=== PATIENT | female | born 1965 | race Caucasian/White ===

== ENCOUNTER 2017-01-01 22:57 | Inpatient (IN) ==
[2017-01-02] MEDS ORDERED: 0.9 % Sodium Chloride 1,000 ML IVC ONE (00:12)
[2017-01-02] MEDS ORDERED: Ondansetron ODT 4 MG TAB.RAPDIS SL ONE (00:12)
[2017-01-02 00:19] LABS: Basophils % 0.1 %; Eosinophils # 0.1 K/mcL (0.0-0.6); Eosinophils % 0.5 %; Hematocrit 28.7 % (35.3-44.9); Hemoglobin 10.3 g/dL (11.5-15.4); Immature Granulocytes % 0.9 % (0-4); Lymphocytes # 2.1 K/mcL (0.6-4.6); Lymphocytes % 10.7 %; Mean Corpuscular HGB Conc 35.9 g/dL (31.6-35.5); Mean Corpuscular Hemoglobin 31.3 pg (28.0-33.3); Mean Corpuscular Volume 87.2 fL (83.0-100.0); Monocytes # 1.4 K/mcL (0.0-1.3); Monocytes % 6.9 %; Neutrophils # 16.2 K/mcL (1.6-8.9); Platelet Count 473 K/mcL (140-400); Red Blood Count 3.29 M/mcL (3.82-4.97); Red Cell Distribution Width 15.8 % (11.5-14.5); Segmented Neutrophils % 80.9 %
[2017-01-02 00:26] LABS: Bilirubin,Urine Small (Negative); Blood,Urine Moderate (Negative); Clarity,Urine Clear (Clear); Color,Urine Yellow (Yellow); Glucose,Urine (UA) Normal (Normal); Ketones,Urine Negative (Negative); Leukocyte Esterase,Urine Trace (Negative); Nitrite,Urine Negative (Negative); PH,Urine 6.5 pH Units (5.0-8.0); Protein,Urine 100 mg/dL (Neg-Trace); Specific Gravity,Urine 1.017 (1.010-1.025); Urobilinogen,Urine Normal (Normal)
[2017-01-02 00:34] LABS: Alanine Aminotransferase 14 Units/L (0-55); Albumin 2.7 g/dL (3.5-5.0); Albumin/Globulin Ratio 0.5 (1.1-2.2); Alkaline Phosphatase 123 Units/L (38-126); Aspartate Amino Transferase 30 Units/L (5-34); BUN/Creatinine Ratio 9 (6-26); Bilirubin,Direct 0.3 mg/dL (0.0-0.5); Bilirubin,Indirect 0.3 mg/dL (0.0-1.2); Bilirubin,Total 0.6 mg/dL (0.2-1.2); Blood Urea Nitrogen 10 mg/dL (7-20); Calcium 9.8 mg/dL (8.6-10.8); Carbon Dioxide 12 mEq/L (19-29); Chloride 110 mEq/L (98-109); Globulin 5.6 g/dL (2.4-3.5); Glucose 112 mg/dL (70-99); Lipase 1134 Units/L (8-78); Osmolality,Calculated 276 (280-300); Sodium 133 mEq/L (136-145); Total Protein 8.3 g/dL (6.0-8.3); eGFR For African Americans > 60 (> 60); eGFR For Non-African Americans 52 (> 60)
[2017-01-02 00:38] LABS: RBC,Urine 15-30 per hpf (0-3)
[2017-01-02 00:39] LABS: Bacteria,Urine Moderate per hpf (None-Few); Potassium 1.9 mEq/L (3.5-4.5); Squamous Epithelial Cell,Urine Many per lpf (None-Few); Yeast,Urine Few per hpf (None Seen)
--- NOTE | 2017-01-02 00:41 | Emergency Department Note ---
Disposition Clinical Impression: Hypokalemia Constipation Qualifiers: Constipation type: unspecified constipation type Qualified Code(s): K59.00 - Constipation, unspecified Diverticulitis Qualifiers: Diverticulitis site: large intestine Diverticulitis bleeding: unspecified bleeding status Diverticulitis complication: without perforation or abscess Qualified Code(s): K57.32 - Diverticulitis of large intestine without perforation or abscess without bleeding Pancreatitis Qualifiers: Chronicity: acute Pancreatitis type: unspecified pancreatitis type Acute pancreatitis complication: no infection or necrosis Qualified Code(s): K85.90 - Acute pancreatitis without necrosis or infection, unspecified Disposition: Admitted As Inpatient Condition: Fair Time of Disposition: 02:06 Abdominal Pain HPI - General Chief Complaint: ED Abdominal Pain Stated Complaint: "Abd Pain/Weakness/Dehydration" Time Seen by Provider: 01/01/17 23:44 Source: patient Nursing Notes Reviewed: Yes Vital Signs Reviewed: Yes - History of Present Illness HPI Narrative: Mrs. Ching, a 51yo female, presents from home for evaluation of abdominal pain, nausea, vomiting. Patient notes she has no appetite, is unable to keep down solids or liquids and vomited back up. Her last bowel movement was sometime between 5 and 10 years ago because she is unable to further detailed timeline. Does have the urge to defecate but simply cannot. Unrelieved with suppository. Has not attempted any other by mouth medication. Abdominal pain is described as sharp and cramping in the left lower quadrant and hypogastrium. She has associated chills with no fever. No dysuria. PMH: Recovering from varicella zoster on right renal nerve V3 distribution. Anxiety, depression, osteoporosis, rheumatoid arthritis. PSH: No history of abdominal surgeries. ROS: Positive: Nausea, vomiting, anorexia, chills, abdominal pain, constipation, weakness Negative: Fever, diarrhea, back pains, dysuria, Pain Scale: 8 - Related Data Home Medications Medication Instructions Recorded Confirmed ALPRAZolam [Xanax 1 MG Tablet] 1 mg PO TID PRN 06/28/15 06/28/15 Celecoxib [Celebrex] 100 mg PO BID 06/28/15 06/28/15 FLUoxetine HCl [PROzac] 20 mg PO BID 06/28/15 06/28/15 HYDROcodone/Acet 10/325 mg [[place] 1 tab PO Q4-6H PRN MDD DO NOT 06/28/15 10-325 mg] EXCEED 5 TABS/24HRS Ibuprofen [Motrin] 800 mg PO Q8HR PRN 06/28/15 06/28/15 Norgestimate-Ethinyl Estradiol 1 tab PO DAILY 06/28/15 06/28/15 [[place] 28 Tablet] Potassium Chloride [K-Tab ER] 10 meq PO DAILY 06/28/15 06/28/15 Zolpidem [Ambien] 5 mg PO HS PRN 06/28/15 06/28/15 Previous Rx's Medication Instructions Recorded Magic Mouthwash [Magic Mouthwash 10 ml PO QID PRN #240 ml 12/06/16 BLM] Allergies Allergy/AdvReac Type Severity Reaction Status Date / Time tramadol Allergy See Verified 12/07/16 10:27 Comments All systems ED: reviewed and negative except as stated. Review of Systems: As Per HPI Abdominal Pain PMH - Past Medical History Medical history: Reports: arthritis, RA, other Female Surgical History: Reports: no surgical history [employer] history: Reports: non-contributory Psychiatric history: Reports: anxiety, depression - Social History Smoking status: Never smoker Alcohol use: Reports: none Drug use: Reports: prescription drug abuse Physical Exam Vital Signs Reviewed General: Patient is alert, oriented, and in moderate distress from her abdominal pain. HEENT: No facial asymmetry. Head is normocephalic and atraumatic. PERRL, EOMI. oral mucosa moist. Trachea midline. Cardiovascular: Heart regular rate and rhythm without clicks, rubs, gallops, or murmurs. No JVD. PMI nondisplaced. No edema. Bilateral radial and posterior tibial pulses 2/4 and equal.. Respiratory: Symmetric chest rise with good respiratory effort. Bilateral breath sounds are clear without wheezing, crackles, or rhonchi. Abdomen: Bowel sounds present normoactive x-4 quadrants. Abdomen is soft, nondistended. Tender in left lower quadrant and hypogastrium. Rebound tenderness. No organomegaly noted. Musculoskeletal: Muscle strength 5/5 and symmetric bilaterally in upper and lower extremities. Psych: Patient's affect is appropriate for situation. - General Limitations: no limitations General appearance: alert, in no apparent distress Course Course Narrative: Patient's presentation is concerning for abdominal pathology determined by physical exam. Will CT abdomen as well as perform a thorough laboratory workup. She denies any for analgesia at this time. Critical lab: Potassium 1.9. Replace potassium 40 mEq by mouth as well as 40 mEq IV on K rider given over 4 hours. Patient also has pancreatitis post on elevated lipase as well as with peripancreatic edema on CT. Unknown source as patient is nonalcoholic, does not have right upper quadrant pain or history of gallstones, and has no history of hyperlipidemia. 01:30 Patient reevaluated. She denies any analgesia. Discussed workup thus far in detail and she agrees for admission for continued evaluation. Assessment: Hypokalemia, pancreatitis, diverticulitis, suspicion for colon cancer I discussed the patient with admitting hospitalist, Dr. España, who agrees to accept the patient. Vital Signs Temperature 99.4 F 01/01/17 23:08 Pulse Rate 59 01/01/17 23:08 Respiratory Rate 18 01/01/17 23:08 Blood Pressure 114/70 01/01/17 23:08 O2 Sat by Pulse Oximetry 96 01/01/17 23:08 Temperature 99.4 F 01/01/17 23:08 Pulse Rate 62 01/02/17 02:13 Respiratory Rate 18 01/02/17 02:13 Blood Pressure 113/68 01/02/17 02:13 O2 Sat by Pulse Oximetry 100 01/02/17 02:13 Oxygen Delivery Oxygen Delivery Room Air Abdominal Pain - Lab Data Lab results reviewed: Yes I reviewed the patient's lab results. Result diagrams: 01/02/17 00:07 01/02/17 00:07 Lab Results 01/02/17 01/02/17 01/02/17 Range/Units 00:07 00:07 00:07 WBC 20.1 H (4.3-11.1) K/mcL RBC 3.29 L (3.82-4.97) M/mcL Hgb 10.3 L (11.5-15.4) g/dL Hct 28.7 L (35.3-44.9) % MCV 87.2 (83.0-100.0) fL MCH 31.3 (28.0-33.3) pg MCHC 35.9 H (31.6-35.5) g/dL RDW 15.8 H (11.5-14.5) % Plt Count 473 H (140-400) K/mcL MPV 10.0 (9.4-12.4) fL Immature Gran % 0.9 (0-4) % Seg Neutrophils % 80.9 % Lymphocytes % 10.7 % Monocytes % 6.9 % Eosinophils % 0.5 % Basophils % 0.1 % Neutrophils # 16.2 H (1.6-8.9) K/mcL Lymphocytes # 2.1 (0.6-4.6) K/mcL Monocytes # 1.4 H (0.0-1.3) K/mcL Eosinophils # 0.1 (0.0-0.6) K/mcL Basophils # 0.0 (0.0-0.2) K/mcL Sodium 133 L (136-145) mEq/L Potassium 1.9 L* (3.5-4.5) mEq/L Chloride 110 H (98-109) mEq/L Carbon Dioxide 12 L (19-29) mEq/L BUN 10 (7-20) mg/dL Creatinine 1.11 (0.57-1.11) mg/dL Est GFR ( Amer) > 60 (> 60) Est GFR (Non-Af Amer) 52 L (> 60) BUN/Creatinine Ratio 9 (6-26) Glucose 112 H (70-99) mg/dL Calculated Osmolality 276 L (280-300) Calcium 9.8 (8.6-10.8) mg/dL Total Bilirubin 0.6 (0.2-1.2) mg/dL Direct Bilirubin 0.3 (0.0-0.5) mg/dL Indirect Bilirubin 0.3 (0.0-1.2) mg/dL AST 30 (5-34) Units/L ALT 14 (0-55) Units/L Alkaline Phosphatase 123 (38-126) Units/L Serum Total Protein 8.3 (6.0-8.3) g/dL Albumin 2.7 L (3.5-5.0) g/dL Globulin 5.6 H (2.4-3.5) g/dL Albumin/Globulin Ratio 0.5 L (1.1-2.2) Lipase 1134 H (8-78) Units/L Ur Specimen Adequacy See below A Urine Color Yellow (Yellow) Urine Clarity Clear (Clear) Urine pH 6.5 (5.0-8.0) pH Units Ur Specific Anton 1.017 (1.010-1.025) Urine Protein 100 H (Neg-Trace) mg/dL Urine Glucose (UA) Normal (Normal) mg/dL Urine Ketones Negative (Negative) mg/dL Urine Blood Moderate H (Negative) Urine Nitrite Negative (Negative) Urine Bilirubin Small H (Negative) Urine Urobilinogen Normal (Normal) mg/dL Ur Leukocyte Esterase Trace H (Negative) Urine Microscopic RBC 15-30 H (0-3) per hpf Urine Microscopic WBC 3-5 H (0-3) per hpf Ur Squamous Epith Cells Many H (None-Few) per lpf Urine Bacteria Moderate H (None-Few) per hpf Hyaline Casts Test Not Performed Urine Yeast Few H (None Seen) per hpf Ur Culture Indicated? YES A (NO) - Radiology Data Radiology results reviewed: Yes I reviewed the patient's radiology results. Chest/Abdomen X-ray 01/02/17 00:12 IMPRESSION: [id number] stool load consistent with constipation. No acute cardiopulmonary disease. Bilateral cervical ribs D/ / Von Toure MD / Von Toure MD Interpreting Provider: Von Toure MD Abdomen/Pelvis CT 01/02/17 00:22 IMPRESSION: Acute pancreatitis with small amount of fluid surrounding the tail. There is appears to be some enhancement along the periphery which may be due to peritoneal inflammation. No walled-off fluid collection identified. There is mild wall thickening and adjacent inflammatory change surrounding the proximal sigmoid. This is nonspecific and may be related to mild diverticulitis. Follow-up recommended as malignancy can have a similar appearance. Moderate stool burden suggestive of constipation. D/ / Rachelle De La Torre MD / Rachelle De La Torre MD Interpreting Provider: Rachelle De La Torre MD Critical Care Time Critical Care Time: Yes Total Critical Care Time: 40 Attestation: Critical care performed: Time is exclusive of separately billable procedures. Time includes: direct patient care, patient reassessment, coordination of patient care, interpretation of data (laboratory data, radiology data, and respiratory data), review of patient's medical records, medical consultation and documentation of patient care. Procedures included in critical care time: Procedures excluded from critical care time: Attestation Statement - Attestation Attestation: I, Truman Lee MD, personally evaluated this patient and discussed their management with the resident physician. I reviewed the resident's note and agree with the documented findings, medical decision making, and plan of care. 51-year-old female presents to the emergency department with a complaint of abdominal pain and nausea and vomiting for one month prior to arrival. Patient developed shingles about one month ago and was admitted to the hospital in [place]. Ever since then she states that she has had nausea and vomiting and abdominal pain. Decreased bowel movements. No fever. No GI bleed symptoms. No UTI symptoms. On examination patient is a well-developed well-nourished well-appearing female in no acute distress. She is alert and oriented 3. There is no cyanosis or diaphoresis. Breath sounds are clear and equal bilaterally. Heart regular rate and rhythm. Abdomen is soft with normal bowel sounds. There is mild to moderate diffuse abdominal tenderness with no guarding or rebound tenderness. No tympany or distention. No obvious organomegaly or masses palpable. Labs reviewed. WBC 20. Potassium 1.9. Lipase 1134. CT of the abdomen and pelvis with IV contrast shows: Acute pancreatitis with small amount of fluid surrounding the tail. There is appears to be some enhancement along the periphery which may be due to peritoneal inflammation. No walled-off fluid collection identified. There is mild wall thickening and adjacent inflammatory change surrounding the proximal sigmoid. This is nonspecific and may be related to mild diverticulitis. Follow-up recommended as malignancy can have a similar appearance. Moderate stool burden suggestive of constipation. The hospitalist, Dr. España, was consulted and accepted admission of the patient.
[2017-01-02] MEDS ORDERED: MetroNIDAZOLE 500 MG/100 ML 500 MG/100 ML BAG IVPB ONE (01:56)
[2017-01-02] MEDS ORDERED: *HR* HYDROmorphone (PF) 1 MG/ML SYRINGE IVP ONE (02:27)
[2017-01-02] MEDS ORDERED: *HR* HYDROmorphone (PF) 1 MG/ML SYRINGE ONE (02:31)
[2017-01-02] MEDS ORDERED: 0.9 % Sodium Chloride 500 ML ONE (03:23)
[2017-01-02] MEDS ORDERED: Naloxone 0.4 MG/ML INJ IVP PRN (03:55)
[2017-01-02] MEDS ORDERED: Acetaminophen 325 MG TABLET PO PRN (03:55)
[2017-01-02] MEDS ORDERED: Sennosides/Docusate Sodium TABLET PO PRN (03:55)
[2017-01-02] MEDS ORDERED: Lactulose Oral Soln 20 GM/30 ML UDC PO ONE (03:55)
--- NOTE | 2017-01-02 04:05 | Internal Med History&Physical ---
<John Howard - Last Filed: 01/02/17 05:44> Date of Encounter: 01/02/17 Time of Encounter: 04:04 Assessment and Plan (1) Pancreatitis Current visit: Yes Status: Acute - As seen on abdominal CT - Possible etiology of immune given reported history of Sjogrens syndrome and RA vs less likely VZV - No reported alcohol abuse aside from a 1 month binge drinking behavior multiple years ago. - AL IgG level pending. - Pain control, NPO, NS Qualifiers: Chronicity: acute Pancreatitis type: unspecified pancreatitis type Acute pancreatitis complication: no infection or necrosis Qualified Code(s): K85.90 - Acute pancreatitis without necrosis or infection, unspecified (2) Hypokalemia Current visit: Yes Status: Acute - K of 1.9 in ED - started 40 mEq in ED - Monitor daily labs and replenish as necessary. Magnesium pending - Possible etiology of vomiting, decreased oral intake. (3) Constipation Current visit: Yes Status: Acute - Moderate amount of stool seen on CT. - Pt states last BM one month ago, however states she is unsure. - Possible opiod side effect given home norco use as well as decreased oral intake. - Miralax, lactulose, enema, and docusate - Monitor for effect given opiod use for pancreatitis pain control. Qualifiers: Constipation type: unspecified constipation type Qualified Code(s): K59.00 - Constipation, unspecified (4) Diverticulitis Current visit: Yes Status: Acute - Abdominal CT showing mild wall thickening and adjacent inflammatory change surrounding the proximal sigmoid. nonspecific and may be related to mild diverticulitis vs malignancy. - No known history of diverticulosis - No reported colonoscopy, history of colon cancer in family - Will need colonoscopy as outpatient. Pt made aware. Qualifiers: Diverticulitis site: large intestine Diverticulitis bleeding: unspecified bleeding status Diverticulitis complication: without perforation or abscess Qualified Code(s): K57.32 - Diverticulitis of large intestine without perforation or abscess without bleeding (5) DVT prophylaxis Current visit: Yes Status: Acute Heparin 5000 units q12 Internal Medicine - H&P: HPI Chief complaint: Abdominal pain Admitted From: Emergency Dept Plans for Post Hospital Care: Home History of present illness: Ms. Ching is a 51 year old female who presents to ED with a complaint of abdominal pain, nausea, vomiting, constipation for the past month. She states that everything started when she was diagnosed with shingles in her right V3 distribution involving her ear and mouth. She states that she was admitted to [facility] and completed her course of acyclovir. She is unsure on the exact timeline, but states she has had epigastric and LLQ abdominal pain. Epigastric pain radiates to the LLQ. She admits to nausea and vomiting intermittently, worsened with meals. She reports about 4 episodes of emesis each day. She reports decreased appetite and also states she hasn't had a bowel movement in the past month either. No reports of hematochezia, hematemasis, melena. Also denies any symptoms of CP, SOB, fevers, chills, diarrhea. She has tried suppositories with no relief of constipation. In the ED, vital signs significant for temp of 99.4. Labs show elevated WBC of 20.1, K of 1.9, Lipase 1134, UA showing WBCs but many epithelial cells. Abdominal CT significant for acute hepatits without biliary stone or blockage, moderate stool. She was given 40 mEq of K in ED. Past Med Surg Social Fam HX - Past Medical History Medical history: arthritis, RA, other (sjogrens syndrome) Psychiatric history: anxiety, depression - Past Surgical History Surgical History: no surgical history - Social History Smoking Status: Never smoker Smokeless Tobacco Status: No Alcohol use: none Drug use: prescription drug abuse - Family History Mother Hx Family Cancer: Yes (leukemia, lung) Internal Medicine - H&P: Meds ALPRAZolam [Xanax 1 MG Tablet] 1 mg PO TID PRN 06/28/15 [History] Celecoxib [Celebrex] 100 mg PO BID 06/28/15 [History] FLUoxetine HCl [PROzac] 20 mg PO BID 06/28/15 [History] HYDROcodone/Acet 10/325 mg [[place] 10-325 mg] 1 tab PO Q4-6H PRN MDD DO NOT EXCEED 5 TABS/24HRS 06/28/15 [History] Ibuprofen [Motrin] 800 mg PO Q8HR PRN 06/28/15 [History] Norgestimate-Ethinyl Estradiol [Mononessa 28 Tablet] 1 tab PO DAILY 06/28/15 [ History] Potassium Chloride [K-Tab ER] 10 meq PO DAILY 06/28/15 [History] Zolpidem [Ambien] 5 mg PO HS PRN 06/28/15 [History] Magic Mouthwash [Magic Mouthwash BLM] 10 ml PO QID PRN #240 ml 12/06/16 [Rx] 3 Allergy/AdvReac Type Severity Reaction Status Date / Time tramadol Allergy See Verified 12/07/16 10:27 Comments All Systems PM: A 10-system review of systems was performed and is negative for pertinent findings except as documented above in the HPI. - Constitutional Constitutional: no chills, no fatigue, no fever(s), no night sweats, no weight gain, no weight loss - EENT Nose, mouth and throat: facial pain - Cardiovascular Cardiovascular ROS IM: no chest pain, no dyspnea, no dyspnea on exertion, no edema - Respiratory Respiratory: no cough, no dyspnea, no dyspnea on exertion - Gastrointestinal Gastrointestinal: abdominal pain, change in bowel habits, constipation, early satiety, nausea, vomiting, no coffee ground emesis, no diarrhea, no hematemesis , no hematochezia, no melena - Genitourinary Genitourinary: no dysuria - Musculoskeletal Musculoskeletal ROS IM: no numbness, no tingling - Integumentary Integumentary IM: as per HPI, no new lesions, no rash - Constitutional Vitals: Temp Pulse Resp BP Pulse Ox 98.1 F 62 16 122/85 99 01/02/17 03:02 01/02/17 03:02 01/02/17 03:02 01/02/17 03:02 01/02/17 03:02 Exam: Gen.: Vitals noted. No acute distress. AAOx3 HEENT: PERRL, oropharynx clear, Normocephalic, atraumatic, dry mucus membranes, healing ulcerative lesion on right jawline. Cardiac: RRR, no murmur, +S1/S2 Pulmonary: CTA bilaterally, no wheezes, rales or rhonchi, equal chest expansion Abdomen: soft ,BS+, tender to palpation diffusely, equal in all quadrants. No rebound tenderness or distention. MSK: no joint swelling noted Extremities: no BLE edema, nontender calf, no cyanosis or clubbing Neuro: A&Ox3, moves all extremities, no focal deficits Psych: Appropriate mood and behavior Internal Med - H&P Results - Labs CBC & Chem 7: 01/02/17 00:07 01/02/17 00:07 <Ian España - Last Filed: 01/02/17 06:24> Date of Encounter: 01/02/17 Internal Medicine - H&P: HPI History of present illness: Ms. Ching is a 51 year old female Past Med Surg Social Fam HX - Additional Family History Additional family history: she suspects that her mother had sjogrens syndrome, paternal grand father had rheumatoid arthritis, her niece of the same age has sjogrens syndrome/SLE overlap All Systems PM: A 10-system review of systems was performed and is negative for pertinent findings except as documented above in the HPI. - Constitutional Vitals: Temp Pulse Resp BP Pulse Ox 98.1 F 62 16 122/85 99 01/02/17 03:02 01/02/17 03:02 01/02/17 03:02 01/02/17 03:02 01/02/17 04:27 herpetic lesions noted on the right side of the face involving the lips Internal Med - H&P Results - Labs CBC & Chem 7: 01/02/17 00:07 01/02/17 04:50 Labs: BMP 01/02/17 04:50 Sodium 136 Potassium 1.8 L* Chloride 115 H Carbon Dioxide 13 L BUN 10 Creatinine 0.92 Glucose 89 Calcium 9.1 - Attending Attestation I personally interviewed and examined this patient and my medical decision- making was reviewed with the Resident Physician. I agree with the documented findings, disposition and treatment plan as described except to the extent set forth below. 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 Ian España MD, MPH Hospitalist
[2017-01-02] MEDS ORDERED: Milk and Molasses Enema 200 ML RC ONE (04:47)
[2017-01-02] MEDS: *HR* Heparin 5,000 UNIT/ML VIAL SQ SCH ×2 (05:01→18:41)
[2017-01-02] MEDS: 0.9 % Sodium Chloride 1,000 ML IVC SCH ×3 (05:02→20:08)
[2017-01-02 05:46] LABS: Basophils % 0.2 %; Eosinophils # 0.1 K/mcL (0.0-0.6); Eosinophils % 0.4 %; Hematocrit 26.6 % (35.3-44.9); Hemoglobin 9.4 g/dL (11.5-15.4); Immature Granulocytes % 0.7 % (0-4); Lymphocytes # 2.3 K/mcL (0.6-4.6); Lymphocytes % 12.8 %; Mean Corpuscular HGB Conc 35.3 g/dL (31.6-35.5); Mean Corpuscular Hemoglobin 31.4 pg (28.0-33.3); Mean Platelet Volume 10.1 fL (9.4-12.4); Monocytes # 1.4 K/mcL (0.0-1.3); Monocytes % 7.6 %; Platelet Count 425 K/mcL (140-400); Red Blood Count 2.99 M/mcL (3.82-4.97); Segmented Neutrophils % 78.3 %
[2017-01-02 06:09] LABS: BUN/Creatinine Ratio 11 (6-26); Blood Urea Nitrogen 10 mg/dL (7-20); Calcium 9.1 mg/dL (8.6-10.8); Carbon Dioxide 13 mEq/L (19-29); Chloride 115 mEq/L (98-109); Chol/HDL Ratio 6.1 (0-4.9); Cholesterol 134 mg/dL (< 200); Glucose 89 mg/dL (70-99); HDL Cholesterol 22 mg/dL (40-59); LDL Cholesterol,Calculated 92 mg/dL (0-99); Magnesium 1.6 mg/dL (1.6-2.6); Osmolality,Calculated 281 (280-300); Sodium 136 mEq/L (136-145); Triglycerides 100 mg/dL (< 150); eGFR For African Americans > 60 (> 60); eGFR For Non-African Americans > 60 (> 60)
[2017-01-02 06:59] LABS: Potassium 1.8 mEq/L (3.5-4.5)
[2017-01-02] MEDS: Ondansetron 4 MG/2 ML VIAL IVP PRN ×2 (07:04→15:21)
[2017-01-02] MEDS: *HR* HYDROmorphone (PF) 1 MG/ML SYRINGE IVP PRN ×2 (07:08→11:41)
[2017-01-02] MEDS: Potassium Chloride Elixir 20 MEQ/15 ML UDC PO SCH ×2 (07:59→20:06)
--- NOTE | 2017-01-02 09:50 | Event Note ---
Date of Encounter: 01/02/17 Time of Encounter: 08:40 Subjectively better. Nausea and pain are improving. Still has no appetite. Had single bowel movement of substantial size; formed, but loose per patient. Pain is still described as epigastric and LLQ. No other complaints at this time. Clarified code status with patient. PE: soft abdomen, tender to epigastrium/LLQ with some guarding, but no rebound/ rigidity/distention. Chief assessments: pancreatitis, constipation/NV, colitis/diverticulitis, and hypokalemia. Continues to by hypokalemic (1.9 this AM). Presently correcting PO and IV; will continue to monitor closely with repeat AM and afternoon labs. Mg++ normal. Gently advancing PO intake. Continue IV Abx (cipro & Flagyl). Continue IVF & analgesia Continue Miralax for constipation
[2017-01-02 10:31] LABS: BUN/Creatinine Ratio 10 (6-26); Blood Urea Nitrogen 9 mg/dL (7-20); Calcium 9.5 mg/dL (8.6-10.8); Carbon Dioxide 13 mEq/L (19-29); Chloride 116 mEq/L (98-109); Glucose 99 mg/dL (70-99); Osmolality,Calculated 283 (280-300); Sodium 137 mEq/L (136-145); eGFR For African Americans > 60 (> 60); eGFR For Non-African Americans > 60 (> 60)
[2017-01-02 10:37] LABS: Potassium 2.2 mEq/L (3.5-4.5)
[2017-01-02] MEDS: valACYclovir 500 MG TABLET PO SCH ×2 (14:11→20:06)
[2017-01-02] MEDS: MetroNIDAZOLE 500 MG/100 ML 500 MG/100 ML BAG IVPB SCH (16:24)
[2017-01-02] MEDS: *HR* HYDROcodone/Acet 5/325 mg TABLET PO PRN (18:49)
[2017-01-02] MEDS: FLUoxetine 20 MG CAPSULE PO SCH (20:07)
[2017-01-02] MEDS ORDERED: Magnesium Sulfate 2 GM in D5% in Water 100 ML IVPB ONE (23:44)
[2017-01-02] MEDS ORDERED: Potassium Chloride 40 MEQ, Lidocaine 1% 2 ML in D5% in Water 500 ML IVPB ONE (23:44)
[2017-01-03] MEDS: 0.9 % Sodium Chloride 1,000 ML IVC SCH ×3 (00:40→21:25)
[2017-01-03] MEDS: MetroNIDAZOLE 500 MG/100 ML 500 MG/100 ML BAG IVPB SCH ×4 (00:40→23:29)
[2017-01-03] MEDS: *HR* HYDROcodone/Acet 5/325 mg TABLET PO PRN ×3 (01:48→14:26)
[2017-01-03] MEDS: *HR* Heparin 5,000 UNIT/ML VIAL SQ SCH ×2 (05:17→20:16)
[2017-01-03 05:28] LABS: Basophils % 0.3 %; Eosinophils # 0.2 K/mcL (0.0-0.6); Hematocrit 21.9 % (35.3-44.9); Immature Granulocytes % 1.1 % (0-4); Lymphocytes # 2.6 K/mcL (0.6-4.6); Lymphocytes % 17.9 %; Mean Corpuscular HGB Conc 34.7 g/dL (31.6-35.5); Mean Corpuscular Hemoglobin 31.1 pg (28.0-33.3); Mean Corpuscular Volume 89.8 fL (83.0-100.0); Mean Platelet Volume 10.1 fL (9.4-12.4); Neutrophils # 10.7 K/mcL (1.6-8.9); Platelet Count 388 K/mcL (140-400); Red Blood Count 2.44 M/mcL (3.82-4.97); Red Cell Distribution Width 16.2 % (11.5-14.5); Segmented Neutrophils % 72.7 %
[2017-01-03 05:29] LABS: Hemoglobin 7.6 g/dL (11.5-15.4)
[2017-01-03 05:41] LABS: Calcium 8.2 mg/dL (8.6-10.8); Carbon Dioxide 11 mEq/L (19-29); Chloride 121 mEq/L (98-109); Glucose 112 mg/dL (70-99); Magnesium 2.2 mg/dL (1.6-2.6); Osmolality,Calculated 280 (280-300); Sodium 136 mEq/L (136-145); eGFR For African Americans > 60 (> 60); eGFR For Non-African Americans > 60 (> 60)
[2017-01-03 05:45] LABS: Potassium 2.4 mEq/L (3.5-4.5)
[2017-01-03 06:09] LABS: BUN/Creatinine Ratio 6 (6-26)
[2017-01-03 06:10] LABS: Blood Urea Nitrogen 5 mg/dL (7-20)
[2017-01-03] MEDS: *HR* HYDROmorphone (PF) 1 MG/ML SYRINGE IVP PRN ×3 (06:51→15:19)
[2017-01-03 08:31] LABS: Magnesium 2.1 mg/dL (1.6-2.6)
[2017-01-03 08:42] LABS: Potassium 2.4 mEq/L (3.5-4.5)
[2017-01-03 09:01] LABS: Phosphorous 0.9 mg/dL (2.3-4.7)
[2017-01-03] MEDS ORDERED: Sodium Phosphate 30 MMOL in D5% in Water 100 ML IVPB ONE (09:05)
[2017-01-03] MEDS: FLUoxetine 20 MG CAPSULE PO SCH ×2 (10:21→20:17)
[2017-01-03] MEDS: Potassium Chloride Elixir 20 MEQ/15 ML UDC PO SCH ×2 (10:22→20:14)
[2017-01-03] MEDS: valACYclovir 500 MG TABLET PO SCH ×3 (10:49→20:17)
[2017-01-03 12:46] LABS: Hematocrit 25.3 % (35.3-44.9); Hemoglobin 8.9 g/dL (11.5-15.4)
[2017-01-03 12:57] LABS: BUN/Creatinine Ratio 6 (6-26); Calcium 8.5 mg/dL (8.6-10.8); Chloride 120 mEq/L (98-109); Glucose 106 mg/dL (70-99); Osmolality,Calculated 280 (280-300); Sodium 136 mEq/L (136-145); eGFR For African Americans > 60 (> 60); eGFR For Non-African Americans > 60 (> 60)
[2017-01-03 12:58] LABS: Blood Urea Nitrogen 5 mg/dL (7-20)
[2017-01-03 13:00] LABS: Carbon Dioxide 10 mEq/L (19-29)
[2017-01-03] MEDS ORDERED: 0.9 % Sodium Chloride 1,000 ML IVC ONE (13:21)
[2017-01-03 14:15] LABS: Basophils # 0.1 K/mcL (0.0-0.2); Basophils % 0.3 %; Eosinophils # 0.2 K/mcL (0.0-0.6); Eosinophils % 0.9 %; Hematocrit 24.4 % (35.3-44.9); Hemoglobin 8.6 g/dL (11.5-15.4); Immature Granulocytes % 1.3 % (0-4); Lymphocytes # 2.2 K/mcL (0.6-4.6); Lymphocytes % 13.5 %; Mean Corpuscular HGB Conc 35.2 g/dL (31.6-35.5); Mean Corpuscular Hemoglobin 31.4 pg (28.0-33.3); Mean Corpuscular Volume 89.1 fL (83.0-100.0); Mean Platelet Volume 9.9 fL (9.4-12.4); Monocytes # 1.1 K/mcL (0.0-1.3); Neutrophils # 12.4 K/mcL (1.6-8.9); Platelet Count 413 K/mcL (140-400); Red Blood Count 2.74 M/mcL (3.82-4.97); Red Cell Distribution Width 16.4 % (11.5-14.5)
[2017-01-03 14:23] LABS: VBG HCO3 11 mEq/L (21-27); VBG PCO2 24 mmHg (41-51); VBG PH 7.25 pH Units (7.32-7.42); VBG PO2 119 mmHg (25-50)
[2017-01-03 14:28] LABS: Alanine Aminotransferase 13 Units/L (0-55); Albumin 2.2 g/dL (3.5-5.0); Albumin/Globulin Ratio 0.5 (1.1-2.2); Alkaline Phosphatase 103 Units/L (38-126); Aspartate Amino Transferase 26 Units/L (5-34); BUN/Creatinine Ratio 6 (6-26); Bilirubin,Total 0.4 mg/dL (0.2-1.2); Calcium 8.4 mg/dL (8.6-10.8); Chloride 121 mEq/L (98-109); Globulin 4.7 g/dL (2.4-3.5); Glucose 99 mg/dL (70-99); Osmolality,Calculated 281 (280-300); Sodium 137 mEq/L (136-145); Total Protein 6.9 g/dL (6.0-8.3); eGFR For African Americans > 60 (> 60); eGFR For Non-African Americans > 60 (> 60)
[2017-01-03 14:35] LABS: Blood Urea Nitrogen 5 mg/dL (7-20)
[2017-01-03 14:36] LABS: Carbon Dioxide 10 mEq/L (19-29)
[2017-01-03] MEDS ORDERED: 0.9 % Sodium Chloride 1,000 ML IVC SCH (15:15)
[2017-01-03 16:16] LABS: BUN/Creatinine Ratio 6 (6-26); Chloride 121 mEq/L (98-109); Glucose 88 mg/dL (70-99); Osmolality,Calculated 281 (280-300); Potassium 2.9 mEq/L (3.5-4.5); Sodium 137 mEq/L (136-145); eGFR For African Americans > 60 (> 60); eGFR For Non-African Americans > 60 (> 60)
[2017-01-03 16:21] LABS: VBG HCO3 11 mEq/L (21-27); VBG PCO2 31 mmHg (41-51); VBG PH 7.14 pH Units (7.32-7.42); VBG PO2 102 mmHg (25-50)
[2017-01-03 16:21] LABS: Blood Urea Nitrogen 5 mg/dL (7-20); Carbon Dioxide 10 mEq/L (19-29)
[2017-01-03] MEDS ORDERED: 0.9 % Sodium Chloride 1,000 ML ONE (16:46)
[2017-01-03] MEDS ORDERED: Ringers Solution, Lactated 1,000 ML IVC SCH (18:15)
[2017-01-03] MEDS: Ondansetron 4 MG/2 ML VIAL IVP PRN (20:16)
[2017-01-03 20:17] LABS: Hematocrit 22.7 % (35.3-44.9); Hemoglobin 8.2 g/dL (11.5-15.4)
[2017-01-03] MEDS: Sodium Bicarbonate 50 MEQ in 0.45 % Sodium Chloride 1,000 ML IVC SCH (21:51)
--- NOTE | 2017-01-03 23:16 | Internal Med Progress Note ---
Date of Encounter: 01/03/17 Time of Encounter: 09:13 - Assessment and plan (1) Pancreatitis Current Visit: Yes Status: Acute Assessment and plan: Continue IVF, keep NPO, Zofran and Dilaudid prn. Check RUQ U/S, delayed today as patient ate breakfast. Denies alcohol abuse. Check triglyceride level. Qualifiers: Chronicity: acute Pancreatitis type: unspecified pancreatitis type Acute pancreatitis complication: no infection or necrosis Qualified Code(s): K85.90 - Acute pancreatitis without necrosis or infection, unspecified (2) Diverticulitis Current Visit: Yes Status: Acute Assessment and plan: Cipro/Flagyl Qualifiers: Diverticulitis site: large intestine Diverticulitis bleeding: unspecified bleeding status Diverticulitis complication: without perforation or abscess Qualified Code(s): K57.32 - Diverticulitis of large intestine without perforation or abscess without bleeding (3) Hypokalemia Current Visit: Yes Status: Acute Assessment and plan: Renal function wnl, magnesium normal, she has no complaints of diarrhea. Likely decreased PO intake Currently being replaced with KCl IVPB, recheck at noon, check ekg (4) Hyperchloremic acidosis Current Visit: Yes Status: Acute Assessment and plan: Recheck BMP at noon, may need to switch IV fluids to 1/2 Normal saline. (5) Hypophosphatemia Current Visit: Yes Status: Acute Assessment and plan: Replace and recheck (6) DVT prophylaxis Current Visit: Yes Status: Acute - Subjective Interval history: Daughter is present at bedside. Patient feels significantly better. Admits abdominal pain still present. Denies fevers/chills, nausea/vomiting. She was scheduled for RUQ ultrasound this AM but patient accidentally ate a meal. - Constitutional Vitals: Temp Pulse Resp BP Pulse Ox 98.2 F 61 16 93/56 100 01/03/17 21:00 01/03/17 22:00 01/03/17 22:00 01/03/17 22:00 01/03/17 22:00 Exam: Gen: NAD HEENT: MM dry, multiple scabs along right side of face without purulence. CVS: RRR, radial pulses 2+ and equal bilaterally Lungs: CTAB Abd: Soft, + mid epigastric tenderness. Non-distended, normoactive bowel sounds. No guarding, no rebound rigidity, no peritoneal signs. Ext: no edema Internal Medicine: Result - Labs CBC & Chem 7: 01/03/17 20:04 01/03/17 15:41 Labs: Short CBC 01/03/17 01/03/17 01/03/17 Range/Units 04:45 12:27 13:53 WBC 14.6 H 16.1 H (4.3-11.1) K/mcL Hgb 7.6 L D 8.9 L 8.6 L (11.5-15.4) g/dL Hct 21.9 L 25.3 L 24.4 L (35.3-44.9) % Plt Count 388 413 H (140-400) K/mcL Neutrophils # 10.7 H 12.4 H (1.6-8.9) K/mcL 01/03/17 Range/Units 20:04 WBC (4.3-11.1) K/mcL Hgb 8.2 L (11.5-15.4) g/dL Hct 22.7 L (35.3-44.9) % Plt Count (140-400) K/mcL Neutrophils # (1.6-8.9) K/mcL BMP 01/02/17 01/03/17 01/03/17 22:58 04:45 08:07 Sodium 136 Potassium 2.4 L* 2.4 L* 2.4 L* Chloride 121 H Carbon Dioxide 11 L BUN 5 L Creatinine 0.80 Glucose 112 H Calcium 8.2 L 01/03/17 01/03/17 01/03/17 12:27 13:53 15:41 Sodium 136 137 137 Potassium 3.0 L 3.0 L 2.9 L Chloride 120 H 121 H 121 H Carbon Dioxide 10 L* 10 L* 10 L* BUN 5 L 5 L 5 L Creatinine 0.83 0.82 0.80 Glucose 106 H 99 88 Calcium 8.5 L 8.4 L 8.0 L Liver Function 01/03/17 Range/Units 13:53 Total Bilirubin 0.4 (0.2-1.2) mg/dL AST 26 (5-34) Units/L ALT 13 (0-55) Units/L Alkaline Phosphatase 103 (38-126) Units/L Albumin 2.2 L (3.5-5.0) g/dL Consult Discharge Plan - Plan Referrals: Rishabh,Chio Sarkar, ERIK [Primary Care Provider] -
[2017-01-04 01:37] LABS: BUN/Creatinine Ratio 7 (6-26); Calcium 7.4 mg/dL (8.6-10.8); Carbon Dioxide 14 mEq/L (19-29); Chloride 125 mEq/L (98-109); Glucose 78 mg/dL (70-99); Magnesium 1.4 mg/dL (1.6-2.6); Osmolality,Calculated 290 (280-300); Potassium 2.9 mEq/L (3.5-4.5); Sodium 142 mEq/L (136-145); eGFR For African Americans > 60 (> 60); eGFR For Non-African Americans > 60 (> 60)
[2017-01-04 01:42] LABS: Blood Urea Nitrogen 5 mg/dL (7-20)
[2017-01-04] MEDS ORDERED: Magnesium Sulfate 2 GM in D5% in Water 100 ML IVPB ONE (02:40)
[2017-01-04] MEDS: *HR* HYDROmorphone (PF) 1 MG/ML SYRINGE IVP PRN ×3 (03:39→16:10)
[2017-01-04 03:53] LABS: Basophils # 0.1 K/mcL (0.0-0.2); Basophils % 0.4 %; Eosinophils # 0.2 K/mcL (0.0-0.6); Eosinophils % 1.4 %; Hematocrit 23.2 % (35.3-44.9); Immature Granulocytes % 1.4 % (0-4); Lymphocytes # 1.9 K/mcL (0.6-4.6); Mean Corpuscular HGB Conc 34.5 g/dL (31.6-35.5); Mean Corpuscular Volume 89.9 fL (83.0-100.0); Mean Platelet Volume 9.8 fL (9.4-12.4); Monocytes # 0.8 K/mcL (0.0-1.3); Monocytes % 6.1 %; Neutrophils # 9.5 K/mcL (1.6-8.9); Platelet Count 428 K/mcL (140-400); Red Blood Count 2.58 M/mcL (3.82-4.97); Red Cell Distribution Width 16.7 % (11.5-14.5); Segmented Neutrophils % 75.7 %
[2017-01-04 03:56] LABS: VBG HCO3 13 mEq/L (21-27); VBG PCO2 28 mmHg (41-51); VBG PH 7.27 pH Units (7.32-7.42); VBG PO2 76 mmHg (25-50)
[2017-01-04 03:57] LABS: BUN/Creatinine Ratio 7 (6-26); Calcium 7.6 mg/dL (8.6-10.8); Carbon Dioxide 12 mEq/L (19-29); Chloride 124 mEq/L (98-109); Glucose 85 mg/dL (70-99); Osmolality,Calculated 293 (280-300); Potassium 2.8 mEq/L (3.5-4.5); Sodium 143 mEq/L (136-145); eGFR For African Americans > 60 (> 60); eGFR For Non-African Americans > 60 (> 60)
[2017-01-04 03:59] LABS: Blood Urea Nitrogen 5 mg/dL (7-20)
[2017-01-04] MEDS: *HR* Heparin 5,000 UNIT/ML VIAL SQ SCH ×2 (05:08→17:38)
[2017-01-04] MEDS ORDERED: Magnesium Sulfate 2 GM in D5% in Water 100 ML IVPB PRN ×2 (06:22→14:25)
[2017-01-04] MEDS ORDERED: Potassium Phosphate 44 MEQ in 0.9 % Sodium Chloride 250 ML IVPB PRN ×2 (06:22→14:25)
[2017-01-04] MEDS ORDERED: Calcium Gluconate 1,000 MG in D5% in Water 100 ML IVPB PRN ×2 (06:22→14:25)
[2017-01-04] MEDS: Sodium Bicarbonate 50 MEQ in 0.45 % Sodium Chloride 1,000 ML IVC SCH (07:24)
[2017-01-04] MEDS: 0.9 % Sodium Chloride 1,000 ML IVC SCH (07:25)
[2017-01-04 09:11] LABS: Ionized Calcium 1.13 mmol/L (1.15-1.35)
[2017-01-04] MEDS: valACYclovir 500 MG TABLET PO SCH ×3 (09:12→20:13)
[2017-01-04] MEDS: FLUoxetine 20 MG CAPSULE PO SCH ×2 (09:12→20:12)
[2017-01-04] MEDS: Potassium Chloride Elixir 20 MEQ/15 ML UDC PO SCH (09:12)
[2017-01-04 09:18] LABS: BUN/Creatinine Ratio 5 (6-26); Calcium 7.7 mg/dL (8.6-10.8); Carbon Dioxide 13 mEq/L (19-29); Chloride 122 mEq/L (98-109); Glucose 87 mg/dL (70-99); Osmolality,Calculated 290 (280-300); Potassium 2.9 mEq/L (3.5-4.5); Sodium 142 mEq/L (136-145); eGFR For African Americans > 60 (> 60); eGFR For Non-African Americans > 60 (> 60)
[2017-01-04 09:19] LABS: Blood Urea Nitrogen 4 mg/dL (7-20); Phosphorous 1.9 mg/dL (2.3-4.7)
[2017-01-04] MEDS: MetroNIDAZOLE 500 MG/100 ML 500 MG/100 ML BAG IVPB SCH ×2 (09:22→17:38)
--- NOTE | 2017-01-04 09:24 | Pulmonology Consult Note ---
<Elizabeth Webb M - Last Filed: 01/04/17 09:52> Date of Encounter: 01/04/17 Medications and Allergies HYDROcodone/Acet 10/325 mg [[place] 10-325 mg] 1 tab PO Q4-6H PRN MDD DO NOT EXCEED 5 TABS/24HRS 06/28/15 [History] Ibuprofen [Motrin] 800 mg PO Q8HR PRN 06/28/15 [History] Norgestimate-Ethinyl Estradiol [Mononessa 28 Tablet] 1 tab PO DAILY 06/28/15 [ History] Potassium Chloride [K-Tab ER] 10 meq PO DAILY 06/28/15 [History] Zolpidem [Ambien] 5 mg PO HS PRN 06/28/15 [History] Cetirizine HCl [All Day Allergy] 10 mg PO DAILY 01/02/17 [History] FLUoxetine HCl [Fluoxetine HCl] 40 mg PO BID 01/02/17 [History] Propranolol [Inderal] 20 mg PO BID 01/02/17 [History] Quetiapine Fumarate [Seroquel] 50 mg PO BID 01/02/17 [History] Quetiapine Fumarate [Seroquel] 100 mg PO HS 01/02/17 [History] hydrOXYzine HCl [Hydroxyzine HCl] 25 mg PO Q8H PRN 01/02/17 [History] valACYclovir [Valtrex] 1,000 mg PO TID 01/02/17 [History] 3 Allergy/AdvReac Type Severity Reaction Status Date / Time tramadol Allergy See Verified 12/07/16 10:27 Comments All Systems: A 10-system review of systems was performed and is negative for pertinent findings except as documented above in the HPI. Physical Examination Vital Signs: Vital Signs, Last 4 Hours Temp Pulse Resp BP Pulse Ox 01/04/17 08:04 98.8 F 01/04/17 07:00 77 22 93/58 100 01/04/17 06:00 64 18 105/56 100 Results - Laboratory Findings CBC and BMP: 01/04/17 03:37 01/04/17 08:58 Abnormal lab findings: Abnormal lab results WBC 12.6 K/mcL (4.3-11.1) H 01/04/17 03:37 RBC 2.58 M/mcL (3.82-4.97) L 01/04/17 03:37 Hgb 8.0 g/dL (11.5-15.4) L 01/04/17 03:37 Hct 23.2 % (35.3-44.9) L 01/04/17 03:37 RDW 16.7 % (11.5-14.5) H 01/04/17 03:37 Plt Count 428 K/mcL (140-400) H 01/04/17 03:37 Neutrophils # 9.5 K/mcL (1.6-8.9) H 01/04/17 03:37 VBG pH 7.27 pH Units (7.32-7.42) L 01/04/17 03:49 VBG pCO2 28 mmHg (41-51) L 01/04/17 03:49 VBG pO2 76 mmHg (25-50) H 01/04/17 03:49 VBG HCO3 13 mEq/L (21-27) L 01/04/17 03:49 Potassium 2.9 mEq/L (3.5-4.5) L 01/04/17 08:58 Chloride 122 mEq/L (98-109) H 01/04/17 08:58 Carbon Dioxide 13 mEq/L (19-29) L 01/04/17 08:58 BUN 4 mg/dL (7-20) L 01/04/17 08:58 BUN/Creatinine Ratio 5 (6-26) L 01/04/17 08:58 Calcium 7.7 mg/dL (8.6-10.8) L 01/04/17 08:58 Ionized Calcium 1.13 mmol/L (1.15-1.35) L 01/04/17 08:58 Phosphorus 1.9 mg/dL (2.3-4.7) L D 01/04/17 08:58 Albumin 2.2 g/dL (3.5-5.0) L 01/03/17 13:53 Globulin 4.7 g/dL (2.4-3.5) H 01/03/17 13:53 Albumin/Globulin Ratio 0.5 (1.1-2.2) L 01/03/17 13:53 HDL Cholesterol 22 mg/dL (40-59) L 01/02/17 04:50 Cholesterol/HDL Ratio 6.1 (0-4.9) H 01/02/17 04:50 Lipase 1134 Units/L (8-78) H 01/02/17 00:07 Ur Specimen Adequacy See below A 01/02/17 00:07 Urine Protein 100 mg/dL (Neg-Trace) H 01/02/17 00:07 Urine Blood Moderate (Negative) H 01/02/17 00:07 Urine Bilirubin Small (Negative) H 01/02/17 00:07 Ur Leukocyte Esterase Trace (Negative) H 01/02/17 00:07 Urine Microscopic RBC 15-30 per hpf (0-3) H 01/02/17 00:07 Urine Microscopic WBC 3-5 per hpf (0-3) H 01/02/17 00:07 Ur Squamous Epith Cells Many per lpf (None-Few) H 01/02/17 00:07 Urine Bacteria Moderate per hpf (None-Few) H 01/02/17 00:07 Urine Yeast Few per hpf (None Seen) H 01/02/17 00:07 Ur Culture Indicated? YES (NO) A 01/02/17 00:07 - Clinical Findings Intake & Output: Intake & Output 01/03/17 01/04/17 01/04/17 23:59 07:59 15:59 Intake Total 750 / 750 1813 / 1813 Output Total 250 / 250 600 / 600 Balance 500 / 500 1213 / 1213 Weight 74.8 kg Consult Discharge Plan - Plan Referrals: Chio Keating CNP [Primary Care Provider] - - Attending Attestation I examined this patient and my medical decision-making was reviewed with the Resident Physician. I agree with the documented findings, disposition and treatment plan as described except to the extent set forth below. Patient seen and examined. Labs, radiology, chart personally reviewed. 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 Patient has been having abdominal pain and she is nothing by mouth for ultrasound. Continue supportive care and she will need GI follow-up. Heme: DVT prophylaxis per routine ID: Continue antibiotics and plan to de-escalation Renal; urine out put and renal funtion reviewed. Patient has been having significant hypokalemia and patient needs to be on electrolyte protocol with aggressively replacing Electrolyte. Patient Is on Bicarbonate Drip Which I Will Stop It Because of Hypokalemia and Have Fluid with Potassium in It. Endorcine: blood glucose is monitored Lines: all lines checked and no evidence of infections Skin: skin care to prevent pressure ulcers per nursing routine care Patient hemodynamically stable to be transferred to [facility]. and thank you very much for consultation. <Annita Murray - Last Filed: 01/04/17 13:27> Date of Encounter: 01/04/17 Time of Encounter: 09:24 Assessment and Plan (1) Hypokalemia Current Visit: Yes Status: Acute We have d/c Bicarb drip, to prohibit further lowering of K Currently on 1 L of D5W/40 meq K , and will switch to LR Recheck K with BMP this afternoon (2) Diverticulitis Current Visit: Yes Status: Acute CT demonstrated mild wall thickening and adjacent inflammatory change surrounding the proximal sigmoid, which is nonspecific and may be related to mild diverticulitis. Continue fluids and medical management Qualifiers: Diverticulitis site: large intestine Diverticulitis bleeding: unspecified bleeding status Diverticulitis complication: without perforation or abscess Qualified Code(s): K57.32 - Diverticulitis of large intestine without perforation or abscess without bleeding (3) Pancreatitis Current Visit: Yes Status: Acute Clinically patient's status has improved: BIPAP Score 0, suggestive < 1 % risk of mortality HAPS SCORE - No peritonitis signs on PE this AM - Creatinine < 2 mg/ dL - Hemotcrit < 39.6% - U/S gallbladder pending, NPO - Patient may use ice chips while on NPO to keep oral mucosa moist, given history of Sjogren's Patient stable to be transferred from ICU Qualifiers: Chronicity: acute Pancreatitis type: unspecified pancreatitis type Acute pancreatitis complication: no infection or necrosis Qualified Code(s): K85.90 - Acute pancreatitis without necrosis or infection, unspecified (4) Hypophosphatemia Current Visit: Yes Status: Acute Electrolyte protocol orders in place Replete as needed (5) Anxiety disorder Current Visit: No Status: Chronic Continue Home Medications Qualifiers: Anxiety disorder type: unspecified anxiety disorder Qualified Code(s): F41.9 - Anxiety disorder, unspecified (6) Herpes zoster Current Visit: Yes Status: Resolved Diagnosis in past month, is status post full course of acyclovir treatment Distribution in right V3 distribution involving her ear and mouth Continue Valacylovir Qualifiers: Herpes zoster complications: unspecified herpes zoster complication Qualified Code(s): B02.8 - Zoster with other complications (7) DVT prophylaxis Current Visit: Yes Status: Acute SCD compression History of Present Illness Consult date: 01/04/17 Requesting physician: Alejo Pendleton Reason for consult: other (Metabolic Acidosis) Chief complaint: Acute Pancreatitis History of present illness: Ms. Ching is a 51 year old female who presents to ED with a complaint of abdominal pain, nausea, vomiting, constipation for the past month concomitant with a diagnosis of shingles in her right V3 distribution involving her ear and mouth, she is now s/p acyclovir. In the ED, vital signs significant for temp of 99.4. Labs show elevated WBC of 20.1, K of 1.9, Lipase 1134, UA showing WBCs but many epithelial cells. Abdominal CT demonstrated acute pancreatitis with small amount of fluid surrounding the tail. There appears to be some enhancement along the periphery which may be due to peritoneal inflammation. Past Med Surg Social Fam HX - Past Medical History Medical history: arthritis, RA, other (sjogrens syndrome) Psychiatric history: anxiety, depression - Past Surgical History Surgical History: no surgical history - Social History Smoking Status: Never smoker Smokeless Tobacco Status: No Alcohol use: none Drug use: prescription drug abuse - Family History Mother Hx Family Cancer: Yes (leukemia, lung) All Systems: A 10-system review of systems was performed and is negative for pertinent findings except as documented above in the HPI. - Constitutional Constitutional: no anorexia - Cardiovascular Cardiovascular: no chest pain - Respiratory Respiratory: no cough - Gastrointestinal Gastrointestinal: no abdominal pain - Musculoskeletal Musculoskeletal: no weakness Physical Examination Vital Signs: Vital Signs, Last 4 Hours Temp Pulse Resp BP Pulse Ox 01/04/17 08:04 98.8 F 01/04/17 07:00 77 22 93/58 100 01/04/17 06:00 64 18 105/56 100 General appearance: no acute distress Eyes: nonicteric ENT: oropharynx dry Neck: supple Effort: normal Auscultation: bilateral: clear Cardiovascular: regular rate and rhythm Gastrointestinal: normoactive bowel sounds, soft, non-distended, other (no rebound tenderess ) Integumentary: other (healing lesions in distribution of V3) Extremities: no edema non-focal exam mood appropriate Results - Laboratory Findings CBC and BMP: 01/04/17 03:37 01/04/17 08:58 Abnormal lab findings: Abnormal lab results WBC 12.6 K/mcL (4.3-11.1) H 01/04/17 03:37 RBC 2.58 M/mcL (3.82-4.97) L 01/04/17 03:37 Hgb 8.0 g/dL (11.5-15.4) L 01/04/17 03:37 Hct 23.2 % (35.3-44.9) L 01/04/17 03:37 RDW 16.7 % (11.5-14.5) H 01/04/17 03:37 Plt Count 428 K/mcL (140-400) H 01/04/17 03:37 Neutrophils # 9.5 K/mcL (1.6-8.9) H 01/04/17 03:37 VBG pH 7.27 pH Units (7.32-7.42) L 01/04/17 03:49 VBG pCO2 28 mmHg (41-51) L 01/04/17 03:49 VBG pO2 76 mmHg (25-50) H 01/04/17 03:49 VBG HCO3 13 mEq/L (21-27) L 01/04/17 03:49 Potassium 2.9 mEq/L (3.5-4.5) L 01/04/17 08:58 Chloride 122 mEq/L (98-109) H 01/04/17 08:58 Carbon Dioxide 13 mEq/L (19-29) L 01/04/17 08:58 BUN 4 mg/dL (7-20) L 01/04/17 08:58 BUN/Creatinine Ratio 5 (6-26) L 01/04/17 08:58 Calcium 7.7 mg/dL (8.6-10.8) L 01/04/17 08:58 Ionized Calcium 1.13 mmol/L (1.15-1.35) L 01/04/17 08:58 Phosphorus 1.9 mg/dL (2.3-4.7) L D 01/04/17 08:58 Albumin 2.2 g/dL (3.5-5.0) L 01/03/17 13:53 Globulin 4.7 g/dL (2.4-3.5) H 01/03/17 13:53 Albumin/Globulin Ratio 0.5 (1.1-2.2) L 01/03/17 13:53 HDL Cholesterol 22 mg/dL (40-59) L 01/02/17 04:50 Cholesterol/HDL Ratio 6.1 (0-4.9) H 01/02/17 04:50 Lipase 1134 Units/L (8-78) H 01/02/17 00:07 Ur Specimen Adequacy See below A 01/02/17 00:07 Urine Protein 100 mg/dL (Neg-Trace) H 01/02/17 00:07 Urine Blood Moderate (Negative) H 01/02/17 00:07 Urine Bilirubin Small (Negative) H 01/02/17 00:07 Ur Leukocyte Esterase Trace (Negative) H 01/02/17 00:07 Urine Microscopic RBC 15-30 per hpf (0-3) H 01/02/17 00:07 Urine Microscopic WBC 3-5 per hpf (0-3) H 01/02/17 00:07 Ur Squamous Epith Cells Many per lpf (None-Few) H 01/02/17 00:07 Urine Bacteria Moderate per hpf (None-Few) H 01/02/17 00:07 Urine Yeast Few per hpf (None Seen) H 01/02/17 00:07 Ur Culture Indicated? YES (NO) A 01/02/17 00:07 - Clinical Findings Intake & Output: Intake & Output 01/03/17 01/04/17 01/04/17 23:59 07:59 15:59 Intake Total 750 / 750 1813 / 1813 Output Total 250 / 250 600 / 600 Balance 500 / 500 1213 / 1213 Weight 74.8 kg
[2017-01-04] MEDS ORDERED: Potassium Chloride 40 MEQ in D5% in 0.9% NACL 1,000 ML IVC SCH ×2 (09:30→14:25)
[2017-01-04] MEDS ORDERED: Ringers Solution, Lactated 1,000 ML IVC SCH (13:30)
[2017-01-04] MEDS ORDERED: Naloxone 0.4 MG/ML INJ IVP PRN (14:25)
[2017-01-04] MEDS ORDERED: Ondansetron 4 MG/2 ML VIAL IVP PRN (14:25)
[2017-01-04] MEDS ORDERED: Sennosides/Docusate Sodium TABLET PO PRN (14:25)
[2017-01-04] MEDS ORDERED: hydrOXYzine pamoate 25 MG CAPSULE PO PRN (14:25)
[2017-01-04] MEDS ORDERED: Acetaminophen 325 MG TABLET PO PRN (14:25)
[2017-01-04] MEDS: Meropenem 1,000 MG in 0.9 % Sodium Chloride Mini Bag 100 ML IVPB SCH (20:12)
[2017-01-04] MEDS ORDERED: Meropenem 1,000 MG in 0.9 % Sodium Chloride Mini Bag 100 ML IVPB SCH (21:00)
[2017-01-04] MEDS: Ringers Solution, Lactated 1,000 ML IVC SCH (22:00)
[2017-01-05] MEDS: MetroNIDAZOLE 500 MG/100 ML 500 MG/100 ML BAG IVPB SCH ×4 (00:43→23:13)
[2017-01-05 01:07] LABS: BUN/Creatinine Ratio 6 (6-26); Blood Urea Nitrogen 4 mg/dL (7-20); Calcium 7.8 mg/dL (8.6-10.8); Carbon Dioxide 13 mEq/L (19-29); Chloride 122 mEq/L (98-109); Glucose 85 mg/dL (70-99); Osmolality,Calculated 288 (280-300); Potassium 2.8 mEq/L (3.5-4.5); Sodium 141 mEq/L (136-145); eGFR For African Americans > 60 (> 60); eGFR For Non-African Americans > 60 (> 60)
[2017-01-05 01:55] LABS: Phosphorous 2.7 mg/dL (2.3-4.7)
[2017-01-05 03:46] LABS: Basophils % 0.3 %; Eosinophils # 0.2 K/mcL (0.0-0.6); Eosinophils % 1.6 %; Hemoglobin 7.2 g/dL (11.5-15.4); Immature Granulocytes % 0.9 % (0-4); Lymphocytes # 2.4 K/mcL (0.6-4.6); Lymphocytes % 20.6 %; Mean Corpuscular HGB Conc 34.3 g/dL (31.6-35.5); Mean Corpuscular Hemoglobin 30.6 pg (28.0-33.3); Mean Corpuscular Volume 89.4 fL (83.0-100.0); Mean Platelet Volume 9.9 fL (9.4-12.4); Monocytes # 0.7 K/mcL (0.0-1.3); Monocytes % 6.1 %; Neutrophils # 8.1 K/mcL (1.6-8.9); Platelet Count 390 K/mcL (140-400); Red Blood Count 2.35 M/mcL (3.82-4.97); Segmented Neutrophils % 70.5 %
[2017-01-05 03:59] LABS: BUN/Creatinine Ratio 4 (6-26); Calcium 7.8 mg/dL (8.6-10.8); Carbon Dioxide 14 mEq/L (19-29); Chloride 123 mEq/L (98-109); Glucose 80 mg/dL (70-99); Osmolality,Calculated 292 (280-300); Potassium 2.8 mEq/L (3.5-4.5); Sodium 143 mEq/L (136-145); eGFR For African Americans > 60 (> 60); eGFR For Non-African Americans > 60 (> 60)
[2017-01-05 04:00] LABS: Blood Urea Nitrogen 3 mg/dL (7-20)
[2017-01-05] MEDS: Meropenem 1,000 MG in 0.9 % Sodium Chloride Mini Bag 100 ML IVPB SCH ×3 (04:32→20:27)
[2017-01-05] MEDS: *HR* Heparin 5,000 UNIT/ML VIAL SQ SCH ×2 (04:34→16:44)
[2017-01-05] MEDS: Loratadine 10 MG TABLET PO SCH (09:01)
[2017-01-05] MEDS: FLUoxetine 20 MG CAPSULE PO SCH ×2 (09:01→20:28)
[2017-01-05] MEDS: NORGESTIMATE ETHINYL ESTRADIOL PO SCH (09:02)
[2017-01-05] MEDS: valACYclovir 500 MG TABLET PO SCH ×3 (09:02→20:28)
[2017-01-05] MEDS: Ringers Solution, Lactated 1,000 ML IVC SCH (09:18)
[2017-01-05] MEDS: *HR* HYDROmorphone (PF) 1 MG/ML SYRINGE IVP PRN ×3 (09:36→18:02)
[2017-01-05 09:40] LABS: BUN/Creatinine Ratio 6 (6-26); Calcium 8.2 mg/dL (8.6-10.8); Carbon Dioxide 13 mEq/L (19-29); Chloride 121 mEq/L (98-109); Glucose 84 mg/dL (70-99); Osmolality,Calculated 290 (280-300); Potassium 2.8 mEq/L (3.5-4.5); Sodium 142 mEq/L (136-145); eGFR For African Americans > 60 (> 60); eGFR For Non-African Americans > 60 (> 60)
[2017-01-05 09:41] LABS: Blood Urea Nitrogen 4 mg/dL (7-20)
[2017-01-05 10:01] LABS: ANA IgG by ELISA DETECTED (None Detected)
[2017-01-05 14:08] LABS: Hematocrit 22.8 % (35.3-44.9); Hemoglobin 7.8 g/dL (11.5-15.4)
[2017-01-05 14:17] LABS: Magnesium 1.6 mg/dL (1.6-2.6); Phosphorous 3.4 mg/dL (2.3-4.7)
[2017-01-05] MEDS: Artificial Tears SOLN 15 ML BOTTLE BOTH EYES SCH ×3 (15:09→20:29)
[2017-01-05] MEDS: D5% in 0.45% NACL w KCl 10 MEQ/1,000 ML MLS IVC SCH (16:42)
--- NOTE | 2017-01-05 17:06 | Electrocardiograph Report ---
[address] [place] [address] Test Date: 2017-01-03 Pat Name: Ana Ching Department: 115 Room: 2N10 Gender: F Senior Analyst: CAROL : 1965 Requested By: Lincoln Pendleton Order Number: [id number] Reading MD: Julisa Rucker Measurements Intervals [place] Rate: 62 P: 57 [place]: 151 QRS: 38 QRSD: 97 T: 29 QT: 467 QTc: 473 Interpretive Statements SINUS RHYTHM ST DEVIATION AND MODERATE T-WAVE ABNORMALITY, CONSIDER ANTEROLATERAL ISCHEMIA Electronically Signed On 01-05-2017 17:04:42 EDT by Julisa Rucker
--- NOTE | 2017-01-05 19:42 | Internal Med Progress Note ---
Date of Encounter: 01/05/17 Time of Encounter: 11:03 - Assessment and plan (1) Acute gallstone pancreatitis Current Visit: Yes Status: Acute Assessment and plan: CT Abdomen/Pelvis was negative for stones. A RUQ ultrasound was delayed after patient ate a meal, but came back positive for cholelithiasis without GBW thickening and had negative Bob's sign on U/S. - Consult Surgery in AM - Keep NPO for now - Continue supportive care with IVF Chloride has remained elevated, will switch to 1/2NS for now and recheck BMP in AM. (2) Diverticulitis Current Visit: Yes Status: Acute Assessment and plan: On Flagyl. Qualifiers: Diverticulitis site: large intestine Diverticulitis bleeding: unspecified bleeding status Diverticulitis complication: without perforation or abscess Qualified Code(s): K57.32 - Diverticulitis of large intestine without perforation or abscess without bleeding (3) Hypokalemia Current Visit: Yes Status: Acute (4) Hyperchloremic acidosis Current Visit: Yes Status: Acute (5) Hypophosphatemia Current Visit: Yes Status: Acute (6) DVT prophylaxis Current Visit: Yes Status: Acute - Subjective Interval history: No complaints. Abdominal pain minimal, no n/v, diarrhea/constipation, fevers/ chills. - Constitutional Vitals: Temp Pulse Resp BP Pulse Ox 97.6 F 55 15 113/69 99 01/05/17 15:32 01/05/17 15:32 01/05/17 15:32 01/05/17 15:32 01/05/17 17:26 Exam: Gen: NAD, AAOx3 HEENT: MMM, crusted lesions of right perioral region now with bandages. CVS: RRR Lungs: CTAB Abd: soft, +TTP mid epigastric region, no guarding, no rebound tenderness, normal bowel sounds. Ext: no edema Internal Medicine: Result - Labs CBC & Chem 7: 01/05/17 13:50 01/05/17 13:50 Labs: Short CBC 01/05/17 01/05/17 Range/Units 03:04 13:50 WBC 11.6 H (4.3-11.1) K/mcL Hgb 7.2 L 7.8 L (11.5-15.4) g/dL Hct 21.0 L 22.8 L (35.3-44.9) % Plt Count 390 (140-400) K/mcL Neutrophils # 8.1 (1.6-8.9) K/mcL BMP 01/05/17 01/05/17 01/05/17 00:12 03:04 08:53 Sodium 141 143 142 Potassium 2.8 L 2.8 L 2.8 L Chloride 122 H 123 H 121 H Carbon Dioxide 13 L 14 L 13 L BUN 4 L 3 L 4 L Creatinine 0.68 0.68 0.72 Glucose 85 80 84 Calcium 7.8 L 7.8 L 8.2 L 01/05/17 13:50 Sodium Potassium 3.0 L Chloride Carbon Dioxide BUN Creatinine Glucose Calcium - VTE Documentation of Mechanical Device: Intermittent pneumatic compression device Consult Discharge Plan - Plan Referrals: Chio Keating CNP [Primary Care Provider] - (SENT WEB RQUEST ON 01-05-17 @ 0955)
[2017-01-06] MEDS: D5% in 0.45% NACL w KCl 10 MEQ/1,000 ML MLS IVC SCH ×2 (04:22→15:51)
[2017-01-06] MEDS: Meropenem 1,000 MG in 0.9 % Sodium Chloride Mini Bag 100 ML IVPB SCH ×2 (05:05→13:55)
[2017-01-06] MEDS: *HR* Heparin 5,000 UNIT/ML VIAL SQ SCH ×2 (05:06→17:38)
[2017-01-06 06:12] LABS: Basophils % 0.5 %; Eosinophils # 0.2 K/mcL (0.0-0.6); Eosinophils % 2.6 %; Hematocrit 22.1 % (35.3-44.9); Hemoglobin 7.6 g/dL (11.5-15.4); Immature Granulocytes % 0.9 % (0-4); Lymphocytes # 1.7 K/mcL (0.6-4.6); Lymphocytes % 19.9 %; Mean Corpuscular HGB Conc 34.4 g/dL (31.6-35.5); Mean Corpuscular Hemoglobin 31.9 pg (28.0-33.3); Mean Corpuscular Volume 92.9 fL (83.0-100.0); Mean Platelet Volume 9.8 fL (9.4-12.4); Monocytes # 0.5 K/mcL (0.0-1.3); Monocytes % 6.1 %; Nucleated Red Blood Cells 0.2 /100 WBC (0); Platelet Count 423 K/mcL (140-400); Red Blood Count 2.38 M/mcL (3.82-4.97); Red Cell Distribution Width 17.7 % (11.5-14.5)
[2017-01-06 06:23] LABS: BUN/Creatinine Ratio 7 (6-26); Carbon Dioxide 14 mEq/L (19-29); Chloride 122 mEq/L (98-109); Glucose 86 mg/dL (70-99); Osmolality,Calculated 291 (280-300); Potassium 2.9 mEq/L (3.5-4.5); Sodium 142 mEq/L (136-145); eGFR For African Americans > 60 (> 60); eGFR For Non-African Americans > 60 (> 60)
[2017-01-06 06:25] LABS: Blood Urea Nitrogen 5 mg/dL (7-20)
[2017-01-06] MEDS: *HR* HYDROmorphone (PF) 1 MG/ML SYRINGE IVP PRN ×4 (06:50→20:13)
[2017-01-06] MEDS: Loratadine 10 MG TABLET PO SCH (08:19)
[2017-01-06] MEDS: valACYclovir 500 MG TABLET PO SCH ×3 (08:19→20:13)
[2017-01-06] MEDS: FLUoxetine 20 MG CAPSULE PO SCH ×2 (08:20→20:12)
[2017-01-06] MEDS: NORGESTIMATE ETHINYL ESTRADIOL PO SCH (08:21)
[2017-01-06] MEDS: MetroNIDAZOLE 500 MG/100 ML 500 MG/100 ML BAG IVPB SCH (08:21)
[2017-01-06] MEDS: Artificial Tears SOLN 15 ML BOTTLE BOTH EYES SCH ×4 (08:36→20:13)
--- NOTE | 2017-01-06 09:51 | Internal Med Progress Note ---
<Peterson Spangler - Last Filed: 01/06/17 15:45> Date of Encounter: 01/06/17 Time of Encounter: 08:30 - Assessment and plan (1) Acute gallstone pancreatitis Current Visit: Yes Status: Acute Assessment and plan: CT Abdomen/Pelvis was negative for stones. A RUQ ultrasound was delayed after patient ate a meal, but came back positive for cholelithiasis without GBW thickening and had negative Bob's sign on U/S. Dr. Gordon consulted, patient lipase 134 (1134), will see pt, will likely wait for further drop of lipase prior to surgical intervention (likely out-patient) PT NPO for 12 hours as of 1000 Continue supportive care with IVF (2) Hyperchloremic acidosis Current Visit: Yes Status: Acute Assessment and plan: Chloride remains elevated 122 (121), switched to d5% 1/2 Normal saline. (3) Diverticulitis Current Visit: Yes Status: Acute Assessment and plan: Pt switched to Cipro/Meropenem Will monitor. Qualifiers: Diverticulitis site: large intestine Diverticulitis bleeding: unspecified bleeding status Diverticulitis complication: without perforation or abscess Qualified Code(s): K57.32 - Diverticulitis of large intestine without perforation or abscess without bleeding (4) Hypokalemia Current Visit: Yes Status: Acute Assessment and plan: Renal function wnl, magnesium normal, she has no complaints of diarrhea. Likely decreased PO intake Currently being replaced with KCl IVPB. (5) Hypophosphatemia Current Visit: Yes Status: Acute Assessment and plan: Replaced, WNL, monitoring. (6) DVT prophylaxis Current Visit: Yes Status: Acute Assessment and plan: On 5000U sq q12 - Subjective Interval history: Patient sitting comfortably, no complaints. No nausea/vomiting, mild epigastric abdominal pain; no fever, dyspnea, calf pain. - Constitutional Vitals: Temp Pulse Resp BP Pulse Ox 98.1 F 58 18 94/69 95 01/06/17 03:16 01/06/17 03:16 01/06/17 03:16 01/06/17 03:16 01/06/17 07:59 General appearance: Present: A&O X 3, no acute distress - Respiratory Respiratory exam: Present: CTAB. Absent: rhonchi, wheezes - Cardiovascular Cardiovascular exam: Present: RRR, +S1, +S2 - GI/Abdominal GI/Abdominal exam: Present: no peritoneal signs. Absent: rebound, tenderness Additional comments: negative Bob's - Extremities Exam Extremities exam: Present: normal capillary refill. Absent: calf tenderness Internal Medicine: Result - Labs CBC & Chem 7: 01/06/17 05:05 01/06/17 12:47 Labs: Short CBC 01/05/17 01/06/17 Range/Units 13:50 05:05 WBC 8.6 (4.3-11.1) K/mcL Hgb 7.8 L 7.6 L (11.5-15.4) g/dL Hct 22.8 L 22.1 L (35.3-44.9) % Plt Count 423 H (140-400) K/mcL Neutrophils # 6.0 (1.6-8.9) K/mcL BMP 01/05/17 01/06/17 13:50 05:05 Sodium 142 Potassium 3.0 L 2.9 L Chloride 122 H Carbon Dioxide 14 L BUN 5 L Creatinine 0.73 Glucose 86 Calcium 8.0 L - VTE Documentation of Mechanical Device: Intermittent pneumatic compression device Consult Discharge Plan - Plan Referrals: Chio Keating SAP MOBILITY ARCHITECT [Primary Care Provider] - (SENT WEB InNetworkT ON 01-05-17 @ 3901) <Jose Prabhakar - Last Filed: 01/06/17 18:34> Date of Encounter: 01/06/17 - Constitutional Vitals: Temp Pulse Resp BP Pulse Ox 97.7 F 49 16 93/63 96 01/06/17 16:06 01/06/17 16:06 01/06/17 17:10 01/06/17 17:10 01/06/17 17:10 Internal Medicine: Result - Labs CBC & Chem 7: 01/06/17 05:05 01/06/17 12:47 Labs: Short CBC 01/06/17 Range/Units 05:05 WBC 8.6 (4.3-11.1) K/mcL Hgb 7.6 L (11.5-15.4) g/dL Hct 22.1 L (35.3-44.9) % Plt Count 423 H (140-400) K/mcL Neutrophils # 6.0 (1.6-8.9) K/mcL BMP 01/06/17 01/06/17 01/06/17 05:05 09:24 12:47 Sodium 142 140 Potassium 2.9 L 3.1 L 3.3 L Chloride 122 H 120 H Carbon Dioxide 14 L 14 L BUN 5 L 5 L Creatinine 0.73 0.74 Glucose 86 84 Calcium 8.0 L 8.1 L - Attending Attestation I examined this patient and my medical decision-making was reviewed with the Resident Physician. I agree with the documented findings, disposition and treatment plan as described except to the extent set forth below. Ms. Ching is a 51 year old female with significant past surgical history of Sjogren's, rheumatoid arthritis and recently treated for shingles outbreak on her right side of her face was admitted on 01/02/2017 with acute pancreatitis, acute diverticulitis and severe nausea and vomiting. Pt states she is feeling better today. Denied any CP / SOB. Her abd pain also resolved completely. Gen: A, A, O x3 Chest : diminished BS b/l basal region, no crackles Abd: Soft, NT, BS+ Ext: No edema, pulses + a/p 1. Acute pancreatitis - due to cholelithiasis Improving cont symptomatic and supportive care Reviewed CT of abd- no signs of pancreatic necrosis will consult GI for further eval...also consider to check MRCP after GI eval 2. Acute diverticulitis Switched to PO Flagyl 3. Acute severe hypercholremic and RTA Unclear etiology with her current presentation with severe hypokalemia and severe metabolic acidosis - concerned for type 1 RTA could be due to her Sjogren started on NaHCo3..hopping it is going to correct ongoing K + lose Cont replacing K + Will check Urine Ph Urine K+, Na+, NahCo3 Her elevated AL also due to Sjogren She does need to fu with Rheaumatologist as an out pt
[2017-01-06 10:54] LABS: BUN/Creatinine Ratio 7 (6-26); Calcium 8.1 mg/dL (8.6-10.8); Carbon Dioxide 14 mEq/L (19-29); Chloride 120 mEq/L (98-109); Glucose 84 mg/dL (70-99); Osmolality,Calculated 286 (280-300); Potassium 3.1 mEq/L (3.5-4.5); Sodium 140 mEq/L (136-145); eGFR For African Americans > 60 (> 60); eGFR For Non-African Americans > 60 (> 60)
[2017-01-06 10:56] LABS: Blood Urea Nitrogen 5 mg/dL (7-20)
[2017-01-06] MEDS: Famotidine 20 MG TABLET PO SCH ×2 (13:55→20:12)
[2017-01-06] MEDS: metroNIDAZOLE 500 MG TABLET PO SCH ×2 (15:51→20:12)
--- NOTE | 2017-01-06 16:30 | Gastroenterology Consult Note ---
<Garland Rapp - Last Filed: 01/06/17 16:27> Date of Encounter: 01/06/17 Time of Encounter: 15:00 - Assessment and plan (1) Pancreatitis Current Visit: Yes Status: Acute Assessment and plan: Mrs. Ching 51-year-old female admitted with acute pancreatitis has shown significant improvement since admission. She does continue to have electrolyte abnormalities and hypotension. - At this current time there is not sufficient data to support gallstone pancreatitis as she presented with normal total and direct bilirubin, normal AST ALT and alkaline phosphates. WBC count was elevated. CT of the abdomen demonstrated acute pancreatitis with small amounts of fluid around the tail of the pancreas but did not support dilatation of the biliary ducts. Right upper quadrant ultrasound demonstrated a common biliary duct measuring 3-4 mm. There are however multiple shadowing a layering stones identified within the gallbladder and the visualized pancreatic duct is of normal caliber measuring 2 mm. She denies alcohol ingestion and her admitting labs demonstrated a non- anion gap acidosis, no ethanol level collected at the time of admission. Unlikely to be secondary to hypertriglyceridemia as patient's triglycerides were normal to low. She does have a significant history of Sjogren's and rheumatoid arthritis and this could be secondary to autoimmune pancreatitis but given her recent hospitalization and addition of antiviral medication this is more likely to be iatrogenic pancreatitis due to medications. - There are gallstones identified in the gallbladder but there is no thickening to the gallbladder nor pericholecystic fluid identified on ultrasound. She may have had a stone and it may have passed with improving laboratory results prior to her admission but at this current time there is no supporting data for current obstructing gallstone. She does have recurrent gallstones and may require an outpatient cholecystectomy as she is at risk for recurrent pancreatitis and has a history of symptomatic cholecystitis according to patient history. Plan: - Continue IV rehydration - Increase diet low fat as tolerated Qualifiers: Chronicity: acute Pancreatitis type: unspecified pancreatitis type Acute pancreatitis complication: no infection or necrosis Qualified Code(s): K85.90 - Acute pancreatitis without necrosis or infection, unspecified (2) Diverticulitis Current Visit: Yes Status: Acute Assessment and plan: Patient was diagnosed with diverticulitis with correlating symptoms of elevated WBC which may also be secondary to pancreatitis, abdominal pain and CT findings of diverticulitis and sigmoid colon wall thickening. - Patient is improving currently on Flagyl - Continue current management Qualifiers: Diverticulitis site: large intestine Diverticulitis bleeding: unspecified bleeding status Diverticulitis complication: without perforation or abscess Qualified Code(s): K57.32 - Diverticulitis of large intestine without perforation or abscess without bleeding - Time Spent With Patient Total time spent is greater than 50% in coordination of care (as documented) at patient's floor/unit and/or counseling patient: GI History of Present Illness - Data of Consult Consult date: 01/06/17 Requesting Physician: Jose Prabhakar MD - Consult Narrative Reason for consult: pancreatitis History of present illness: Ms. Ching is a 51 year old female with significant past surgical history of Sjogren's, rheumatoid arthritis and recently treated for shingles outbreak on her right side of her face was admitted on 01/02/2017 with acute pancreatitis. She states that she was recently hospitalized for a shingles outbreak on her face involving the inside of her mouth the right side of her face and lips. She states that this was her first time ever having shingles and it never been on acyclovir or antivirals before. She is admitted to the hospital and started on antivirals. Upon discharge home she started to develop some epigastric pain that radiated across her left and right upper quadrants into her back. She thought this pain was secondary to her constipation for which she has a history of chronic constipation and occasionally requires enema use. She states that she was dehydrated, nauseous and vomiting roughly 8 times a day and continued to have worsening constipation which is not responsive to multiple enema use. Abdominal pain continued to worsen and she stopped taking her antivirals roughly 1 week prior to admission due to the pain. She denies any history of having pancreatitis but did believe she had a history of gallbladder problems as she would have increased abdominal pain after heavy meals and when she was . She did not have any diagnosed history of cholecystitis. She denies any history of alcohol abuse but did use to socially drink alcohol with her last drink 2 years ago. She has any history of hyperlipidemia receiving treatment for hyperlipidemia for high triglycerides. Her only changed medications included her antiviral and she had been on the rest of her medications for multiple years and not taking anything for her Sjogren's and rheumatoid arthritis. She states she used to be on plaquinel but decided that she did not need to follow up with her manager practice as she fell her primary care provider could do this instead. She says that she had increased anorexia prior to her current hospitalization due to her significant abdominal pain. She denies any abdominal bloating or pain would be relieved by placing a hot pad and a blankets with a temp I will wait on her abdomen. When asked what she thinks may be causing her acute pancreatitis she believes is due to her antiviral medication. She denies any vomiting of blood, blood out of her rectum or excess NSAID use. Overall she feels that she is improving. Past Med Surg Social Fam HX - Past Medical History Medical history: arthritis, RA, other (sjogrens syndrome) Psychiatric history: anxiety, depression - Past Surgical History Surgical History: no surgical history - Social History Smoking Status: Never smoker Smokeless Tobacco Status: No Alcohol use: none Drug use: prescription drug abuse - Family History Mother Hx Family Cancer: Yes (leukemia, lung) - Constitutional Vitals: Temp Pulse Resp BP Pulse Ox 97.7 F 49 14 96/63 95 01/06/17 16:06 01/06/17 16:06 01/06/17 11:36 01/06/17 11:36 01/06/17 13:39 General appearance: Present: A&O X 3 Exam: General: Patient alert, awake, oriented 3, interactive, in no acute distress HEENT: Normocephalic, atraumatic, pupils equal reactive to light, nasal cavity patent and open septum median position, oral mucosa moist, edentulous, neck supple trachea midline no palpable lymphadenopathy, no thyromegaly. Chest: Symmetric bilateral correlating with respiratory effort, effort nonlabored. Cardiac: Regular rate and rhythm, positive S1 and S2. no bruits appreciated bilateral carotids, Radial pulses 2+ bilateral, posterior tibial and dorsal pedal pulses 2+ bilateral. Respiratory: Clear to auscultation all lung joel Abdomen: Soft, nontender, positive bowel sounds, no palpable masses appreciated on examination Extremities: Symmetric bilateral, bilateral lower extremities without erythema or edema patient moving all 4 extremities spontaneously. Neurologic: No focal deficits appreciated on examination. Face symmetric, muscle strength symmetric bilateral upper and lower extremities. Results - Labs CBC & Chem 7: 01/06/17 05:05 01/06/17 12:47 Labs: Last Result Calcium 8.1 mg/dL (8.6-10.8) L 01/06/17 09:24 Triglycerides 100 mg/dL (< 150) 01/02/17 04:50 Entire Visit Hgb 7.6 g/dL (11.5-15.4) L 01/06/17 05:05 Hct 22.1 % (35.3-44.9) L 01/06/17 05:05 Total Bilirubin 0.4 mg/dL (0.2-1.2) 01/03/17 13:53 AST 26 Units/L (5-34) 01/03/17 13:53 ALT 13 Units/L (0-55) 01/03/17 13:53 Lipase 134 Units/L (8-78) H 01/05/17 13:50 Consult Discharge Plan - Plan Referrals: Chio Keating CNP [Primary Care Provider] - (SENT [employer] ON 01-05-17 @ [id number]) <Iban Vásquez - Last Filed: 01/07/17 08:05> Date of Encounter: 01/06/17 - Time Spent With Patient Total time spent is greater than 50% in coordination of care (as documented) at patient's floor/unit and/or counseling patient: GI History of Present Illness - Data of Consult Requesting Physician: Jose Prabhakar MD - Consult Narrative History of present illness: Ms. Ching is a 51 year old female - Constitutional Vitals: Temp Pulse Resp BP Pulse Ox 98.8 F 63 17 98/60 98 01/07/17 03:43 01/07/17 04:49 01/07/17 04:49 01/07/17 03:43 01/07/17 04:49 Results - Labs CBC & Chem 7: 01/07/17 05:59 01/07/17 05:59 Labs: Last Result Calcium 8.1 mg/dL (8.6-10.8) L 01/07/17 05:59 Triglycerides 100 mg/dL (< 150) 01/02/17 04:50 Entire Visit Hgb 7.9 g/dL (11.5-15.4) L 01/07/17 05:59 Hct 23.3 % (35.3-44.9) L 01/07/17 05:59 Total Bilirubin 0.3 mg/dL (0.2-1.2) 01/07/17 05:59 AST 38 Units/L (5-34) H 01/07/17 05:59 ALT 13 Units/L (0-55) 01/07/17 05:59 Lipase 114 Units/L (8-78) H 01/07/17 05:59 - Attending Attestation Ms. Ching has gallstone pancreatitis. She is improving and her lipase is trended down. No need to do an MRCP at this time. She needs a cholecystectomy prior to discharge. I have personally examined and interviewed Ms. Ching and reviewed her labs and scans. Agree with above
[2017-01-06 19:59] LABS: Bilirubin,Urine Negative (Negative); Blood,Urine Negative (Negative); Clarity,Urine Cloudy (Clear); Color,Urine Yellow (Yellow); Glucose,Urine (UA) Normal (Normal); Ketones,Urine Negative (Negative); Leukocyte Esterase,Urine Small (Negative); Nitrite,Urine Negative (Negative); Protein,Urine 30 mg/dL (Neg-Trace); Specific Gravity,Urine 1.019 (1.010-1.025); Urobilinogen,Urine Normal (Normal)
[2017-01-06 20:04] LABS: Bacteria,Urine None Seen per hpf (None-Few); Hyaline Casts,Urine None Seen per lpf (None-Few); Squamous Epithelial Cell,Urine Many per lpf (None-Few)
[2017-01-07] MEDS: D5% in 0.45% NACL w KCl 10 MEQ/1,000 ML MLS IVC SCH ×2 (01:50→13:56)
[2017-01-07] MEDS: *HR* Heparin 5,000 UNIT/ML VIAL SQ SCH ×2 (05:52→18:01)
[2017-01-07] MEDS: *HR* HYDROmorphone (PF) 1 MG/ML SYRINGE IVP PRN ×4 (05:52→20:04)
[2017-01-07 06:11] LABS: Basophils % 0.2 %; Eosinophils # 0.2 K/mcL (0.0-0.6); Eosinophils % 2.4 %; Hematocrit 23.3 % (35.3-44.9); Hemoglobin 7.9 g/dL (11.5-15.4); Immature Granulocytes % 0.5 % (0-4); Lymphocytes # 1.6 K/mcL (0.6-4.6); Lymphocytes % 16.5 %; Mean Corpuscular HGB Conc 33.9 g/dL (31.6-35.5); Mean Corpuscular Hemoglobin 31.7 pg (28.0-33.3); Mean Corpuscular Volume 93.6 fL (83.0-100.0); Mean Platelet Volume 9.6 fL (9.4-12.4); Monocytes # 0.6 K/mcL (0.0-1.3); Monocytes % 5.8 %; Neutrophils # 7.4 K/mcL (1.6-8.9); Platelet Count 402 K/mcL (140-400); Red Blood Count 2.49 M/mcL (3.82-4.97); Red Cell Distribution Width 18.6 % (11.5-14.5); Segmented Neutrophils % 74.6 %
[2017-01-07 06:21] LABS: Chloride,Urine 95 mEq/L; Creatinine,Urine 18 mg/dL; Potassium,Urine 18.1 mEq/L; Protein/Creatinine Ratio,Urine 0.39 mg/mg (0-0.20)
[2017-01-07 06:29] LABS: BUN/Creatinine Ratio 4 (6-26); Calcium 8.1 mg/dL (8.6-10.8); Carbon Dioxide 14 mEq/L (19-29); Chloride 118 mEq/L (98-109); Glucose 93 mg/dL (70-99); Osmolality,Calculated 282 (280-300); Potassium 3.1 mEq/L (3.5-4.5); Sodium 138 mEq/L (136-145); eGFR For African Americans > 60 (> 60); eGFR For Non-African Americans > 60 (> 60)
[2017-01-07 06:30] LABS: Alanine Aminotransferase 13 Units/L (0-55); Albumin/Globulin Ratio 0.4 (1.1-2.2); Alkaline Phosphatase 96 Units/L (38-126); Aspartate Amino Transferase 38 Units/L (5-34); BUN/Creatinine Ratio 6 (6-26); Bilirubin,Total 0.3 mg/dL (0.2-1.2); Carbon Dioxide 14 mEq/L (19-29); Chloride 120 mEq/L (98-109); Globulin 4.4 g/dL (2.4-3.5); Glucose 94 mg/dL (70-99); Lipase 114 Units/L (8-78); Osmolality,Calculated 287 (280-300); Potassium 3.1 mEq/L (3.5-4.5); Sodium 140 mEq/L (136-145); Total Protein 6.2 g/dL (6.0-8.3); eGFR For African Americans > 60 (> 60); eGFR For Non-African Americans > 60 (> 60)
[2017-01-07 06:32] LABS: Albumin 1.8 g/dL (3.5-5.0); Blood Urea Nitrogen 4 mg/dL (7-20)
[2017-01-07 06:34] LABS: Blood Urea Nitrogen 3 mg/dL (7-20)
[2017-01-07 06:53] LABS: Osmolality,Urine 231 mOsm/kg (300-1090)
[2017-01-07 07:20] LABS: Magnesium 1.4 mg/dL (1.6-2.6)
[2017-01-07 07:24] LABS: Phosphorous 1.6 mg/dL (2.3-4.7)
[2017-01-07] MEDS: valACYclovir 500 MG TABLET PO SCH ×3 (09:22→19:54)
[2017-01-07] MEDS: FLUoxetine 20 MG CAPSULE PO SCH ×2 (09:22→19:56)
[2017-01-07] MEDS: Loratadine 10 MG TABLET PO SCH (09:23)
[2017-01-07] MEDS: metroNIDAZOLE 500 MG TABLET PO SCH ×3 (09:23→19:55)
[2017-01-07] MEDS: Famotidine 20 MG TABLET PO SCH ×2 (09:23→19:56)
[2017-01-07] MEDS: Artificial Tears SOLN 15 ML BOTTLE BOTH EYES SCH ×4 (09:25→19:56)
--- NOTE | 2017-01-07 11:21 | Rheumatology Consult Note ---
<Omer Hernandez - Last Filed: 01/07/17 11:45> Date of Encounter: 01/07/17 Time of Encounter: 09:00 Rheumatology Assess and Plan (1) Renal tubular acidosis type I Current Visit: Yes Status: Acute Autoimmune component possible Electrolyte replacement therapy as per primary team Additional autoimmune labs ordered, including complement, RA, CCP, and nuclear antibodies Plan to speak with nephrology regarding case If there is evidence of interstitial nephritis, steroid therapy may be appropriate, but this will need to be held if plan is for cholecystectomy Patient has appointment in April with [facility], but we will move this forward (2) Pancreatitis Current Visit: Yes Status: Acute Autoimmune component possible C3 and C4 ordered (3) Sjogrens syndrome Current Visit: Yes Status: Acute Diagnosis should be confirmed by biopsy in cases such as this with suspected complications This can be done as outpatient (4) Hypokalemia Current Visit: Yes Status: Acute Electrolyte replacement per primary team (5) Rheumatoid arthritis Current Visit: Yes Status: Acute Polyarthritis and carries diagnosis of RA Will confirm diagnosis Rheumatology HPI Consult date: 01/07/17 Requesting physician: Peterson Spangler Consult reason: Sjogrens Syndrome with RTA Chief complaint: Pancreatitis History of present illness: Ms. Ching is a 51 year old female with PMH of Sjogren's Syndrome, rheumatoid arthritis, and anxiety depression. She presented with abdominal pain on 01/02/17 , as well as emesis and anorexia. She states that she has emesis for the past month, anywhere from 1-[address] abd/pelv showed acute pancreatitis and US of the gallbladder showed cholelithiasis with cholecystitis. GI suspects gallstone pancreatitis and suggests cholecystectomy prior to discharge. Surgery is consulted. She had been seeing Dr. Justina Lemus for RA and sjogren's up until her longterm , but this is now managed by her PCP. She had been taking plaquinel in the past , but is not any longer. She currently denies and urinary complaints. Regarding joint pain, she complains mostly of lower back pain and denies significant joint swelling elsewhere. She admits to dry mouth and eyes and consistently using artificial tears and biotene. Past Med Surg Social Fam HX - Past Medical History Medical history: arthritis, RA, other (sjogrens syndrome) Psychiatric history: anxiety, depression - Past Surgical History Surgical History: no surgical history - Social History Smoking Status: Never smoker Smokeless Tobacco Status: No Alcohol use: none Drug use: prescription drug abuse - Family History Mother Hx Family Cancer: Yes (leukemia, lung) Medications and Allergies HYDROcodone/Acet 10/325 mg [[place] 10-325 mg] 1 tab PO Q4-6H PRN MDD DO NOT EXCEED 5 TABS/24HRS 06/28/15 [History] Ibuprofen [Motrin] 800 mg PO Q8HR PRN 06/28/15 [History] Norgestimate-Ethinyl Estradiol [Mononessa 28 Tablet] 1 tab PO DAILY 06/28/15 [ History] Potassium Chloride [K-Tab ER] 10 meq PO DAILY 06/28/15 [History] Zolpidem [Ambien] 5 mg PO HS PRN 06/28/15 [History] Cetirizine HCl [All Day Allergy] 10 mg PO DAILY 01/02/17 [History] FLUoxetine HCl [Fluoxetine HCl] 40 mg PO BID 01/02/17 [History] Propranolol [Inderal] 20 mg PO BID 01/02/17 [History] Quetiapine Fumarate [Seroquel] 50 mg PO BID 01/02/17 [History] Quetiapine Fumarate [Seroquel] 100 mg PO HS 01/02/17 [History] hydrOXYzine HCl [Hydroxyzine HCl] 25 mg PO Q8H PRN 01/02/17 [History] valACYclovir [Valtrex] 1,000 mg PO TID 01/02/17 [History] 3 Allergy/AdvReac Type Severity Reaction Status Date / Time tramadol Allergy See Verified 12/07/16 10:27 Comments All Systems Review: A 10-system review of systems was performed and is negative for pertinent findings except as documented above in the HPI. Rheumatology Exam Vital Signs, Last 4 Hours Temp Pulse Resp BP Pulse Ox 01/07/17 10:30 100 01/07/17 09:45 98.6 F 68 20 92/58 Exam: Constitutional - no acute distress, conversant Eyes - Conjunctiva clear and lids without lesions ENT - Oral mucosa dry, no ulcerations noted Neck - Soft, nontender Respiratory - Unlabored breathing, clear to auscultation bilaterally without wheezes and crackles Chest - S1S2 RRR without murmurs or extra heart sounds Abdomen - Abdomen with mild tenderness in the right upper quadrant, without masses or hepatosplenomegaly Lymph - No cervical, no supraclavicular and no occipital lymphadenopathy MSK - Gait normal, No synovitis in the upper extremities, no synovitis of the lower extremities. ROM full. Skin - No rashes, no ulcerations, no lesions Psych - Mood normal, affect full, oriented to person place and time. Rheumatology Results 01/07/17 05:59 01/07/17 05:59 Immunology AL Screen DETECTED (None Detected) A 01/02/17 04:50 AL Titer 1:640 (<1:40) H 01/02/17 04:50 All other labs normal. Consult Discharge Plan - Plan Referrals: Chio Keating CNP [Primary Care Provider] - 01/14/17 9:00 am () <Julio C Oconnor - Last Filed: 01/07/17 16:55> Date of Encounter: 01/07/17 Rheumatology HPI History of present illness: Ms. Ching is a 51 year old female All Systems Review: A 10-system review of systems was performed and is negative for pertinent findings except as documented above in the HPI. Rheumatology Exam Vital Signs, Last 4 Hours Temp Pulse Resp BP Pulse Ox 01/07/17 15:51 98 F 65 18 107/68 99 01/07/17 13:00 97.9 F 66 18 95/54 100 Rheumatology Results 01/07/17 05:59 01/07/17 05:59 Immunology Rheumatoid Factor < 15 IU/mL (0-29) 01/07/17 11:32 AL Screen DETECTED (None Detected) A 01/02/17 04:50 AL Titer 1:640 (<1:40) H 01/02/17 04:50 All other labs normal. - Attending Attestation I examined this patient and my medical decision making was reviewed with the resident physician. I agree with the documented findings, disposition and treatment as described with these exceptions. This patient is a 51-year-old female with PMH of sjogren syndrome who presented to the hospital with nausea/vomiting found to have pancreatitis, colitis and electrolyte abnormalities. Patient reports diagnosis of SjS made in 2001 with sicca syndrome. Has been maintained on hydroxychloroquine; denies any systemic complications. Labwork thus far with AL 1:640 CBC with leukocytosis, anemia, thrombocytosis. Creatinine is normal. UA - WBC, RBCs and mild protein uria. CT with pancreatitis - US with gall stone. Exam HEENT - Dry and cracked mucous membranes, no enlargement of parotid gland, salivary glands of lymphadenopathy. Heart - S1 S2 RRR and no evidence of peripheral pitting edema Lungs - Cleat to auscultation without any crackles or wheezes Skin - No rashes, mild ecchymosis on dorsal left hand MSK - No synovitis, some swelling of left hand diffusely without tenderness (IV in same hand) Neuro - Muscle strength 5/5 in all four extremities; Gait not assessed due to connection to IV. Throughout hospitalization, her pancreatitis seems to clinically be improving without any systemic immunosuppression. She is having difficulties with hypokalemia and suspected RTA 1. I have reviewed nephrology note in which they suspect RTA 1 but no mention of suspicion for interstitial nephritis. I am placing a call to discuss with Dr. Daniels. I have reviewed surgery and GI note in which suspicion seems to be somewhat equivocal for gallstone pancreatitis. White Sjogrens could be the cause behind pancreatitis and also the electrolyte abnormalities, I am uncertain that there is a direct need for immunosuppression. Nephrology is managing electrolyte abnormalities and no mention of interstitial nephritis. Unless they feel any organ damage, hold off on prednisone but I am hoping to discuss case tonight. Clinically pancreatitis seems to be resolving and she seems to be clinically stable at this point. If worsens and no evidence that this is from gallstone pancreatitis, I would initiate prednisone. Will continue to follow.
--- NOTE | 2017-01-07 11:29 | Internal Med Progress Note ---
<Peterson Spangler - Last Filed: 01/07/17 11:49> Date of Encounter: 01/07/17 Time of Encounter: 08:45 - Assessment and plan (1) Acute gallstone pancreatitis Current Visit: Yes Status: Acute Assessment and plan: CT Abdomen/Pelvis was negative for stones. A RUQ ultrasound was delayed after patient ate a meal, but came back positive for cholelithiasis without GBW thickening and had negative Bob's sign on U/S. Dr. Gordon consulted, patient lipase 134 ([id number]), will see pt, likely to f/u with cholecystectomy outpatient, though GI consult suggests before discharge. Continue supportive care with IVF (2) Sjogrens syndrome Current Visit: Yes Status: Acute Assessment and plan: Dx'd 2010 via +SSA/SSB Prior hx Plaquinil with [facility] Consulted Rheumatology Possible etiology for pancreatitis; gallstone higher on ddx Possible etiology RTA with refractory hypokalemia Qualifiers: Sjogren's organ involvement: unspecified organ involvement Qualified Code(s ): M35.00 - Sicca syndrome, unspecified (3) Hyperchloremic acidosis Current Visit: Yes Status: Acute Assessment and plan: Chloride remains elevated 120 (120), switched to d5% 1/2 Normal saline. (4) Diverticulitis Current Visit: Yes Status: Acute Assessment and plan: Pt switched to Flagyl Will monitor. Qualifiers: Diverticulitis site: large intestine Diverticulitis bleeding: unspecified bleeding status Diverticulitis complication: without perforation or abscess Qualified Code(s): K57.32 - Diverticulitis of large intestine without perforation or abscess without bleeding (5) Hypokalemia Current Visit: Yes Status: Acute Assessment and plan: Renal function wnl, magnesium normal, she has no complaints of diarrhea. Currently being replaced with KCl IVPB. (6) Hypophosphatemia Current Visit: Yes Status: Acute Assessment and plan: Replaced, WNL, monitoring. (7) DVT prophylaxis Current Visit: Yes Status: Acute Assessment and plan: On 5000U sq q12 - Subjective Interval history: Patient sitting comfortably, desires to go home, she and daughter on phone aware of pending surgical consult. Overall much improved since admission. No nausea/vomiting, mild epigastric abdominal pain; no fever, dyspnea, calf pain. - Constitutional Vitals: Temp Pulse Resp BP Pulse Ox 98.6 F 68 20 92/58 100 01/07/17 09:45 01/07/17 09:45 01/07/17 09:45 01/07/17 09:45 01/07/17 10:30 General appearance: Present: A&O X 3, no acute distress - Head Head exam: Present: atraumatic - Respiratory Respiratory exam: Present: CTAB - Cardiovascular Cardiovascular exam: Present: RRR, +S1, +S2 - GI/Abdominal GI/Abdominal exam: Present: normal bowel sounds, no peritoneal signs. Absent: tenderness Internal Medicine: Result - Labs CBC & Chem 7: 01/07/17 05:59 01/07/17 05:59 Labs: Short CBC 01/07/17 Range/Units 05:59 WBC 10.0 (4.3-11.1) K/mcL Hgb 7.9 L (11.5-15.4) g/dL Hct 23.3 L (35.3-44.9) % Plt Count 402 H (140-400) K/mcL Neutrophils # 7.4 (1.6-8.9) K/mcL BMP 01/06/17 01/07/17 01/07/17 12:47 05:59 05:59 Sodium 138 140 Potassium 3.3 L 3.1 L 3.1 L Chloride 118 H 120 H Carbon Dioxide 14 L 14 L BUN 3 L 4 L Creatinine 0.70 0.71 Glucose 93 94 Calcium 8.1 L 8.0 L Liver Function 01/07/17 Range/Units 05:59 Total Bilirubin 0.3 (0.2-1.2) mg/dL AST 38 H (5-34) Units/L ALT 13 (0-55) Units/L Alkaline Phosphatase 96 (38-126) Units/L Albumin 1.8 L (3.5-5.0) g/dL Urine 01/06/17 Range/Units 18:34 Urine Color Yellow (Yellow) Urine Clarity Cloudy A (Clear) Urine pH 7.0 (5.0-8.0) pH Units Ur Specific [place] 1.019 (1.010-1.025) Urine Protein 30 H (Neg-Trace) mg/dL Urine Glucose (UA) Normal (Normal) mg/dL - VTE Documentation of Mechanical Device: Intermittent pneumatic compression device Consult Discharge Plan - Plan Referrals: Rishabh,Chio L, [employer] [Primary Care Provider] - 01/14/17 9:00 am () <Jose Prabhakar - Last Filed: 01/07/17 16:46> Date of Encounter: 01/07/17 - Constitutional Vitals: Temp Pulse Resp BP Pulse Ox 98 F 67 18 107/68 99 01/07/17 15:51 01/07/17 15:51 01/07/17 15:51 01/07/17 15:51 01/07/17 15:51 Internal Medicine: Result - Labs CBC & Chem 7: 01/07/17 05:59 01/07/17 05:59 Labs: Short CBC 01/07/17 Range/Units 05:59 WBC 10.0 (4.3-11.1) K/mcL Hgb 7.9 L (11.5-15.4) g/dL Hct 23.3 L (35.3-44.9) % Plt Count 402 H (140-400) K/mcL Neutrophils # 7.4 (1.6-8.9) K/mcL BMP 01/07/17 01/07/17 05:59 05:59 Sodium 138 140 Potassium 3.1 L 3.1 L Chloride 118 H 120 H Carbon Dioxide 14 L 14 L BUN 3 L 4 L Creatinine 0.70 0.71 Glucose 93 94 Calcium 8.1 L 8.0 L Liver Function 01/07/17 Range/Units 05:59 Total Bilirubin 0.3 (0.2-1.2) mg/dL AST 38 H (5-34) Units/L ALT 13 (0-55) Units/L Alkaline Phosphatase 96 (38-126) Units/L Albumin 1.8 L (3.5-5.0) g/dL Urine 01/06/17 Range/Units 18:34 Urine Color Yellow (Yellow) Urine Clarity Cloudy A (Clear) Urine pH 7.0 (5.0-8.0) pH Units Ur Specific [place] 1.019 (1.010-1.025) Urine Protein 30 H (Neg-Trace) mg/dL Urine Glucose (UA) Normal (Normal) mg/dL - Attending Attestation I examined this patient and my medical decision-making was reviewed with the Resident Physician. I agree with the documented findings, disposition and treatment plan as described except to the extent set forth below. Ms. Ching is a 51 year old female with significant past surgical history of Sjogren's, rheumatoid arthritis and recently treated for shingles outbreak on her right side of her face was admitted on 01/02/2017 with acute pancreatitis, acute diverticulitis and severe nausea and vomiting. Pt states she is feeling better today. Denied any CP / SOB. Her abd pain also resolved completely. Gen: A, A, O x3 Chest : diminished BS b/l basal region, no crackles Abd: Soft, NT, BS+ Ext: No edema, pulses + a/p 1. Acute pancreatitis - due to cholelithiasis Improving cont symptomatic and supportive care Reviewed CT of abd- no signs of pancreatic necrosis GI did not recommend any further work up Surgery Dr. Gordon is planning on doing Lap Cholecystectomy once pt's Lipase and Amylase are completely 2. Acute diverticulitis Cont PO Flagyl # 5/10 3. Acute severe hypercholremic and RTA Unclear etiology with her current presentation with severe hypokalemia and severe metabolic acidosis - concerned for type 1 RTA could be due to her Sjogren Cont NaHCo3 Cont replacing K + Consulted Nephro and Rheumatology Her elevated AL also due to Sjogren
--- NOTE | 2017-01-07 12:54 | General Surgery Consult Note ---
Date of Encounter: 01/07/17 Time of Encounter: 12:28 History of Present Illness Consult date: 01/07/17 Reason for consult: abdominal pain (gallstone pancreatitis) Requesting physician: Toro Owen History of present illness: 51 yo, admitted 01/02/2017, after presenting to [facility] ED with abdominal pain, nausea, and vomiting. Patient indicates symptoms started in early December with a "shingles attack". The patient describes recurring episodes of abdominal pain over the past several months with increasing severity and frequency until the episode that prompted the patient to present to the emergency department for further evaluation and treatment. Laboratories at the time of presentation demonstrated a leukocytosis of 17.9 with hemoglobin 9.4 and hematocrit 26.6. Platelet count 425,000. Neutrophils were elevated at 14%. Electrolytes were notable for potassium of 2.4; LFTs were unremarkable. Lipase was 1134. CT of the abdomen and pelvis demonstrated peripancreatic inflammatory changes involving the tail of the pancreas. No pancreatic ductal dilatation was identified. The parenchyma enhanced without evidence of necrosis. The gallbladder was distended but no stones were visible per CT. There was no obvious intra-hepatic or extra-hepatic duct dilatation. The patient was diagnosed with pancreatitis and admitted. The CT interpretation also suggested possible sigmoid diverticulitis, however, on my review of these images with [facility], the suspicious of acute sigmoid diverticulitis was quite low. A subsequent sonogram of the gallbladder was completed 01/04/17. Findings include increased echogenicity of the liver; no focal hepatic lesion; multiple shadowing gallstones within the gallbladder; no gallbladder wall thickening or pericholecystic fluid identified; negative sonographic Bob sign. Past medical history: Recent varicella-zoster; chronic anxiety, depression, osteoporosis, rheumatoid arthritis (Sjogren's) Surgical history: None Allergies: Tramadol Medications: Alprazolam 1 mg by mouth 3 times a day as needed for anxiety Celecoxib 100 mg by mouth twice a day Fluoxetine 20 mg by mouth twice a day Hydrocodone with acetaminophen 10/325 one every 4-6 hours as needed for pain not relieved by Motrin or other [id number] medication Ibuprofen 800 mg by mouth U8 hours when necessary for pain Norgestimate ethinyl estradiol and by mouth daily Potassium 10 mEq by mouth daily Zolpidem 5 mg by mouth daily at bedtime as needed for sleep Social history: Never smoker denies any alcohol consumption; denies any illicit drug use. G3, P2, Ab1 Family history: Not provided Physical examination: Obese, age-appropriate woman resting comfortably in her hospital bed. 1.6 m tall, 78.4 kg, BMI 30.6; patient has been afebrile for the course of this hospitalization, currently 98.6; pulse 68, respirations 20, blood pressure 92/58. Skin: Warm, no obvious jaundice Lungs: Clear bilaterally to auscultation, no abdominal pain with deep inspiration Cardiac: Regular rate, no appreciable murmurs Abdomen: Obese, soft, nontender. No appreciable intra-abdominal masses. No rebound. Bowel sounds were hypoactive during my exam. Extremities: No obvious clubbing cyanosis or edema. Most recent laboratories: Leukocytosis has resolved 8.6; hemoglobin has fallen to 7.6 with hematocrit 22.1; platelet count 423,000. Differential has corrected, currently no abnormal values. Electrolytes, BUN, creatinine show persistent hypokalemia at 3.1; phosphorus 1.6, magnesium 1.4, total bilirubin 0.3; AST 38, ALT 13 Alkaline phosphatase 96. Lipase is improved but remains elevated at 114. CT and sonogram were personally reviewed with [facility] Impression: Pancreatitis with most likely etiology gallstones Anemia - possibly chronic due to rheumatoid arthritis/Sjogren's Persistent hypokalemia Hypophosphatemia, hypomagnesemia Radiologic findings (CT) of suggested diverticulitis involving this sigmoid colon - not considered likely Recommendations: Daily amylase and lipase - surgery recommended once these values are both WNL. Correct electrolyte abnormalities Transfuse if H&H continue to diminish - etiology for anemia not determined at the time of this dictation The patient is a reasonable candidate for laparoscopic cholecystectomy but understands that an open cholecystectomy may become necessary. This surgery recommended during this hospitalization medically stabilized. Risks of surgery include hemorrhage, infection, intra-abdominal abscess, bile leak, injury to adjacent ducts, vessels, organs, and bowel. Possible recurrent pancreatitis, pneumonia, cardiac dysrhythmia or CA may also occur during or due to surgery. Discussed at length with patient. Consent obtained. Past Med Surg Social Fam HX - Past Medical History Medical history: arthritis, RA, other (sjogrens syndrome) Psychiatric history: anxiety, depression - Past Surgical History Surgical History: no surgical history - Social History Smoking Status: Never smoker Smokeless Tobacco Status: No Alcohol use: none Drug use: prescription drug abuse - Family History Mother Hx Family Cancer: Yes (leukemia, lung) Medications and Allergies HYDROcodone/Acet 10/325 mg [[place] 10-325 mg] 1 tab PO Q4-6H PRN MDD DO NOT EXCEED 5 TABS/24HRS 06/28/15 [History] Ibuprofen [Motrin] 800 mg PO Q8HR PRN 06/28/15 [History] Norgestimate-Ethinyl Estradiol [[place] 28 Tablet] 1 tab PO DAILY 06/28/15 [ History] Potassium Chloride [K-Tab ER] 10 meq PO DAILY 06/28/15 [History] Zolpidem [Ambien] 5 mg PO HS PRN 06/28/15 [History] Cetirizine HCl [All Day Allergy] 10 mg PO DAILY 01/02/17 [History] FLUoxetine HCl [Fluoxetine HCl] 40 mg PO BID 01/02/17 [History] Propranolol [Inderal] 20 mg PO BID 01/02/17 [History] Quetiapine Fumarate [Seroquel] 50 mg PO BID 01/02/17 [History] Quetiapine Fumarate [Seroquel] 100 mg PO HS 01/02/17 [History] hydrOXYzine HCl [Hydroxyzine HCl] 25 mg PO Q8H PRN 01/02/17 [History] valACYclovir [Valtrex] 1,000 mg PO TID 01/02/17 [History] 3 Allergy/AdvReac Type Severity Reaction Status Date / Time tramadol Allergy See Verified 12/07/16 10:27 Comments Review of Systems All systems PM: A 10-system review of systems was performed and is negative for pertinent findings except as documented above in the HPI. General Surgery Exam Initial Vital Signs Temp Pulse Resp BP Pulse Ox 99.4 F 59 18 114/70 96 01/01/17 23:08 01/01/17 23:08 01/01/17 23:08 01/01/17 23:08 01/01/17 23:08 Exam Initial Vital Signs Temp Pulse Resp BP Pulse Ox 99.4 F 59 18 114/70 96 01/01/17 23:08 01/01/17 23:08 01/01/17 23:08 01/01/17 23:08 01/01/17 23:08 Results - Labs 01/07/17 05:59 01/07/17 05:59 Abnormal lab results RBC 2.49 M/mcL (3.82-4.97) L 01/07/17 05:59 Hgb 7.9 g/dL (11.5-15.4) L 01/07/17 05:59 Hct 23.3 % (35.3-44.9) L 01/07/17 05:59 RDW 18.6 % (11.5-14.5) H 01/07/17 05:59 Plt Count 402 K/mcL (140-400) H 01/07/17 05:59 Nucleated RBCs/100 WBC 0.2 /100 WBC (0) H 01/06/17 05:05 VBG pH 7.27 pH Units (7.32-7.42) L 01/04/17 03:49 VBG pCO2 28 mmHg (41-51) L 01/04/17 03:49 VBG pO2 76 mmHg (25-50) H 01/04/17 03:49 VBG HCO3 13 mEq/L (21-27) L 01/04/17 03:49 Potassium 3.1 mEq/L (3.5-4.5) L 01/07/17 05:59 Chloride 118 mEq/L (98-109) H 01/07/17 05:59 Carbon Dioxide 14 mEq/L (19-29) L 01/07/17 05:59 BUN 3 mg/dL (7-20) L 01/07/17 05:59 BUN/Creatinine Ratio 4 (6-26) L 01/07/17 05:59 Calcium 8.1 mg/dL (8.6-10.8) L 01/07/17 05:59 Phosphorus 1.6 mg/dL (2.3-4.7) L D 01/07/17 06:58 Magnesium 1.4 mg/dL (1.6-2.6) L 01/07/17 06:58 AST 38 Units/L (5-34) H 01/07/17 05:59 Albumin 1.8 g/dL (3.5-5.0) L 01/07/17 05:59 Globulin 4.4 g/dL (2.4-3.5) H 01/07/17 05:59 Albumin/Globulin Ratio 0.4 (1.1-2.2) L 01/07/17 05:59 HDL Cholesterol 22 mg/dL (40-59) L 01/02/17 04:50 Cholesterol/HDL Ratio 6.1 (0-4.9) H 01/02/17 04:50 Lipase 114 Units/L (8-78) H 01/07/17 05:59 Ur Specimen Adequacy See below A 01/02/17 00:07 Urine Clarity Cloudy (Clear) A 01/06/17 18:34 Urine Protein 30 mg/dL (Neg-Trace) H 01/06/17 18:34 Ur Leukocyte Esterase Small (Negative) H 01/06/17 18:34 Urine Microscopic RBC 3-5 per hpf (0-3) H 01/06/17 18:34 Urine Microscopic WBC 5-15 per hpf (0-3) H 01/06/17 18:34 Ur Squamous Epith Cells Many per lpf (None-Few) H 01/06/17 18:34 Urine Yeast Few per hpf (None Seen) H 01/02/17 00:07 Ur Culture Indicated? YES (NO) A 01/02/17 00:07 Urine Osmolality 231 mOsm/kg (300-1090) L 01/07/17 05:40 Protein/Creatinin Ratio 0.39 mg/mg (0-0.20) H 01/07/17 05:40 AL Screen DETECTED (None Detected) A 01/02/17 04:50 AL Titer 1:640 (<1:40) H 01/02/17 04:50 Diabetes panel 01/06/17 01/07/17 01/07/17 Range/Units 12:47 05:59 05:59 Sodium 138 140 (136-145) mEq/L Potassium 3.3 L 3.1 L 3.1 L (3.5-4.5) mEq/L Chloride 118 H 120 H (98-109) mEq/L Carbon Dioxide 14 L 14 L (19-29) mEq/L BUN 3 L 4 L (7-20) mg/dL Creatinine 0.70 0.71 (0.57-1.11) mg/dL Glucose 93 94 (70-99) mg/dL Calcium 8.1 L 8.0 L (8.6-10.8) mg/dL AST 38 H (5-34) Units/L ALT 13 (0-55) Units/L Alkaline Phosphatase 96 (38-126) Units/L Albumin 1.8 L (3.5-5.0) g/dL Calcium panel 01/07/17 01/07/17 01/07/17 Range/Units 05:59 05:59 06:58 Calcium 8.1 L 8.0 L (8.6-10.8) mg/dL Phosphorus 1.6 L D (2.3-4.7) mg/dL Albumin 1.8 L (3.5-5.0) g/dL Pituitary panel 01/06/17 01/07/17 01/07/17 Range/Units 12:47 05:59 05:59 Sodium 138 140 (136-145) mEq/L Potassium 3.3 L 3.1 L 3.1 L (3.5-4.5) mEq/L Chloride 118 H 120 H (98-109) mEq/L Carbon Dioxide 14 L 14 L (19-29) mEq/L BUN 3 L 4 L (7-20) mg/dL Creatinine 0.70 0.71 (0.57-1.11) mg/dL Glucose 93 94 (70-99) mg/dL Calcium 8.1 L 8.0 L (8.6-10.8) mg/dL Adrenal panel 01/06/17 01/07/17 01/07/17 Range/Units 12:47 05:59 05:59 Sodium 138 140 (136-145) mEq/L Potassium 3.3 L 3.1 L 3.1 L (3.5-4.5) mEq/L Chloride 118 H 120 H (98-109) mEq/L Carbon Dioxide 14 L 14 L (19-29) mEq/L BUN 3 L 4 L (7-20) mg/dL Creatinine 0.70 0.71 (0.57-1.11) mg/dL Glucose 93 94 (70-99) mg/dL Calcium 8.1 L 8.0 L (8.6-10.8) mg/dL Total Bilirubin 0.3 (0.2-1.2) mg/dL AST 38 H (5-34) Units/L ALT 13 (0-55) Units/L Alkaline Phosphatase 96 (38-126) Units/L Albumin 1.8 L (3.5-5.0) g/dL All other labs normal. Consult Discharge Plan - Plan Referrals: Chio Keating CNP [Primary Care Provider] - 01/14/17 9:00 am ()
--- NOTE | 2017-01-07 13:14 | Nephrology Consult Note ---
Date of Encounter: 01/07/17 Time of Encounter: 13:11 Assessment and Plan (1) Hypokalemia Current Visit: Yes Status: Acute The patient presents with acute pancreatitis. She has a several year history of hypokalemia and what appears to be normal anion gap metabolic acidosis. Given the history of Sjogren syndrome the differential diagnosis would include distal type I renal tubular acidosis. At this point we will check a urinary anion gap to try and confirm that diagnosis. Rheumatology has been consulted. She should continue to receive bicarbonate replacement at a dose of approximately 1-2 mEq per kilogram body weight. Once her serum bicarbonate is in the normal range of 22-24 her hypokalemia may be the more easily managed and she may not require much if any in the way of potassium supplementation. In the meantime she should continue to receive when necessary potassium supplementation until her serum bicarbonate level is normalized. (2) Hyperchloremic acidosis Current Visit: Yes Status: Acute (3) Pancreatitis Current Visit: Yes Status: Acute Qualifiers: Chronicity: acute Pancreatitis type: unspecified pancreatitis type Acute pancreatitis complication: no infection or necrosis Qualified Code(s): K85.90 - Acute pancreatitis without necrosis or infection, unspecified History of Present Illness - History of Present Illness This is a 51-year-old female who was admitted with a several week history of nausea vomiting abdominal pain and decreased oral intake. She has been diagnosed with acute pancreatitis. She has been found to have cholelithiasis but is not thought to have otitis. Nephrology is consulted because of the finding of melena and Metabolic acidosis and hypokalemia. Patient apparently carries a diagnosis of Sjogren syndrome since about 2001. She had previously seen rheumatology [facility] and had been on Plaquenil previously but not recently. Patient reports that she has been aware of hypokalemia for several years and has been prescribed potassium supplements by her primary care provider. Over the past month or so because of the nausea and vomiting she has not been taking the potassium supplements as much. Patient denies being aware of any issues with regards to metabolic acidosis, reduced CO2 levels, or elevated acid levels in the blood. She states she has never been prescribed sodium bicarbonate supplementation. ABGs showed a metabolic acidosis with appropriate respiratory compensation. During the patient's hospital stay she is been on and off and then on again as far as bicarbonate supplementation is concerned. She has had potassium supplementation as well. Today were her CO2 level is 14 and potassium is 3.1. She is currently on IV fluids with potassium replacement. I believe she is on lactated Ringer's. Currently she still complains of some abdominal pain. Patient was recently hospitalized at [facility] because of shingles. She reports that she completed a course of acyclovir. She currently is on Valtrex. The patient is given a family history of Sjogren syndrome as well as lupus. The patient denies having any diarrhea infectious says that she has more problems with constipation. Review of previous lab studies show that the patient's serum potassium is ranged anywhere from 3.2-3.8 for her. Of 2013 through 2015. During that same. The CO2 level on her chemistry panel since ranged from 16-20. Past Med Surg Social Fam HX - Past Medical History Medical history: arthritis, RA, other (sjogrens syndrome) Psychiatric history: anxiety, depression - Past Surgical History Surgical History: no surgical history - Social History Smoking Status: Never smoker Smokeless Tobacco Status: No Alcohol use: none Drug use: prescription drug abuse - Family History Mother Hx Family Cancer: Yes (leukemia, lung) Medications and Allergies HYDROcodone/Acet 10/325 mg [[place] 10-325 mg] 1 tab PO Q4-6H PRN MDD DO NOT EXCEED 5 TABS/24HRS 06/28/15 [History] Ibuprofen [Motrin] 800 mg PO Q8HR PRN 06/28/15 [History] Norgestimate-Ethinyl Estradiol [Mononessa 28 Tablet] 1 tab PO DAILY 06/28/15 [ History] Potassium Chloride [K-Tab ER] 10 meq PO DAILY 06/28/15 [History] Zolpidem [Ambien] 5 mg PO HS PRN 06/28/15 [History] Cetirizine HCl [All Day Allergy] 10 mg PO DAILY 01/02/17 [History] FLUoxetine HCl [Fluoxetine HCl] 40 mg PO BID 01/02/17 [History] Propranolol [Inderal] 20 mg PO BID 01/02/17 [History] Quetiapine Fumarate [Seroquel] 50 mg PO BID 01/02/17 [History] Quetiapine Fumarate [Seroquel] 100 mg PO HS 01/02/17 [History] hydrOXYzine HCl [Hydroxyzine HCl] 25 mg PO Q8H PRN 01/02/17 [History] valACYclovir [Valtrex] 1,000 mg PO TID 01/02/17 [History] 3 Allergy/AdvReac Type Severity Reaction Status Date / Time tramadol Allergy See Verified 12/07/16 10:27 Comments Review of Systems Constitutional: weakness Eyes: bilateral: blurred vision (patient denies), diplopia (patient denies) Nose, mouth and throat: no dizziness, no headache(s) Cardiovascular: no chest pain, no palpitations Respiratory: dyspnea on exertion, no cough, no dyspnea Gastrointestinal: abdominal pain, nausea, vomiting, no change in bowel habits Musculoskeletal: no muscle weakness, no numbness Integumentary: no hirsutism, no striae Neurological: as per HPI, weakness Psychiatric: no depression, no difficulty concentrating Endocrine: as per HPI Exam - Vital Signs Vital signs: Initial Vital Signs Temp Pulse Resp BP Pulse Ox 99.4 F 59 18 114/70 96 01/01/17 23:08 01/01/17 23:08 01/01/17 23:08 01/01/17 23:08 01/01/17 23:08 Vital Signs - Last 8 Hours Temp Pulse Resp BP Pulse Ox 01/07/17 13:00 97.9 F 66 18 95/54 100 01/07/17 10:30 100 01/07/17 09:45 98.6 F 68 20 92/58 Intake and Output 01/06/17 01/07/17 01/07/17 23:59 07:59 15:59 Intake Total 480 / 480 1000 / 1000 569 / 569 Output Total 100 / 100 1000 / 1000 Balance 380 / 380 1000 / 1000 -431 / -431 Intake: IV Fluids 1000 / 1000 32 / 32 KCl 10mEq in D5-0.45 NaCl 10 1000 / 1000 meq In 1,000 ml @ 100 mls/hr IVC .Q10H JOE Rx#:[id number] Magnesium Sulfate Premix 2gm/ 32 / 32 50mL 2 gm In 50 ml @ 25 mls/hr IVPB Q6H PRN Rx#:[id number] Oral 480 / 480 537 / 537 Output: Urine 100 / 100 1000 / 1000 Other: Meal Dinner Lunch Percent of Meal Consumed 100% 10% Stool Size Moderate Stool Consistency soft formed Stool Characteristics Normal for Patient Stool Color Brown Weight 78.4 kg Blood Glucose* 84 Patient Weight 01/07/17 23:59 Weight 78.4 kg - General Appearance Exam: Patient is alert and oriented. She is in no acute distress. Vital signs are stable. Lungs clear to auscultation. Heart regular rate and rhythm. Abdomen shows normal bowel sounds. Abdomen is soft. There is some diffuse tenderness there is no guarding or rigidity. Lower extremities show no peripheral edema. Results - Lab Results 01/07/17 05:59 01/07/17 05:59 Most recent lab results Calcium 8.1 mg/dL (8.6-10.8) L 01/07/17 05:59 Phosphorus 1.6 mg/dL (2.3-4.7) L D 01/07/17 06:58 Magnesium 1.4 mg/dL (1.6-2.6) L 01/07/17 06:58 Urine Creatinine 18 mg/dL 01/07/17 05:40 Urine Sodium 79.0 mEq/L 01/07/17 05:40 Urine Total Protein < 7 mg/dL (1-14) 01/07/17 05:40 Consult Discharge Plan - Plan Referrals: Chio Keating CNP [Primary Care Provider] - 01/14/17 9:00 am ()
[2017-01-07] MEDS: *HR* HYDROcodone/Acet 10/325 mg TABLET PO PRN (13:53)
[2017-01-07 17:36] LABS: Potassium,Urine 29.9 mEq/L
[2017-01-08 03:50] LABS: Basophils % 0.3 %; Eosinophils # 0.2 K/mcL (0.0-0.6); Eosinophils % 2.2 %; Hematocrit 22.4 % (35.3-44.9); Hemoglobin 7.4 g/dL (11.5-15.4); Immature Granulocytes % 0.8 % (0-4); Lymphocytes # 2.2 K/mcL (0.6-4.6); Mean Corpuscular Hemoglobin 31.6 pg (28.0-33.3); Mean Corpuscular Volume 95.7 fL (83.0-100.0); Mean Platelet Volume 9.5 fL (9.4-12.4); Monocytes # 0.5 K/mcL (0.0-1.3); Monocytes % 6.1 %; Neutrophils # 4.5 K/mcL (1.6-8.9); Platelet Count 379 K/mcL (140-400); Red Blood Count 2.34 M/mcL (3.82-4.97); Red Cell Distribution Width 18.6 % (11.5-14.5); Segmented Neutrophils % 60.6 %
[2017-01-08 04:10] LABS: Alanine Aminotransferase 14 Units/L (0-55); Albumin/Globulin Ratio 0.5 (1.1-2.2); Alkaline Phosphatase 91 Units/L (38-126); Aspartate Amino Transferase 44 Units/L (5-34); BUN/Creatinine Ratio 4 (6-26); Bilirubin,Total 0.3 mg/dL (0.2-1.2); Calcium 8.1 mg/dL (8.6-10.8); Carbon Dioxide 13 mEq/L (19-29); Chloride 120 mEq/L (98-109); Globulin 4.1 g/dL (2.4-3.5); Glucose 77 mg/dL (70-99); Lipase 102 Units/L (8-78); Magnesium 1.8 mg/dL (1.6-2.6); Osmolality,Calculated 283 (280-300); Potassium 3.1 mEq/L (3.5-4.5); Sodium 139 mEq/L (136-145); Total Protein 6.1 g/dL (6.0-8.3); eGFR For African Americans > 60 (> 60); eGFR For Non-African Americans > 60 (> 60)
[2017-01-08 04:14] LABS: Blood Urea Nitrogen 3 mg/dL (7-20)
[2017-01-08] MEDS: *HR* Heparin 5,000 UNIT/ML VIAL SQ SCH ×2 (05:57→17:30)
--- NOTE | 2017-01-08 08:51 | Internal Med Progress Note ---
<Peterson Spangler - Last Filed: 01/08/17 14:00> Date of Encounter: 01/08/17 Time of Encounter: 08:51 - Assessment and plan (1) Acute gallstone pancreatitis Current Visit: Yes Status: Acute Assessment and plan: CT Abdomen/Pelvis was negative for stones. A RUQ ultrasound was delayed after patient ate a meal, but came back positive for cholelithiasis without GBW thickening and had negative Bob's sign on U/S. Dr. Gordon consulted/patient evaluated, considering cholecystectomy before discharge, but after lipase normalizes, and H&H stable. Continue supportive care with IVF. Patient has been hemodynamically stable since admission; consider 1U transfusion in anticipation of an AM surgery. (2) Renal tubular acidosis type I Current Visit: Yes Status: Acute Assessment and plan: Replenish bicarbonate, currently 1.5meq/kg/d; Continue to correct hypokalemia; as per nephro, first treating with alkali therapy may facilitate hypokalemia correction. (3) Sjogrens syndrome Current Visit: Yes Status: Acute Assessment and plan: Dx'd 2009 via +SSA/SSB Prior hx Plaquinil with [facility] Consulted Rheumatology Possible etiology for pancreatitis though gallstone higher on ddx Rheumatology will pursue outpatient workup; no current hospital course changes. Qualifiers: Sjogren's organ involvement: unspecified organ involvement Qualified Code(s ): M35.00 - Sicca syndrome, unspecified (4) Diverticulitis Current Visit: Yes Status: Acute Assessment and plan: On Flagyl; no fever, white count, n/v Will monitor. Qualifiers: Diverticulitis site: large intestine Diverticulitis bleeding: unspecified bleeding status Diverticulitis complication: without perforation or abscess Qualified Code(s): K57.32 - Diverticulitis of large intestine without perforation or abscess without bleeding (5) Hypokalemia Current Visit: Yes Status: Acute Assessment and plan: Renal function wnl, magnesium normal, she has no complaints of diarrhea. Currently continue replacing with KCl IVPB; 3.1 AM labs. (6) Hypophosphatemia Current Visit: Yes Status: Acute Assessment and plan: Replaced, WNL, monitoring. (7) DVT prophylaxis Current Visit: Yes Status: Acute Assessment and plan: On 5000U sq q12 - Subjective Interval history: Surgery/GI, nephro/rheum having been consulted, hospital course reviewed with patient and she agrees with primary team and consult evaluations. Epigastri pain comes and goes, resolves with time and pain medication. No nausea/vomiting , dyspnea, or leg pain. - Constitutional Vitals: Temp Pulse Resp BP Pulse Ox 98.0 F 71 18 92/57 97 01/08/17 07:11 01/08/17 07:11 01/08/17 07:11 01/08/17 07:11 01/08/17 07:11 General appearance: Present: A&O X 3, pleasant, no acute distress - Head Head exam: Present: normal inspection - Neck Neck exam general surgery: Present: full ROM - Respiratory Respiratory exam: Present: CTAB. Absent: chest wall tenderness - Cardiovascular Cardiovascular exam: Present: RRR, +S1, +S2 - GI/Abdominal GI/Abdominal exam: Present: normal bowel sounds, tenderness (mid-epigastric with mild radiation laterally to left) - Extremities Exam Extremities exam: Present: full ROM, normal capillary refill, pedal edema ( trace lower extremity edema), warm - Psychiatric Psychiatric exam: Present: normal mood Internal Medicine: Result - Labs CBC & Chem 7: 01/08/17 03:31 01/08/17 03:31 Labs: Short CBC 01/08/17 Range/Units 03:31 WBC 7.4 (4.3-11.1) K/mcL Hgb 7.4 L (11.5-15.4) g/dL Hct 22.4 L (35.3-44.9) % Plt Count 379 (140-400) K/mcL Neutrophils # 4.5 (1.6-8.9) K/mcL BMP 01/08/17 03:31 Sodium 139 Potassium 3.1 L Chloride 120 H Carbon Dioxide 13 L BUN 3 L Creatinine 0.72 Glucose 77 Calcium 8.1 L Liver Function 01/08/17 Range/Units 03:31 Total Bilirubin 0.3 (0.2-1.2) mg/dL AST 44 H (5-34) Units/L ALT 14 (0-55) Units/L Alkaline Phosphatase 91 (38-126) Units/L Albumin 2.0 L (3.5-5.0) g/dL - VTE Documentation of Mechanical Device: Intermittent pneumatic compression device Consult Discharge Plan - Plan Referrals: Keating,Chio L, JEWELRY POLISHER [Primary Care Provider] - 01/14/17 9:00 am () <Jose Prabhakar - Last Filed: 01/08/17 17:38> Date of Encounter: 01/08/17 - Constitutional Vitals: Temp Pulse Resp BP Pulse Ox 97.9 F 61 16 108/67 99 01/08/17 16:37 01/08/17 16:37 01/08/17 16:37 01/08/17 16:37 01/08/17 16:37 Internal Medicine: Result - Labs CBC & Chem 7: 01/08/17 03:31 01/08/17 03:31 Labs: Short CBC 01/08/17 Range/Units 03:31 WBC 7.4 (4.3-11.1) K/mcL Hgb 7.4 L (11.5-15.4) g/dL Hct 22.4 L (35.3-44.9) % Plt Count 379 (140-400) K/mcL Neutrophils # 4.5 (1.6-8.9) K/mcL BMP 01/08/17 03:31 Sodium 139 Potassium 3.1 L Chloride 120 H Carbon Dioxide 13 L BUN 3 L Creatinine 0.72 Glucose 77 Calcium 8.1 L Liver Function 01/08/17 Range/Units 03:31 Total Bilirubin 0.3 (0.2-1.2) mg/dL AST 44 H (5-34) Units/L ALT 14 (0-55) Units/L Alkaline Phosphatase 91 (38-126) Units/L Albumin 2.0 L (3.5-5.0) g/dL - Attending Attestation I examined this patient and my medical decision-making was reviewed with the Resident Physician. I agree with the documented findings, disposition and treatment plan as described except to the extent set forth below. Ms. Ching is a 51 year old female with significant past surgical history of Sjogren's, rheumatoid arthritis and recently treated for shingles outbreak on her right side of her face was admitted on 01/02/2017 with acute pancreatitis, acute diverticulitis and severe nausea and vomiting. Pt states she is feeling better today. Denied any CP / SOB. Her abd pain also resolved completely. Gen: A, A, O x3 Chest : diminished BS b/l basal region, no crackles Abd: Soft, NT, BS+ Ext: No edema, pulses + a/p 1. Acute pancreatitis - due to cholelithiasis Improving cont symptomatic and supportive care GI did not recommend any further work up Surgery Dr. Gordon is planning on doing Lap Cholecystectomy once pt's Lipase and Amylase are completely normal 2. Acute diverticulitis Cont PO Flagyl # 6/10 3. Acute type 1 RTA Unclear etiology with her current presentation with severe hypokalemia and severe metabolic acidosis - concerned for type 1 RTA could be due to her Sjogren Cont NaHCo3 Cont replacing K + Nephro and Rheumatology on board Her elevated AL also due to Sjogren
[2017-01-08] MEDS: Loratadine 10 MG TABLET PO SCH (09:08)
[2017-01-08] MEDS: valACYclovir 500 MG TABLET PO SCH ×3 (09:14→20:35)
[2017-01-08] MEDS: *HR* HYDROcodone/Acet 10/325 mg TABLET PO PRN (09:15)
[2017-01-08] MEDS: Famotidine 20 MG TABLET PO SCH ×2 (09:15→20:35)
[2017-01-08] MEDS: metroNIDAZOLE 500 MG TABLET PO SCH ×3 (09:16→20:34)
[2017-01-08] MEDS: FLUoxetine 20 MG CAPSULE PO SCH ×2 (09:16→20:35)
[2017-01-08] MEDS: Artificial Tears SOLN 15 ML BOTTLE BOTH EYES SCH ×4 (09:16→20:50)
--- NOTE | 2017-01-08 09:48 | Rheumatology Progress Note ---
<Omer Hernandez - Last Filed: 01/08/17 09:45> Date of Encounter: 01/08/17 Time of Encounter: 09:00 Rheumatology Assess and Plan (1) Renal tubular acidosis type I Current Visit: Yes Status: Acute Patient continues to improve She is doing well with bicarbonate administration and potassium supplementation per nephrology currently, no plan for steroid therapy Plan to see the patient in the outpatient setting in 2-4 weeks (2) Pancreatitis Current Visit: Yes Status: Acute Suspected gallstone pancreatitis per gastroenterology and surgery Patient is improving clinically Plan is for cholecystectomy during this admission when amylase and lipase labs return to normal limits Qualifiers: Chronicity: acute Pancreatitis type: unspecified pancreatitis type Acute pancreatitis complication: no infection or necrosis Qualified Code(s): K85.90 - Acute pancreatitis without necrosis or infection, unspecified (3) Sjogrens syndrome Current Visit: Yes Status: Acute Diagnosis should be confirmed by biopsy in cases such as this with suspected complications This can be done as outpatient Patient to follow up in 2-4 weeks Qualifiers: Sjogren's organ involvement: unspecified organ involvement Qualified Code(s ): M35.00 - Sicca syndrome, unspecified (4) Hypokalemia Current Visit: Yes Status: Acute Stable with electrolyte replacement Continue management per nephrology and primary team (5) Rheumatoid arthritis Current Visit: Yes Status: Acute Rheumatoid factor negative, doubt diagnosis - Subjective Interval history: Patient endorses continued improvement, no interval changes in symptoms. Exam Vital Signs, Last 4 Hours Temp Pulse Resp BP Pulse Ox 01/08/17 07:11 98.0 F 71 18 92/57 97 Exam: HEENT - Dry and cracked mucous membranes, no enlargement of parotid gland, salivary glands, or lymphadenopathy. Heart - S1 S2 RRR and no evidence of peripheral pitting edema Lungs - Clear to auscultation without any crackles or wheezes Skin - No rashes, mild ecchymosis on dorsal left hand MSK - No synovitis, some swelling of left hand diffusely without tenderness (IV in same hand) Neuro - Muscle strength 5/5 in all four extremities; Gait not assessed due to connection to IV. Objective Data 01/08/17 03:31 01/08/17 03:31 Immunology Rheumatoid Factor < 15 IU/mL (0-29) 01/07/17 11:32 AL Screen DETECTED (None Detected) A 01/02/17 04:50 AL Titer 1:640 (<1:40) H 01/02/17 04:50 All other labs normal. - VTE Documentation of Mechanical Device: Intermittent pneumatic compression device Consult Discharge Plan - Plan Referrals: Chio Keating CHIEF CRNA [Primary Care Provider] - 01/14/17 9:00 am () <Julio C Oconnor - Last Filed: 01/08/17 17:11> Date of Encounter: 01/08/17 Exam Vital Signs, Last 4 Hours Temp Pulse Resp BP Pulse Ox 01/08/17 16:37 97.9 F 61 16 108/67 99 01/08/17 13:13 103/63 Objective Data 01/08/17 03:31 01/08/17 03:31 Immunology Rheumatoid Factor < 15 IU/mL (0-29) 01/07/17 11:32 AL Screen DETECTED (None Detected) A 01/02/17 04:50 AL Titer 1:640 (<1:40) H 01/02/17 04:50 All other labs normal. - Attending Attestation I examined this patient and my medical decision making was reviewed with the resident physician. I agree with the documented findings, disposition and treatment as described with these exceptions. - Clinically pancreatitis seems to be improving and cause seems to be due to gall stones - I spoke to Dr. Daniels regarding lyte abnormalities; he will treat with bicarb and replacement for now. No evidence for interstitial nephritis at this time. - No need at this time for increased immunosuppression. - Will set her up a rheumatology follow-up in 2-3 weeks - Will sign-off; I will also be out of town for the next week and unavailable.
--- NOTE | 2017-01-08 11:17 | Nephrology Progress Note ---
Date of Encounter: 01/08/17 Time of Encounter: 10:40 - Assessment and Plan (1) Renal tubular acidosis type I Current Visit: Yes Status: Acute Urine anion gap > 0 which coincides with Type 1 or diatal RTA. Will increases Bicarb to 1.5 meq/kg/day. Once Bicarb normalized, potassium requirement should be easier controlled. Subjective Interval history: Laying in bed, states abdominal discomfort almost gone. States ate and drank normally yesterday without emesis. Objective - Vital Signs Vital signs: Vital Signs Temp Pulse Resp BP Pulse Ox 01/08/17 07:11 98.0 F 71 18 92/57 97 01/08/17 04:57 57 01/08/17 00:39 67 16 93 01/08/17 00:01 97.4 F L 63 16 93/66 93 01/07/17 20:28 65 16 99 01/07/17 19:03 98.0 F 65 16 118/73 01/07/17 15:51 98 F 65 18 107/68 99 01/07/17 13:00 97.9 F 66 18 95/54 100 Intake and Output 01/07/17 01/08/17 01/08/17 23:59 07:59 15:59 Intake Total 618 / 618 Output Total 200 / 200 Balance 418 / 418 Intake: IV Fluids 418 / 418 KCl 10mEq in D5-0.45 NaCl 10 418 / 418 meq In 1,000 ml @ 100 mls/hr IVC .Q10H [facility] Rx#:[id number] Oral 200 / 200 Output: Urine 200 / 200 Other: Meal Dinner Percent of Meal Consumed 25% - General Appearance General appearance: Present: well-developed, well-nourished, appears started age EENT: Present: mucous membranes moist Neck: Present: no JVD Respiratory: Present: clear Cardiology: Present: no edema, regular rate, regular rhythm Gastrointestinal: Present: normoactive bowel sounds, no tenderness Integumentary: Present: warm and dry Neurologic: Present: alert and oriented x3 Psychiatric: Present: mood/affect appropriate, cooperative - Lab 01/08/17 03:31 01/08/17 03:31 Most recent lab results Calcium 8.1 mg/dL (8.6-10.8) L 01/08/17 03:31 Phosphorus 2.0 mg/dL (2.3-4.7) L 01/08/17 03:31 Magnesium 1.8 mg/dL (1.6-2.6) 01/08/17 03:31 Urine Creatinine 18 mg/dL 01/07/17 05:40 Urine Sodium 93.0 mEq/L 01/07/17 16:50 Urine Total Protein < 7 mg/dL (1-14) 01/07/17 05:40 - VTE Documentation of Mechanical Device: Intermittent pneumatic compression device Consult Discharge Plan - Plan Referrals: Chio Keating CNP [Primary Care Provider] - 01/14/17 9:00 am ()
[2017-01-08] MEDS: *HR* HYDROmorphone (PF) 1 MG/ML SYRINGE IVP PRN ×2 (13:18→20:34)
--- NOTE | 2017-01-08 13:38 | General Surgery Progress Note ---
Date of Encounter: 01/08/17 Time of Encounter: 13:15 Subjective Narrative: General Surgery - continued follow up gallstone pancreatitis patient indicating that she is still not feeling well. Non specific malaise as patient not indicating specific complaints or abd pain/ continues afebrile, 98.2; pulse 71; RR 18, BP 92/57 - 103/63 Potassium remains low at 3.1 despite oral supplements. Aware of Nephrology note H&H continues to fall - currently 7.4/22.4 - WBC 7.4; platelets 379,000 Phos low - 2.0, magnesium corrected 1.8 AST 44 (increased) other LFTs remain WNL amylase 57/ lipase 102 (still elevated) Awaiting medical stabilization prior to considering surgery. Low H&H a concern Patient aware. Will keep NPO in the AM should medical stability be achieved today/tonight. Objective Vital Signs - Last 8 Hours Temp Pulse Resp BP Pulse Ox 01/08/17 13:13 103/63 01/08/17 12:06 98.2 F 71 18 97/57 95 01/08/17 07:11 98.0 F 71 18 92/57 97 Intake and Output 01/07/17 01/08/17 01/08/17 23:59 07:59 15:59 Intake Total 618 / 618 Output Total 200 / 200 Balance 418 / 418 Intake: IV Fluids 418 / 418 KCl 10mEq in D5-0.45 NaCl 10 418 / 418 meq In 1,000 ml @ 100 mls/hr IVC .Q10H [facility] Rx#:[id number] Oral 200 / 200 Output: Urine 200 / 200 Other: Meal Dinner Percent of Meal Consumed 25% - Labs 01/08/17 03:31 01/08/17 03:31 Diabetes panel 01/08/17 Range/Units 03:31 Sodium 139 (136-145) mEq/L Potassium 3.1 L (3.5-4.5) mEq/L Chloride 120 H (98-109) mEq/L Carbon Dioxide 13 L (19-29) mEq/L BUN 3 L (7-20) mg/dL Creatinine 0.72 (0.57-1.11) mg/dL Glucose 77 (70-99) mg/dL Calcium 8.1 L (8.6-10.8) mg/dL AST 44 H (5-34) Units/L ALT 14 (0-55) Units/L Alkaline Phosphatase 91 (38-126) Units/L Albumin 2.0 L (3.5-5.0) g/dL Calcium panel 01/08/17 Range/Units 03:31 Calcium 8.1 L (8.6-10.8) mg/dL Phosphorus 2.0 L (2.3-4.7) mg/dL Albumin 2.0 L (3.5-5.0) g/dL Pituitary panel 01/08/17 Range/Units 03:31 Sodium 139 (136-145) mEq/L Potassium 3.1 L (3.5-4.5) mEq/L Chloride 120 H (98-109) mEq/L Carbon Dioxide 13 L (19-29) mEq/L BUN 3 L (7-20) mg/dL Creatinine 0.72 (0.57-1.11) mg/dL Glucose 77 (70-99) mg/dL Calcium 8.1 L (8.6-10.8) mg/dL Adrenal panel 01/08/17 Range/Units 03:31 Sodium 139 (136-145) mEq/L Potassium 3.1 L (3.5-4.5) mEq/L Chloride 120 H (98-109) mEq/L Carbon Dioxide 13 L (19-29) mEq/L BUN 3 L (7-20) mg/dL Creatinine 0.72 (0.57-1.11) mg/dL Glucose 77 (70-99) mg/dL Calcium 8.1 L (8.6-10.8) mg/dL Total Bilirubin 0.3 (0.2-1.2) mg/dL AST 44 H (5-34) Units/L ALT 14 (0-55) Units/L Alkaline Phosphatase 91 (38-126) Units/L Albumin 2.0 L (3.5-5.0) g/dL - VTE Documentation of Mechanical Device: Intermittent pneumatic compression device Consult Discharge Plan - Plan Referrals: Chio Keating CNP [Primary Care Provider] - 01/14/17 9:00 am ()
[2017-01-08] MEDS ORDERED: 0.9 % Sodium Chloride 250 ML ONE (20:58)
[2017-01-09] MEDS: *HR* Heparin 5,000 UNIT/ML VIAL SQ SCH ×2 (02:19→17:58)
[2017-01-09 05:33] LABS: Basophils % 0.3 %; Eosinophils # 0.2 K/mcL (0.0-0.6); Eosinophils % 2.1 %; Hematocrit 24.7 % (35.3-44.9); Hemoglobin 8.3 g/dL (11.5-15.4); Immature Granulocytes % 0.4 % (0-4); Lymphocytes # 1.7 K/mcL (0.6-4.6); Lymphocytes % 24.4 %; Mean Corpuscular HGB Conc 33.6 g/dL (31.6-35.5); Mean Corpuscular Hemoglobin 31.6 pg (28.0-33.3); Mean Corpuscular Volume 93.9 fL (83.0-100.0); Mean Platelet Volume 9.6 fL (9.4-12.4); Monocytes # 0.5 K/mcL (0.0-1.3); Neutrophils # 4.6 K/mcL (1.6-8.9); Platelet Count 340 K/mcL (140-400); Red Blood Count 2.63 M/mcL (3.82-4.97); Segmented Neutrophils % 65.8 %
[2017-01-09 05:48] LABS: Amylase 40 Units/L (25-125); BUN/Creatinine Ratio 4 (6-26); Blood Urea Nitrogen 3 mg/dL (7-20); Calcium 7.9 mg/dL (8.6-10.8); Carbon Dioxide 16 mEq/L (19-29); Chloride 119 mEq/L (98-109); Glucose 79 mg/dL (70-99); Lipase 71 Units/L (8-78); Osmolality,Calculated 287 (280-300); Potassium 3.2 mEq/L (3.5-4.5); Sodium 141 mEq/L (136-145); eGFR For African Americans > 60 (> 60); eGFR For Non-African Americans > 60 (> 60)
[2017-01-09] MEDS: Famotidine 20 MG TABLET PO SCH ×2 (09:15→21:50)
[2017-01-09] MEDS: Loratadine 10 MG TABLET PO SCH (09:16)
[2017-01-09] MEDS: metroNIDAZOLE 500 MG TABLET PO SCH ×3 (09:16→21:48)
[2017-01-09] MEDS: FLUoxetine 20 MG CAPSULE PO SCH ×2 (09:16→21:48)
[2017-01-09] MEDS: *HR* HYDROmorphone (PF) 1 MG/ML SYRINGE IVP PRN ×2 (09:17→15:49)
[2017-01-09] MEDS: Artificial Tears SOLN 15 ML BOTTLE BOTH EYES SCH ×4 (09:17→21:50)
--- NOTE | 2017-01-09 09:37 | Nephrology Progress Note ---
Date of Encounter: 01/09/17 Time of Encounter: 09:00 - Assessment and Plan (1) Renal tubular acidosis type I Current Visit: Yes Status: Acute Urine anion gap > 0 which coincides with Type 1 or distal RTA. Bicarb 1.5 meq/ kg/day. Bicarb slowly improving, 16 today. K 3.2. Once Bicarb normalized, potassium requirement should be easier controlled. Should patient be NPO and not receiving oral bicarb, should be placed on IV D5W with 3 amps Bicarb at 150cc/hour. Subjective Interval history: Sitting up in chair. States does not know if having surgery toady. Patiient is NPO, however nursing states is giving PO Bicarb. Objective - Vital Signs Vital signs: Vital Signs Temp Pulse Resp BP Pulse Ox 01/09/17 07:34 99.6 F 74 18 100/62 96 01/09/17 04:48 98.9 F 72 16 108/58 96 01/08/17 23:47 98.4 F 63 16 83/52 97 01/08/17 22:31 97.9 F 60 16 100/60 97 01/08/17 21:24 98.5 F 70 16 104/64 99 01/08/17 21:10 97.8 F 75 16 105/64 100 01/08/17 19:59 97.9 F 71 16 111/70 98 01/08/17 16:37 97.9 F 61 16 108/67 99 01/08/17 13:13 103/63 01/08/17 12:06 98.2 F 71 18 97/57 95 Intake and Output 01/08/17 01/09/17 01/09/17 23:59 07:59 15:59 Intake Total 300 / 300 Balance 300 / 300 Intake: Blood Product 300 / 300 Rbcs Leuko Poor As-3 Ph Unit 300 / 300 [id number] Other: # Voids 1 1 - General Appearance General appearance: Present: well-developed, well-nourished, appears started age EENT: Present: mucous membranes moist Neck: Present: no JVD Respiratory: Present: clear Cardiology: Present: edema, regular rate, regular rhythm Additional Comments: trace pitting LE Gastrointestinal: Present: normoactive bowel sounds Integumentary: Present: warm and dry Neurologic: Present: alert and oriented x3 Psychiatric: Present: mood/affect appropriate, cooperative - Lab 01/09/17 05:20 01/09/17 05:20 Most recent lab results Calcium 7.9 mg/dL (8.6-10.8) L 01/09/17 05:20 Phosphorus 2.0 mg/dL (2.3-4.7) L 01/08/17 03:31 Magnesium 1.8 mg/dL (1.6-2.6) 01/08/17 03:31 Urine Creatinine 18 mg/dL 01/07/17 05:40 Urine Sodium 93.0 mEq/L 01/07/17 16:50 Urine Total Protein < 7 mg/dL (1-14) 01/07/17 05:40 - VTE Documentation of Mechanical Device: Intermittent pneumatic compression device Consult Discharge Plan - Plan Referrals: Chio Keating CNP [Primary Care Provider] - 01/14/17 9:00 am ()
[2017-01-09 10:24] LABS: Complement Component 3 108 mg/dL (88-201); Complement Component 4 15 mg/dL (10-40)
[2017-01-09 10:32] LABS: Ribonucleic Protein Antibody 0 AU/mL (0-40); SSA 52 (Anti-RO) Antibody 195 AU/mL (0-40); SSA 60 (Anti-RO) Antibody 118 AU/mL (0-40)
--- NOTE | 2017-01-09 11:10 | Internal Med Progress Note ---
<Peterson Spangler - Last Filed: 01/09/17 13:10> Date of Encounter: 01/09/17 Time of Encounter: 09:30 - Assessment and plan (1) Acute gallstone pancreatitis Current Visit: Yes Status: Acute Assessment and plan: Initial course: CT Abdomen/Pelvis was negative for stones. A RUQ ultrasound was delayed after patient ate a meal, but came back positive for cholelithiasis without GBW thickening and had negative Bob's sign on U/S. MRCP possible, however, likely no obstruction as lipase trending down substantially. 01/09: Surgical team plans for cholecystecomy tomorrow 01/10. Received 1U yesterday. (2) Renal tubular acidosis type I Current Visit: Yes Status: Acute Assessment and plan: Replenish bicarbonate, currently 1.5meq/kg/d; Continue to correct hypokalemia; as per nephro, first treating with alkali therapy may facilitate hypokalemia correction. (3) Sjogrens syndrome Current Visit: Yes Status: Acute Assessment and plan: Dx'd 2009 via +SSA/SSB Prior hx Plaquinil with [facility] Consulted Rheumatology Possible etiology for pancreatitis though gallstone higher on ddx Rheumatology will pursue outpatient workup; no current hospital course changes. Qualifiers: Sjogren's organ involvement: unspecified organ involvement Qualified Code(s ): M35.00 - Sicca syndrome, unspecified (4) Diverticulitis Current Visit: Yes Status: Acute Assessment and plan: On Flagyl; no fever, white count, n/v Will monitor. Qualifiers: Diverticulitis site: large intestine Diverticulitis bleeding: unspecified bleeding status Diverticulitis complication: without perforation or abscess Qualified Code(s): K57.32 - Diverticulitis of large intestine without perforation or abscess without bleeding (5) Hypokalemia Current Visit: Yes Status: Acute Assessment and plan: Renal function continues to be wnl, magnesium normal, she has no complaints of diarrhea. Currently continue replacing with KCl IVPB; bicarbonate therapy to counteract RTA. 01/09: 3.2 AM labs. (6) Hypophosphatemia Current Visit: Yes Status: Acute Assessment and plan: Replaced, WNL, monitoring. (7) DVT prophylaxis Current Visit: Yes Status: Acute Assessment and plan: On 5000U sq q12 - Subjective Interval history: Pain well controlled, patient plan for surgery tomorrow 01/09/17; received 1U yesterday afternoon, no fever/reaction; no nausea/vomiting, dyspnea, or leg pain. - Constitutional Vitals: Temp Pulse Resp BP Pulse Ox 99.6 F 74 18 100/62 96 01/09/17 07:34 01/09/17 07:34 01/09/17 07:34 01/09/17 07:34 01/09/17 07:34 General appearance: Present: A&O X 3, pleasant, no acute distress - Head Head exam: Present: atraumatic - Neck Neck exam general surgery: Present: full ROM. Absent: lymphadenopathy - Respiratory Respiratory exam: Present: CTAB. Absent: tachypnea - Cardiovascular Cardiovascular exam: Present: RRR, +S1, +S2 - GI/Abdominal GI/Abdominal exam: Present: no peritoneal signs. Absent: distended, hepatomegaly, rebound, rigid, tenderness Internal Medicine: Result - Labs CBC & Chem 7: 01/09/17 05:20 01/09/17 05:20 Labs: Short CBC 01/09/17 Range/Units 05:20 WBC 7.0 (4.3-11.1) K/mcL Hgb 8.3 L (11.5-15.4) g/dL Hct 24.7 L (35.3-44.9) % Plt Count 340 (140-400) K/mcL Neutrophils # 4.6 (1.6-8.9) K/mcL BMP 01/09/17 05:20 Sodium 141 Potassium 3.2 L Chloride 119 H Carbon Dioxide 16 L BUN 3 L Creatinine 0.67 Glucose 79 Calcium 7.9 L - VTE Documentation of Mechanical Device: Intermittent pneumatic compression device Consult Discharge Plan - Plan Referrals: Chio Keating CNP [Primary Care Provider] - 01/14/17 9:00 am () <Jose Prabhakar - Last Filed: 01/09/17 16:37> Date of Encounter: 01/09/17 - Constitutional Vitals: Temp Pulse Resp BP Pulse Ox 98.9 F 69 16 100/62 100 01/09/17 11:39 01/09/17 11:39 01/09/17 11:39 01/09/17 11:39 01/09/17 11:39 Internal Medicine: Result - Labs CBC & Chem 7: 01/09/17 05:20 01/09/17 05:20 Labs: Short CBC 01/09/17 Range/Units 05:20 WBC 7.0 (4.3-11.1) K/mcL Hgb 8.3 L (11.5-15.4) g/dL Hct 24.7 L (35.3-44.9) % Plt Count 340 (140-400) K/mcL Neutrophils # 4.6 (1.6-8.9) K/mcL BMP 01/09/17 05:20 Sodium 141 Potassium 3.2 L Chloride 119 H Carbon Dioxide 16 L BUN 3 L Creatinine 0.67 Glucose 79 Calcium 7.9 L - Attending Attestation I examined this patient and my medical decision-making was reviewed with the Resident Physician. I agree with the documented findings, disposition and treatment plan as described except to the extent set forth below. Ms. Ching is a 51 year old female with significant past surgical history of Sjogren's, rheumatoid arthritis and recently treated for shingles outbreak on her right side of her face was admitted on 01/02/2017 with acute pancreatitis, acute diverticulitis and severe nausea and vomiting. Pt states she is feeling better today. Denied any CP / SOB. Her abd pain also resolved completely. Gen: A, A, O x3 Chest : diminished BS b/l basal region, no crackles Abd: Soft, NT, BS+ Ext: No edema, pulses + a/p 1. Acute pancreatitis - due to cholelithiasis Improved cont symptomatic and supportive care GI did not recommend any further work up Surgery Dr. Gordon is planning on doing Lap Cholecystectomy in AM 2. Acute diverticulitis Cont PO Flagyl # 7/ 3. Acute type 1 RTA Unclear etiology with her current presentation with severe hypokalemia and severe metabolic acidosis - concerned for type 1 RTA could be due to her Sjogren Cont NaHCo3 Cont replacing K + Nephro and Rheumatology on board Her elevated AL also due to Sjogren 4. Acute anemia - mostly due to nutritional deficiency Replaced 1 U PRBC Will check, Iron profile, Vit B12, folic acid in AM 5. Mild Protein caloric malnutrition Cont nutritional supplements
[2017-01-09] MEDS: valACYclovir 500 MG TABLET PO SCH ×3 (11:23→21:47)
[2017-01-09] MEDS: *HR* HYDROcodone/Acet 10/325 mg TABLET PO PRN (14:14)
[2017-01-10 04:00] LABS: Basophils % 0.3 %; Eosinophils # 0.1 K/mcL (0.0-0.6); Eosinophils % 1.9 %; Hemoglobin 7.9 g/dL (11.5-15.4); Immature Granulocytes % 0.6 % (0-4); Lymphocytes # 2.2 K/mcL (0.6-4.6); Lymphocytes % 32.5 %; Mean Corpuscular HGB Conc 32.9 g/dL (31.6-35.5); Mean Corpuscular Hemoglobin 31.1 pg (28.0-33.3); Mean Corpuscular Volume 94.5 fL (83.0-100.0); Monocytes # 0.4 K/mcL (0.0-1.3); Monocytes % 6.4 %; Neutrophils # 3.9 K/mcL (1.6-8.9); Nucleated Red Blood Cells 0.3 /100 WBC (0); Platelet Count 340 K/mcL (140-400); Red Blood Count 2.54 M/mcL (3.82-4.97); Red Cell Distribution Width 18.2 % (11.5-14.5); Segmented Neutrophils % 58.3 %
[2017-01-10 04:07] LABS: INR 1.4; Prothrombin Time 14.8 Seconds (9.4-12.1)
[2017-01-10 04:12] LABS: % Iron Saturation 26 % (15-50); Iron 34 mcg/dL (50-170); Transferrin 95 mg/dL (180-382)
[2017-01-10 04:14] LABS: BUN/Creatinine Ratio 6 (6-26); Calcium 8.1 mg/dL (8.6-10.8); Carbon Dioxide 15 mEq/L (19-29); Chloride 118 mEq/L (98-109); Glucose 73 mg/dL (70-99); Osmolality,Calculated 285 (280-300); Potassium 3.2 mEq/L (3.5-4.5); Sodium 140 mEq/L (136-145); eGFR For African Americans > 60 (> 60); eGFR For Non-African Americans > 60 (> 60)
[2017-01-10 04:25] LABS: Blood Urea Nitrogen 4 mg/dL (7-20)
[2017-01-10 04:36] LABS: Anisocytosis 1+ (Not Present); Platelet Estimate Normal (Normal); Reactive Lymphocytes Present (Not Present); Toxic Granulation Present (Not Present)
[2017-01-10 04:46] LABS: Folate 2.9 ng/mL (7.0-31.4)
[2017-01-10] MEDS: *HR* Heparin 5,000 UNIT/ML VIAL SQ SCH (06:17)
[2017-01-10] MEDS ORDERED: *HR* Succinylcholine 200 MG/10 ML VIAL IVP ONE (07:27)
[2017-01-10] MEDS ORDERED: Lidocaine -MPF 4% 5 ML AMPUL ONE (07:27)
[2017-01-10] MEDS ORDERED: Lidocaine -MPF 2% 2 ML VIAL ONE ×3 (07:27→08:39)
[2017-01-10] MEDS ORDERED: *HR* Rocuronium Bromide 50 MG/5 ML VIAL ONE (07:27)
[2017-01-10] MEDS ORDERED: *HR* Propofol 200 MG/20 ML VIAL IVP ONE (07:28)
[2017-01-10] MEDS ORDERED: *HR* FentaNYL (PF) 100 MCG/2 ML VIAL ONE (07:28)
[2017-01-10] MEDS ORDERED: *HR* Midazolam HCl 2 MG/2 ML VIAL ONE (07:28)
[2017-01-10] MEDS ORDERED: Ringers Solution, Lactated 1,000 ML ONE (07:42)
[2017-01-10] MEDS ORDERED: Bupivacaine/EPI 1:200k 0.25%PF 10 ML VIAL INFILT ONE (07:48)
--- NOTE | 2017-01-10 07:50 | Anesthesia Evaluation PreOp ---
Date of Encounter: 01/10/17 Time of Encounter: 07:48 - Past History Planned Operation: Lap Gricel Cardiac History: Denies any Significant Hx Pulmonary History: Denies Any Significant HX WRAPPER SIZER History: Other (Anxiety/Depression maitnaiend on Xanax, Prozac. Recent "Shingle Attack" 12/2016) Other Medical History: Other (Pancreatitis this admission. Hx of Sjogren's/RA/ SLE?) Anesthesia History: Past Anesthesia (No prior GA), MH (No FamHx of MH) Alcohol Use: none Drug use: prescription drug abuse Medications and Allergies HYDROcodone/Acet 10/325 mg [[place] 10-325 mg] 1 tab PO Q4-6H PRN MDD DO NOT EXCEED 5 TABS/24HRS 06/28/15 [History] Ibuprofen [Motrin] 800 mg PO Q8HR PRN 06/28/15 [History] Norgestimate-Ethinyl Estradiol [Mononessa 28 Tablet] 1 tab PO DAILY 06/28/15 [ History] Potassium Chloride [K-Tab ER] 10 meq PO DAILY 06/28/15 [History] Zolpidem [Ambien] 5 mg PO HS PRN 06/28/15 [History] Cetirizine HCl [All Day Allergy] 10 mg PO DAILY 01/02/17 [History] FLUoxetine HCl [Fluoxetine HCl] 40 mg PO BID 01/02/17 [History] Propranolol [Inderal] 20 mg PO BID 01/02/17 [History] Quetiapine Fumarate [Seroquel] 50 mg PO BID 01/02/17 [History] Quetiapine Fumarate [Seroquel] 100 mg PO HS 01/02/17 [History] hydrOXYzine HCl [Hydroxyzine HCl] 25 mg PO Q8H PRN 01/02/17 [History] valACYclovir [Valtrex] 1,000 mg PO TID 01/02/17 [History] 3 Allergy/AdvReac Type Severity Reaction Status Date / Time tramadol Allergy See Verified 12/07/16 10:27 Comments - Meds/Allergy Pre-op Review Medications Reviewed: Yes Allergies Reviewed: Yes Beta Blockers on Current Med List: Yes (Propanolol) If Beta Blockers taken, Date/Time (Last Dose taken): 01/09/2017 @ 2148 Anesthesia Results - Labs 01/10/17 03:05 01/10/17 03:05 Laboratory Results WBC 6.7 K/mcL (4.3-11.1) 01/10/17 03:05 RBC 2.54 M/mcL (3.82-4.97) L 01/10/17 03:05 Hgb 7.9 g/dL (11.5-15.4) L 01/10/17 03:05 Hct 24.0 % (35.3-44.9) L 01/10/17 03:05 MCV 94.5 fL (83.0-100.0) 01/10/17 03:05 MCH 31.1 pg (28.0-33.3) 01/10/17 03:05 MCHC 32.9 g/dL (31.6-35.5) 01/10/17 03:05 RDW 18.2 % (11.5-14.5) H 01/10/17 03:05 Plt Count 340 K/mcL (140-400) 01/10/17 03:05 MPV 10.0 fL (9.4-12.4) 01/10/17 03:05 Immature Gran % 0.6 % (0-4) 01/10/17 03:05 Seg Neutrophils % 58.3 % 01/10/17 03:05 Lymphocytes % 32.5 % 01/10/17 03:05 Monocytes % 6.4 % 01/10/17 03:05 Eosinophils % 1.9 % 01/10/17 03:05 Basophils % 0.3 % 01/10/17 03:05 Neutrophils # 3.9 K/mcL (1.6-8.9) 01/10/17 03:05 Lymphocytes # 2.2 K/mcL (0.6-4.6) 01/10/17 03:05 Monocytes # 0.4 K/mcL (0.0-1.3) 01/10/17 03:05 Eosinophils # 0.1 K/mcL (0.0-0.6) 01/10/17 03:05 Basophils # 0.0 K/mcL (0.0-0.2) 01/10/17 03:05 Nucleated RBCs/100 WBC 0.3 /100 WBC (0) H 01/10/17 03:05 Reactive Lymphocytes Present (Not Present) A 01/10/17 03:05 Toxic Granulation Present (Not Present) A 01/10/17 03:05 Platelet Estimate Normal (Normal) 01/10/17 03:05 Anisocytosis 1+ (Not Present) A 01/10/17 03:05 PT 14.8 Seconds (9.4-12.1) H 01/10/17 03:05 INR 1.4 01/10/17 03:05 VBG pH 7.27 pH Units (7.32-7.42) L 01/04/17 03:49 VBG pCO2 28 mmHg (41-51) L 01/04/17 03:49 VBG pO2 76 mmHg (25-50) H 01/04/17 03:49 VBG HCO3 13 mEq/L (21-27) L 01/04/17 03:49 Sodium 140 mEq/L (136-145) 01/10/17 03:05 Potassium 3.2 mEq/L (3.5-4.5) L 01/10/17 03:05 Chloride 118 mEq/L (98-109) H 01/10/17 03:05 Carbon Dioxide 15 mEq/L (19-29) L 01/10/17 03:05 BUN 4 mg/dL (7-20) L 01/10/17 03:05 Creatinine 0.66 mg/dL (0.57-1.11) 01/10/17 03:05 Est GFR ( Amer) > 60 (> 60) 01/10/17 03:05 Est GFR (Non-Af Amer) > 60 (> 60) 01/10/17 03:05 BUN/Creatinine Ratio 6 (6-26) 01/10/17 03:05 Glucose 73 mg/dL (70-99) 01/10/17 03:05 POC Glucose 78 (58-89) 01/10/17 07:20 Calculated Osmolality 285 (280-300) 01/10/17 03:05 Lactic Acid 0.9 mmol/L (0.5-2.2) 01/03/17 15:41 Calcium 8.1 mg/dL (8.6-10.8) L 01/10/17 03:05 Ionized Calcium 1.27 mmol/L (1.15-1.35) 01/07/17 06:58 Phosphorus 2.0 mg/dL (2.3-4.7) L 01/08/17 03:31 Magnesium 1.8 mg/dL (1.6-2.6) 01/08/17 03:31 Iron 34 mcg/dL (50-170) L 01/10/17 03:05 % Saturation 26 % (15-50) 01/10/17 03:05 Transferrin 95 mg/dL (180-382) L 01/10/17 03:05 Total Bilirubin 0.3 mg/dL (0.2-1.2) 01/08/17 03:31 Direct Bilirubin 0.3 mg/dL (0.0-0.5) 01/02/17 00:07 Indirect Bilirubin 0.3 mg/dL (0.0-1.2) 01/02/17 00:07 AST 44 Units/L (5-34) H 01/08/17 03:31 ALT 14 Units/L (0-55) 01/08/17 03:31 Alkaline Phosphatase 91 Units/L (38-126) 01/08/17 03:31 Serum Total Protein 6.1 g/dL (6.0-8.3) 01/08/17 03:31 Albumin 2.0 g/dL (3.5-5.0) L 01/08/17 03:31 Globulin 4.1 g/dL (2.4-3.5) H 01/08/17 03:31 Albumin/Globulin Ratio 0.5 (1.1-2.2) L 01/08/17 03:31 Triglycerides 100 mg/dL (< 150) 01/02/17 04:50 Cholesterol 134 mg/dL (< 200) 01/02/17 04:50 LDL Cholesterol, Calc 92 mg/dL (0-99) 01/02/17 04:50 VLDL Cholesterol, Calc 20 mg/dL (< 31) 01/02/17 04:50 HDL Cholesterol 22 mg/dL (40-59) L 01/02/17 04:50 Cholesterol/HDL Ratio 6.1 (0-4.9) H 01/02/17 04:50 Amylase 40 Units/L (25-125) 01/09/17 05:20 Lipase 71 Units/L (8-78) 01/09/17 05:20 Vitamin B12 658 pg/mL (213-816) 01/10/17 03:05 Folate 2.9 ng/mL (7.0-31.4) L 01/10/17 03:05 Ur Specimen Adequacy See below A 01/02/17 00:07 Urine Color Yellow (Yellow) 01/06/17 18:34 Urine Clarity Cloudy (Clear) A 01/06/17 18:34 Urine pH 7.0 pH Units (5.0-8.0) 01/06/17 18:34 Ur Specific [place] 1.019 (1.010-1.025) 01/06/17 18:34 Urine Protein 30 mg/dL (Neg-Trace) H 01/06/17 18:34 Urine Glucose (UA) Normal mg/dL (Normal) 01/06/17 18:34 Urine Ketones Negative mg/dL (Negative) 01/06/17 18:34 Urine Blood Negative (Negative) 01/06/17 18:34 Urine Nitrite Negative (Negative) 01/06/17 18:34 Urine Bilirubin Negative (Negative) 01/06/17 18:34 Urine Urobilinogen Normal mg/dL (Normal) 01/06/17 18:34 Ur Leukocyte Esterase Small (Negative) H 01/06/17 18:34 Urine Microscopic RBC 3-5 per hpf (0-3) H 01/06/17 18:34 Urine Microscopic WBC 5-15 per hpf (0-3) H 01/06/17 18:34 Ur Squamous Epith Cells Many per lpf (None-Few) H 01/06/17 18:34 Urine Bacteria None Seen per hpf (None-Few) 01/06/17 18:34 Hyaline Casts None Seen per lpf (None-Few) 01/06/17 18:34 Urine Yeast Few per hpf (None Seen) H 01/02/17 00:07 Ur Culture Indicated? YES (NO) A 01/02/17 00:07 Urine Osmolality 231 mOsm/kg (300-1090) L 01/07/17 05:40 Urine Creatinine 18 mg/dL 01/07/17 05:40 Protein/Creatinin Ratio 0.39 mg/mg (0-0.20) H 01/07/17 05:40 Urine Sodium 93.0 mEq/L 01/07/17 16:50 Urine Potassium 29.9 mEq/L 01/07/17 16:50 Urine Chloride 118 mEq/L 01/07/17 16:50 Urine Total Protein < 7 mg/dL (1-14) 01/07/17 05:40 Rheumatoid Factor < 15 IU/mL (0-29) 01/07/17 11:32 Cycl Citrul Peptide IgG 5 Units (0-19) 01/07/17 11:32 AL Screen DETECTED (None Detected) A 01/02/17 04:50 AL Titer 1:640 (<1:40) H 01/02/17 04:50 SS-A/Ro 52 kDa Ab 195 AU/mL (0-40) H 01/07/17 11:32 SS-A Ro 60 kDa Ab 118 AU/mL (0-40) H 01/07/17 11:32 SS-B/La Antibody 38 AU/mL (0-40) 01/07/17 11:32 Sm (Gayle) IgG Ab, Quant 0 AU/mL (0-40) 01/07/17 11:32 Anti-U1-PEANUT BUTTER MAKER IgG, Quant 0 AU/mL (0-40) 01/07/17 11:32 Complement C3 108 mg/dL (88-201) 01/07/17 11:32 Complement C4 15 mg/dL (10-40) 01/07/17 11:32 Person Notif of Earlenetoribio TASNEEM SRIRAM/3A 01/03/17 16:07 Blood Type O POSITIVE 01/08/17 17:56 Antibody Screen NEGATIVE 01/08/17 17:56 Crossmatch See Detail 01/08/17 17:56 Impressions Chest/Abdomen X-ray 01/02/17 00:12 IMPRESSION: [id number] stool load consistent with constipation. No acute cardiopulmonary disease. Bilateral cervical ribs D/ / Von Toure MD / Von Toure MD Interpreting Provider: Von Toure MD Abdomen/Pelvis CT 01/02/17 00:22 IMPRESSION: Acute pancreatitis with small amount of fluid surrounding the tail. There is appears to be some enhancement along the periphery which may be due to peritoneal inflammation. No walled-off fluid collection identified. There is mild wall thickening and adjacent inflammatory change surrounding the proximal sigmoid. This is nonspecific and may be related to mild diverticulitis. Follow-up recommended as malignancy can have a similar appearance. Moderate stool burden suggestive of constipation. D/ / Rachelle De La Torre MD / Rachelle De La Torre MD Interpreting Provider: Rachelle De La Torre MD Gallbladder Ultrasound 01/04/17 09:00 IMPRESSION: Cholelithiasis. Fatty infiltration of the liver. D/ / Ilana Christine Cha, MD / Ilana Christine Cha, MD Interpreting Provider: Ilana Christine Cha, MD - Imaging EKG: image reviewed (62pm SR) Anesthesia Exam Vital Signs Temp Pulse Resp BP Pulse Ox 01/10/17 07:23 98.8 F 56 14 110/67 100 01/10/17 04:57 98.6 F 63 14 83/49 97 01/09/17 23:17 98.0 F 60 14 121/58 94 01/09/17 18:45 98.6 F 74 16 116/59 98 01/09/17 16:36 99.2 F 67 18 106/64 96 01/09/17 11:39 98.9 F 69 16 100/62 100 Intake and Output 01/09/17 01/09/17 01/10/17 15:59 23:59 07:59 Intake Total 1240 / 1240 120 / 120 Output Total 6 / 6 Balance 1240 / 1240 114 / 114 Intake: Oral 1240 / 1240 120 / 120 Output: Urine 6 / 6 Other: Meal Lunch Dinner Percent of Meal Consumed 75% 50% Stool Size Moderate Stool Consistency soft # Bowel Movements 2 Blood Glucose* 78 Height: 5'3" Weight: 172# BMI = 31 NPO (# of Hours): MNOc Pain Scale Used: Numeric (1 - 10) - HEENT Pupil (Motor): Pupils equal, EOMI Mallampati: II Teeth: Normal, Edentulous Oral Opening: Greater than 3 - WRAPPER SIZER LOC: Oriented WRAPPER SIZER Motor: Normal RUE, Normal LUE, Normal RLE, Normal LLE, Normal Face WRAPPER SIZER Sensory: Normal: RUE, LUE, RLE, LLE, Face - Cardiac Rhythm: Regular Murmur: None - Pulmonary Breath Sounds: bilateral Clear Respiratory Effort: Symmetrical Anesthesia Assess/Plan ASA Score: 2 Modified Kwame Scale for Level of Consciousness: Cooperative, oriented, and tranquil Anesthetic Plan: General Monitoring Plan: Standard Monitors Recovery Plan: PACU Anes Supervising Prov Stmt: Pt seen/evaluated, &B Discussed, questions answered and consent obtained. MD Yonathan
[2017-01-10] MEDS ORDERED: *HR* Promethazine 25 MG/ML VIAL IVP PRN (08:02)
[2017-01-10] MEDS ORDERED: *HR* HYDROmorphone (PF) 1 MG/ML SYRINGE IVP PRN (08:02)
[2017-01-10] MEDS ORDERED: *HR* EPINEPHrine 30 MG/30 ML MDV ONE (08:03)
[2017-01-10] MEDS ORDERED: Acetaminophen IV 1,000 MG/100 ML INFUS..BTL ONE (08:07)
[2017-01-10] MEDS ORDERED: Lacri-Lube 3.5 GM TUBE ONE (08:09)
--- NOTE | 2017-01-10 08:33 | Event Note ---
Date of Encounter: 01/10/17 Time of Encounter: 08:15 Attempted to see patient. Off floor for Lap/Gricel. Increased Oral Bicarb to 3900 TID. If going to be NPO, needs IV replacement D5W with 3 amps of Bicarb at 150 cc/hr.
[2017-01-10] MEDS ORDERED: Dexamethasone 4 MG/ML VIAL ONE (08:46)
[2017-01-10] MEDS ORDERED: Ondansetron 4 MG/2 ML VIAL ONE (08:46)
[2017-01-10] MEDS ORDERED: Ketorolac 30 MG/ML VIAL ONE (09:09)
[2017-01-10] MEDS ORDERED: *HR* HYDROmorphone 2 MG/ML SYRINGE ONE (09:30)
[2017-01-10] MEDS ORDERED: Neostigmine Methylsulfate 3 MG/3 ML SYRINGE ONE (10:01)
--- NOTE | 2017-01-10 10:10 | Operative Note ---
Date of procedure: 01/10/17 Pre-op diagnosis: gallstone pancreatitis, cholecystitis, cholelithiasis Post-op diagnosis: other (gallstone pancreatitis, cholecystitis, cholelithiasis with micronodular liver disease) Procedure: laparoscopic cholecystectomy, intra operative cholangiogram Complications: none apparent Anesthesia: GETA Local Anesthetics: 0.25% Sensorcaine HCL SubQ (cc), 0.5% Sensorcaine HCL SubQ ( cc) (20 mL mixed with 2 mL Epinephrine 1:1000) Surgeon: Honorio Gordon Estimated blood loss (cc): 5 IV fluids (cc): 1,300 Specimen: gallbladder Condition: stable Disposition: PACU Procedure in Detail: The patient was brought to the operating room where she was placed supine upon the operating room table. The patient was appropriately identified as to person and procedure. The accuracy of this information was confirmed by the procedure team. The patient was then intubated and anesthetized under the supervision of Dr. Ashley Wolf. The abdomen was prepped and draped in the usual sterile fashion. Several milliliters of 0.5% bupivacaine with epinephrine was infiltrated into the infraumbilical skin. A small transverse incision was made dissection was extended to the fascia. Additional bupivacaine was infiltrated into the fascia. The fascia was grasped, elevated, and incised. An 11 mm Xcel port was established. The rigid laparoscope was placed within the obturator to visualize passage through the layers of the anterior abdominal wall. When the abdominal cavity was accessed, the obturator was replaced by the rigid laparoscope. The abdomen was insufflated with gaseous carbon dioxide. There was no obvious visible injury from established in the port. Under direct visualization, 3 additional ports were placed along the right costal margin in the subxiphoid, midclavicular, and anterior axillary lines. Extensive micronodular changes were evident throughout the liver. The gallbladder was retracted allowing visualization and dissection of the hepatoduodenal ligament. Cystic duct was skeletonized and clipped near the infundibulum of the gallbladder. The cystic artery was also identified, clipped twice proximally, and clipped once distally. Via a separate percutaneous insertion site a Taut cholangiogram catheter was introduced. The cystic duct was incised, the cholangiogram catheter inserted. Using C-arm fluoroscopy a cholangiogram was then completed. This demonstrated no filling defects within the hepatobiliary tree. There was free flow of contrast into the duodenum. [facility] provided an intra operative reading with no additional pathology described. The cholangiogram catheter was removed, the cystic duct was doubly clipped and divided. The cystic artery was divided. The gallbladder was dissected from the liver bed using an Ethicon harmonic shalini. The gallbladder was placed in a endoscopic pouch and extracted through the infraumbilical opening. Several stones were readily apparent within the gallbladder. The gallbladder was collected and sent to pathology. The liver bed was inspected for adequate hemostasis. The pneumoperitoneum was evacuated, instrumentation removed. The fascia of the infraumbilical port was closed with interrupted [id number] old Vicryl using S retractors. Skin edges of the port sites were approximated with subcuticular 4-0 Vicryl. The incisions were sealed with Dermabond dermal adhesive. The patient was taken to recovery in stable condition. Needle, sponge, and instrument counts were correct at the close of the case.
[2017-01-10] MEDS ORDERED: Ringers Solution, Lactated 500 ML IVC ONE (10:20)
[2017-01-10] MEDS ORDERED: hydrOXYzine pamoate 25 MG CAPSULE PO PRN (11:02)
[2017-01-10] MEDS ORDERED: Acetaminophen 325 MG TABLET PO PRN (11:02)
[2017-01-10] MEDS ORDERED: Sennosides/Docusate Sodium TABLET PO PRN (11:02)
[2017-01-10] MEDS ORDERED: Naloxone 0.4 MG/ML INJ IVP PRN (11:02)
[2017-01-10] MEDS ORDERED: *HR* OxyCODONE/APAP 5/325 TABLET PO PRN (11:02)
[2017-01-10] MEDS ORDERED: Ondansetron 4 MG/2 ML VIAL IVP PRN (11:02)
--- NOTE | 2017-01-10 11:16 | Anesthesia Evaluation Post Op ---
Date of Encounter: 01/10/17 Time of Encounter: 11:15 - Vital Signs Vital Signs: Vital Signs/O2 Sat/Glucose, Most Current Temp Pulse Resp BP Pulse Ox 01/10/17 11:01 97.8 F 53 16 97/64 91 01/10/17 10:51 98.1 F 54 16 95/61 97 01/10/17 10:30 98.0 F 53 12 97/63 93 01/10/17 10:20 57 12 99/62 92 01/10/17 10:10 55 16 107/68 99 01/10/17 10:00 97.3 F L 58 12 94/66 99 01/10/17 07:23 98.8 F 56 14 110/67 100 - Lungs Lungs: Clear Ascult./Percussion - Airway Airway: Non-obstructed - Cardiovascular Regular Rate - Mental Status Mental Status: Alert & Oriented, Answers Appropriately - Pain Pain Scale: 0 Pain Scale used: Numeric (1 - 10) - Nausea Vomiting Nausea Vomiting: Not Present - Hydration Hydration: Ice chips, Has not voided - Discharge PostOp Status: Transfer Patient to floor Anes Supervising Prov Stmt: Pt seen/evaluated, VSS And pt has met criteria for discharge to floor. - MD Yonathan
[2017-01-10] MEDS: *HR* HYDROmorphone (PF) 1 MG/ML SYRINGE IVP PRN ×4 (12:31→22:34)
[2017-01-10] MEDS: Ringers Solution, Lactated 1,000 ML IVC SCH (12:36)
[2017-01-10] MEDS: Artificial Tears SOLN 15 ML BOTTLE BOTH EYES SCH ×3 (12:37→20:12)
--- NOTE | 2017-01-10 13:57 | Internal Med Progress Note ---
<Peterson Spangler - Last Filed: 01/10/17 14:04> Date of Encounter: 01/10/17 Time of Encounter: 13:00 - Assessment and plan (1) Acute gallstone pancreatitis Current Visit: Yes Status: Acute Assessment and plan: Initial course: CT Abdomen/Pelvis was negative for stones. A RUQ ultrasound was delayed after patient ate a meal, but came back positive for cholelithiasis without GBW thickening and had negative Bob's sign on U/S. MRCP possible, however, likely no obstruction as lipase trending down substantially. 01/09: Surgical team plans for cholecystecomy tomorrow 01/10. Received 1U prior to surgery. s/p lap jose guadalupe this AM, mild bradycardia, monitor on gentle LR fluids. 50cc/hr 1000mL (2) Renal tubular acidosis type I Current Visit: Yes Status: Acute Assessment and plan: Replenish bicarbonate, currently 1.5meq/kg/d; Continue to correct hypokalemia ( 3.2(3.2) 01/10/17); as per nephro, first treating with alkali therapy may facilitate hypokalemia correction. (3) Sjogrens syndrome Current Visit: Yes Status: Acute Assessment and plan: Dx'd 2009 via +SSA/SSB Prior hx Plaquinil with [facility] Consulted Rheumatology Possible etiology for pancreatitis though gallstone higher on ddx Rheumatology will pursue outpatient workup; no current hospital course changes. Qualifiers: Sjogren's organ involvement: unspecified organ involvement Qualified Code(s ): M35.00 - Sicca syndrome, unspecified (4) Diverticulitis Current Visit: Yes Status: Acute Assessment and plan: On Flagyl; no fever, white count, n/v Will monitor. Day 10/16 Qualifiers: Diverticulitis site: large intestine Diverticulitis bleeding: unspecified bleeding status Diverticulitis complication: without perforation or abscess Qualified Code(s): K57.32 - Diverticulitis of large intestine without perforation or abscess without bleeding (5) Hypokalemia Current Visit: Yes Status: Acute Assessment and plan: Renal function continues to be wnl, magnesium normal, she has no complaints of diarrhea. Currently continue replacing with KCl IVPB; bicarbonate therapy to counteract RTA. 01/09: 3.2 AM labs. 01/10: 3.2 AM labs. (6) Hypophosphatemia Current Visit: Yes Status: Acute Assessment and plan: Replaced, WNL, monitoring. (7) DVT prophylaxis Current Visit: Yes Status: Acute Assessment and plan: 5000U sq q12 discontinued prior to surgery on intermittent pneumatic compression. - Subjective Interval history: Pain well controlled, s/p cholecystecomy this AM, patient reports just mild abdominal tenderness, does not feel dizzy, but bradycardic for past few hours. - Constitutional Vitals: Temp Pulse Resp BP Pulse Ox 98.0 F 57 14 109/69 99 01/10/17 12:01 01/10/17 12:01 01/10/17 12:01 01/10/17 12:01 01/10/17 12:01 General appearance: Present: A&O X 3, pleasant, no acute distress - GI/Abdominal GI/Abdominal exam: Present: tenderness (mild), no peritoneal signs Additional comments: lap jose guadalupe wound dressing Internal Medicine: Result - Labs CBC & Chem 7: 01/10/17 03:05 01/10/17 03:05 Labs: Short CBC 01/10/17 Range/Units 03:05 WBC 6.7 (4.3-11.1) K/mcL Hgb 7.9 L (11.5-15.4) g/dL Hct 24.0 L (35.3-44.9) % Plt Count 340 (140-400) K/mcL Neutrophils # 3.9 (1.6-8.9) K/mcL BMP 01/10/17 03:05 Sodium 140 Potassium 3.2 L Chloride 118 H Carbon Dioxide 15 L BUN 4 L Creatinine 0.66 Glucose 73 Calcium 8.1 L - ABG Interpretation ABG results: PT/INR, D-dimer PT 14.8 Seconds (9.4-12.1) H 01/10/17 03:05 - Impressions Impressions Cholangiogram,Operative 01/10/17 00:00 IMPRESSION: Unremarkable intraoperative cholangiogram. D/ / 01/10/2017 09:46:02 Todd Cardenas MD / andrew Interpreting Provider: Todd Cardenas MD - VTE Documentation of Mechanical Device: Intermittent pneumatic compression device Consult Discharge Plan - Plan Referrals: Chio Keating CNP [Primary Care Provider] - 01/14/17 9:00 am () <Jose Prabhakar - Last Filed: 01/10/17 17:36> Date of Encounter: 01/10/17 - Constitutional Vitals: Temp Pulse Resp BP Pulse Ox 98.0 F 50 16 107/55 97 01/10/17 15:51 01/10/17 15:51 01/10/17 15:51 01/10/17 15:51 01/10/17 15:51 Internal Medicine: Result - Labs CBC & Chem 7: 01/10/17 03:05 01/10/17 03:05 Labs: Short CBC 01/10/17 Range/Units 03:05 WBC 6.7 (4.3-11.1) K/mcL Hgb 7.9 L (11.5-15.4) g/dL Hct 24.0 L (35.3-44.9) % Plt Count 340 (140-400) K/mcL Neutrophils # 3.9 (1.6-8.9) K/mcL BMP 01/10/17 03:05 Sodium 140 Potassium 3.2 L Chloride 118 H Carbon Dioxide 15 L BUN 4 L Creatinine 0.66 Glucose 73 Calcium 8.1 L - ABG Interpretation ABG results: PT/INR, D-dimer PT 14.8 Seconds (9.4-12.1) H 01/10/17 03:05 - Impressions Impressions Cholangiogram,Operative 01/10/17 00:00 IMPRESSION: Unremarkable intraoperative cholangiogram. D/ / 01/10/2017 09:46:02 Todd Cardenas MD / andrew Interpreting Provider: Todd Cardenas MD - Attending Attestation I examined this patient and my medical decision-making was reviewed with the Resident Physician. I agree with the documented findings, disposition and treatment plan as described except to the extent set forth below. Ms. Ching is a 51 year old female with significant past surgical history of Sjogren's, rheumatoid arthritis and recently treated for shingles outbreak on her right side of her face was admitted on 01/02/2017 with acute pancreatitis, acute diverticulitis and severe nausea and vomiting. Pt states she is feeling better today. Denied any CP / SOB. Her abd pain also resolved completely. Just came back from surgery.. Denied any new complaints. Gen: A, A, O x3 Chest : diminished BS b/l basal region, no crackles Abd: Soft, NT, BS+ Ext: No edema, pulses + a/p 1. Acute pancreatitis - due to cholelithiasis 2. s/p cholecystectomy cont post op care as per surgery will cont IV hydration for tonight 3. Acute diverticulitis Cont PO Flagyl # / 4. Acute type 1 RTA Cont NaHCo3 Cont replacing K + Nephro and Rheumatology on board 5. Acute anemia - mostly due to nutritional deficiency s/p 1 U PRBC..stable Hb now 6. Mild Protein caloric malnutrition Cont nutritional supplements
[2017-01-10] MEDS: valACYclovir 500 MG TABLET PO SCH ×2 (15:16→20:11)
--- NOTE | 2017-01-10 17:20 | General Surgery Progress Note ---
Date of Encounter: 01/10/17 Time of Encounter: 14:00 - Assessment and Plan (1) Status post laparoscopic cholecystectomy Current Visit: Yes Status: Acute Patient is s/p laparoscopic cholesysectomy and intra operative cholangiogram. Procedure performed on 01/10/17. Patient tolerated her procedure well. She is still having some residual epigastric pain. Plan: -Regular diet. -Incentive spirometry. -Cardiac monitoring. -Zofran 4mg Q4h PRN. -Pepcid 20 mg PO BID. -Pain control: Acetaminophen 650 mg PO q6. Dilaudid for breakthrough pain. -Heparin 5000 SQ q12. Subjective Narrative: Patient was seen and examined at bedside this afternoon. She reports that she still feels tenderness in her abdomen. She notes that her pain is located in the mid epigastric region, and is exacerbated by palpation. Her pain is not as severe as it was during her flare of pancreatitis, however. She currently denies any fever, chills, nausea, vomiting. She appears somewhat drowsy. Objective Vital Signs - Last 8 Hours Temp Pulse Resp BP Pulse Ox 01/10/17 15:51 98.0 F 50 16 107/55 97 01/10/17 12:01 98.0 F 57 14 109/69 99 01/10/17 12:00 98.2 F 56 16 107/65 98 01/10/17 11:30 97.7 F 50 16 98/75 99 01/10/17 11:15 97.7 F 50 16 98/65 98 01/10/17 11:01 97.8 F 53 16 97/64 91 01/10/17 10:51 98.1 F 54 16 95/61 97 01/10/17 10:30 98.0 F 53 12 97/63 93 01/10/17 10:20 57 12 99/62 92 01/10/17 10:10 55 16 107/68 99 01/10/17 10:00 97.3 F L 58 12 94/66 99 Intake and Output 01/10/17 01/10/17 01/10/17 07:59 15:59 23:59 Intake Total 0 / 0 Output Total 5 / 5 Balance -5 / -5 Intake: Oral 0 / 0 Output: Urine 0 / 0 Estimated Blood Loss 5 / 5 Other: Meal Lunch Percent of Meal Consumed 0% Blood Glucose* 78 - General physical appearance well developed, well nourished - Neck Neck exam: no masses, trachea midline, no lymphadectomy - Respiratory normal expansion, normal respiratory effort, clear to auscultation - Cardiovascular Cardiovascular exam: Present: RRR, no murmurs/rubs/gallops - Abdomen Abdomen: Present: bowel sounds present, soft, tender Abdominal Tenderness: epigastic - Integumentary no rash, no abnormal pigmentation - Psychiatric oriented to time, oriented to person, oriented to place, speech is normal, memory intact - Labs 01/10/17 03:05 01/10/17 03:05 Diabetes panel 01/10/17 Range/Units 03:05 Sodium 140 (136-145) mEq/L Potassium 3.2 L (3.5-4.5) mEq/L Chloride 118 H (98-109) mEq/L Carbon Dioxide 15 L (19-29) mEq/L BUN 4 L (7-20) mg/dL Creatinine 0.66 (0.57-1.11) mg/dL Glucose 73 (70-99) mg/dL Calcium 8.1 L (8.6-10.8) mg/dL Calcium panel 01/10/17 Range/Units 03:05 Calcium 8.1 L (8.6-10.8) mg/dL Pituitary panel 01/10/17 Range/Units 03:05 Sodium 140 (136-145) mEq/L Potassium 3.2 L (3.5-4.5) mEq/L Chloride 118 H (98-109) mEq/L Carbon Dioxide 15 L (19-29) mEq/L BUN 4 L (7-20) mg/dL Creatinine 0.66 (0.57-1.11) mg/dL Glucose 73 (70-99) mg/dL Calcium 8.1 L (8.6-10.8) mg/dL Adrenal panel 01/10/17 Range/Units 03:05 Sodium 140 (136-145) mEq/L Potassium 3.2 L (3.5-4.5) mEq/L Chloride 118 H (98-109) mEq/L Carbon Dioxide 15 L (19-29) mEq/L BUN 4 L (7-20) mg/dL Creatinine 0.66 (0.57-1.11) mg/dL Glucose 73 (70-99) mg/dL Calcium 8.1 L (8.6-10.8) mg/dL - VTE Documentation of Mechanical Device: Intermittent pneumatic compression device Consult Discharge Plan - Plan Referrals: Chio Keating CNP [Primary Care Provider] - 01/14/17 9:00 am ()
[2017-01-10] MEDS: Famotidine 20 MG TABLET PO SCH (20:11)
[2017-01-10] MEDS: FLUoxetine 20 MG CAPSULE PO SCH (20:11)
[2017-01-11] MEDS: Ringers Solution, Lactated 1,000 ML IVC SCH (05:26)
[2017-01-11 06:50] LABS: Basophils % 0.1 %; Hemoglobin 8.8 g/dL (11.5-15.4); Immature Granulocytes % 0.5 % (0-4); Lymphocytes # 1.6 K/mcL (0.6-4.6); Lymphocytes % 11.8 %; Mean Corpuscular HGB Conc 33.8 g/dL (31.6-35.5); Mean Corpuscular Volume 94.5 fL (83.0-100.0); Mean Platelet Volume 10.1 fL (9.4-12.4); Monocytes # 0.8 K/mcL (0.0-1.3); Neutrophils # 10.8 K/mcL (1.6-8.9); Platelet Count 335 K/mcL (140-400); Red Blood Count 2.75 M/mcL (3.82-4.97); Red Cell Distribution Width 18.3 % (11.5-14.5); Segmented Neutrophils % 81.6 %
[2017-01-11] MEDS: *HR* HYDROmorphone (PF) 1 MG/ML SYRINGE IVP PRN ×2 (06:59→11:44)
[2017-01-11 07:05] LABS: Alanine Aminotransferase 22 Units/L (0-55); Albumin/Globulin Ratio 0.4 (1.1-2.2); Alkaline Phosphatase 106 Units/L (38-126); Aspartate Amino Transferase 76 Units/L (5-34); BUN/Creatinine Ratio 9 (6-26); Bilirubin,Total 0.4 mg/dL (0.2-1.2); Blood Urea Nitrogen 6 mg/dL (7-20); Calcium 8.2 mg/dL (8.6-10.8); Carbon Dioxide 19 mEq/L (19-29); Chloride 112 mEq/L (98-109); Globulin 4.4 g/dL (2.4-3.5); Glucose 85 mg/dL (70-99); Osmolality,Calculated 283 (280-300); Potassium 3.4 mEq/L (3.5-4.5); Sodium 138 mEq/L (136-145); Total Protein 6.3 g/dL (6.0-8.3); eGFR For African Americans > 60 (> 60); eGFR For Non-African Americans > 60 (> 60)
[2017-01-11 07:13] VITALS: BP 105/66
[2017-01-11 07:18] LABS: Albumin 1.9 g/dL (3.5-5.0)
[2017-01-11] MEDS: FLUoxetine 20 MG CAPSULE PO SCH (08:51)
[2017-01-11] MEDS: valACYclovir 500 MG TABLET PO SCH (08:52)
[2017-01-11] MEDS: Artificial Tears SOLN 15 ML BOTTLE BOTH EYES SCH ×2 (08:52→11:45)
[2017-01-11] MEDS: Famotidine 20 MG TABLET PO SCH (08:52)
[2017-01-11] MEDS ORDERED: Loratadine 10 MG TABLET PO SCH (09:00)
--- NOTE | 2017-01-11 09:30 | Discharge Summary ---
<Peterson Spangler - Last Filed: 01/11/17 10:34> Date of Encounter: 01/11/17 Time of Encounter: 09:29 - Discharge Diagnosis (1) Acute gallstone pancreatitis Priority: Primary Status: Acute (2) Renal tubular acidosis type I Priority: Secondary Status: Acute (3) Sjogrens syndrome Priority: Secondary Status: Acute Qualifiers: Sjogren's organ involvement: unspecified organ involvement Qualified Code(s ): M35.00 - Sicca syndrome, unspecified (4) Diverticulitis Priority: Secondary Status: Acute Qualifiers: Diverticulitis site: large intestine Diverticulitis bleeding: unspecified bleeding status Diverticulitis complication: without perforation or abscess Qualified Code(s): K57.32 - Diverticulitis of large intestine without perforation or abscess without bleeding (5) Hypokalemia Priority: Secondary Status: Acute (6) Hypophosphatemia Priority: Secondary Status: Acute (7) DVT prophylaxis Priority: Secondary Status: Acute - Discharge Medications Prescriptions: Docusate [Colace] 100 mg PO BID 30 Days #60 capsule Ferrous Sulfate 325 mg PO BIDWM #60 tablet OxyCODONE/APAP 5/325 [Percocet 5/325 MG] 1 each PO Q6H PRN #10 tablet PRN Reason: Pain Potassium Chloride [Klor-Con] 20 meq PO BID 14 Days #28 packet Sodium Bicarbonate 650 mg PO TID 14 Days #42 tablet Home Medications: HYDROcodone/Acet 10/325 mg [[place] 10-325 mg] 1 tab PO Q4-6H PRN MDD DO NOT EXCEED 5 TABS/24HRS 06/28/15 [History] Ibuprofen [Motrin] 800 mg PO Q8HR PRN 06/28/15 [History] Norgestimate-Ethinyl Estradiol [Mononessa 28 Tablet] 1 tab PO DAILY 06/28/15 [ History] Potassium Chloride [K-Tab ER] 10 meq PO DAILY 06/28/15 [History] Zolpidem [Ambien] 5 mg PO HS PRN 06/28/15 [History] Cetirizine HCl [All Day Allergy] 10 mg PO DAILY 01/02/17 [History] FLUoxetine HCl [Fluoxetine HCl] 40 mg PO BID 01/02/17 [History] Propranolol [Inderal] 20 mg PO BID 01/02/17 [History] Quetiapine Fumarate [Seroquel] 50 mg PO 0600,1200 01/02/17 [History] Quetiapine Fumarate [Seroquel] 100 mg PO HS 01/02/17 [History] hydrOXYzine HCl [Hydroxyzine HCl] 25 mg PO Q8H PRN 01/02/17 [History] Docusate [Colace] 100 mg PO BID 30 Days #60 capsule 01/11/17 [Rx] Ferrous Sulfate 325 mg PO BIDWM #60 tablet 01/11/17 [Rx] OxyCODONE/APAP 5/325 [Percocet 5/325 MG] 1 each PO Q6H PRN #10 tablet 01/11/17 [ Rx] Potassium Chloride [Klor-Con] 20 meq PO BID 14 Days #28 packet 01/11/17 [Rx] Sodium Bicarbonate 650 mg PO TID 14 Days #42 tablet 01/11/17 [Rx] Allergies/Adverse Reactions: 3 Allergy/AdvReac Type Severity Reaction Status Date / Time tramadol Allergy See Verified 12/07/16 10:27 Comments Date of admission: 01/02/17 02:24 Primary care physician: Chio Keating CNP Consults: 01/07/17 08:15 Consult to Nephrology [CONS] Routine Consulting Provider: Guanako Daniels Reason for Consult: Acute distal RTA Call Completed: Yes 01/07/17 08:58 Consult to Surgery [CONS] Routine Consulting Provider: Surgery [facility] Reason for Consult: gallstone pancreatitis Call Completed: Yes - Patient Status Disposition: Home, Self-Care Condition: Good Functional capacity at discharge: independent ambulation Overall status at discharge: patient is progressing back to baseline - Ambulatory Orders Ambulatory Orders: Basic Metabolic Panel [CHEM] Time Frame: 1 Week, Facility: [facility], Location: Lab - Discharge Instructions Follow Up With: Chio Keating CNP [Primary Care Provider] - 01/14/17 9:00 am () [facility] [Provider Group] Additional Instructions: Pt to f/u with Nephrology in 1 week, pt has BMP ambulatory order for labs prior to outpt Nephro. Pt to f/u PCP in 2 weeks. Postop instructions: Patient may resume regular (usual) diet Patient may resume her usual home meds per discharging physician Patient may shower, wash incisions with soap and water Activity as tolerated, lifting limited to less than 25 pounds Follow-up my office, 01/16/17; patient to call office in a.m. to make this appointment. Prescriptions: Percocet 5/325, #10, one every 6 hours as needed for pain not relieved by [id number] medications or the patient's usual meds - Diet and Activity Activity: resume usual activities as tolerated Diet: advance to your usual diet Hospital course: Ms. Ching is a 51 year old female with past history of Sjogren's, rheumatoid arthritis, recent shingles infection treated on valcyclovir, admited 01/02/17 with acute pancreatitis, diverticulitis, and 1 month of nausea/vomitting. CT abdomen showed pancreatic inflammation with small fluid around tail; no cyst/ pseudocyst. No persisting gallstone obstruction assessed from scan. Patient gallbladder ultrasound demonstrated cholelithiasis. Since admission on the , patient's potassium remained low despite continued attempts at repletion. Labs demonstrated normal anion gap metabolic acidosis with hypokalemia and hyperchloremia; urinary anion gap >0; suggested etiology RTA type I. Nephrology consulted and initiated alkali therapy, with 1.5mEq/kg/hr bicarbonate correction , with continued K+ repletion. Rheumatology consulted as well to determine Sjogren syndrome management inpatient--pt to follow-up outpatient for her Sjogren's. Surgery and GI on service; it was decided that patient did not have an obstruction requiring ERCP, surgery performed laparoscopic cholecystectomy after patient's lipase was trended down. Patient will be discharged with continued bicarbonate (650mg TID) and potassium (20mg BID)--2 week supply; with follow-up to Nephrology outpatient within a week. Rheumatology has set up follow -up for her towards the end of the year. - Time Spent with Patient Total time spent providing and/or coordinating discharge services: - Constitutional Vitals: Temp Pulse Resp BP Pulse Ox 98.8 F 66 18 105/66 97 01/11/17 07:10 01/11/17 07:10 01/11/17 07:10 01/11/17 07:10 01/11/17 07:10 General appearance: Present: A&O X 3, pleasant, no acute distress - Head Head exam: Present: atraumatic - Neck Neck exam general surgery: Present: full ROM - Respiratory Respiratory exam: Present: CTAB. Absent: rhonchi - Cardiovascular Cardiovascular exam: Present: RRR, +S1, +S2 - GI/Abdominal GI/Abdominal exam: Present: no peritoneal signs. Absent: tenderness - Extremities Exam Extremities exam: Absent: pedal edema - VTE Documentation of Mechanical Device: Intermittent pneumatic compression device <Jose Prabhakar - Last Filed: 01/11/17 15:14> Date of Encounter: 01/11/17 Date of admission: 01/02/17 02:24 Primary care physician: Chio Keating CNP Consults: 01/07/17 08:15 Consult to Nephrology [CONS] Routine Consulting Provider: Guanako Daniels Reason for Consult: Acute distal RTA Call Completed: Yes 01/07/17 08:58 Consult to Surgery [CONS] Routine Consulting Provider: Surgery [facility] - [facility] Reason for Consult: gallstone pancreatitis Call Completed: Yes Hospital course: Ms. Ching is a 51 year old female - Time Spent with Patient Total time spent providing and/or coordinating discharge services: - Constitutional Vitals: Temp Pulse Resp BP Pulse Ox 98.8 F 66 18 105/66 97 01/11/17 07:10 01/11/17 07:10 01/11/17 07:10 01/11/17 07:10 01/11/17 07:10 - Attending Attestation I examined this patient and my medical decision-making was reviewed with the Resident Physician. I agree with the documented findings, disposition and treatment plan as described except to the extent set forth below. Ms. Ching is a 51 year old female with significant past surgical history of Sjogren's, rheumatoid arthritis and recently treated for shingles outbreak on her right side of her face was admitted on 01/02/2017 with acute pancreatitis, acute diverticulitis and severe nausea and vomiting. Pt states she is feeling better today. Denied any CP / SOB. Her abd pain also resolved completely. Denied any new complaints. Gen: A, A, O x3 Chest : diminished BS b/l basal region, no crackles Abd: Soft, NT, BS+ Ext: No edema, pulses + a/p 1. Acute pancreatitis - due to cholelithiasis 2. s/p lap cholecystectomy and unremarkable inta operative cholangiogram slightly elevated AST..due to post op Medically stable to d/c home today 3. Acute diverticulitis Cont PO Flagyl # 10/16 4. Acute type 1 RTA Cont NaHCo3 Cont replacing K + Need to f/u with Nephro and Rheumatology as an out pt 5. Acute anemia - mostly due to nutritional deficiency s/p 1 U PRBC..stable Hb now @ 8.8 6. Mild Protein caloric malnutrition Cont nutritional supplements
--- NOTE | 2017-01-11 10:31 | Nephrology Progress Note ---
Date of Encounter: 01/11/17 Time of Encounter: 10:05 - Assessment and Plan (1) Renal tubular acidosis type I Current Visit: Yes Status: Acute Urine anion gap > 0 which coincides with Type 1 or distal RTA. Bicarb improving, 19 today. K 3.4. Once Bicarb normalized, potassium requirement should be easier controlled. Will follow in office with labs. Continue on current Sodium Bicarb dose 3900 TID Subjective Interval history: Sitting up in chair. S/P lap jose guadalupe. States pain when moves. Objective - Vital Signs Vital signs: Vital Signs Temp Pulse Resp BP Pulse Ox 01/11/17 07:10 98.8 F 66 18 105/66 97 01/11/17 04:00 98.2 F 63 16 94/59 95 01/10/17 23:21 97.6 F 62 16 102/56 97 01/10/17 19:40 98.1 F 57 16 97/58 98 01/10/17 15:51 98.0 F 50 16 107/55 97 01/10/17 15:00 50 106/70 97 01/10/17 14:00 42 99/64 94 01/10/17 13:00 47 110/60 91 01/10/17 12:30 60 106/69 99 01/10/17 12:01 98.0 F 57 14 109/69 99 01/10/17 12:00 98.2 F 56 16 107/65 98 01/10/17 11:30 97.7 F 50 16 98/75 99 Intake and Output 01/11/17 01/11/17 01/11/17 00:59 07:59 15:59 Intake Total 120 / 120 Balance 120 / 120 Intake: IV Fluids Lactated Ringers 1,000 ML @ 50 mls/hr IVC .Q20H [facility] Rx#: [id number] Oral 120 / 120 Other: Meal Breakfast Percent of Meal Consumed 10% Weight Patient Weight 01/11/17 22:59 Weight 79.968 kg - General Appearance General appearance: Present: well-developed, well-nourished, appears started age EENT: Present: mucous membranes moist Neck: Present: no JVD Respiratory: Present: clear Cardiology: Present: edema, regular rate, regular rhythm Additional Comments: mild LE Gastrointestinal: Present: hypoactive bowel sounds, tenderness Integumentary: Present: warm and dry Neurologic: Present: alert and oriented x3 Psychiatric: Present: mood/affect appropriate, cooperative - Lab 01/11/17 06:22 01/11/17 06:22 Most recent lab results Calcium 8.2 mg/dL (8.6-10.8) L 01/11/17 06:22 Phosphorus 2.0 mg/dL (2.3-4.7) L 01/08/17 03:31 Magnesium 1.8 mg/dL (1.6-2.6) 01/08/17 03:31 Urine Creatinine 18 mg/dL 01/07/17 05:40 Urine Sodium 93.0 mEq/L 01/07/17 16:50 Urine Total Protein < 7 mg/dL (1-14) 01/07/17 05:40 - VTE Documentation of Mechanical Device: Intermittent pneumatic compression device Consult Discharge Plan - Plan Referrals: Chio Keating CNP [Primary Care Provider] - 01/14/17 9:00 am () Prescriptions: Docusate [Colace] 100 mg PO BID 30 Days #60 capsule Ferrous Sulfate 325 mg PO BIDWM #60 tablet Potassium Chloride [Klor-Con] 20 meq PO BID 14 Days #28 packet Sodium Bicarbonate 650 mg PO TID 14 Days #42 tablet
--- NOTE | 2017-01-11 11:47 | General Surgery Progress Note ---
Date of Encounter: 01/11/17 Time of Encounter: 11:41 Subjective Narrative: General Surgery - POD #1 Patient doing well postop she remains afebrile, currently 98.8, pulse 66, respirations 18, blood pressure 105/66. SPO2 on room air 95-97% Lungs: Clear, no obvious abdominal pain on deep inspiration Abdomen: Soft with minimal tenderness infraumbilical port site as expected. This is the port through which the gallbladder had been extracted. Patient describes the pain, "as though my guts are falling out". Despite these complaints, the abdomen is minimally tender to exam. Port sites clean and dry. Patient is tolerating diet, no nausea vomiting. No reported diarrhea. Pathology: Pending Labs: White count 13.2, likely response to surgery; hemoglobin 8.8, hematocrit 26.0 (low but stable); platelet count 335,000. Neutrophils 10.8% but this too is reaction to surgery Electrolytes, BUN, creatinine stable; hypokalemia has improved to 3.4 LFTs notable for elevated AST - likely reaction surgery; alkaline phosphatase , ALT, and bilirubin within normal limits. Impression: Postoperative day 1, status post laparoscopic cholecystectomy with intraoperative cholangiogram for gallstone pancreatitis. Acceptable postoperative status. From a surgical standpoint the patient may be discharged home Plan: Outpatient follow-up with me, 01/16/17; patient instructed to call my office in the a.m. to make this appointment. Prescription for Percocet 5/325, #10, one every 6 hours as needed for pain not relieved by the patient's other medications. I am aware that the patient is taking Vicodin for chronic pain, however , it is anticipated that the patient may require additional pain meds for the first week postop Objective Vital Signs - Last 8 Hours Temp Pulse Resp BP Pulse Ox 01/11/17 07:10 98.8 F 66 18 105/66 97 01/11/17 04:00 98.2 F 63 16 94/59 95 Intake and Output 01/11/17 01/11/17 01/11/17 00:59 07:59 15:59 Intake Total 120 / 120 Balance 120 / 120 Intake: IV Fluids Lactated Ringers 1,000 ML @ 50 mls/hr IVC .Q20H [facility] Rx#: [id number] Oral 120 / 120 Other: Meal Breakfast Percent of Meal Consumed 10% Weight Patient Weight 01/11/17 22:59 Weight 79.968 kg - Labs 01/11/17 06:22 01/11/17 06:22 Diabetes panel 01/11/17 Range/Units 06:22 Sodium 138 (136-145) mEq/L Potassium 3.4 L (3.5-4.5) mEq/L Chloride 112 H (98-109) mEq/L Carbon Dioxide 19 (19-29) mEq/L BUN 6 L (7-20) mg/dL Creatinine 0.69 (0.57-1.11) mg/dL Glucose 85 (70-99) mg/dL Calcium 8.2 L (8.6-10.8) mg/dL AST 76 H (5-34) Units/L ALT 22 (0-55) Units/L Alkaline Phosphatase 106 (38-126) Units/L Albumin 1.9 L (3.5-5.0) g/dL Calcium panel 01/11/17 Range/Units 06:22 Calcium 8.2 L (8.6-10.8) mg/dL Albumin 1.9 L (3.5-5.0) g/dL Pituitary panel 01/11/17 Range/Units 06:22 Sodium 138 (136-145) mEq/L Potassium 3.4 L (3.5-4.5) mEq/L Chloride 112 H (98-109) mEq/L Carbon Dioxide 19 (19-29) mEq/L BUN 6 L (7-20) mg/dL Creatinine 0.69 (0.57-1.11) mg/dL Glucose 85 (70-99) mg/dL Calcium 8.2 L (8.6-10.8) mg/dL Adrenal panel 01/11/17 Range/Units 06:22 Sodium 138 (136-145) mEq/L Potassium 3.4 L (3.5-4.5) mEq/L Chloride 112 H (98-109) mEq/L Carbon Dioxide 19 (19-29) mEq/L BUN 6 L (7-20) mg/dL Creatinine 0.69 (0.57-1.11) mg/dL Glucose 85 (70-99) mg/dL Calcium 8.2 L (8.6-10.8) mg/dL Total Bilirubin 0.4 (0.2-1.2) mg/dL AST 76 H (5-34) Units/L ALT 22 (0-55) Units/L Alkaline Phosphatase 106 (38-126) Units/L Albumin 1.9 L (3.5-5.0) g/dL - VTE Documentation of Mechanical Device: Intermittent pneumatic compression device Consult Discharge Plan - Plan Additional Instructions: Pt to f/u with Nephrology in 1 week, pt has BMP ambulatory order for labs prior to outpt Nephro. Pt to f/u PCP in 2 weeks. Referrals: [facility] [Provider Group] Rishabh,Chio Sarkar CNP [Primary Care Provider] - 01/14/17 9:00 am () Prescriptions: Docusate [Colace] 100 mg PO BID 30 Days #60 capsule Ferrous Sulfate 325 mg PO BIDWM #60 tablet Potassium Chloride [Klor-Con] 20 meq PO BID 14 Days #28 packet Sodium Bicarbonate 650 mg PO TID 14 Days #42 tablet
--- NOTE | 2017-01-11 11:50 | Discharge Summary ---
Outpatient Proc Discharge Plan - Plan Additional Instructions: Pt to f/u with Nephrology in 1 week, pt has BMP ambulatory order for labs prior to outpt Nephro. Pt to f/u PCP in 2 weeks. Postop instructions: Patient may resume regular (usual) diet Patient may resume her usual home meds per discharging physician Patient may shower, wash incisions with soap and water Activity as tolerated, lifting limited to less than 25 pounds Follow-up my office, 01/16/17; patient to call office in a.m. to make this appointment. Prescriptions: Percocet 5/325, #10, one every 6 hours as needed for pain not relieved by [id number] medications or the patient's usual meds Prescriptions: Docusate [Colace] 100 mg PO BID 30 Days #60 capsule Ferrous Sulfate 325 mg PO BIDWM #60 tablet OxyCODONE/APAP 5/325 [Percocet 5/325 MG] 1 each PO Q6H PRN #10 tablet PRN Reason: Pain Potassium Chloride [Klor-Con] 20 meq PO BID 14 Days #28 packet Sodium Bicarbonate 650 mg PO TID 14 Days #42 tablet Home Medications: HYDROcodone/Acet 10/325 mg [[place] 10-325 mg] 1 tab PO Q4-6H PRN MDD DO NOT EXCEED 5 TABS/24HRS 06/28/15 [History] Ibuprofen [Motrin] 800 mg PO Q8HR PRN 06/28/15 [History] Norgestimate-Ethinyl Estradiol [Mononessa 28 Tablet] 1 tab PO DAILY 06/28/15 [ History] Potassium Chloride [K-Tab ER] 10 meq PO DAILY 06/28/15 [History] Zolpidem [Ambien] 5 mg PO HS PRN 06/28/15 [History] Cetirizine HCl [All Day Allergy] 10 mg PO DAILY 01/02/17 [History] FLUoxetine HCl [Fluoxetine HCl] 40 mg PO BID 01/02/17 [History] Propranolol [Inderal] 20 mg PO BID 01/02/17 [History] Quetiapine Fumarate [Seroquel] 50 mg PO 0600,1200 01/02/17 [History] Quetiapine Fumarate [Seroquel] 100 mg PO HS 01/02/17 [History] hydrOXYzine HCl [Hydroxyzine HCl] 25 mg PO Q8H PRN 01/02/17 [History] Docusate [Colace] 100 mg PO BID 30 Days #60 capsule 01/11/17 [Rx] Ferrous Sulfate 325 mg PO BIDWM #60 tablet 01/11/17 [Rx] OxyCODONE/APAP 5/325 [Percocet 5/325 MG] 1 each PO Q6H PRN #10 tablet 01/11/17 [ Rx] Potassium Chloride [Klor-Con] 20 meq PO BID 14 Days #28 packet 01/11/17 [Rx] Sodium Bicarbonate 650 mg PO TID 14 Days #42 tablet 01/11/17 [Rx]
== END 2017-01-11 12:36 | disposition home or self-care (01) | DRG 418 ==
LOC: EMEROO 22:57 → 3ANU 22:57 → SUATTDRO 01-02 02:24 → 3ANU 01-02 02:47 → ICNU 01-03 18:29 → 2NNU 01-04 21:43 → 3NENU 01-08 07:06
PROVIDERS: ADMIT Student in an Organized Health Care Education/Training Program; ATTEND Family Medicine

== ENCOUNTER 2017-04-20 15:22 | Inpatient (IN) ==
[2017-04-20 17:20] LABS: Basophils # 0.1 K/mcL (0.0-0.2); Basophils % 0.3 %; Eosinophils # 0.2 K/mcL (0.0-0.6); Hemoglobin 9.7 g/dL (11.5-15.4); Immature Granulocytes % 3.2 % (0-4); Lymphocytes # 2.2 K/mcL (0.6-4.6); Lymphocytes % 9.4 %; Mean Corpuscular HGB Conc 34.6 g/dL (31.6-35.5); Mean Corpuscular Hemoglobin 30.9 pg (28.0-33.3); Mean Corpuscular Volume 89.2 fL (83.0-100.0); Mean Platelet Volume 10.4 fL (9.4-12.4); Monocytes # 1.5 K/mcL (0.0-1.3); Monocytes % 6.5 %; Neutrophils # 18.6 K/mcL (1.6-8.9); Nucleated Red Blood Cells 0.3 /100 WBC (0); Platelet Count 436 K/mcL (140-400); Red Blood Count 3.14 M/mcL (3.82-4.97); Red Cell Distribution Width 15.3 % (11.5-14.5); Segmented Neutrophils % 79.6 %
[2017-04-20 17:43] LABS: Albumin 2.9 g/dL (3.5-5.7); Albumin/Globulin Ratio 0.6 (1.1-2.2); Bilirubin,Total 0.4 mg/dL (0.3-1.0); Calcium 10.4 mg/dL (8.6-10.3); Globulin 5.2 g/dL (2.4-3.5); Potassium 2.8 mEq/L (3.5-5.1); Total Protein 8.1 g/dL (6.4-8.9)
--- NOTE | 2017-04-20 18:44 | Emergency Department Note ---
START Narrative - START START: Patient seen at the time of being placed in a room. Patient presents emergently confusion since having surgery. Patient has history of hypokalemia. Patient denies any fevers or chills nausea vomiting diarrhea. Denies any headache vision changes chest pain or shortness of breath. Physical exam was not completed in total. Description of the symptoms and issues were noted for the family members. Laboratory workup was reviewed from previous and laboratory evaluation was added onto by myself. CT of the head was ordered. Repeat physical exam and disposition will be determined by the nighttime positions. Patient otherwise appears to be hemodynamically stable at this time.
[2017-04-20] MEDS ORDERED: 0.9 % Sodium Chloride 1,000 ML IVC ONE (19:19)
[2017-04-20] MEDS ORDERED: Ampicillin/Sulbactam 3,000 MG in 0.9 % Sodium Chloride Mini Bag 100 ML IVPB STA (19:19)
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
[2017-04-20 19:34] LABS: Bilirubin,Urine Negative (Negative); Blood,Urine Small (Negative); Clarity,Urine Clear (Clear); Color,Urine Yellow (Yellow); Glucose,Urine (UA) Normal (Normal); Ketones,Urine Negative (Negative); Leukocyte Esterase,Urine Small (Negative); Nitrite,Urine Negative (Negative); PH,Urine 6.5 pH Units (5.0-8.0); Protein,Urine 100 mg/dL (Neg-Trace); Urobilinogen,Urine Normal (Normal)
[2017-04-20 19:36] LABS: Amphetamine Screen,Urine Negative ng/mL (Cutoff=1000); Barbiturate Screen,Urine Negative ng/mL (Cutoff=200); Benzodiazepines Screen,Urine Negative ng/mL (Cutoff=200); Cannabinoid Screen,Urine Negative ng/mL (Cutoff = 50); Cocaine Screen,Urine Negative ng/mL (Cutoff= 300); Opiate Screen,Urine Positive ng/mL (Cutoff=300); Phencyclidine Screen,Urine Negative ng/mL (Cutoff=25)
[2017-04-20 19:37] LABS: Bacteria,Urine Many per hpf (None-Few); Hyaline Casts,Urine None Seen per lpf (None-Few); RBC,Urine 15-30 per hpf (0-3); Squamous Epithelial Cell,Urine Moderate per lpf (None-Few); WBC,Urine 30-50 per hpf (0-3)
[2017-04-20 21:15] LABS: Appearance,CSF Clear (Clear); Red Blood Cell,CSF < 0.002 M/mcL
[2017-04-20 21:26] LABS: Total Protein,CSF 49 mg/dL (15-45)
[2017-04-20 21:31] LABS: Glucose,CSF 55 mg/dL (40-70)
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
[2017-04-21] MEDS ORDERED: traMADol 50 MG TABLET PO PRN (00:02)
[2017-04-21] MEDS ORDERED: Naloxone 0.4 MG/ML INJ IVP PRN (00:02)
[2017-04-21] MEDS ORDERED: Acetaminophen 325 MG TABLET PO PRN (00:02)
[2017-04-21] MEDS ORDERED: Famotidine 20 MG TABLET PO PRN (00:07)
[2017-04-21 01:10] LABS: Hematocrit 25.7 % (35.3-44.9); Hemoglobin 8.9 g/dL (11.5-15.4); Mean Corpuscular HGB Conc 34.6 g/dL (31.6-35.5); Mean Corpuscular Hemoglobin 30.8 pg (28.0-33.3); Mean Corpuscular Volume 88.9 fL (83.0-100.0); Mean Platelet Volume 10.3 fL (9.4-12.4); Platelet Count 452 K/mcL (140-400); Red Blood Count 2.89 M/mcL (3.82-4.97); Red Cell Distribution Width 15.2 % (11.5-14.5)
[2017-04-21 02:18] LABS: Alanine Aminotransferase 24 Units/L (7-52); Albumin 2.7 g/dL (3.5-5.7); Albumin/Globulin Ratio 0.5 (1.1-2.2); Alkaline Phosphatase 158 Units/L (34-104); Aspartate Amino Transferase 31 Units/L (13-39); BUN/Creatinine Ratio 21 (6-26); Bilirubin,Total 0.5 mg/dL (0.3-1.0); Blood Urea Nitrogen 21 mg/dL (6-20); Calcium 10.1 mg/dL (8.6-10.3); Carbon Dioxide 10 mEq/L (23-29); Chloride 116 mEq/L (98-107); Glucose 85 mg/dL (70-105); Osmolality,Calculated 282 (280-300); Potassium 2.6 mEq/L (3.5-5.1); Sodium 135 mEq/L (136-145); Total Protein 7.7 g/dL (6.4-8.9); eGFR For African Americans > 60 (> 60); eGFR For Non-African Americans 60 (> 60)
[2017-04-21] MEDS: 0.9 % Sodium Chloride 1,000 ML IVC SCH (02:24)
[2017-04-21] MEDS: *HR* Enoxaparin 40 MG/0.4 ML SYRINGE SQ SCH (05:42)
[2017-04-21] MEDS: Ampicillin/Sulbactam 1,500 MG in 0.9 % Sodium Chloride Mini Bag 100 ML IVPB SCH ×3 (06:53→22:18)
[2017-04-21] MEDS ORDERED: cefTRIAXone 1,000 MG in Water for inj. (sterile) 20 ML 10 ML IVP SCH (09:00)
[2017-04-21] MEDS: FLUoxetine 20 MG CAPSULE PO SCH ×2 (09:26→22:17)
[2017-04-21] MEDS: Potassium Chloride Elixir 20 MEQ/15 ML UDC PO SCH ×2 (09:26→22:17)
[2017-04-21] MEDS: Loratadine 10 MG TABLET PO SCH (09:26)
[2017-04-21] MEDS: MONONESSA PO SCH (09:27)
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
--- NOTE | 2017-04-21 12:53 | Event Note ---
Date of Encounter: 04/21/17 Time of Encounter: 12:53 I will be taking over care for patient
[2017-04-21] MEDS ORDERED: Sodium Bicarbonate 150 MEQ in D5% in Water 1,000 ML IVC STA (13:22)
[2017-04-21 14:21] LABS: Hepatitis B Surface Antigen Nonreactive (Nonreactive)
[2017-04-21 16:52] LABS: BUN/Creatinine Ratio 21 (6-26); Blood Urea Nitrogen 18 mg/dL (6-20); Calcium 9.8 mg/dL (8.6-10.3); Carbon Dioxide 10 mEq/L (23-29); Chloride 123 mEq/L (98-107); Glucose 99 mg/dL (70-105); Osmolality,Calculated 288 (280-300); Potassium 2.8 mEq/L (3.5-5.1); Sodium 138 mEq/L (136-145); eGFR For African Americans > 60 (> 60); eGFR For Non-African Americans > 60 (> 60)
[2017-04-21 17:18] LABS: Adenovirus Not Detected (Not Detect); Bordetella Pertussis Not Detected (Not Detect); Chlamydophila pneumoniae Not Detected (Not Detect); Coronavirus 229E Not Detected (Not Detect); Coronavirus HKU1 Not Detected (Not Detect); Coronavirus NL63 Not Detected (Not Detect); Coronavirus OC43 Not Detected (Not Detect); Human Metapneumovirus Not Detected (Not Detect); Human Rhinovirus/Enterovirus Not Detected (Not Detect); Influenza A Subtype 2009 H1 Not Detected (Not Detect); Influenza A Untypeable Not Detected (Not Detect); Influenza B Not Detected (Not Detect); Mycoplasma pneumoniae Not Detected (Not Detect); Parainfluenza Virus 1 Not Detected (Not Detect); Parainfluenza Virus 2 Not Detected (Not Detect); Parainfluenza Virus 3 Not Detected (Not Detect); Parainfluenza Virus 4 Not Detected (Not Detect); Respiratory Syncytial Virus Not Detected (Not Detect)
--- NOTE | 2017-04-21 18:34 | Electrocardiograph Report ---
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
--- NOTE | 2017-04-21 20:51 | Internal Med Progress Note ---
Date of Encounter: 04/21/17 Time of Encounter: 13:12 - Assessment and plan (1) Acute metabolic encephalopathy Current Visit: Yes Status: Acute Assessment and plan: This has been a chronic issue for several months per daughter. Possible etiologies include NAGMA versus infection versus autoimmune process. - Neurology consulted, at this moment I do not believe patient will be able to do an MRI at this point because of mental status. - She has known history of RTA, she was arranged to see Nephrology as outpatient and did not show up to her most recent appointment. Nephrology has been consulted. Discussed NAGMA with Nephrology, we are starting a stat bicarb drip with potassium repletion. - May be an underlying immunologic/rheumatologic process, she received care at [facility] for this. - Infectious disease is consulted and recommendations appreciated in the case of infectious etiology Patient currently not stable to transfer to tertiary care facility. Would like to see acidosis and hypokalemia improve. Continue current management. (2) Sinusitis Current Visit: Yes Status: Acute Qualifiers: Sinusitis location: pansinusitis Chronicity: acute Recurrence: not specified as recurrent Qualified Code(s): J01.40 - Acute pansinusitis, unspecified (3) DVT prophylaxis Current Visit: No Status: Acute (4) Hyperchloremic acidosis Current Visit: No Status: Acute (5) Hypokalemia Current Visit: No Status: Acute (6) Rheumatoid arthritis Current Visit: No Status: Acute Qualifiers: Rheumatoid arthritis location: unspecified site Rheumatoid factor presence : unspecified presence Qualified Code(s): M06.9 - Rheumatoid arthritis, unspecified (7) Sjogrens syndrome Current Visit: No Status: Acute Qualifiers: Sjogren's organ involvement: unspecified organ involvement Qualified Code(s ): M35.00 - Sicca syndrome, unspecified - Subjective Interval history: In AM Patient still altered per nursing. She does not have any complaints of pain, SOB, n/v. Nursing reports she has been lethargic this AM but responds to commands. I spoke with daughter at bedside in afternoon and she notes that she is currently looks the same as past several days in regards to behavior. - Constitutional Vitals: Temp Pulse Resp BP Pulse Ox 98.4 F 70 17 125/72 100 04/21/17 20:34 04/21/17 20:34 04/21/17 20:34 04/21/17 20:34 04/21/17 20:34 General appearance: Absent: answers questions appropriately Exam: Somnolent - Neck Neck exam general surgery: Present: supple, trachea midline. Absent: lymphadenopathy - Respiratory Respiratory exam: Present: CTAB. Absent: accessory muscle use, rales, rhonchi, wheezes - Cardiovascular Cardiovascular exam: Present: RRR, +S1, +S2. Absent: diastolic murmur, gallop, rubs, systolic murmur - GI/Abdominal GI/Abdominal exam: Present: distended, tenderness - Extremities Exam Extremities exam: Present: warm, radial pulses palpable and symmetrical. Absent : calf tenderness, cyanotic, pedal edema Internal Medicine: Result - Labs CBC & Chem 7: 04/21/17 00:50 04/21/17 15:49 Labs: BMP 04/21/17 15:49 Sodium 138 Potassium 2.8 L Chloride 123 H Carbon Dioxide 10 L* BUN 18 Creatinine 0.86 Glucose 99 Calcium 9.8 Cardiac Enzymes 04/21/17 04/21/17 Range/Units 06:22 12:19 Troponin I 0.03 < 0.03 (< 0.04) ng/mL Consult Discharge Plan - Plan Referrals: Chio Keating CNP [Primary Care Provider] -
[2017-04-21 21:46] LABS: ABG Base Excess -11 mEq/L (-2 to 3); ABG HCO3 13 mEq/L (21-27); ABG Oxygen Saturation 97 % (95-98); ABG PCO2 26 mmHg (35-45); ABG PH 7.33 pH Units (7.32-7.45); ABG PO2 100 mmHg (85-104); ABG TCO2 14 mEq/L (20-26)
[2017-04-21 23:29] LABS: BUN/Creatinine Ratio 18 (6-26); Blood Urea Nitrogen 14 mg/dL (6-20); Calcium 9.5 mg/dL (8.6-10.3); Carbon Dioxide 12 mEq/L (23-29); Chloride 118 mEq/L (98-107); Glucose 132 mg/dL (70-105); Osmolality,Calculated 286 (280-300); Potassium 2.9 mEq/L (3.5-5.1); Sodium 137 mEq/L (136-145); eGFR For African Americans > 60 (> 60); eGFR For Non-African Americans > 60 (> 60)
[2017-04-22] MEDS: Ampicillin/Sulbactam 1,500 MG in 0.9 % Sodium Chloride Mini Bag 100 ML IVPB SCH ×4 (00:37→17:04)
[2017-04-22 01:47] LABS: HIV-1&2 Antibody & p24 Ag Nonreactive (Nonreactive); Hepatitis A Antibody IgM Nonreactive (Nonreactive); Hepatitis B Core IgM Nonreactive (Nonreactive); Hepatitis C Virus Antibody Nonreactive (Nonreactive)
[2017-04-22] MEDS: 0.9 % Sodium Chloride 1,000 ML IVC SCH (04:18)
[2017-04-22 04:23] LABS: Basophils # 0.1 K/mcL (0.0-0.2); Basophils % 0.4 %; Eosinophils # 0.2 K/mcL (0.0-0.6); Eosinophils % 1.5 %; Hematocrit 22.1 % (35.3-44.9); Hemoglobin 7.9 g/dL (11.5-15.4); Immature Granulocytes % 4.4 % (0-4); Lymphocytes # 2.1 K/mcL (0.6-4.6); Lymphocytes % 15.1 %; Mean Corpuscular HGB Conc 35.7 g/dL (31.6-35.5); Mean Corpuscular Hemoglobin 31.1 pg (28.0-33.3); Mean Platelet Volume 9.9 fL (9.4-12.4); Monocytes # 1.1 K/mcL (0.0-1.3); Monocytes % 8.1 %; Neutrophils # 9.6 K/mcL (1.6-8.9); Nucleated Red Blood Cells 0.3 /100 WBC (0); Platelet Count 373 K/mcL (140-400); Red Blood Count 2.54 M/mcL (3.82-4.97); Red Cell Distribution Width 14.9 % (11.5-14.5); Segmented Neutrophils % 70.5 %
[2017-04-22 05:06] LABS: BUN/Creatinine Ratio 18 (6-26); Blood Urea Nitrogen 13 mg/dL (6-20); Calcium 9.5 mg/dL (8.6-10.3); Carbon Dioxide 13 mEq/L (23-29); Chloride 121 mEq/L (98-107); Glucose 89 mg/dL (70-105); Osmolality,Calculated 290 (280-300); Potassium 2.5 mEq/L (3.5-5.1); Sodium 140 mEq/L (136-145); eGFR For African Americans > 60 (> 60); eGFR For Non-African Americans > 60 (> 60)
[2017-04-22] MEDS: *HR* Enoxaparin 40 MG/0.4 ML SYRINGE SQ SCH (05:48)
[2017-04-22] MEDS ORDERED: Potassium Chloride 40 MEQ, Lidocaine 1% 2 ML in D5% in Water 500 ML IVPB ONE ×2 (06:00→19:39)
[2017-04-22] MEDS: FLUoxetine 20 MG CAPSULE PO SCH ×2 (08:13→20:36)
[2017-04-22] MEDS: Loratadine 10 MG TABLET PO SCH (08:13)
[2017-04-22] MEDS: Potassium Chloride Elixir 20 MEQ/15 ML UDC PO SCH ×3 (08:13→20:43)
[2017-04-22] MEDS: MONONESSA PO SCH (08:15)
--- NOTE | 2017-04-22 09:02 | Neurology - Consult Note ---
<Garland Rapp - Last Filed: 04/22/17 10:32> Date of Encounter: 04/22/17 Time of Encounter: 08:51 Assessment and Plan (1) Mental status, decreased Current Visit: Yes Status: Acute 51 yo female with past medical hx significant for RTA, Sjogren's, pancreatitis, RA admitted with altered mental status and increased lethargy/fatigue for the past several months. She was evaluated back at the beginning of December and diagnosed with V3 dermatomal distribution shingles. She was treated with 10 days of oral Valtrex and her symptoms improved. At that time she had ptosis which resolved after treatment. Since then she has had progressive weakness and fatigue. Todays exam she is AOx3, CN II-XII intact, muscle strength 5/5 upper and lower extremities with intact sensation and deep tendon reflexes. CT head without acute findings. concerning Lab results: WBC 23, hgb 7.9, ABG demonstrates metabolic acidosis with respiratory compensation, K+ 2.5, chloride 121, bicarbonate, renal function appropriate. AMS may be secondary to metabolic condition. Patient came in with metabolic acidosis and since admission and treatment with bicarbonate it has slightly improved but the chloride has gone from 112 -> 121 and may benefit from changing fluids to LR or 1/2 normal saline. LP performed on 04/20/2017 is without concerning findings. Serology PCR negative Suspect that this may be metabolic in nature. After correction of her metabolic de-arrangement, if she continues to have continued weakness further evaluation may be warranted. Plan: TSH T4, T3 B12, Folic acid History of Present Illness Chief complaint: weakness HPI: Ms. Ching is a 51 year old female with past medical hx significant for RTA, Sjogren's, pancreatitis, RA admitted with altered mental status and increased lethargy/fatigue for the past several months. She states that she was treated for Zoster of her face in December and since then has had progressive weakness. She admits to having similar weakness in the past that was related to having abnormal labs that improved with correction of her labs. She says she has had low potassium in the past. She says the weakness/fatigue have been progressive and without improvement. She says that she is not drinking as much fluid as she is supposed too and she has not taken her medications as prescribed in the past few days. She denies any N/V/D/C or abdominal pain. She denies any hx of CVA, seizures, blood clots, head, neck, back injuries or falls. She denies loss of sensation in any extremity or difficulty with thought process. She has a hx of Sjogren's and says her eye lids feel heavy. She denies any other significant neurologic history. Past Med Surg Social Fam HX - Past Medical History Medical history: arthritis, RA (Not currently on treatment), renal disease ( Renal tubular acidosis), other (Sjogren's, pancreatitis) Psychiatric history: anxiety, depression - Past Surgical History Surgical History: cholecystectomy (Fuad Gordon 12/2016) - Social History Smoking Status: Never smoker Smokeless Tobacco Status: No Alcohol use: none Drug use: prescription drug abuse - Family History Mother Hx Family Cancer: Yes (leukemia, lung) Medications and Allergies HYDROcodone/Acet 10/325 mg [Sterling 10-325 mg] 1 tab PO Q4-6H PRN MDD 5 TABS/ 24HRS 06/28/15 [History] Ibuprofen [Motrin] 800 mg PO Q8HR PRN 06/28/15 [History] Norgestimate-Ethinyl Estradiol [Mononessa 28 Tablet] 1 tab PO DAILY 06/28/15 [ History] Zolpidem [Ambien] 5 mg PO HS PRN 06/28/15 [History] Cetirizine HCl [All Day Allergy] 10 mg PO DAILY 01/02/17 [History] FLUoxetine HCl [Fluoxetine HCl] 40 mg PO BID 01/02/17 [History] Propranolol [Inderal] 20 mg PO BID 01/02/17 [History] Quetiapine Fumarate [Seroquel] 50 mg PO 0600,1200 01/02/17 [History] Quetiapine Fumarate [Seroquel] 100 mg PO HS 01/02/17 [History] Pilocarpine HCl [Salagen] 5 mg PO TID 04/20/17 [History] Potassium Chloride Elixir [Potassium Chloride] 10 meq PO BID 04/20/17 [History] Ranitidine HCl [Zantac] 150 mg PO BID PRN 04/20/17 [History] 3 Allergy/AdvReac Type Severity Reaction Status Date / Time tramadol AdvReac Seizure Verified 04/20/17 16:05 All Systems: A 10-system review of systems was performed and is negative for pertinent findings except as documented above in the HPI. - Constitutional Constitutional ROS IM: fatigue, lethargy, weakness - Eyes Eyes: bilateral: dry eye - Musculoskeletal Musculoskeletal ROS IM: muscle weakness - Neurological Neurological ROS: weakness Physical Examination - Vital Signs Vital Signs: Initial Vital Signs Temp Pulse Resp BP Pulse Ox 98.8 F 64 20 120/74 100 04/20/17 16:05 04/20/17 16:05 04/20/17 16:05 04/20/17 16:05 04/20/17 16:05 - Constitutional General appearance: comfortable - Neurologic Detailed motor examination: full strength in all major muscle groups Motor examination - right side: 5/5: deltoids, biceps, triceps, wrist flexion, wrist extension, residential sales consultant, hip flexors, tibialis Anterior, quadriceps, toe extension (EHL), plantarflexion Motor examination - left side: 5/5: deltoids, biceps, triceps, wrist flexion, wrist extension, hip flexors, residential sales consultant, quadriceps, tibialis Anterior, toe extension (EHL), plantarflexion Reflexes: Biceps: 2+, Triceps: 2+, Brachioradialis: 2+, Patella: 2+, Achilles: 2 + Mental Status Examination: awake, alert, oriented to person, oriented to place, oriented to time, follows commands appropriately, answers questions appropriately, no agnosia, no aphasia, no aproxia Cranial nerve examination: PERRL, EOMI, visual joel intact, corneal reflexes brisk symmetrically, sensory to face intact, mastication intact, no facial asymmetry is present, no dysarthria, hearing is intact symmetrically, soft palate elevates bilaterally upon phonation, gag reflex intact, flexes SCM and trapezius muscles symmetrically with full power, tongue protrudes midline, no atrophy or facial fasiculations present Cerebellar examination: no dysmetria, performs finger to nose and heel to salgado symmetrically without ataxia, no gait ataxia, no truncal ataxia, no difficulty with rapid alternating movements Results - Laboratory Findings CBC and BMP: 04/22/17 04:12 04/22/17 04:12 Abnormal lab findings: Abnormal lab results WBC 13.5 K/mcL (4.3-11.1) H 04/22/17 04:12 RBC 2.54 M/mcL (3.82-4.97) L 04/22/17 04:12 Hgb 7.9 g/dL (11.5-15.4) L 04/22/17 04:12 Hct 22.1 % (35.3-44.9) L 04/22/17 04:12 MCHC 35.7 g/dL (31.6-35.5) H 04/22/17 04:12 RDW 14.9 % (11.5-14.5) H 04/22/17 04:12 Immature Gran % 4.4 % (0-4) H 04/22/17 04:12 Neutrophils # 9.6 K/mcL (1.6-8.9) H 04/22/17 04:12 Nucleated RBCs/100 WBC 0.3 /100 WBC (0) H 04/22/17 04:12 ABG pCO2 26 mmHg (35-45) L 04/21/17 21:42 ABG HCO3 13 mEq/L (21-27) L 04/21/17 21:42 ABG Total CO2 14 mEq/L (20-26) L 04/21/17 21:42 ABG Base Excess -11 mEq/L (-2 to 3) L 04/21/17 21:42 Potassium 2.5 mEq/L (3.5-5.1) L* 04/22/17 04:12 Chloride 121 mEq/L (98-107) H 04/22/17 04:12 Carbon Dioxide 13 mEq/L (23-29) L 04/22/17 04:12 Alkaline Phosphatase 158 Units/L (34-104) H 04/21/17 00:50 Albumin 2.7 g/dL (3.5-5.7) L 04/21/17 00:50 Globulin 5.0 g/dL (2.4-3.5) H 04/21/17 00:50 Albumin/Globulin Ratio 0.5 (1.1-2.2) L 04/21/17 00:50 Lipase 115 Units/L (11-82) H 04/20/17 17:01 Urine Protein 100 mg/dL (Neg-Trace) H 04/20/17 19:21 Urine Blood Small (Negative) H 04/20/17 19:21 Ur Leukocyte Esterase Small (Negative) H 04/20/17 19:21 Urine Microscopic RBC 15-30 per hpf (0-3) H 04/20/17 19:21 Urine Microscopic WBC 30-50 per hpf (0-3) H 04/20/17 19:21 Ur Squamous Epith Cells Moderate per lpf (None-Few) H 04/20/17 19:21 Urine Bacteria Many per hpf (None-Few) H 04/20/17 19:21 Ur Culture Indicated? YES (NO) A 04/20/17 19:21 CSF Total Protein 49 mg/dL (15-45) H 04/20/17 20:05 Urine Opiates Screen Positive ng/mL (Slqflk=[id number]) H 04/20/17 19:21 Consult Discharge Plan - Plan Referrals: Rishabh,Chio Sarkar [employer] COUNT ASSOCIATE [Primary Care Provider] - <Alex Dela Cruz I - Last Filed: 04/22/17 15:30> Date of Encounter: 04/22/17 History of Present Illness HPI: Ms. Ching is a 51 year old female All Systems: A 10-system review of systems was performed and is negative for pertinent findings except as documented above in the HPI. Physical Examination - Vital Signs Vital Signs: Initial Vital Signs Temp Pulse Resp BP Pulse Ox 98.8 F 64 20 120/74 100 04/20/17 16:05 04/20/17 16:05 04/20/17 16:05 04/20/17 16:05 04/20/17 16:05 Results - Laboratory Findings CBC and BMP: 04/22/17 04:12 04/22/17 14:10 Abnormal lab findings: Abnormal lab results WBC 13.5 K/mcL (4.3-11.1) H 04/22/17 04:12 RBC 2.54 M/mcL (3.82-4.97) L 04/22/17 04:12 Hgb 7.9 g/dL (11.5-15.4) L 04/22/17 04:12 Hct 22.1 % (35.3-44.9) L 04/22/17 04:12 MCHC 35.7 g/dL (31.6-35.5) H 04/22/17 04:12 RDW 14.9 % (11.5-14.5) H 04/22/17 04:12 Immature Gran % 4.4 % (0-4) H 04/22/17 04:12 Neutrophils # 9.6 K/mcL (1.6-8.9) H 04/22/17 04:12 Nucleated RBCs/100 WBC 0.3 /100 WBC (0) H 04/22/17 04:12 ABG pCO2 26 mmHg (35-45) L 04/21/17 21:42 ABG HCO3 13 mEq/L (21-27) L 04/21/17 21:42 ABG Total CO2 14 mEq/L (20-26) L 04/21/17 21:42 ABG Base Excess -11 mEq/L (-2 to 3) L 04/21/17 21:42 VBG pH 7.26 pH Units (7.32-7.42) L 04/22/17 10:44 VBG pCO2 29 mmHg (41-51) L 04/22/17 10:44 VBG pO2 144 mmHg (25-50) H 04/22/17 10:44 VBG HCO3 13 mEq/L (21-27) L 04/22/17 10:44 Potassium 2.8 mEq/L (3.5-5.1) L 04/22/17 14:10 Chloride 118 mEq/L (98-107) H 04/22/17 14:10 Carbon Dioxide 15 mEq/L (23-29) L 04/22/17 14:10 Alkaline Phosphatase 158 Units/L (34-104) H 04/21/17 00:50 Albumin 2.7 g/dL (3.5-5.7) L 04/21/17 00:50 Globulin 5.0 g/dL (2.4-3.5) H 04/21/17 00:50 Albumin/Globulin Ratio 0.5 (1.1-2.2) L 04/21/17 00:50 Lipase 115 Units/L (11-82) H 04/20/17 17:01 Free T4 0.65 ng/dl (0.70-2.00) L 04/22/17 09:08 Free T3 2.47 pg/mL (2.50-3.90) L 04/22/17 09:08 Urine Protein 100 mg/dL (Neg-Trace) H 04/20/17 19:21 Urine Blood Small (Negative) H 04/20/17 19:21 Ur Leukocyte Esterase Small (Negative) H 04/20/17 19:21 Urine Microscopic RBC 15-30 per hpf (0-3) H 18 19:21 Urine Microscopic WBC 30-50 per hpf (0-3) H 18 19:21 Ur Squamous Epith Cells Moderate per lpf (None-Few) H 18 19:21 Urine Bacteria Many per hpf (None-Few) H 18 19:21 Ur Culture Indicated? YES (NO) A 04/20/17 19:21 CSF Total Protein 49 mg/dL (15-45) H 04/20/17 20:05 Urine Opiates Screen Positive ng/mL (Bczlwr=[id number]) H 04/20/17 19:21 - Attending Attestation I examined this patient and my medical decision-making was reviewed with the Resident Physician, I agree with the documented findings, disposition and treatment plan as described except to the extent set forth below. Alex Dela Cruz MD
--- NOTE | 2017-04-22 09:49 | Infectious Disease Progress No ---
Date of Encounter: 04/22/17 Time of Encounter: 09:47 - Assessment and Plan (1) Leukocytosis Current Visit: Yes Status: Acute The patient's WBC is elevated at 23,000 with neutrophilic predominance on admission. Etiology unclear: pancreatitis vs. autoimmune. Improved. Continue to trend. No other SIRS criteria noted. Check peripheral smear.--> shows neutrophilia with increased immature granulocytes and toxic granulation concerning for infection. Check procalcitonin.--> pending. Qualifiers: Leukocytosis type: unspecified Qualified Code(s): D72.829 - Elevated white blood cell count, unspecified (2) Altered mental status Current Visit: Yes Status: Acute Etiology unclear: Autoimmune Anti-NMDAR encephalitis vs. metabolic acidosis vs. infectious vs. other. Per family, the patient has had ongoing altered mental status for several months. CT head shows pansinusitis, but otherwise no acute abnormality. CSF negative for pleocytosis. Culture preliminarily negative. No meningeal signs. Neurology consulted. Appreciate recommendations. Check RIP--> negative. Send CSF for HSV1 and HSV2 PCR, VZV, VDRL, AFB, CMV, EBV.--> pending. Check HIV status.--> nonreactive. Check hepatitis profile--> nonreactive. Check serum RPR.--> pending. Check serum Crypto antigen.--> negative. Recommend MRI to evaluate. On hold for now as the patient would likely not be able to lie still per the primary team. Low index of suspicion for lyme, arbovirus, or adenovirus as the clinical picture not indicative and no exposure history. The patient's family has requested transfer to [facility], which I think is certainly reasonable. Qualifiers: Altered mental status type: disorientation Qualified Code(s): R41.0 - Disorientation, unspecified (3) Pancreatitis Current Visit: Yes Status: Acute Etiology unclear. Lipase elevated at 115, but abdominal exam benign. CT scan of the abdomen and pelvis shows inflammatory changes around the pancreas , similar to previous studies, but slightly increased fluid collection around the pancreas tail consistent with peritoneal inflammation as well as interval enlargement of the spleen with splenic infarcts and mild ileus due to pancreatic inflammation. Currently NPO. Management per the primary team. Qualifiers: Chronicity: acute Pancreatitis type: unspecified pancreatitis type Acute pancreatitis complication: no infection or necrosis Qualified Code(s): K85.90 - Acute pancreatitis without necrosis or infection, unspecified (4) Sinusitis Current Visit: Yes Status: Acute CT head shows pansinusitis, but the patient is asymptomatic. Continue Unasy 1500mg IV Q6H for now. Duration of treatment depends on the clinical picture. Monitor renal function and dose-adjust antibiotics. Qualifiers: Sinusitis location: pansinusitis Chronicity: acute Recurrence: not specified as recurrent Qualified Code(s): J01.40 - Acute pansinusitis, unspecified (5) UTI (urinary tract infection) Current Visit: Yes Status: Acute Asymptomatic bacteriuria vs. UTI. Urinalysis positive for pyuria, but looks like it might be contaminated. Urine culture shows GNR. Await final ID and sensitivities. Continue Unasyn as above for now. Qualifiers: Urinary tract infection type: acute cystitis Hematuria presence: without hematuria Qualified Code(s): N30.00 - Acute cystitis without hematuria (6) Splenic infarct Current Visit: Yes Status: Acute Etiology unclear: septic emboli vs. hypercoaguable state vs. other. Repeat blood cultures x 2 sets drawn 04/21/17 are pending. (7) Metabolic acidosis Current Visit: Yes Status: Acute Non-anion gap metabolic acidosis with respiratory compensation. Bicarb minimally improved this morning. Could be contributing to the patient's altered mental status. Management per the primary team. (8) Hypokalemia Current Visit: Yes Status: Acute Remains low even after repletion. Likely secondary to metabolic acidosis and history of renal tubular acidosis. Management per the primary and nephrology teams. 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 No evidence of recurrence based on physical exam. Will continue to monitor. - Subjective Interval history: Patient seen and examined. No acute events noted overnight. Patient noted to be standing at the bedside attempting to get off the bedside commode upon my entrance into the room. Patient states she still feels very weak and tired and not much better. Denies fevers, chills, or rigors. Denies headache or neck pain. Denies congestions, earache, or sore throat. Denies chest pain, shortness of breath, or cough. Denies nausea, vomiting, or diarrhea. Denies dysuria or urinary complaints. Denies abdominal pain and states she feels very thirsty but does not have much of an appetite. States she is currently NPO due to her pancreatitis. Denies oral thrush or new skin lesions. Complains of pain at the LP site. Denies blurred vision or focal weakness at this time. Infect Dis PN-Objective Data - Labs CBC & Chem 7: 04/22/17 04:12 04/22/17 14:10 Labs: Laboratory Results - last 24 hr 04/21/17 04/21/17 04/21/17 12:19 13:35 13:35 WBC RBC Hgb Hct MCV MCH MCHC RDW Plt Count MPV Immature Gran % Seg Neutrophils % Lymphocytes % Monocytes % Eosinophils % Basophils % Neutrophils # Lymphocytes # Monocytes # Eosinophils # Basophils # Nucleated RBCs/100 WBC Smear Path Review See Below Sample Site ABG pH ABG pCO2 ABG pO2 ABG HCO3 ABG Total CO2 ABG O2 Saturation ABG Base Excess Jose Test O2 Delivery Device Inspired O2 Sodium Potassium Chloride Carbon Dioxide BUN Creatinine Est GFR ( Amer) Est GFR (Non-Af Amer) BUN/Creatinine Ratio Glucose Calculated Osmolality Lactic Acid Calcium Magnesium Troponin I < 0.03 Chlamy pneumoniae PCR Adenovirus (PCR) B. pertussis DNA (PCR) B.parapertussis DNA PCR Coronavirus OC43 (PCR) Coronavirus HKU1 (PCR) Coronavirus 229E (PCR) Coronavirus NL63 (PCR) Hepatitis A IgM Ab Nonreactive Hep Bs Antigen Nonreactive Hep B Core IgM Ab Nonreactive Hepatitis C Ab Screen Nonreactive HIV Ag/Ab Combo Qual Nonreactive Human Metapneumovir PCR Influenza A (H1) PCR Influ A (H1N1/09) PCR Influenza A (H3) PCR Influenza A Untype (PCR) Influenza Type B (PCR) M.pneumoniae DNA (PCR) Parainfluenza 1 (PCR) Parainfluenza 2 (PCR) Parainfluenza 3 (PCR) Parainfluenza 4 (PCR) RSV (PCR) Entero/Rhino (PCR) 04/21/17 04/21/17 04/21/17 15:49 16:20 20:41 WBC RBC Hgb Hct MCV MCH MCHC RDW Plt Count MPV Immature Gran % Seg Neutrophils % Lymphocytes % Monocytes % Eosinophils % Basophils % Neutrophils # Lymphocytes # Monocytes # Eosinophils # Basophils # Nucleated RBCs/100 WBC Smear Path Review Sample Site ABG pH ABG pCO2 ABG pO2 ABG HCO3 ABG Total CO2 ABG O2 Saturation ABG Base Excess Jose Test O2 Delivery Device Inspired O2 Sodium 138 Potassium 2.8 L Chloride 123 H Carbon Dioxide 10 L* BUN 18 Creatinine 0.86 Est GFR ( Amer) > 60 Est GFR (Non-Af Amer) > 60 BUN/Creatinine Ratio 21 Glucose 99 Calculated Osmolality 288 Lactic Acid 1.2 Calcium 9.8 Magnesium Troponin I Chlamy pneumoniae PCR Not Detected Adenovirus (PCR) Not Detected B. pertussis DNA (PCR) Not Detected B.parapertussis DNA PCR Not Detected Coronavirus OC43 (PCR) Not Detected Coronavirus HKU1 (PCR) Not Detected Coronavirus 229E (PCR) Not Detected Coronavirus NL63 (PCR) Not Detected Hepatitis A IgM Ab Hep Bs Antigen Hep B Core IgM Ab Hepatitis C Ab Screen HIV Ag/Ab Combo Qual Human Metapneumovir PCR Not Detected Influenza A (H1) PCR Not Detected Influ A (H1N1/09) PCR Not Detected Influenza A (H3) PCR Not Detected Influenza A Untype (PCR) Not Detected Influenza Type B (PCR) Not Detected M.pneumoniae DNA (PCR) Not Detected Parainfluenza 1 (PCR) Not Detected Parainfluenza 2 (PCR) Not Detected Parainfluenza 3 (PCR) Not Detected Parainfluenza 4 (PCR) Not Detected RSV (PCR) Not Detected Entero/Rhino (PCR) Not Detected 04/21/17 04/21/17 04/22/17 21:42 23:02 04:12 WBC RBC Hgb Hct MCV MCH MCHC RDW Plt Count MPV Immature Gran % Seg Neutrophils % Lymphocytes % Monocytes % Eosinophils % Basophils % Neutrophils # Lymphocytes # Monocytes # Eosinophils # Basophils # Nucleated RBCs/100 WBC Smear Path Review Sample Site R Radial ABG pH 7.33 ABG pCO2 26 L ABG pO2 100 ABG HCO3 13 L ABG Total CO2 14 L ABG O2 Saturation 97 ABG Base Excess -11 L Jose Test Positive O2 Delivery Device Room Air Inspired O2 21.0 Sodium 137 140 Potassium 2.9 L 2.5 L* Chloride 118 H 121 H Carbon Dioxide 12 L 13 L BUN 14 13 Creatinine 0.77 0.73 Est GFR ( Amer) > 60 > 60 Est GFR (Non-Af Amer) > 60 > 60 BUN/Creatinine Ratio 18 18 Glucose 132 H 89 Calculated Osmolality 286 290 Lactic Acid Calcium 9.5 9.5 Magnesium Troponin I Chlamy pneumoniae PCR Adenovirus (PCR) B. pertussis DNA (PCR) B.parapertussis DNA PCR Coronavirus OC43 (PCR) Coronavirus HKU1 (PCR) Coronavirus 229E (PCR) Coronavirus NL63 (PCR) Hepatitis A IgM Ab Hep Bs Antigen Hep B Core IgM Ab Hepatitis C Ab Screen HIV Ag/Ab Combo Qual Human Metapneumovir PCR Influenza A (H1) PCR Influ A (H1N1/09) PCR Influenza A (H3) PCR Influenza A Untype (PCR) Influenza Type B (PCR) M.pneumoniae DNA (PCR) Parainfluenza 1 (PCR) Parainfluenza 2 (PCR) Parainfluenza 3 (PCR) Parainfluenza 4 (PCR) RSV (PCR) Entero/Rhino (PCR) 04/22/17 04/22/17 04:12 04:12 WBC 13.5 H RBC 2.54 L Hgb 7.9 L Hct 22.1 L MCV 87.0 MCH 31.1 MCHC 35.7 H RDW 14.9 H Plt Count 373 MPV 9.9 Immature Gran % 4.4 H Seg Neutrophils % 70.5 Lymphocytes % 15.1 Monocytes % 8.1 Eosinophils % 1.5 Basophils % 0.4 Neutrophils # 9.6 H Lymphocytes # 2.1 Monocytes # 1.1 Eosinophils # 0.2 Basophils # 0.1 Nucleated RBCs/100 WBC 0.3 H Smear Path Review Sample Site ABG pH ABG pCO2 ABG pO2 ABG HCO3 ABG Total CO2 ABG O2 Saturation ABG Base Excess Jose Test O2 Delivery Device Inspired O2 Sodium Potassium Chloride Carbon Dioxide BUN Creatinine Est GFR ( Amer) Est GFR (Non-Af Amer) BUN/Creatinine Ratio Glucose Calculated Osmolality Lactic Acid Calcium Magnesium 1.8 Troponin I Chlamy pneumoniae PCR Adenovirus (PCR) B. pertussis DNA (PCR) B.parapertussis DNA PCR Coronavirus OC43 (PCR) Coronavirus HKU1 (PCR) Coronavirus 229E (PCR) Coronavirus NL63 (PCR) Hepatitis A IgM Ab Hep Bs Antigen Hep B Core IgM Ab Hepatitis C Ab Screen HIV Ag/Ab Combo Qual Human Metapneumovir PCR Influenza A (H1) PCR Influ A (H1N1/09) PCR Influenza A (H3) PCR Influenza A Untype (PCR) Influenza Type B (PCR) M.pneumoniae DNA (PCR) Parainfluenza 1 (PCR) Parainfluenza 2 (PCR) Parainfluenza 3 (PCR) Parainfluenza 4 (PCR) RSV (PCR) Entero/Rhino (PCR) Cultures: Cultures 04/21/17 13:35 Cryptococcal Antigen - Final Serum Serology 04/21/17 04/21/17 Range/Units 16:20 13:35 Chlamy pneumoniae PCR Not Detected (Not Detect) Adenovirus (PCR) Not Detected (Not Detect) B. pertussis DNA (PCR) Not Detected (Not Detect) B.parapertussis DNA PCR Not Detected (Not Detect) Coronavirus OC43 (PCR) Not Detected (Not Detect) Coronavirus HKU1 (PCR) Not Detected (Not Detect) Coronavirus 229E (PCR) Not Detected (Not Detect) Coronavirus NL63 (PCR) Not Detected (Not Detect) Hepatitis A IgM Ab Nonreactive (Nonreactive) Hep Bs Antigen Nonreactive (Nonreactive) Hep B Core IgM Ab Nonreactive (Nonreactive) Hepatitis C Ab Screen Nonreactive (Nonreactive) HIV Ag/Ab Combo Qual Nonreactive (Nonreactive) Human Metapneumovir PCR Not Detected (Not Detect) Influenza A (H1) PCR Not Detected (Not Detect) Influ A (H1N1/09) PCR Not Detected (Not Detect) Influenza A (H3) PCR Not Detected (Not Detect) Influenza A Untype (PCR) Not Detected (Not Detect) Influenza Type B (PCR) Not Detected (Not Detect) M.pneumoniae DNA (PCR) Not Detected (Not Detect) Parainfluenza 1 (PCR) Not Detected (Not Detect) Parainfluenza 2 (PCR) Not Detected (Not Detect) Parainfluenza 3 (PCR) Not Detected (Not Detect) Parainfluenza 4 (PCR) Not Detected (Not Detect) RSV (PCR) Not Detected (Not Detect) Entero/Rhino (PCR) Not Detected (Not Detect) Exam - Constitutional Vitals: Temp Pulse Resp BP Pulse Ox 98.9 F 64 16 95/51 94 04/22/17 06:40 04/22/17 06:40 04/22/17 06:40 04/22/17 06:40 04/22/17 06:40 General appearance: average body habitus, cooperative, no acute distress - Head Head exam: Present: atraumatic, normal inspection, normocephalic - Eye Eye exam: Present: EOMI, normal appearance, PERRL Pupils: Present: normal accommodation Additional comments: Right eye pstosis improved. - ENT ENT exam: Present: mucous membranes dry - Neck Neck exam: Present: normal inspection. Absent: meningismus - Respiratory Respiratory exam: Present: CTAB. Absent: rales, respiratory distress, rhonchi, wheezes - Cardiovascular Cardiovascular exam: Present: RRR, +S1, +S2 - GI/Abdominal GI/Abdominal exam: Present: normal bowel sounds, soft. Absent: distended, tenderness - Extremities Exam Extremities exam: Present: normal inspection. Absent: joint swelling, pedal edema, tenderness - Back Exam Additional comments: LP site noted to the midline lumbar spine with band-aid intact. - Neurological Exam Neurological exam: Present: alert, oriented X3, no focal deficits Additional comments: Slow to answer questions and appears generally weak, but no focal deficits and follows commands appropriately. - Psychiatric Psychiatric exam: Present: normal affect, normal mood - Skin Skin exam: Present: dry, intact, normal color, warm Additional comments: Scabbed lesions noted to the right upper chest and right upper back without redness, warmth, or drainage. Consult Discharge Plan - Plan Referrals: Chio Keating SENIOR PRODUCT DESIGNER [Primary Care Provider] - - Attending Attestation I examined this patient and my medical decision-making was reviewed with the Resident Physician. I agree with the documented findings, disposition and treatment plan as described except to the extent set forth below.
[2017-04-22 10:48] LABS: VBG HCO3 13 mEq/L (21-27); VBG PCO2 29 mmHg (41-51); VBG PH 7.26 pH Units (7.32-7.42); VBG PO2 144 mmHg (25-50)
--- NOTE | 2017-04-22 10:53 | Nephrology Consult Note ---
Date of Encounter: 04/22/17 Time of Encounter: 10:15 Assessment and Plan (1) Hypokalemia Current Visit: No Status: Acute Mental status changes with acute confusion likely due to infectious process and metabolic encephalopathy. ID and neurology on board. Anion gap metabolic acidosis. History of RTA. Normal Will be difficult to maintain potassium until bicarb normalized. Continue bicarb drip and K Riders. Renal fct stable. Avoid nephrotoxins, I&O's Will continue to monitor. History of Present Illness - Reason for Consult hypokalemia, metabolic acidosis - History of Present Illness is a 51 year old female seen initially in hospital in Jan 2017 for non anion gap metabolic acidosis and hypokalemia, determined to be RTA. she failed to show in office for follow up. Ms. Ching presented to ER yesterday for altered mental status changes. At time of consult patient is somnolent, arouses, does not focus and readily falls off to sleep. Daughter at bedside, other than stating patient having confusion off and on since November and that mother has had low potassium in past and history of Sjogren, RA. 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 Initial labs WBC 23.4, NA 132, K 2.8, creat 1.19, GFR 48, bicarb 12, urine culture prelim-gm neg rods. Admitted with metabolic encephalopathy, sinusitis, leukocytosis, hypokalemia, UTI, splenic infarct. Infectious Disease and Neurology consulted. Initially had bicarb drip but was discontinued at some point, K riders given. Today creat 0.73, K 2.5, despite K riders. Restarted Bicarb drip. Past Med Surg Social Fam HX - Past Medical History Medical history: arthritis, RA (Not currently on treatment), renal disease ( Renal tubular acidosis), other (Sjogren's, pancreatitis) Psychiatric history: anxiety, depression - Past Surgical History Surgical History: cholecystectomy ([facility] 12/2016) - Social History Smoking Status: Never smoker Smokeless Tobacco Status: No Alcohol use: none Drug use: prescription drug abuse - Family History Mother Hx Family Cancer: Yes (leukemia, lung) Medications and Allergies HYDROcodone/Acet 10/325 mg [[place] 10-325 mg] 1 tab PO Q4-6H PRN MDD 5 TABS/ 24HRS 06/28/15 [History] Ibuprofen [Motrin] 800 mg PO Q8HR PRN 06/28/15 [History] Norgestimate-Ethinyl Estradiol [Mononessa 28 Tablet] 1 tab PO DAILY 06/28/15 [ History] Zolpidem [Ambien] 5 mg PO HS PRN 06/28/15 [History] Cetirizine HCl [All Day Allergy] 10 mg PO DAILY 01/02/17 [History] FLUoxetine HCl [Fluoxetine HCl] 40 mg PO BID 01/02/17 [History] Propranolol [Inderal] 20 mg PO BID 01/02/17 [History] Quetiapine Fumarate [Seroquel] 50 mg PO 0600,1200 01/02/17 [History] Quetiapine Fumarate [Seroquel] 100 mg PO HS 01/02/17 [History] Pilocarpine HCl [Salagen] 5 mg PO TID 04/20/17 [History] Potassium Chloride Elixir [Potassium Chloride] 10 meq PO BID 04/20/17 [History] Ranitidine HCl [Zantac] 150 mg PO BID PRN 04/20/17 [History] 3 Allergy/AdvReac Type Severity Reaction Status Date / Time tramadol AdvReac Seizure Verified 04/20/17 16:05 Review of Systems ROS unobtainable: due to mental status Exam - Vital Signs Vital signs: Initial Vital Signs Temp Pulse Resp BP Pulse Ox 98.8 F 64 20 120/74 100 04/20/17 16:05 04/20/17 16:05 04/20/17 16:05 04/20/17 16:05 04/20/17 16:05 Vital Signs - Last 8 Hours Temp Pulse Resp BP Pulse Ox 04/22/17 06:40 98.9 F 64 16 95/51 94 04/22/17 05:33 63 18 91/54 95 Intake and Output 04/21/17 04/22/17 04/22/17 23:59 07:59 15:59 Intake Total 400 / 400 100 / 100 Output Total 400 / 400 Balance 0 / 0 100 / 100 Intake: IV Fluids 400 / 400 100 / 100 Unasyn 1,500 mg In 0.9 % Sodium 100 / 100 100 / 100 Chloride (Mini-Bag +) 100 ML @ 200 mls/hr IVPB Q6HR JOE Rx#: [id number] Potassium Chloride 10 mEq/100mL 300 / 300 10 meq In 100 ml @ 100 mls/hr IVPB Q1H JOE Rx#:[id number] Oral 0 / 0 Output: Urine 400 / 400 Other: Meal Dinner Percent of Meal Consumed 0% Stool Size Copious Stool Consistency liquid soft formed # Voids 1 # Bowel Movements 1 Weight 68.9 kg Patient Weight 04/22/17 23:59 Weight 68.9 kg - General Appearance General appearance: well-developed, well-nourished, appears started age EENT: mucous membranes moist Neck: no JVD Respiratory: clear Cardiology: no edema, regular rate, regular rhythm Gastrointestinal: hypoactive bowel sounds, no guarding Integumentary: warm and dry Additional Comments: somnolent Results - Lab Results 04/22/17 04:12 04/22/17 04:12 Most recent lab results ABG pH 7.33 pH Units (7.32-7.45) 04/21/17 21:42 ABG pCO2 26 mmHg (35-45) L 04/21/17 21:42 ABG pO2 100 mmHg (85-104) 04/21/17 21:42 ABG HCO3 13 mEq/L (21-27) L 04/21/17 21:42 ABG O2 Saturation 97 % (95-98) 04/21/17 21:42 Calcium 9.5 mg/dL (8.6-10.3) 04/22/17 04:12 Magnesium 1.8 mg/dL (1.6-2.6) 04/22/17 04:12 Consult Discharge Plan - Plan Referrals: Chio Keating RECRUIT INSTRUCTOR [Primary Care Provider] -
[2017-04-22 11:02] LABS: BUN/Creatinine Ratio 16 (6-26); Blood Urea Nitrogen 12 mg/dL (6-20); Calcium 9.5 mg/dL (8.6-10.3); Carbon Dioxide 12 mEq/L (23-29); Chloride 121 mEq/L (98-107); Glucose 101 mg/dL (70-105); Osmolality,Calculated 288 (280-300); Potassium 2.8 mEq/L (3.5-5.1); Sodium 139 mEq/L (136-145); eGFR For African Americans > 60 (> 60); eGFR For Non-African Americans > 60 (> 60)
[2017-04-22] MEDS: Artificial Tears SOLN 15 ML BOTTLE BOTH EYES SCH ×4 (11:39→20:38)
[2017-04-22] MEDS: Sodium Bicarbonate 150 MEQ in D5% in Water 1,000 ML IVC SCH ×2 (11:40→20:37)
[2017-04-22 14:43] LABS: BUN/Creatinine Ratio 14 (6-26); Blood Urea Nitrogen 10 mg/dL (6-20); Calcium 9.1 mg/dL (8.6-10.3); Carbon Dioxide 15 mEq/L (23-29); Chloride 118 mEq/L (98-107); Glucose 88 mg/dL (70-105); Osmolality,Calculated 284 (280-300); Potassium 2.8 mEq/L (3.5-5.1); Sodium 138 mEq/L (136-145); eGFR For African Americans > 60 (> 60); eGFR For Non-African Americans > 60 (> 60)
[2017-04-22 15:21] LABS: Thyroid Stimulating Hormone 1.325 mcIU/mL (0.340-5.600)
[2017-04-22 15:22] LABS: Triiodothyronine (T3) Free 2.47 pg/mL (2.50-3.90)
[2017-04-22 19:28] LABS: BUN/Creatinine Ratio 13 (6-26); Blood Urea Nitrogen 9 mg/dL (6-20); Calcium 8.8 mg/dL (8.6-10.3); Carbon Dioxide 17 mEq/L (23-29); Chloride 116 mEq/L (98-107); Glucose 96 mg/dL (70-105); Osmolality,Calculated 287 (280-300); Sodium 139 mEq/L (136-145); eGFR For African Americans > 60 (> 60); eGFR For Non-African Americans > 60 (> 60)
--- NOTE | 2017-04-22 20:47 | Internal Med Progress Note ---
Date of Encounter: 04/22/17 Time of Encounter: 14:50 - Assessment and plan (1) Acute metabolic encephalopathy Current Visit: Yes Status: Acute Assessment and plan: This has been a chronic issue for several months per daughter. Likely related to metabolic acidosis plus possible infection. White count improved today. MRI done showed no acute process, showed extensive opacification of the paranasal sinuses. Continue bicarb drip and potassium supplementation Neurology following in regards to encephalopathy, Nephrology recommendations appreciated in regards to RTA Infectious Disease following in regards to infection control. - May be an underlying immunologic/rheumatologic process, she received care at [facility] for this. (2) Hyperchloremic acidosis Current Visit: No Status: Acute Assessment and plan: Likely contributing to metabolic encephalopathy. Currently on bicarb drip. VBG assessed and BMP Q4H. (3) Hypokalemia Current Visit: No Status: Acute Assessment and plan: Correction of acidosis currently to improve potassium levels Continue IV and PO supplementation Magnesium repletion as needed. Nephrology on board, recommendations appreciated. (4) Rheumatoid arthritis Current Visit: No Status: Acute Qualifiers: Rheumatoid arthritis location: unspecified site Rheumatoid factor presence : unspecified presence Qualified Code(s): M06.9 - Rheumatoid arthritis, unspecified (5) Sjogrens syndrome Current Visit: No Status: Acute Assessment and plan: Most likely main etiology contributing to patient RTA type I. Patient will likely need transferred to tertiary center when acidosis and potassium are improved. Qualifiers: Sjogren's organ involvement: unspecified organ involvement Qualified Code(s ): M35.00 - Sicca syndrome, unspecified (6) Disorder of paranasal sinus Current Visit: Yes Status: Acute Assessment and plan: There is extensive opacification of the paranasal sinuses seen on MRI and CT head. This likely is benign but will consider ENT consult as unsure significance of this finding. (7) DVT prophylaxis Current Visit: No Status: Acute Assessment and plan: Lovenox - Subjective Interval history: Patient still fatigued per nursing. Patient states she doesn't feel well but is better. She cannot recall events of yesterday. She denies pain. - Constitutional Vitals: Temp Pulse Resp BP Pulse Ox 97.8 F 62 16 98/54 96 04/22/17 15:32 04/22/17 15:32 04/22/17 15:32 04/22/17 15:32 04/22/17 15:32 General appearance: Present: A&O X 2, no acute distress. Absent: answers questions appropriately Exam: somnolent but more aroused than yesterday's exam. - Head Head exam: Present: atraumatic, normocephalic - Eye Eye exam: Present: PERRL, conjuntiva pink, sclera anicteric Pupils: Present: PERRL - ENT ENT exam: Present: mucous membranes dry - Respiratory Respiratory exam: Present: CTAB. Absent: accessory muscle use, rales, rhonchi, wheezes - GI/Abdominal GI/Abdominal exam: Present: normal bowel sounds, soft, no peritoneal signs. Absent: distended, tenderness - Extremities Exam Extremities exam: Present: warm, radial pulses palpable and symmetrical. Absent : calf tenderness, cyanotic, pedal edema Internal Medicine: Result - Labs CBC & Chem 7: 04/22/17 04:12 04/22/17 18:00 Labs: Short CBC 04/22/17 Range/Units 04:12 WBC 13.5 H (4.3-11.1) K/mcL Hgb 7.9 L (11.5-15.4) g/dL Hct 22.1 L (35.3-44.9) % Plt Count 373 (140-400) K/mcL Neutrophils # 9.6 H (1.6-8.9) K/mcL BMP 04/21/17 04/22/17 04/22/17 23:02 04:12 09:08 Sodium 137 140 139 Potassium 2.9 L 2.5 L* 2.8 L Chloride 118 H 121 H 121 H Carbon Dioxide 12 L 13 L 12 L BUN 14 13 12 Creatinine 0.77 0.73 0.76 Glucose 132 H 89 101 Calcium 9.5 9.5 9.5 04/22/17 04/22/17 14:10 18:00 Sodium 138 139 Potassium 2.8 L 2.5 L* Chloride 118 H 116 H Carbon Dioxide 15 L 17 L BUN 10 9 Creatinine 0.72 0.67 Glucose 88 96 Calcium 9.1 8.8 - ABG Interpretation ABG results: ABG ABG pH 7.33 pH Units (7.32-7.45) 04/21/17 21:42 ABG pCO2 26 mmHg (35-45) L 04/21/17 21:42 ABG pO2 100 mmHg (85-104) 04/21/17 21:42 ABG O2 Saturation 97 % (95-98) 04/21/17 21:42 - Impressions Impressions Brain MRI 04/22/17 10:32 IMPRESSION: 1. No acute intracranial abnormality. No acute infarct. 2. Extensive opacification of the paranasal sinuses. D/ / Darryn Olsen MD / Darryn Olsen MD Interpreting Provider: Darryn Olsen MD Consult Discharge Plan - Plan Referrals: Chio Keating CNP [Primary Care Provider] -
[2017-04-22 23:43] LABS: BUN/Creatinine Ratio 11 (6-26); Blood Urea Nitrogen 7 mg/dL (6-20); Calcium 8.1 mg/dL (8.6-10.3); Carbon Dioxide 22 mEq/L (23-29); Chloride 109 mEq/L (98-107); Glucose 271 mg/dL (70-105); Osmolality,Calculated 292 (280-300); Potassium 2.6 mEq/L (3.5-5.1); Sodium 137 mEq/L (136-145); eGFR For African Americans > 60 (> 60); eGFR For Non-African Americans > 60 (> 60)
[2017-04-23 02:29] LABS: Basophils % 0.2 %; Eosinophils # 0.3 K/mcL (0.0-0.6); Eosinophils % 2.5 %; Hematocrit 20.6 % (35.3-44.9); Hemoglobin 7.3 g/dL (11.5-15.4); Lymphocytes # 2.1 K/mcL (0.6-4.6); Lymphocytes % 15.4 %; Mean Corpuscular HGB Conc 35.4 g/dL (31.6-35.5); Mean Corpuscular Hemoglobin 30.9 pg (28.0-33.3); Mean Corpuscular Volume 87.3 fL (83.0-100.0); Mean Platelet Volume 9.7 fL (9.4-12.4); Monocytes # 1.1 K/mcL (0.0-1.3); Monocytes % 8.4 %; Neutrophils # 9.3 K/mcL (1.6-8.9); Nucleated Red Blood Cells 0.2 /100 WBC (0); Platelet Count 329 K/mcL (140-400); Red Blood Count 2.36 M/mcL (3.82-4.97); Red Cell Distribution Width 14.9 % (11.5-14.5); Segmented Neutrophils % 68.5 %
[2017-04-23] MEDS: Ampicillin/Sulbactam 1,500 MG in 0.9 % Sodium Chloride Mini Bag 100 ML IVPB SCH ×4 (02:32→16:23)
[2017-04-23 03:14] LABS: BUN/Creatinine Ratio 10 (6-26); Blood Urea Nitrogen 6 mg/dL (6-20); Carbon Dioxide 23 mEq/L (23-29); Chloride 108 mEq/L (98-107); Glucose 246 mg/dL (70-105); Osmolality,Calculated 290 (280-300); Potassium 2.4 mEq/L (3.5-5.1); Sodium 137 mEq/L (136-145); eGFR For African Americans > 60 (> 60); eGFR For Non-African Americans > 60 (> 60)
[2017-04-23] MEDS ORDERED: Potassium Phosphate 44 MEQ in 0.9 % Sodium Chloride 250 ML IVPB ONE (03:39)
[2017-04-23] MEDS: Sodium Bicarbonate 150 MEQ in D5% in Water 1,000 ML IVC SCH (04:18)
[2017-04-23 04:23] LABS: Folate 4.5 ng/mL (3.0-16.0)
[2017-04-23 06:17] LABS: Potassium 2.5 mEq/L (3.5-5.1)
[2017-04-23] MEDS: *HR* Enoxaparin 40 MG/0.4 ML SYRINGE SQ SCH (06:38)
[2017-04-23] MEDS: aMILoride 5 MG TABLET PO SCH (07:42)
[2017-04-23] MEDS: FLUoxetine 20 MG CAPSULE PO SCH ×2 (07:42→20:38)
[2017-04-23] MEDS: Loratadine 10 MG TABLET PO SCH (07:42)
[2017-04-23] MEDS: Potassium Chloride Elixir 20 MEQ/15 ML UDC PO SCH ×2 (07:42→20:39)
[2017-04-23] MEDS: MONONESSA PO SCH (07:52)
[2017-04-23] MEDS: Artificial Tears SOLN 15 ML BOTTLE BOTH EYES SCH ×4 (07:52→20:44)
[2017-04-23 07:56] LABS: BUN/Creatinine Ratio 9 (6-26); Blood Urea Nitrogen 5 mg/dL (6-20); Calcium 7.5 mg/dL (8.6-10.3); Carbon Dioxide 26 mEq/L (23-29); Chloride 105 mEq/L (98-107); Glucose 283 mg/dL (70-105); Osmolality,Calculated 292 (280-300); Potassium 2.3 mEq/L (3.5-5.1); Sodium 137 mEq/L (136-145); eGFR For African Americans > 60 (> 60); eGFR For Non-African Americans > 60 (> 60)
[2017-04-23] MEDS ORDERED: Sodium Bicarbonate 50 MEQ in D5% in Water 1,000 ML IVC SCH (09:37)
--- NOTE | 2017-04-23 10:42 | Nephrology Progress Note ---
Date of Encounter: 04/23/17 Time of Encounter: 10:20 - Assessment and Plan (1) Hypokalemia Current Visit: No Status: Acute Mental status changes with acute confusion likely due to infectious process and metabolic encephalopathy. ID and neurology on board. Normal anion gap metabolic acidosis. History of RTA. Bicarb improved, Decreased oral intake and concern for ability to take oral bicarb, so will continue IV bicarb at decreased rate. Potassium remains low, continue K riders. Renal fct stable. Avoid nephrotoxins, I&O's Will continue to monitor. Subjective Interval history: Awake, lying quietly. Appropriate, though states does not remember anything from yesterday. States has no appetite. Objective - Vital Signs Vital signs: Vital Signs Temp Pulse Resp BP Pulse Ox 04/23/17 06:49 98.1 F 64 15 104/67 98 04/23/17 03:30 98.1 F 67 16 100/57 04/23/17 00:00 97.7 F 70 16 125/77 04/22/17 21:00 98.4 F 74 16 104/46 95 04/22/17 15:32 97.8 F 62 16 98/54 96 04/22/17 11:57 97.8 F 65 16 109/69 99 Intake and Output 04/22/17 04/23/17 04/23/17 23:59 07:59 15:59 Intake Total 1250 / 1250 1250 / 1250 0 / 0 Output Total 600 / 600 0 / 0 600 / 600 Balance 650 / 650 1250 / 1250 -600 / -600 Intake: IV Fluids 1250 / 1250 1250 / 1250 Sodium Bicarbonate 150 MEQ In 1150 / 1150 1150 / 1150 Dextrose 5% 1,000 ML @ 150 mls/ hr IVC .[id number] JOE Rx#: [id number] Unasyn 1,500 mg In 0.9 % Sodium 100 / 100 100 / 100 Chloride (Mini-Bag +) 100 ML @ 200 mls/hr IVPB Q6HR JOE Rx#: [id number] Oral 0 / 0 0 / 0 0 / 0 Output: Urine 600 / 600 0 / 0 600 / 600 Other: Meal Breakfast Percent of Meal Consumed 0% Stool Size Moderate Small Stool Consistency liquid liquid Stool Characteristics Normal for Patient Stool Color Brown Brown # Voids 1 # Bowel Movements 1 Weight 68 kg Patient Weight 04/23/17 23:59 Weight 68 kg - General Appearance General appearance: Present: well-developed, well-nourished, appears started age EENT: Present: mucous membranes moist Neck: Present: no JVD Respiratory: Present: clear Cardiology: Present: no edema, regular rate, regular rhythm Gastrointestinal: Present: hypoactive bowel sounds, no tenderness Integumentary: Present: warm and dry Psychiatric: Present: mood/affect appropriate, cooperative - Lab 04/23/17 02:15 04/23/17 06:45 Most recent lab results ABG pH 7.33 pH Units (7.32-7.45) 04/21/17 21:42 ABG pCO2 26 mmHg (35-45) L 04/21/17 21:42 ABG pO2 100 mmHg (85-104) 04/21/17 21:42 ABG HCO3 13 mEq/L (21-27) L 04/21/17 21:42 ABG O2 Saturation 97 % (95-98) 04/21/17 21:42 Calcium 7.5 mg/dL (8.6-10.3) L 04/23/17 06:45 Phosphorus 1.3 mg/dL (2.7-4.5) L 04/23/17 02:15 Magnesium 1.8 mg/dL (1.6-2.6) 04/22/17 04:12 Consult Discharge Plan - Plan Referrals: Chio Keating CNP [Primary Care Provider] - 04/28/17 9:45 am
[2017-04-23] MEDS: Ibuprofen 800 MG TABLET PO PRN (10:46)
--- NOTE | 2017-04-23 11:06 | Infectious Disease Progress No ---
Date of Encounter: 04/23/17 Time of Encounter: 11:03 - Assessment and Plan (1) Leukocytosis Current Visit: Yes Status: Acute The patient's WBC is elevated at 23,000 with neutrophilic predominance on admission. Etiology unclear: pancreatitis vs. autoimmune. Improved. Continue to trend. No other SIRS criteria noted. Check peripheral smear.--> shows neutrophilia with increased immature granulocytes and toxic granulation concerning for infection. Check procalcitonin.--> pending. Qualifiers: Leukocytosis type: unspecified Qualified Code(s): D72.829 - Elevated white blood cell count, unspecified (2) Altered mental status Current Visit: Yes Status: Acute Etiology unclear: Autoimmune Anti-NMDAR encephalitis vs. metabolic acidosis vs. infectious vs. other. Per family, the patient has had ongoing altered mental status for several months. She appears somewhat improved today. CT head shows pansinusitis, but otherwise no acute abnormality. CSF negative for pleocytosis. Culture preliminarily negative. No meningeal signs. Neurology consulted. Appreciate recommendations. Check RIP--> negative. Send CSF for HSV1 and HSV2 PCR, VZV, VDRL, AFB, CMV, EBV.--> pending. Check HIV status.--> nonreactive. Check hepatitis profile--> nonreactive. Check serum RPR.--> negative. Check serum Crypto antigen.--> negative. MRI negative. Low index of suspicion for lyme, arbovirus, or adenovirus as the clinical picture not indicative and no exposure history. The patient's family has requested transfer to [facility], which I think is certainly reasonable. Qualifiers: Altered mental status type: disorientation Qualified Code(s): R41.0 - Disorientation, unspecified (3) Pancreatitis Current Visit: Yes Status: Acute Etiology unclear. Lipase elevated at 115, but abdominal exam benign. CT scan of the abdomen and pelvis shows inflammatory changes around the pancreas , similar to previous studies, but slightly increased fluid collection around the pancreas tail consistent with peritoneal inflammation as well as interval enlargement of the spleen with splenic infarcts and mild ileus due to pancreatic inflammation. Management per the primary team. Qualifiers: Chronicity: acute Pancreatitis type: unspecified pancreatitis type Acute pancreatitis complication: no infection or necrosis Qualified Code(s): K85.90 - Acute pancreatitis without necrosis or infection, unspecified (4) Sinusitis Current Visit: Yes Status: Acute CT head shows pansinusitis, but the patient is asymptomatic. Continue Unasy 1500mg IV Q6H for now. MRI of the head shows extensive opacification of the paranasal sinuses. Consider ENT consult. Duration of treatment depends on the clinical picture. Monitor renal function and dose-adjust antibiotics. Qualifiers: Sinusitis location: pansinusitis Chronicity: acute Recurrence: not specified as recurrent Qualified Code(s): J01.40 - Acute pansinusitis, unspecified (5) UTI (urinary tract infection) Current Visit: Yes Status: Acute Asymptomatic bacteriuria vs. UTI. Urinalysis positive for pyuria, but looks like it might be contaminated. Urine culture shows E. coli. Qualifiers: Urinary tract infection type: acute cystitis Hematuria presence: without hematuria Qualified Code(s): N30.00 - Acute cystitis without hematuria (6) Splenic infarct Current Visit: Yes Status: Acute Etiology unclear: septic emboli vs. hypercoaguable state vs. other. Repeat blood cultures x 2 sets drawn 04/21/17 are NGTD. (7) Metabolic acidosis Current Visit: Yes Status: Acute Non-anion gap metabolic acidosis with respiratory compensation. Bicarb improved. Could be contributing to the patient's altered mental status. Management per the primary team. (8) Hypokalemia Current Visit: Yes Status: Acute Remains low even after repletion. Likely secondary to metabolic acidosis and history of renal tubular acidosis. Management per the primary and nephrology teams. 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 No evidence of recurrence based on physical exam. Will continue to monitor. - Subjective Interval history: Patient seen and examined. No acute events noted overnight. Patient appears less lethargic this morning and interacts more in the conversation. Patient states she still feels very weak and tired, but a little better. Denies fevers, chills, or rigors. Denies headache or neck pain. Denies congestions, earache, or sore throat. Denies chest pain, shortness of breath, or cough. Denies nausea , vomiting, or diarrhea. Denies dysuria or urinary complaints. Denies abdominal pain and states she ate dinner last night and her appetite is better today. Denies oral thrush or new skin lesions. Complains of pain at the LP site. Denies blurred vision or focal weakness at this time. Infect Dis PN-Objective Data - Labs CBC & Chem 7: 04/23/17 02:15 04/23/17 06:45 Labs: Laboratory Results - last 24 hr 04/21/17 04/22/17 04/22/17 13:35 09:08 09:08 WBC RBC Hgb Hct MCV MCH MCHC RDW Plt Count MPV Immature Gran % Seg Neutrophils % Lymphocytes % Monocytes % Eosinophils % Basophils % Neutrophils # Lymphocytes # Monocytes # Eosinophils # Basophils # Nucleated RBCs/100 WBC Sodium Potassium Chloride Carbon Dioxide BUN Creatinine Est GFR ( Amer) Est GFR (Non-Af Amer) BUN/Creatinine Ratio Glucose Calculated Osmolality Calcium Phosphorus Ammonia Vitamin B12 904 Folate 4.5 TSH 1.325 Free T4 0.65 L Free T3 2.47 L T.pallidum Ab Interpret Negative 04/22/17 04/22/17 04/22/17 14:10 18:00 21:00 WBC RBC Hgb Hct MCV MCH MCHC RDW Plt Count MPV Immature Gran % Seg Neutrophils % Lymphocytes % Monocytes % Eosinophils % Basophils % Neutrophils # Lymphocytes # Monocytes # Eosinophils # Basophils # Nucleated RBCs/100 WBC Sodium 138 139 Potassium 2.8 L 2.5 L* Chloride 118 H 116 H Carbon Dioxide 15 L 17 L BUN 10 9 Creatinine 0.72 0.67 Est GFR ( Amer) > 60 > 60 Est GFR (Non-Af Amer) > 60 > 60 BUN/Creatinine Ratio 14 13 Glucose 88 96 Calculated Osmolality 284 287 Calcium 9.1 8.8 Phosphorus Ammonia 54 H Vitamin B12 Folate TSH Free T4 Free T3 T.pallidum Ab Interpret 04/22/17 04/23/17 04/23/17 23:10 02:15 02:15 WBC 13.6 H RBC 2.36 L Hgb 7.3 L Hct 20.6 L MCV 87.3 MCH 30.9 MCHC 35.4 RDW 14.9 H Plt Count 329 MPV 9.7 Immature Gran % 5.0 H Seg Neutrophils % 68.5 Lymphocytes % 15.4 Monocytes % 8.4 Eosinophils % 2.5 Basophils % 0.2 Neutrophils # 9.3 H Lymphocytes # 2.1 Monocytes # 1.1 Eosinophils # 0.3 Basophils # 0.0 Nucleated RBCs/100 WBC 0.2 H Sodium 137 137 Potassium 2.6 L 2.4 L* Chloride 109 H 108 H Carbon Dioxide 22 L 23 BUN 7 6 Creatinine 0.61 0.59 L Est GFR ( Amer) > 60 > 60 Est GFR (Non-Af Amer) > 60 > 60 BUN/Creatinine Ratio 11 10 Glucose 271 H 246 H Calculated Osmolality 292 290 Calcium 8.1 L 8.0 L Phosphorus Ammonia Vitamin B12 Folate TSH Free T4 Free T3 T.pallidum Ab Interpret 04/23/17 04/23/17 02:15 06:45 WBC RBC Hgb Hct MCV MCH MCHC RDW Plt Count MPV Immature Gran % Seg Neutrophils % Lymphocytes % Monocytes % Eosinophils % Basophils % Neutrophils # Lymphocytes # Monocytes # Eosinophils # Basophils # Nucleated RBCs/100 WBC Sodium 137 Potassium 2.3 L* Chloride 105 Carbon Dioxide 26 BUN 5 L Creatinine 0.55 L Est GFR ( Amer) > 60 Est GFR (Non-Af Amer) > 60 BUN/Creatinine Ratio 9 Glucose 283 H Calculated Osmolality 292 Calcium 7.5 L Phosphorus 1.3 L Ammonia Vitamin B12 Folate TSH Free T4 Free T3 T.pallidum Ab Interpret Cultures: Cultures 04/21/17 13:35 Blood Culture - Preliminary Peripheral Venipuncture No growth. 04/21/17 13:35 Blood Culture - Preliminary Peripheral Venipuncture No growth. 04/21/17 13:35 Cryptococcal Antigen - Final Serum Serology 04/21/17 04/21/17 04/21/17 Range/Units 16:20 13:35 13:35 T.pallidum Ab Interpret Negative (NEGATIVE) Chlamy pneumoniae PCR Not Detected (Not Detect) Adenovirus (PCR) Not Detected (Not Detect) B. pertussis DNA (PCR) Not Detected (Not Detect) B.parapertussis DNA PCR Not Detected (Not Detect) Coronavirus OC43 (PCR) Not Detected (Not Detect) Coronavirus HKU1 (PCR) Not Detected (Not Detect) Coronavirus 229E (PCR) Not Detected (Not Detect) Coronavirus NL63 (PCR) Not Detected (Not Detect) Hepatitis A IgM Ab Nonreactive (Nonreactive) Hep Bs Antigen Nonreactive (Nonreactive) Hep B Core IgM Ab Nonreactive (Nonreactive) Hepatitis C Ab Screen Nonreactive (Nonreactive) HIV Ag/Ab Combo Qual Nonreactive (Nonreactive) Human Metapneumovir PCR Not Detected (Not Detect) Influenza A (H1) PCR Not Detected (Not Detect) Influ A (H1N1/09) PCR Not Detected (Not Detect) Influenza A (H3) PCR Not Detected (Not Detect) Influenza A Untype (PCR) Not Detected (Not Detect) Influenza Type B (PCR) Not Detected (Not Detect) M.pneumoniae DNA (PCR) Not Detected (Not Detect) Parainfluenza 1 (PCR) Not Detected (Not Detect) Parainfluenza 2 (PCR) Not Detected (Not Detect) Parainfluenza 3 (PCR) Not Detected (Not Detect) Parainfluenza 4 (PCR) Not Detected (Not Detect) RSV (PCR) Not Detected (Not Detect) Entero/Rhino (PCR) Not Detected (Not Detect) - Impressions Impressions Brain MRI 04/22/17 10:32 IMPRESSION: 1. No acute intracranial abnormality. No acute infarct. 2. Extensive opacification of the paranasal sinuses. D/ / Darryn Olsen MD / Darryn Olsen MD Interpreting Provider: Darryn Olsen MD Exam - Constitutional Vitals: Temp Pulse Resp BP Pulse Ox 98.1 F 64 15 104/67 98 04/23/17 06:49 04/23/17 06:49 04/23/17 06:49 04/23/17 06:49 04/23/17 06:49 General appearance: average body habitus, cooperative, no acute distress - Head Head exam: Present: atraumatic, normal inspection, normocephalic - Eye Eye exam: Present: EOMI, normal appearance, PERRL Pupils: Present: normal accommodation Additional comments: No ptsosis noted. - ENT ENT exam: Present: mucous membranes moist - Neck Neck exam: Present: normal inspection - Respiratory Respiratory exam: Present: CTAB. Absent: rales, respiratory distress, rhonchi, wheezes - Cardiovascular Cardiovascular exam: Present: RRR, +S1, +S2 - GI/Abdominal GI/Abdominal exam: Present: soft. Absent: distended, normal bowel sounds, tenderness - Extremities Exam Extremities exam: Present: normal inspection. Absent: joint swelling, pedal edema, tenderness - Back Exam Back exam: Present: normal inspection Additional comments: LP site without erythema, warmth, or tenderness noted. - Neurological Exam Neurological exam: Present: alert, oriented X3, no focal deficits - Psychiatric Psychiatric exam: Present: normal affect, normal mood - Skin Skin exam: Present: dry, intact, normal color, warm Consult Discharge Plan - Plan Referrals: Chio Keating CNP [Primary Care Provider] - 04/28/17 9:45 am
[2017-04-23 12:18] LABS: ABG Base Excess -2 mEq/L (-2 to 3); ABG HCO3 21 mEq/L (21-27); ABG Oxygen Saturation 98 % (95-98); ABG PCO2 30 mmHg (35-45); ABG PH 7.46 pH Units (7.32-7.45); ABG PO2 95 mmHg (85-104); ABG TCO2 22 mEq/L (20-26)
--- NOTE | 2017-04-23 13:30 | Neurology Progress Note ---
<Garland Rapp - Last Filed: 04/23/17 15:37> Date of Encounter: 04/23/17 Time of Encounter: 08:20 Assessment and Plan (1) Mental status, decreased Current Visit: Yes Status: Acute 51 yo female with past medical hx significant for RTA, Sjogren's, pancreatitis, RA admitted with altered mental status and increased lethargy/fatigue for the past several months. She was evaluated back at the beginning of December and diagnosed with V3 dermatomal distribution shingles. She was treated with 10 days of oral Valtrex and her symptoms improved. At that time she had ptosis which resolved after treatment. Since then she has had progressive weakness and fatigue. Todays exam she is AOx3, CN II-XII intact, muscle strength 5/5 upper and lower extremities with intact sensation and deep tendon reflexes. CT head without acute findings. concerning Lab results: WBC 23, hgb 7.9, ABG demonstrates metabolic acidosis with respiratory compensation, K+ 2.5, chloride 121, bicarbonate, renal function appropriate. AMS may be secondary to metabolic condition. Patient came in with metabolic acidosis and since admission and treatment with bicarbonate it has slightly improved but the chloride has gone from 112 -> 121 and may benefit from changing fluids to LR or 1/2 normal saline. LP performed on 04/20/2017 is without concerning findings. Serology PCR negative Suspect that this may be metabolic in nature. After correction of her metabolic de-arrangement, if she continues to have continued weakness further evaluation may be warranted. 04/23: Patient is of more alert awake interactive no acute distress. Continues to be more of a metabolic derangement compared to a neurologic component. We will continue to monitor for other potential causes. Plan: - Continue treatment per primary team and nephrology Subjective Interval history: Mrs. Ching is seen and evaluated patient bedside this morning. She is alert awake interactive acute distress. She continues to feel tired and worn out a more alert since admission and treatment for underlying conditions. She is unsure why her potassium dropped so low. She describes any other new concerning neurologic symptoms. She understands the importance of evaluating her hypokalemia and correcting her underlying acidosis prior to discharge. Objective - Constitutional Vitals: Temp Pulse Resp BP Pulse Ox 98.1 F 64 15 104/67 98 04/23/17 06:49 04/23/17 06:49 04/23/17 06:49 04/23/17 06:49 04/23/17 06:49 General appearance: Present: A&O X 3 - Head Head exam: Present: atraumatic, normocephalic - Eye Eye exam: Present: PERRL, conjuntiva pink, sclera anicteric Pupils: Present: PERRL - Extremities Exam Extremities exam: Present: warm, radial pulses palpable and symmetrical. Absent : calf tenderness, cyanotic, pedal edema - Neurological Exam Motor Examination: Present: full strength in all major muscle groups Motor examination - left side: 5/5: deltoids, biceps, triceps, wrist flexion, wrist extension, hip flexors, roll scale worker, quadriceps, tibialis Anterior, toe extension (EHL), plantarflexion Mental Status Examination: Present: awake, alert, oriented to person, oriented to place, oriented to time, follows commands appropriately, answers questions appropriately, no agnosia, no aphasia, no aproxia Cranial nerve examination: Present: PERRL, EOMI, visual joel intact, corneal reflexes brisk symmetrically, sensory to face intact, mastication intact, no facial asymmetry is present, no dysarthria, hearing is intact symmetrically, soft palate elevates bilaterally upon phonation, gag reflex intact, flexes SCM and trapezius muscles symmetrically with full power, tongue protrudes midline, no atrophy or facial fasiculations present Cerebellar examination: Present: no dysmetria, performs finger to nose and heel to salgado symmetrically without ataxia, no gait ataxia, no truncal ataxia, no difficulty with rapid alternating movements Results - Laboratory Findings CBC and BMP: 04/23/17 02:15 04/23/17 12:03 Abnormal lab findings: Abnormal lab results WBC 13.6 K/mcL (4.3-11.1) H 04/23/17 02:15 RBC 2.36 M/mcL (3.82-4.97) L 04/23/17 02:15 Hgb 7.3 g/dL (11.5-15.4) L 04/23/17 02:15 Hct 20.6 % (35.3-44.9) L 04/23/17 02:15 RDW 14.9 % (11.5-14.5) H 04/23/17 02:15 Immature Gran % 5.0 % (0-4) H 04/23/17 02:15 Neutrophils # 9.3 K/mcL (1.6-8.9) H 04/23/17 02:15 Nucleated RBCs/100 WBC 0.2 /100 WBC (0) H 04/23/17 02:15 ABG pH 7.46 pH Units (7.32-7.45) H 04/23/17 12:16 ABG pCO2 30 mmHg (35-45) L 04/23/17 12:16 VBG pH 7.26 pH Units (7.32-7.42) L 04/22/17 10:44 VBG pCO2 29 mmHg (41-51) L 04/22/17 10:44 VBG pO2 144 mmHg (25-50) H 04/22/17 10:44 VBG HCO3 13 mEq/L (21-27) L 04/22/17 10:44 Potassium 2.3 mEq/L (3.5-5.1) L* 04/23/17 06:45 BUN 5 mg/dL (6-20) L 04/23/17 06:45 Creatinine 0.55 mg/dL (0.60-1.20) L 04/23/17 06:45 Glucose 283 mg/dL (70-105) H 04/23/17 06:45 Calcium 7.5 mg/dL (8.6-10.3) L 04/23/17 06:45 Phosphorus 1.3 mg/dL (2.7-4.5) L 04/23/17 02:15 Alkaline Phosphatase 158 Units/L (34-104) H 04/21/17 00:50 Ammonia 54 mcmol/L (16-53) H 04/22/17 21:00 Albumin 2.7 g/dL (3.5-5.7) L 04/21/17 00:50 Globulin 5.0 g/dL (2.4-3.5) H 04/21/17 00:50 Albumin/Globulin Ratio 0.5 (1.1-2.2) L 04/21/17 00:50 Lipase 115 Units/L (11-82) H 04/20/17 17:01 Free T4 0.65 ng/dl (0.70-2.00) L 04/22/17 09:08 Free T3 2.47 pg/mL (2.50-3.90) L 04/22/17 09:08 Urine Protein 100 mg/dL (Neg-Trace) H 04/20/17 19:21 Urine Blood Small (Negative) H 04/20/17 19:21 Ur Leukocyte Esterase Small (Negative) H 04/20/17 19:21 Urine Microscopic RBC 15-30 per hpf (0-3) H 04/20/17 19:21 Urine Microscopic WBC 30-50 per hpf (0-3) H 04/20/17 19:21 Ur Squamous Epith Cells Moderate per lpf (None-Few) H 04/20/17 19:21 Urine Bacteria Many per hpf (None-Few) H 04/20/17 19:21 Ur Culture Indicated? YES (NO) A 04/20/17 19:21 CSF Total Protein 49 mg/dL (15-45) H 04/20/17 20:05 Urine Opiates Screen Positive ng/mL (Psuepj=884) H 04/20/17 19:21 Consult Discharge Plan - Plan Referrals: Rishabh,Chio Sarkar [employer] [Primary Care Provider] - 04/28/17 9:45 am <Alex Dela Cruz I - Last Filed: 04/23/17 16:02> Date of Encounter: 04/23/17 Assessment and Plan (1) Mental status, decreased Current Visit: Yes Status: Acute I examined this patient and my medical decision-making was reviewed with the Resident Physician, I agree with the documented findings, disposition and treatment plan as described except to the extent set forth below. Alex Dela Cruz MD Objective - Constitutional Vitals: Temp Pulse Resp BP Pulse Ox 98.1 F 67 16 110/64 97 04/23/17 15:00 04/23/17 15:00 04/23/17 15:00 04/23/17 15:00 04/23/17 15:00 Results - Laboratory Findings CBC and BMP: 04/23/17 02:15 04/23/17 15:05 Abnormal lab findings: Abnormal lab results WBC 13.6 K/mcL (4.3-11.1) H 04/23/17 02:15 RBC 2.36 M/mcL (3.82-4.97) L 04/23/17 02:15 Hgb 7.3 g/dL (11.5-15.4) L 04/23/17 02:15 Hct 20.6 % (35.3-44.9) L 04/23/17 02:15 RDW 14.9 % (11.5-14.5) H 04/23/17 02:15 Immature Gran % 5.0 % (0-4) H 04/23/17 02:15 Neutrophils # 9.3 K/mcL (1.6-8.9) H 04/23/17 02:15 Nucleated RBCs/100 WBC 0.2 /100 WBC (0) H 04/23/17 02:15 ABG pH 7.46 pH Units (7.32-7.45) H 04/23/17 12:16 ABG pCO2 30 mmHg (35-45) L 04/23/17 12:16 VBG pH 7.26 pH Units (7.32-7.42) L 04/22/17 10:44 VBG pCO2 29 mmHg (41-51) L 04/22/17 10:44 VBG pO2 144 mmHg (25-50) H 04/22/17 10:44 VBG HCO3 13 mEq/L (21-27) L 04/22/17 10:44 Potassium 3.2 mEq/L (3.5-5.1) L 04/23/17 15:05 Chloride 110 mEq/L (98-107) H 04/23/17 15:05 BUN 4 mg/dL (6-20) L 04/23/17 15:05 Creatinine 0.54 mg/dL (0.60-1.20) L 04/23/17 15:05 Glucose 108 mg/dL (70-105) H 04/23/17 15:05 Calcium 7.7 mg/dL (8.6-10.3) L 04/23/17 15:05 Phosphorus 1.3 mg/dL (2.7-4.5) L 04/23/17 02:15 Alkaline Phosphatase 158 Units/L (34-104) H 04/21/17 00:50 Ammonia 54 mcmol/L (16-53) H 04/22/17 21:00 Albumin 2.7 g/dL (3.5-5.7) L 04/21/17 00:50 Globulin 5.0 g/dL (2.4-3.5) H 04/21/17 00:50 Albumin/Globulin Ratio 0.5 (1.1-2.2) L 04/21/17 00:50 Lipase 115 Units/L (11-82) H 04/20/17 17:01 Free T4 0.65 ng/dl (0.70-2.00) L 04/22/17 09:08 Free T3 2.47 pg/mL (2.50-3.90) L 04/22/17 09:08 Urine Protein 100 mg/dL (Neg-Trace) H 04/20/17 19:21 Urine Blood Small (Negative) H 04/20/17 19:21 Ur Leukocyte Esterase Small (Negative) H 04/20/17 19:21 Urine Microscopic RBC 15-30 per hpf (0-3) H 04/20/17 19:21 Urine Microscopic WBC 30-50 per hpf (0-3) H 04/20/17 19:21 Ur Squamous Epith Cells Moderate per lpf (None-Few) H 04/20/17 19:21 Urine Bacteria Many per hpf (None-Few) H 04/20/17 19:21 Ur Culture Indicated? YES (NO) A 04/20/17 19: CSF Total Protein 49 mg/dL (15-45) H 04/20/17 20:05 Urine Opiates Screen Positive ng/mL (Mmwafq=562) H 04/20/17 19:21
[2017-04-23 13:44] LABS: BUN/Creatinine Ratio 7 (6-26); Blood Urea Nitrogen 4 mg/dL (6-20); Carbon Dioxide 23 mEq/L (23-29); Chloride 109 mEq/L (98-107); Glucose 159 mg/dL (70-105); Osmolality,Calculated 288 (280-300); Potassium 2.9 mEq/L (3.5-5.1); Sodium 139 mEq/L (136-145); eGFR For African Americans > 60 (> 60); eGFR For Non-African Americans > 60 (> 60)
[2017-04-23 15:52] LABS: BUN/Creatinine Ratio 7 (6-26); Blood Urea Nitrogen 4 mg/dL (6-20); Calcium 7.7 mg/dL (8.6-10.3); Carbon Dioxide 24 mEq/L (23-29); Chloride 110 mEq/L (98-107); Glucose 108 mg/dL (70-105); Osmolality,Calculated 283 (280-300); Potassium 3.2 mEq/L (3.5-5.1); Sodium 138 mEq/L (136-145); eGFR For African Americans > 60 (> 60); eGFR For Non-African Americans > 60 (> 60)
[2017-04-23] MEDS ORDERED: *HR* HYDROcodone/Acet 5/325 mg TABLET PO ONE (16:31)
--- NOTE | 2017-04-23 19:27 | Internal Med Progress Note ---
Date of Encounter: 04/23/17 Time of Encounter: 19:24 - Assessment and plan (1) Acute metabolic encephalopathy Current Visit: Yes Status: Acute Assessment and plan: This has been a chronic issue for several months per daughter. Likely related to metabolic acidosis plus possible infection. White count improved today. MRI done showed no acute process, showed extensive opacification of the paranasal sinuses. Continue bicarb drip and potassium supplementation Neurology following in regards to encephalopathy, Nephrology recommendations appreciated in regards to RTA Infectious Disease following in regards to infection control. May be an underlying immunologic/rheumatologic process, may need tertiary center care Noticed improvement today. She asked for pain medication she does have chronic pain. We will try Tylenol alone since she is altered and avoid [place] that she usually takes. (2) Hyperchloremic acidosis Current Visit: No Status: Acute Assessment and plan: Likely contributing to metabolic encephalopathy. Currently on bicarb drip. VBG assessed and BMP Q4H. (3) Hypokalemia Current Visit: No Status: Acute Assessment and plan: Correction of acidosis currently to improve potassium levels Continue IV and PO supplementation Magnesium repletion as needed. Nephrology on board, recommendations appreciated. (4) Rheumatoid arthritis Current Visit: No Status: Acute Qualifiers: Rheumatoid arthritis location: unspecified site Rheumatoid factor presence : unspecified presence Qualified Code(s): M06.9 - Rheumatoid arthritis, unspecified (5) Sjogrens syndrome Current Visit: No Status: Acute Assessment and plan: Most likely main etiology contributing to patient RTA type I. Patient will likely need transferred to tertiary center when acidosis and potassium are improved. Qualifiers: Sjogren's organ involvement: unspecified organ involvement Qualified Code(s ): M35.00 - Sicca syndrome, unspecified (6) Disorder of paranasal sinus Current Visit: Yes Status: Acute (7) DVT prophylaxis Current Visit: No Status: Acute - Subjective Interval history: Late entry: Patient seen in the AM and also in the afternoon. She is more alert today. She has asked nurse for pain medication. Tylenol tried and [place] avoided for now. - Constitutional Vitals: Temp Pulse Resp BP Pulse Ox 98.1 F 67 16 110/64 97 04/23/17 15:00 04/23/17 15:00 04/23/17 15:00 04/23/17 15:00 04/23/17 15:00 General appearance: Present: A&O X 2, no acute distress. Absent: answers questions appropriately Exam: More awake today - Head Head exam: Present: atraumatic, normocephalic - Eye Eye exam: Present: PERRL, conjuntiva pink, sclera anicteric Pupils: Present: PERRL - Neck Neck exam general surgery: Present: supple, trachea midline. Absent: lymphadenopathy - Respiratory Respiratory exam: Present: CTAB. Absent: accessory muscle use, rales, rhonchi, wheezes - Cardiovascular Cardiovascular exam: Present: RRR, +S1, +S2. Absent: diastolic murmur, gallop, rubs, systolic murmur - GI/Abdominal GI/Abdominal exam: Present: normal bowel sounds, soft, no peritoneal signs. Absent: distended, tenderness - Extremities Exam Extremities exam: Present: warm, radial pulses palpable and symmetrical. Absent : calf tenderness, cyanotic, pedal edema - Neurological Exam Neurological exam: Present: CN II-XII intact, oriented X3, no focal deficits. Absent: pronater drift, facial droop, speech deficit - Skin Skin exam: Present: dry, intact Internal Medicine: Result - Labs CBC & Chem 7: 04/23/17 02:15 04/23/17 15:05 Labs: Short CBC 04/23/17 Range/Units 02:15 WBC 13.6 H (4.3-11.1) K/mcL Hgb 7.3 L (11.5-15.4) g/dL Hct 20.6 L (35.3-44.9) % Plt Count 329 (140-400) K/mcL Neutrophils # 9.3 H (1.6-8.9) K/mcL BMP 04/22/17 04/22/17 04/23/17 18:00 23:10 02:15 Sodium 139 137 137 Potassium 2.5 L* 2.6 L 2.4 L* Chloride 116 H 109 H 108 H Carbon Dioxide 17 L 22 L 23 BUN 9 7 6 Creatinine 0.67 0.61 0.59 L Glucose 96 271 H 246 H Calcium 8.8 8.1 L 8.0 L 04/23/17 04/23/17 04/23/17 06:45 12:03 15:05 Sodium 137 139 138 Potassium 2.3 L* 2.9 L D 3.2 L Chloride 105 109 H 110 H Carbon Dioxide 26 23 24 BUN 5 L 4 L 4 L Creatinine 0.55 L 0.54 L 0.54 L Glucose 283 H 159 H 108 H Calcium 7.5 L 8.0 L 7.7 L - ABG Interpretation ABG results: ABG ABG pH 7.46 pH Units (7.32-7.45) H 04/23/17 12:16 ABG pCO2 30 mmHg (35-45) L 04/23/17 12:16 ABG pO2 95 mmHg (85-104) 04/23/17 12:16 ABG O2 Saturation 98 % (95-98) 04/23/17 12:16 Consult Discharge Plan - Plan Referrals: Rishabh,Chio Sarkar CNP [Primary Care Provider] - 04/28/17 9:45 am
[2017-04-23 19:57] LABS: BUN/Creatinine Ratio 7 (6-26); Blood Urea Nitrogen 4 mg/dL (6-20); Calcium 7.7 mg/dL (8.6-10.3); Carbon Dioxide 23 mEq/L (23-29); Chloride 109 mEq/L (98-107); Glucose 100 mg/dL (70-105); Osmolality,Calculated 281 (280-300); Sodium 137 mEq/L (136-145); eGFR For African Americans > 60 (> 60); eGFR For Non-African Americans > 60 (> 60)
[2017-04-24] MEDS: Sodium Bicarbonate 150 MEQ in D5% in Water 1,000 ML IVC SCH
[2017-04-24] MEDS: Ampicillin/Sulbactam 1,500 MG in 0.9 % Sodium Chloride Mini Bag 100 ML IVPB SCH ×5 (00:01→23:18)
[2017-04-24 04:44] LABS: Hematocrit 20.3 % (35.3-44.9); Hemoglobin 7.1 g/dL (11.5-15.4); Immature Granulocytes % 5.5 % (0-4); Lymphocytes % 21.3 %; Mean Corpuscular Hemoglobin 31.3 pg (28.0-33.3); Mean Corpuscular Volume 89.4 fL (83.0-100.0); Mean Platelet Volume 10.1 fL (9.4-12.4); Platelet Count 302 K/mcL (140-400); Red Blood Count 2.27 M/mcL (3.82-4.97); Red Cell Distribution Width 15.6 % (11.5-14.5); Segmented Neutrophils % 62.8 %
[2017-04-24 04:45] LABS: Basophils % 0.4 %; Eosinophils # 0.3 K/mcL (0.0-0.6); Eosinophils % 3.3 %; Monocytes # 0.6 K/mcL (0.0-1.3); Monocytes % 6.7 %; Nucleated Red Blood Cells 0.2 /100 WBC (0)
[2017-04-24 05:08] LABS: BUN/Creatinine Ratio 7 (6-26); Blood Urea Nitrogen 4 mg/dL (6-20); Calcium 7.6 mg/dL (8.6-10.3); Carbon Dioxide 27 mEq/L (23-29); Chloride 108 mEq/L (98-107); Glucose 195 mg/dL (70-105); Osmolality,Calculated 288 (280-300); Potassium 3.4 mEq/L (3.5-5.1); Sodium 138 mEq/L (136-145); eGFR For African Americans > 60 (> 60); eGFR For Non-African Americans > 60 (> 60)
[2017-04-24 05:40] LABS: Platelet Estimate Normal (Normal)
[2017-04-24] MEDS: *HR* Enoxaparin 40 MG/0.4 ML SYRINGE SQ SCH (06:27)
[2017-04-24] MEDS: MONONESSA PO SCH (07:59)
[2017-04-24] MEDS: Potassium Chloride Elixir 20 MEQ/15 ML UDC PO SCH ×2 (08:04→22:27)
[2017-04-24] MEDS: Loratadine 10 MG TABLET PO SCH (08:05)
[2017-04-24] MEDS: aMILoride 5 MG TABLET PO SCH (08:05)
[2017-04-24] MEDS: Artificial Tears SOLN 15 ML BOTTLE BOTH EYES SCH ×4 (08:05→22:26)
[2017-04-24] MEDS: FLUoxetine 20 MG CAPSULE PO SCH ×2 (08:05→22:27)
--- NOTE | 2017-04-24 12:33 | Nephrology Progress Note ---
Date of Encounter: 04/24/17 Time of Encounter: 12:20 - Assessment and Plan (1) Hypokalemia Current Visit: No Status: Acute Mental status changes with acute confusion likely due to infectious process and metabolic encephalopathy. ID and neurology on board. Normal anion gap metabolic acidosis. History of RTA. Bicarb improved, 27. Will stop IV bicarb and start on oral. Potassium remains low, 3.4 on oral supp. Renal fct stable. Avoid nephrotoxins, I&O's Will continue to monitor. Subjective Interval history: Awake, lying quietly. Appropriate. Appetite somewhat improved. Objective - Vital Signs Vital signs: Vital Signs Temp Pulse Resp BP Pulse Ox 04/24/17 11:02 98.3 F 60 20 95/58 96 04/24/17 06:50 98.3 F 20 92/54 04/24/17 03:47 98.1 F 56 14 92/55 04/23/17 21:11 98 F 57 16 116/63 96 04/23/17 15:00 98.1 F 67 16 110/64 97 Intake and Output 04/23/17 04/24/17 04/24/17 23:59 07:59 15:59 Intake Total 300 / 300 200 / 200 Output Total 0 / 0 300 / 300 Balance 300 / 300 -100 / -100 Intake: IV Fluids 100 / 100 200 / 200 Unasyn 1,500 mg In 0.9 % Sodium 100 / 100 200 / 200 Chloride (Mini-Bag +) 100 ML @ 200 mls/hr IVPB Q6HR [facility] Rx#: [id number] Oral 200 / 200 0 / 0 Output: Urine 0 / 0 300 / 300 Other: Weight 69.1 kg Patient Weight 04/24/17 23:59 Weight 69.1 kg - General Appearance General appearance: Present: well-developed, well-nourished, appears started age EENT: Present: mucous membranes moist Neck: Present: no JVD Respiratory: Present: clear Cardiology: Present: no edema, regular rate, regular rhythm Gastrointestinal: Present: normoactive bowel sounds, no tenderness Integumentary: Present: warm and dry Neurologic: Present: alert and oriented x3 - Lab 04/24/17 04:05 04/24/17 04:05 Most recent lab results ABG pH 7.46 pH Units (7.32-7.45) H 04/23/17 12:16 ABG pCO2 30 mmHg (35-45) L 04/23/17 12:16 ABG pO2 95 mmHg (85-104) 04/23/17 12:16 ABG HCO3 21 mEq/L (21-27) 04/23/17 12:16 ABG O2 Saturation 98 % (95-98) 04/23/17 12:16 Calcium 7.6 mg/dL (8.6-10.3) L 04/24/17 04:05 Phosphorus 1.3 mg/dL (2.7-4.5) L 04/23/17 02:15 Magnesium 1.8 mg/dL (1.6-2.6) 04/22/17 04:12 Consult Discharge Plan - Plan Referrals: Chio Keating CNP [Primary Care Provider] - 04/28/17 9:45 am
--- NOTE | 2017-04-24 14:02 | Internal Med Progress Note ---
Date of Encounter: 04/24/17 Time of Encounter: 13:59 - Assessment and plan (1) Acute metabolic encephalopathy Current Visit: Yes Status: Acute Assessment and plan: This has been a chronic issue for several months per daughter. Likely related to metabolic acidosis plus possible infection. White count improved today. MRI done showed no acute process, showed extensive opacification of the paranasal sinuses. Continue bicarb drip and potassium supplementation Neurology following in regards to encephalopathy, Nephrology recommendations appreciated in regards to RTA Infectious Disease following in regards to infection control. May be an underlying immunologic/rheumatologic process, may need tertiary center care She is doing well and she may be at her baseline. Will need to speak to daughter today and verify she is at baseline I will contact Immunology if patient is appropriate based on her current status. Daughter has not seen the patient since she has drastically improved. She will likely be here later today. (2) Anemia Current Visit: Yes Status: Acute Assessment and plan: Likely hemodilutional, she has received +4.5L IV fluid during treatment. Fluids have been held today, will recheck at 1600 H&H. If <7.0 will transfuse. Qualifiers: Anemia type: unspecified type Qualified Code(s): D64.9 - Anemia, unspecified (3) Hyperchloremic acidosis Current Visit: No Status: Acute Assessment and plan: Likely contributing to metabolic encephalopathy. Currently on bicarb drip. VBG assessed and BMP Q4H. (4) Hypokalemia Current Visit: No Status: Acute Assessment and plan: Correction of acidosis currently to improve potassium levels Continue IV and PO supplementation Magnesium repletion as needed. Nephrology on board, recommendations appreciated. 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 Patient will likely need transferred to tertiary center when acidosis and potassium are improved. Qualifiers: Sjogren's organ involvement: unspecified organ involvement Qualified Code(s ): M35.00 - Sicca syndrome, unspecified (7) Disorder of paranasal sinus Current Visit: Yes Status: Acute Assessment and plan: There is extensive opacification of the paranasal sinuses seen on MRI and CT head. This likely is benign but will consider ENT consult as unsure significance of this finding. (8) DVT prophylaxis Current Visit: No Status: Acute Assessment and plan: Lovenox - Subjective Interval history: Late entry: Patient seen in the AM and also in the afternoon. She is more alert today. She has asked nurse for pain medication. Tylenol tried and [place] avoided for now. - Constitutional Vitals: Temp Pulse Resp BP Pulse Ox 98.3 F 60 20 95/58 96 04/24/17 11:02 04/24/17 11:02 04/24/17 11:02 04/24/17 11:02 04/24/17 11:02 General appearance: Present: A&O X 3, no acute distress. Absent: answers questions appropriately - Head Head exam: Present: atraumatic, normocephalic - Eye Eye exam: Present: PERRL, conjuntiva pink, sclera anicteric Pupils: Present: PERRL - Neck Neck exam general surgery: Present: supple, trachea midline. Absent: lymphadenopathy - Respiratory Respiratory exam: Present: CTAB. Absent: accessory muscle use, rales, rhonchi, wheezes - Cardiovascular Cardiovascular exam: Present: RRR, +S1, +S2. Absent: diastolic murmur, gallop, rubs, systolic murmur - GI/Abdominal GI/Abdominal exam: Present: normal bowel sounds, soft, no peritoneal signs. Absent: distended, tenderness - Extremities Exam Extremities exam: Present: warm, radial pulses palpable and symmetrical. Absent : calf tenderness, cyanotic, pedal edema - Neurological Exam Neurological exam: Present: CN II-XII intact, oriented X3, no focal deficits. Absent: pronater drift, facial droop, speech deficit - Skin Skin exam: Present: dry, intact Internal Medicine: Result - Labs CBC & Chem 7: 04/24/17 04:05 04/24/17 04:05 Labs: Short CBC 04/24/17 Range/Units 04:05 WBC 9.5 (4.3-11.1) K/mcL Hgb 7.1 L (11.5-15.4) g/dL Hct 20.3 L (35.3-44.9) % Plt Count 302 (140-400) K/mcL Neutrophils # 6.0 (1.6-8.9) K/mcL BMP 04/23/17 04/23/17 04/24/17 15:05 19:35 04:05 Sodium 138 137 138 Potassium 3.2 L 3.0 L 3.4 L Chloride 110 H 109 H 108 H Carbon Dioxide 24 23 27 BUN 4 L 4 L 4 L Creatinine 0.54 L 0.56 L 0.58 L Glucose 108 H 100 195 H Calcium 7.7 L 7.7 L 7.6 L - ABG Interpretation ABG results: ABG ABG pH 7.46 pH Units (7.32-7.45) H 04/23/17 12:16 ABG pCO2 30 mmHg (35-45) L 04/23/17 12:16 ABG pO2 95 mmHg (85-104) 04/23/17 12:16 ABG O2 Saturation 98 % (95-98) 04/23/17 12:16 Consult Discharge Plan - Plan Referrals: Chio Keating CNP [Primary Care Provider] - 04/28/17 9:45 am
[2017-04-24 17:19] LABS: Hematocrit 24.2 % (35.3-44.9); Hemoglobin 8.1 g/dL (11.5-15.4)
[2017-04-24 18:39] LABS: EBV Quant Copy/mL <390 cpy/mL; Epstein Barr Virus Qnt Source CSF
[2017-04-24] MEDS: cefTRIAXone 2,000 MG in Water for inj. (sterile) 20 ML 20 ML IVP SCH (23:17)
[2017-04-25 03:59] LABS: Basophils % 0.3 %; Eosinophils # 0.3 K/mcL (0.0-0.6); Eosinophils % 2.4 %; Hematocrit 22.6 % (35.3-44.9); Hemoglobin 7.7 g/dL (11.5-15.4); Immature Granulocytes % 2.5 % (0-4); Lymphocytes # 1.9 K/mcL (0.6-4.6); Lymphocytes % 17.8 %; Mean Corpuscular HGB Conc 34.1 g/dL (31.6-35.5); Mean Corpuscular Volume 91.1 fL (83.0-100.0); Monocytes # 0.6 K/mcL (0.0-1.3); Monocytes % 5.6 %; Neutrophils # 7.7 K/mcL (1.6-8.9); Platelet Count 304 K/mcL (140-400); Red Blood Count 2.48 M/mcL (3.82-4.97); Red Cell Distribution Width 15.9 % (11.5-14.5); Segmented Neutrophils % 71.4 %
[2017-04-25] MEDS: Ampicillin/Sulbactam 1,500 MG in 0.9 % Sodium Chloride Mini Bag 100 ML IVPB SCH (05:23)
[2017-04-25] MEDS: *HR* Enoxaparin 40 MG/0.4 ML SYRINGE SQ SCH (05:23)
[2017-04-25 07:13] LABS: Cytomegalovirus DNA (PCR) NOT DETECTED; EBV Quant Interpretation NOT DETECTED (Not Detected); EBV Quant Log <2.6 log
[2017-04-25] MEDS: Loratadine 10 MG TABLET PO SCH (08:20)
[2017-04-25] MEDS: Artificial Tears SOLN 15 ML BOTTLE BOTH EYES SCH ×4 (08:20→20:58)
[2017-04-25] MEDS: FLUoxetine 20 MG CAPSULE PO SCH ×2 (08:20→20:57)
[2017-04-25] MEDS: MONONESSA PO SCH (08:21)
[2017-04-25] MEDS: aMILoride 5 MG TABLET PO SCH (08:21)
[2017-04-25] MEDS: Potassium Chloride Elixir 20 MEQ/15 ML UDC PO SCH ×2 (08:21→20:57)
--- NOTE | 2017-04-25 09:02 | Nephrology Progress Note ---
Date of Encounter: 04/25/17 Time of Encounter: 08:50 - Assessment and Plan (1) Hypokalemia Current Visit: No Status: Acute Mental status changes with acute confusion likely due to infectious process and metabolic encephalopathy. ID and neurology on board. Normal anion gap metabolic acidosis. History of RTA. Today labs pending. Avoid nephrotoxins, I&O's Will continue to monitor. Subjective Interval history: Awake, lying quietly. Appropriate. Appetite somewhat improved. Objective - Vital Signs Vital signs: Vital Signs Temp Pulse Resp BP Pulse Ox 04/25/17 06:40 98.5 F 62 16 96/59 99 04/25/17 04:00 98.3 F 60 16 92/57 98 04/24/17 20:00 97.5 F L 63 17 102/79 87 04/24/17 15:46 98.3 F 58 20 100/60 99 04/24/17 11:02 98.3 F 60 20 95/58 96 Intake and Output 04/24/17 04/25/17 04/25/17 23:59 07:59 15:59 Intake Total 440 / 440 900 / 900 Output Total 0 / 0 400 / 400 Balance 440 / 440 500 / 500 Intake: IV Fluids 100 / 100 100 / 100 Unasyn 1,500 mg In 0.9 % Sodium 100 / 100 100 / 100 Chloride (Mini-Bag +) 100 ML @ 200 mls/hr IVPB Q6HR [facility] Rx#: [id number] Oral 340 / 340 800 / 800 Output: Urine 0 / 0 400 / 400 Other: Meal Dinner Percent of Meal Consumed 50% Stool Size Smear Stool Consistency loose # Voids 2 # Bowel Movements 1 Weight 68.2 kg Patient Weight 04/25/17 23:59 Weight 68.2 kg - General Appearance General appearance: Present: well-developed, well-nourished, appears started age EENT: Present: mucous membranes moist Neck: Present: no JVD Respiratory: Present: clear Cardiology: Present: no edema, regular rate, regular rhythm Gastrointestinal: Present: normoactive bowel sounds, no tenderness Integumentary: Present: warm and dry Psychiatric: Present: mood/affect appropriate, cooperative - Lab 04/25/17 03:35 04/24/17 04:05 Most recent lab results ABG pH 7.46 pH Units (7.32-7.45) H 04/23/17 12:16 ABG pCO2 30 mmHg (35-45) L 04/23/17 12:16 ABG pO2 95 mmHg (85-104) 04/23/17 12:16 ABG HCO3 21 mEq/L (21-27) 04/23/17 12:16 ABG O2 Saturation 98 % (95-98) 04/23/17 12:16 Calcium 7.6 mg/dL (8.6-10.3) L 04/24/17 04:05 Phosphorus 2.8 mg/dL (2.7-4.5) 04/25/17 03:35 Magnesium 1.8 mg/dL (1.6-2.6) 04/22/17 04:12 Consult Discharge Plan - Plan Referrals: Chio Keating CNP [Primary Care Provider] - 04/28/17 9:45 am
--- NOTE | 2017-04-25 11:04 | Internal Med Progress Note ---
Date of Encounter: 04/25/17 Time of Encounter: 10:57 - Assessment and plan (1) Acute metabolic encephalopathy Current Visit: Yes Status: Acute Assessment and plan: This has been a chronic issue and acutely worsening per daughter. Likely related to metabolic acidosis plus possible infection. - Neurology following in regards to encephalopathy, Continue treatment of NAGMA and infection MRI done showed no acute process, showed extensive opacification of the paranasal sinuses. -Nephrology recommendations appreciated in regards to NAGMA secondary to RTA Continue PO sodium bicarbinate 1,300 PO BID and potassium chloride 40 meq BID. -Infectious disease consulted for infection - Urine culture returned with sensativities, intermediate for Unasyn with d/ c and start Rocephin until ID re-evaluates patient - Serial procalcitonin; repeat sample today If there is no improvement, may need tertiary center care transfer. BMP for today is pending. Follow-up EKG done today, NSR, no T wave abnormalities appreciated. Patient at baseline today. (2) Anemia Current Visit: Yes Status: Acute Assessment and plan: Likely hemodilutional, Stable, recheck in AM Qualifiers: Anemia type: unspecified type Qualified Code(s): D64.9 - Anemia, unspecified (3) Hyperchloremic acidosis Current Visit: No Status: Acute Assessment and plan: Likely contributing to metabolic encephalopathy. Currently on bicarb drip. VBG assessed and BMP Q4H. (4) Hypokalemia Current Visit: No Status: Acute Assessment and plan: Correction of acidosis currently to improve potassium levels Continue IV and PO supplementation Magnesium repletion as needed. Nephrology on board, recommendations appreciated. 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 Patient will likely need transferred to [facility] if no improvement - Currently on pilocarpine Qualifiers: Sjogren's organ involvement: unspecified organ involvement Qualified Code(s ): M35.00 - Sicca syndrome, unspecified (7) Disorder of paranasal sinus Current Visit: Yes Status: Acute Assessment and plan: There is extensive opacification of the paranasal sinuses seen on MRI and CT head. This likely is benign but will consider ENT consult as unsure significance of this finding. (8) DVT prophylaxis Current Visit: No Status: Acute Assessment and plan: Lovenox - Subjective Interval history: Patient has no complaints today. AAOx3, good mood and insight. Feels weak from low activity. - Constitutional Vitals: Temp Pulse Resp BP Pulse Ox 98.5 F 62 16 96/59 99 04/25/17 06:40 04/25/17 06:40 04/25/17 06:40 04/25/17 06:40 04/25/17 06:40 General appearance: Present: A&O X 3, no acute distress. Absent: answers questions appropriately - Head Head exam: Present: atraumatic, normocephalic - Eye Eye exam: Present: PERRL, conjuntiva pink, sclera anicteric Pupils: Present: PERRL - Neck Neck exam general surgery: Present: supple, trachea midline. Absent: lymphadenopathy - Respiratory Respiratory exam: Present: CTAB. Absent: accessory muscle use, rales, rhonchi, wheezes - Cardiovascular Cardiovascular exam: Present: RRR, +S1, +S2. Absent: diastolic murmur, gallop, rubs, systolic murmur - GI/Abdominal GI/Abdominal exam: Present: normal bowel sounds, soft, no peritoneal signs. Absent: distended, tenderness - Extremities Exam Extremities exam: Present: warm, radial pulses palpable and symmetrical. Absent : calf tenderness, cyanotic, pedal edema - Neurological Exam Neurological exam: Present: CN II-XII intact, oriented X3, no focal deficits. Absent: pronater drift, facial droop, speech deficit - Skin Skin exam: Present: dry, intact Internal Medicine: Result - Labs CBC & Chem 7: 04/25/17 03:35 04/24/17 04:05 Labs: Short CBC 04/24/17 04/25/17 Range/Units 16:50 03:35 WBC 10.8 (4.3-11.1) K/mcL Hgb 8.1 L 7.7 L (11.5-15.4) g/dL Hct 24.2 L 22.6 L (35.3-44.9) % Plt Count 304 (140-400) K/mcL Neutrophils # 7.7 (1.6-8.9) K/mcL - ABG Interpretation ABG results: ABG ABG pH 7.46 pH Units (7.32-7.45) H 04/23/17 12:16 ABG pCO2 30 mmHg (35-45) L 04/23/17 12:16 ABG pO2 95 mmHg (85-104) 04/23/17 12:16 ABG O2 Saturation 98 % (95-98) 04/23/17 12:16 Consult Discharge Plan - Plan Referrals: Rishabh,Chio Sarkar CNP [Primary Care Provider] - 04/28/17 9:45 am
[2017-04-26] MEDS: cefTRIAXone 2,000 MG in Water for inj. (sterile) 20 ML 20 ML IVP SCH ×2 (00:36→23:38)
[2017-04-26 03:25] LABS: Basophils % 0.2 %; Eosinophils # 0.4 K/mcL (0.0-0.6); Eosinophils % 2.9 %; Hematocrit 24.8 % (35.3-44.9); Hemoglobin 8.2 g/dL (11.5-15.4); Immature Granulocytes % 0.9 % (0-4); Lymphocytes # 2.6 K/mcL (0.6-4.6); Lymphocytes % 18.4 %; Mean Corpuscular HGB Conc 33.1 g/dL (31.6-35.5); Mean Corpuscular Hemoglobin 31.3 pg (28.0-33.3); Mean Corpuscular Volume 94.7 fL (83.0-100.0); Mean Platelet Volume 9.8 fL (9.4-12.4); Monocytes # 0.8 K/mcL (0.0-1.3); Monocytes % 5.4 %; Platelet Count 314 K/mcL (140-400); Red Blood Count 2.62 M/mcL (3.82-4.97); Red Cell Distribution Width 16.2 % (11.5-14.5); Segmented Neutrophils % 72.2 %
[2017-04-26 04:08] LABS: BUN/Creatinine Ratio 7 (6-26); Blood Urea Nitrogen 5 mg/dL (6-20); Calcium 8.7 mg/dL (8.6-10.3); Carbon Dioxide 24 mEq/L (23-29); Chloride 108 mEq/L (98-107); Glucose 87 mg/dL (70-105); Osmolality,Calculated 279 (280-300); Phosphorous 3.1 mg/dL (2.7-4.5); Potassium 4.5 mEq/L (3.5-5.1); Sodium 136 mEq/L (136-145); eGFR For African Americans > 60 (> 60); eGFR For Non-African Americans > 60 (> 60)
[2017-04-26] MEDS: *HR* Enoxaparin 40 MG/0.4 ML SYRINGE SQ SCH (06:16)
--- NOTE | 2017-04-26 08:40 | Nephrology Progress Note ---
Date of Encounter: 04/26/17 Time of Encounter: 08:10 - Assessment and Plan (1) Hypokalemia Current Visit: No Status: Acute Mental status changes with acute confusion likely due to infectious process and metabolic encephalopathy. ID and neurology on board. Normal anion gap metabolic acidosis. History of RTA. Bicarb 24, K 4.5. Avoid nephrotoxins, I&O's Will continue to monitor. Subjective Interval history: Awake, lying quietly. Appropriate. Appetite somewhat improved. Objective - Vital Signs Vital signs: Vital Signs Temp Pulse Resp BP Pulse Ox 04/26/17 06:34 98.6 F 57 16 94/68 97 04/26/17 03:19 98.6 F 59 17 96/50 97 04/25/17 20:00 97.9 F 59 16 103/55 97 04/25/17 15:47 98.1 F 51 16 89/47 97 04/25/17 11:31 98.5 F 60 16 108/57 98 Intake and Output 04/25/17 04/26/17 04/26/17 23:59 07:59 15:59 Intake Total 980 / 980 80 / 80 Output Total 800 / 800 0 / 0 Balance 180 / 180 80 / 80 Intake: IV Fluids 20 / 20 Rocephin 2,000 MG In Water for 20 / 20 inj. (sterile) 20 ML @ 600 mls/ hr IVP Q24H [facility] Rx#:[id number] Oral 980 / 980 60 / 60 Output: Urine 800 / 800 0 / 0 Other: Meal Lunch Percent of Meal Consumed 15% Weight 67.8 kg Patient Weight 04/26/17 23:59 Weight 67.8 kg - General Appearance General appearance: Present: well-developed, well-nourished, appears started age EENT: Present: mucous membranes moist Neck: Present: no JVD Respiratory: Present: clear Cardiology: Present: no edema, regular rate, regular rhythm Gastrointestinal: Present: normoactive bowel sounds, no tenderness Integumentary: Present: warm and dry Neurologic: Present: alert and oriented x3 - Lab 04/26/17 03:15 04/26/17 03:15 Most recent lab results ABG pH 7.46 pH Units (7.32-7.45) H 04/23/17 12:16 ABG pCO2 30 mmHg (35-45) L 04/23/17 12:16 ABG pO2 95 mmHg (85-104) 04/23/17 12:16 ABG HCO3 21 mEq/L (21-27) 04/23/17 12:16 ABG O2 Saturation 98 % (95-98) 04/23/17 12:16 Calcium 8.7 mg/dL (8.6-10.3) 04/26/17 03:15 Phosphorus 3.1 mg/dL (2.7-4.5) 04/26/17 03:15 Magnesium 2.0 mg/dL (1.6-2.6) 04/26/17 03:15 Consult Discharge Plan - Plan Referrals: Rishabh,Chio Sarkar CNP [Primary Care Provider] - 04/28/17 9:45 am
[2017-04-26] MEDS: Potassium Chloride Elixir 20 MEQ/15 ML UDC PO SCH ×2 (10:08→23:38)
[2017-04-26] MEDS: FLUoxetine 20 MG CAPSULE PO SCH ×2 (10:09→23:37)
[2017-04-26] MEDS: aMILoride 5 MG TABLET PO SCH (10:10)
[2017-04-26] MEDS: Ibuprofen 800 MG TABLET PO PRN (10:10)
[2017-04-26] MEDS: Loratadine 10 MG TABLET PO SCH (10:10)
[2017-04-26] MEDS: MONONESSA PO SCH (10:11)
[2017-04-26] MEDS: Artificial Tears SOLN 15 ML BOTTLE BOTH EYES SCH ×4 (10:11→23:39)
[2017-04-26] MEDS ORDERED: Ondansetron 4 MG/2 ML VIAL IVP PRN (10:22)
[2017-04-26] MEDS ORDERED: *HR* HYDROcodone/Acet 5/325 mg TABLET PO ONE (10:22)
--- NOTE | 2017-04-26 12:34 | Internal Med Progress Note ---
Date of Encounter: 04/26/17 Time of Encounter: 12:28 - Assessment and plan (1) Acute metabolic encephalopathy Current Visit: Yes Status: Acute Assessment and plan: Resolved. Likely related to metabolic acidosis plus possible infection. Non-compliance with home medications - Neurology seen to encephalopathy, Continue treatment of renal tubular acidosis and infection MRI done showed no acute process, showed extensive opacification of the paranasal sinuses. -Nephrology recommendations appreciated in regards to NAGMA secondary to RTA Continue PO sodium bicarbinate 1,300 PO BID and potassium chloride 40 meq BID. -Infectious disease consulted for infection - Urine culture returned with sensativities, intermediate for Unasyn with d/ c and start Rocephin until ID re-evaluates patient - Serial procalcitonin; , Pending 04/25 draw. Procalcitonine (04/21) was 0.57 Discharge needs: - established follow-up with Rheumatology. We will facilitate this on Thursday. - Verify daughter will be in area to care for patient and encourage compliance with medication. - ID recommendations on discharge antibiotics appreciated. - Likely discharge tomorrow (2) Anemia Current Visit: Yes Status: Acute Assessment and plan: Likely hemodilutional, Stable, recheck in AM Qualifiers: Anemia type: unspecified type Qualified Code(s): D64.9 - Anemia, unspecified (3) Hyperchloremic acidosis Current Visit: No Status: Acute Assessment and plan: Likely contributing to metabolic encephalopathy. Currently on bicarb drip. VBG assessed and BMP Q4H. (4) Hypokalemia Current Visit: No Status: Acute Assessment and plan: Correction of acidosis currently to improve potassium levels Continue IV and PO supplementation Magnesium repletion as needed. Nephrology on board, recommendations appreciated. 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 Patient will likely need transferred to [facility] if no improvement - Currently on pilocarpine Qualifiers: Sjogren's organ involvement: unspecified organ involvement Qualified Code(s ): M35.00 - Sicca syndrome, unspecified (7) Disorder of paranasal sinus Current Visit: Yes Status: Acute Assessment and plan: There is extensive opacification of the paranasal sinuses seen on MRI and CT head. This likely is benign but will consider ENT consult as unsure significance of this finding. (8) DVT prophylaxis Current Visit: No Status: Acute Assessment and plan: Lovenox - Subjective Interval history: Patient has no complaints today. - Constitutional Vitals: Temp Pulse Resp BP Pulse Ox 98.4 F 62 16 99/48 98 04/26/17 11:14 04/26/17 11:14 04/26/17 11:14 04/26/17 11:17 04/26/17 11:14 General appearance: Present: A&O X 3, no acute distress Internal Medicine: Result - Labs CBC & Chem 7: 04/26/17 03:15 04/26/17 03:15 Labs: Short CBC 04/26/17 Range/Units 03:15 WBC 13.9 H (4.3-11.1) K/mcL Hgb 8.2 L (11.5-15.4) g/dL Hct 24.8 L (35.3-44.9) % Plt Count 314 (140-400) K/mcL Neutrophils # 10.0 H (1.6-8.9) K/mcL BMP 04/26/17 03:15 Sodium 136 Potassium 4.5 Chloride 108 H Carbon Dioxide 24 BUN 5 L Creatinine 0.69 Glucose 87 Calcium 8.7 - ABG Interpretation ABG results: ABG ABG pH 7.46 pH Units (7.32-7.45) H 04/23/17 12:16 ABG pCO2 30 mmHg (35-45) L 04/23/17 12:16 ABG pO2 95 mmHg (85-104) 04/23/17 12:16 ABG O2 Saturation 98 % (95-98) 04/23/17 12:16 Consult Discharge Plan - Plan Referrals: Rishabh,Chio Sarkar CNP [Primary Care Provider] - 04/28/17 9:45 am
[2017-04-27 04:32] LABS: Basophils % 0.3 %; Eosinophils # 0.3 K/mcL (0.0-0.6); Eosinophils % 2.3 %; Hematocrit 25.5 % (35.3-44.9); Hemoglobin 8.2 g/dL (11.5-15.4); Immature Granulocytes % 0.6 % (0-4); Lymphocytes # 2.6 K/mcL (0.6-4.6); Lymphocytes % 23.6 %; Mean Corpuscular HGB Conc 32.2 g/dL (31.6-35.5); Mean Corpuscular Hemoglobin 30.8 pg (28.0-33.3); Mean Corpuscular Volume 95.9 fL (83.0-100.0); Mean Platelet Volume 10.4 fL (9.4-12.4); Monocytes # 0.5 K/mcL (0.0-1.3); Monocytes % 4.6 %; Neutrophils # 7.5 K/mcL (1.6-8.9); Platelet Count 294 K/mcL (140-400); Red Blood Count 2.66 M/mcL (3.82-4.97); Red Cell Distribution Width 15.9 % (11.5-14.5); Segmented Neutrophils % 68.6 %
[2017-04-27 05:34] LABS: BUN/Creatinine Ratio 8 (6-26); Blood Urea Nitrogen 6 mg/dL (6-20); Calcium 8.8 mg/dL (8.6-10.3); Carbon Dioxide 23 mEq/L (23-29); Chloride 109 mEq/L (98-107); Glucose 83 mg/dL (70-105); Osmolality,Calculated 279 (280-300); Potassium 4.4 mEq/L (3.5-5.1); Sodium 136 mEq/L (136-145); eGFR For African Americans > 60 (> 60); eGFR For Non-African Americans > 60 (> 60)
[2017-04-27] MEDS: *HR* Enoxaparin 40 MG/0.4 ML SYRINGE SQ SCH (07:00)
--- NOTE | 2017-04-27 08:13 | Nephrology Progress Note ---
Date of Encounter: 04/27/17 Time of Encounter: 08:00 - Assessment and Plan (1) Hypokalemia Current Visit: No Status: Acute Mental status changes with acute confusion likely due to infectious process and metabolic encephalopathy. ID and neurology on board. Normal anion gap metabolic acidosis. History of RTA. Bicarb 23, K 4.4. Avoid nephrotoxins, I&O's Will continue to monitor. Subjective Interval history: Awake, lying quietly. Appropriate. Appetite somewhat improved. Objective - Vital Signs Vital signs: Vital Signs Temp Pulse Resp BP Pulse Ox 04/27/17 06:28 97.9 F 54 15 94/58 97 04/27/17 04:10 98.3 F 55 18 102/58 97 04/26/17 19:36 98.2 F 59 16 106/61 96 04/26/17 15:46 97.2 F L 58 16 111/61 98 04/26/17 12:39 101/53 04/26/17 11:17 99/48 04/26/17 11:14 98.4 F 62 16 90/49 98 Intake and Output 04/26/17 04/27/17 04/27/17 23:59 07:59 15:59 Intake Total 0 / 0 0 / 0 Output Total 0 / 0 Balance 0 / 0 0 / 0 Intake: Oral 0 / 0 0 / 0 Output: Urine 0 / 0 Other: Stool Size Moderate Stool Consistency soft formed Stool Characteristics Normal for Patient Stool Color Brown # Voids 0 0 # Bowel Movements 2 Weight 66.9 kg Patient Weight 04/27/17 23:59 Weight 66.9 kg - General Appearance General appearance: Present: well-developed, well-nourished, appears started age EENT: Present: mucous membranes moist Neck: Present: no JVD Respiratory: Present: clear Cardiology: Present: no edema, regular rate, regular rhythm Gastrointestinal: Present: normoactive bowel sounds, no tenderness Integumentary: Present: warm and dry Neurologic: Present: alert and oriented x3 - Lab 04/27/17 04:08 04/27/17 04:08 Most recent lab results ABG pH 7.46 pH Units (7.32-7.45) H 04/23/17 12:16 ABG pCO2 30 mmHg (35-45) L 04/23/17 12:16 ABG pO2 95 mmHg (85-104) 04/23/17 12:16 ABG HCO3 21 mEq/L (21-27) 04/23/17 12:16 ABG O2 Saturation 98 % (95-98) 04/23/17 12:16 Calcium 8.8 mg/dL (8.6-10.3) 04/27/17 04:08 Phosphorus 3.1 mg/dL (2.7-4.5) 04/26/17 03:15 Magnesium 2.2 mg/dL (1.6-2.6) 04/27/17 04:08 Consult Discharge Plan - Plan Referrals: Chio Keating CNP [Primary Care Provider] - 04/28/17 9:45 am
[2017-04-27] MEDS: aMILoride 5 MG TABLET PO SCH (10:00)
[2017-04-27] MEDS: FLUoxetine 20 MG CAPSULE PO SCH (10:01)
[2017-04-27] MEDS: Loratadine 10 MG TABLET PO SCH (10:02)
[2017-04-27] MEDS: Potassium Chloride Elixir 20 MEQ/15 ML UDC PO SCH (10:06)
[2017-04-27] MEDS: MONONESSA PO SCH (10:09)
[2017-04-27] MEDS: Artificial Tears SOLN 15 ML BOTTLE BOTH EYES SCH (10:09)
[2017-04-27] MEDS: Ibuprofen 800 MG TABLET PO PRN (10:14)
[2017-04-27 11:57] VITALS: BP 102/69
--- NOTE | 2017-04-27 12:56 | Infectious Disease Progress No ---
Date of Encounter: 04/27/17 Time of Encounter: 12:54 - Assessment and Plan (1) Leukocytosis Current Visit: Yes Status: Acute The patient's WBC is elevated at 23,000 with neutrophilic predominance on admission. Etiology unclear: pancreatitis vs. autoimmune. Resolved. Continue to trend. No other SIRS criteria noted. Check peripheral smear.--> shows neutrophilia with increased immature granulocytes and toxic granulation concerning for infection. Check procalcitonin.--> 0.57. Qualifiers: Leukocytosis type: unspecified Qualified Code(s): D72.829 - Elevated white blood cell count, unspecified (2) Altered mental status Current Visit: Yes Status: Acute Likely metabolic. Per family, the patient has had ongoing altered mental status for several months. She appears improved today, back to baseline per her daughter's report. CT head shows pansinusitis, but otherwise no acute abnormality. CSF negative for pleocytosis. Culture preliminarily negative. No meningeal signs. Neurology consulted. Appreciate recommendations. Check RIP--> negative. Send CSF for HSV1 and HSV2 PCR, VZV, VDRL, AFB, CMV, EBV.--> negative Check HIV status.--> nonreactive. Check hepatitis profile--> nonreactive. Check serum RPR.--> negative. Check serum Crypto antigen.--> negative. MRI negative. Low index of suspicion for lyme, arbovirus, or adenovirus as the clinical picture not indicative and no exposure history. Qualifiers: Altered mental status type: disorientation Qualified Code(s): R41.0 - Disorientation, unspecified (3) Pancreatitis Current Visit: Yes Status: Acute Etiology unclear. Lipase elevated at 115, but abdominal exam benign. CT scan of the abdomen and pelvis shows inflammatory changes around the pancreas , similar to previous studies, but slightly increased fluid collection around the pancreas tail consistent with peritoneal inflammation as well as interval enlargement of the spleen with splenic infarcts and mild ileus due to pancreatic inflammation. Management per the primary team. Qualifiers: Chronicity: acute Pancreatitis type: unspecified pancreatitis type Acute pancreatitis complication: no infection or necrosis Qualified Code(s): K85.90 - Acute pancreatitis without necrosis or infection, unspecified (4) Sinusitis Current Visit: Yes Status: Acute CT head shows pansinusitis, but the patient is asymptomatic. Continue Unasy 1500mg IV Q6H for now. MRI of the head shows extensive opacification of the paranasal sinuses. Consider ENT consult. Start Augmentin 875mg PO BID. Duration of treatment depends on the clinical picture, but recommend a total of 14 days of treatment. Monitor renal function and dose-adjust antibiotics. Qualifiers: Sinusitis location: pansinusitis Chronicity: acute Recurrence: not specified as recurrent Qualified Code(s): J01.40 - Acute pansinusitis, unspecified (5) UTI (urinary tract infection) Current Visit: Yes Status: Acute Asymptomatic bacteriuria vs. UTI. Urinalysis positive for pyuria, but looks like it might be contaminated. Urine culture shows E. coli, but not likely contributing to the patient's clinical picture. Discontinue Rocephin. Qualifiers: Urinary tract infection type: acute cystitis Hematuria presence: without hematuria Qualified Code(s): N30.00 - Acute cystitis without hematuria (6) Splenic infarct Current Visit: Yes Status: Acute Etiology unclear: septic emboli vs. hypercoaguable state vs. other. Repeat blood cultures x 2 sets drawn 04/21/17 are negative. (7) Metabolic acidosis Current Visit: Yes Status: Acute Non-anion gap metabolic acidosis with respiratory compensation. Bicarb improved. Likely source of the patient's AMS. Resolved. Management per the primary team. (8) Hypokalemia Current Visit: Yes Status: Acute Resolved. Likely secondary to metabolic acidosis and history of renal tubular acidosis. Management per the primary and nephrology teams. 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 No evidence of recurrence based on physical exam. Will continue to monitor. - Subjective Interval history: Patient seen and examined. No acute events noted overnight. Patient appears much more alert this morning and is ambulating in the room with her daughter at bedside. Denies fevers, chills, or rigors. Denies headache or neck pain. Denies congestion, earache, or sore throat. Denies chest pain, shortness of breath, or cough. Denies nausea or diarrhea, but reports vomiting after she took her pills this morning. Denies dysuria or urinary complaints. Denies abdominal pain and states her appetite is better today. Denies oral thrush or new skin lesions. Complains of pain in the left upper back. Denies blurred vision or focal weakness at this time. Infect Dis PN-Objective Data - Labs CBC & Chem 7: 04/27/17 04:08 04/27/17 04:08 Labs: Laboratory Results - last 24 hr 04/27/17 04/27/17 04/27/17 04:08 04:08 04:08 WBC 10.9 RBC 2.66 L Hgb 8.2 L Hct 25.5 L MCV 95.9 MCH 30.8 MCHC 32.2 RDW 15.9 H Plt Count 294 MPV 10.4 Immature Gran % 0.6 Seg Neutrophils % 68.6 Lymphocytes % 23.6 Monocytes % 4.6 Eosinophils % 2.3 Basophils % 0.3 Neutrophils # 7.5 Lymphocytes # 2.6 Monocytes # 0.5 Eosinophils # 0.3 Basophils # 0.0 Sodium 136 Potassium 4.4 Chloride 109 H Carbon Dioxide 23 BUN 6 Creatinine 0.71 Est GFR ( Amer) > 60 Est GFR (Non-Af Amer) > 60 BUN/Creatinine Ratio 8 Glucose 83 Calculated Osmolality 279 L Calcium 8.8 Magnesium 2.2 Cultures: Cultures 04/21/17 13:35 Blood Culture - Final Peripheral Venipuncture No growth. 04/21/17 13:35 Blood Culture - Final Peripheral Venipuncture No growth. 04/21/17 13:35 Cryptococcal Antigen - Final Serum Serology 04/21/17 04/21/17 04/21/17 Range/Units 16:20 13:35 13:35 T.pallidum Ab Interpret Negative (NEGATIVE) Chlamy pneumoniae PCR Not Detected (Not Detect) Adenovirus (PCR) Not Detected (Not Detect) B. pertussis DNA (PCR) Not Detected (Not Detect) B.parapertussis DNA PCR Not Detected (Not Detect) Coronavirus OC43 (PCR) Not Detected (Not Detect) Coronavirus HKU1 (PCR) Not Detected (Not Detect) Coronavirus 229E (PCR) Not Detected (Not Detect) Coronavirus NL63 (PCR) Not Detected (Not Detect) Hepatitis A IgM Ab Nonreactive (Nonreactive) Hep Bs Antigen Nonreactive (Nonreactive) Hep B Core IgM Ab Nonreactive (Nonreactive) Hepatitis C Ab Screen Nonreactive (Nonreactive) HIV Ag/Ab Combo Qual Nonreactive (Nonreactive) Human Metapneumovir PCR Not Detected (Not Detect) Influenza A (H1) PCR Not Detected (Not Detect) Influ A (H1N1/09) PCR Not Detected (Not Detect) Influenza A (H3) PCR Not Detected (Not Detect) Influenza A Untype (PCR) Not Detected (Not Detect) Influenza Type B (PCR) Not Detected (Not Detect) M.pneumoniae DNA (PCR) Not Detected (Not Detect) Parainfluenza 1 (PCR) Not Detected (Not Detect) Parainfluenza 2 (PCR) Not Detected (Not Detect) Parainfluenza 3 (PCR) Not Detected (Not Detect) Parainfluenza 4 (PCR) Not Detected (Not Detect) RSV (PCR) Not Detected (Not Detect) Entero/Rhino (PCR) Not Detected (Not Detect) Exam - Constitutional Vitals: Temp Pulse Resp BP Pulse Ox 98.4 F 62 17 102/69 98 04/27/17 11:03 04/27/17 11:56 04/27/17 11:56 04/27/17 11:56 04/27/17 11:56 General appearance: average body habitus, cooperative, no acute distress - Head Head exam: Present: atraumatic, normal inspection, normocephalic - Eye Eye exam: Present: EOMI, normal appearance, PERRL Pupils: Present: normal accommodation - ENT ENT exam: Present: mucous membranes moist - Neck Neck exam: Present: normal inspection - Respiratory Respiratory exam: Present: CTAB. Absent: rales, respiratory distress, rhonchi, wheezes - Cardiovascular Cardiovascular exam: Present: RRR, +S1, +S2 - GI/Abdominal GI/Abdominal exam: Present: normal bowel sounds, soft. Absent: distended, tenderness - Extremities Exam Extremities exam: Present: normal inspection. Absent: joint swelling, pedal edema, tenderness - Back Exam Back exam: Present: tenderness (Left upper back). Absent: vertebral tenderness - Neurological Exam Neurological exam: Present: alert, oriented X3, no focal deficits - Psychiatric Psychiatric exam: Present: normal affect, normal mood - Skin Skin exam: Present: dry, intact, normal color, warm Consult Discharge Plan - Plan Instructions: Pancreatitis (DC), Diverticulitis (DC), Urinary Tract Infection in Women (DC), Herpes Zoster (DC), Herpes Zoster (GEN), Anemia (GEN) Referrals: Chio Keating CNP [Primary Care Provider] - 04/28/17 9:45 am
--- NOTE | 2017-04-27 13:45 | Discharge Summary ---
Date of Encounter: 04/27/17 Time of Encounter: 13:41 - Discharge Diagnosis (1) Acute metabolic encephalopathy Priority: Primary Status: Resolved (2) Anemia Priority: Secondary Status: Acute Qualifiers: Anemia type: unspecified type Qualified Code(s): D64.9 - Anemia, unspecified (3) Hyperchloremic acidosis Priority: Secondary Status: Acute (4) Hypokalemia Priority: Secondary Status: Acute (5) Rheumatoid arthritis Priority: Secondary Status: Acute Qualifiers: Rheumatoid arthritis location: unspecified site Rheumatoid factor presence : unspecified presence Qualified Code(s): M06.9 - Rheumatoid arthritis, unspecified (6) Sjogrens syndrome Priority: Secondary Status: Acute Qualifiers: Sjogren's organ involvement: unspecified organ involvement Qualified Code(s ): M35.00 - Sicca syndrome, unspecified (7) Disorder of paranasal sinus Priority: Secondary Status: Acute (8) DVT prophylaxis Priority: Secondary Status: Acute - Discharge Medications Prescriptions: aMILoride [Midamor] 5 mg PO DAILY #30 tablet Sodium Bicarbonate 1,300 mg PO BID #60 tablet Home Medications: HYDROcodone/Acet 10/325 mg [[place] 10-325 mg] 1 tab PO Q4-6H PRN MDD 5 TABS/ 24HRS 06/28/15 [History] Ibuprofen [Motrin] 800 mg PO Q8HR PRN 06/28/15 [History] Norgestimate-Ethinyl Estradiol [Mononessa 28 Tablet] 1 tab PO DAILY 06/28/15 [ History] Zolpidem [Ambien] 5 mg PO HS PRN 06/28/15 [History] Cetirizine HCl [All Day Allergy] 10 mg PO DAILY 01/02/17 [History] FLUoxetine HCl [Fluoxetine HCl] 40 mg PO BID 01/02/17 [History] Propranolol [Inderal] 20 mg PO BID 01/02/17 [History] Quetiapine Fumarate [Seroquel] 50 mg PO 0600,1200 01/02/17 [History] Quetiapine Fumarate [Seroquel] 100 mg PO HS 01/02/17 [History] Pilocarpine HCl [Salagen] 5 mg PO TID 04/20/17 [History] Ranitidine HCl [Zantac] 150 mg PO BID PRN 04/20/17 [History] Amoxicillin/Clavulanate [Augmentin] 875 mg PO BIDWM #14 tablet 04/27/17 [Rx] Potassium Chloride 40 meq PO BID #120 tab.er.prt 04/27/17 [Rx] Sodium Bicarbonate 1,300 mg PO BID #60 tablet 04/27/17 [Rx] aMILoride [Midamor] 5 mg PO DAILY #30 tablet 04/27/17 [Rx] Allergies/Adverse Reactions: 3 Allergy/AdvReac Type Severity Reaction Status Date / Time tramadol AdvReac Seizure Verified 04/20/17 16:05 Procedures/tests Complete & Pending: Procedures Performed prior 72 hours Category Date Time Status EKG [ECG 12 lead ECG] [ECG] AM 0600 Y 04/25/17 06:00 Completed Date of admission: 04/21/17 03:14 Primary care physician: Chio Keating CNP Consults: 04/21/17 13:21 Consult to Nephrology [CONS] Routine Consulting Provider: Guanako Daniels Reason for Consult: Acidosis Call Completed: Yes 04/21/17 19:33 Consult to Neurology [CONS] Routine Consulting Provider: Neurology [facility] Reason for Consult: Altered mental status Call Completed: No 04/25/17 10:57 Consult to Occupational Therapy [CONS] Routine Comment: Evaluate, develop and implement POC Reason for Consult: Evaluate, develop and implement POC Consult to Physical Therapy [CONS] Routine Comment: Evaluate, develop and implement POC Reason for Consult: Disposition planning. Therapy - weakness in bed. Discharging clinician: Alejo Pendleton - Patient Status Disposition: Home, Self-Care Condition: Fair Functional capacity at discharge: independent ambulation Overall status at discharge: patient is back to baseline - Discharge Instructions Instructions: Pancreatitis (DC), Diverticulitis (DC), Urinary Tract Infection in Women (DC), Herpes Zoster (DC), Herpes Zoster (GEN), Anemia (GEN) Follow Up With: Chio Keating CNP [Primary Care Provider] - 04/28/17 9:45 am - Diet and Activity Activity: increase activity as tolerated Diet: advance to your usual diet Hospital course: 51 year old female with history of Sjrogen syndrome, type 1 RTA, RA, autoimmune pancreatitis presented to ED for gradually worsening altered mental status. Daughter reported that she was not acting normally since January 2017. A CT of head showed severe parasinus opacities but no intracranial abnormalitites. A CT of abdomen showed increaseed fluid collection at tail of pancreas, and also splenic infarct. UA suggestive of UTI. She had leukocytosis of 23,000 with neutrophilic predominance. She was started on continued on Unasyn. She had metabolic acidosis with hypokalemia as low as 2.3. MRI was done that showed no intracranial abnormalities. Nephrology consulted for acidosis hypokalemia. She was started on a bicab drip which improves potassium with type I RTA patients. Neurology consulted and agreed altered mental status likely infection and metabolic. Patient has skipped some doses and office visit appointments recently. Altered mental status, acidosis, hypokalemia, and infection improved requiring several days of therapy. She was at baseline mental status per daughter. She was discharged home in stable condition. We have set up appointments for patient prior to discharge. - Consider ENT consult based on sinus opacities - Consider Surgery consult for splenic infarct - Appointment with Rheumatology on 04/29/17. - Appointment with Nephrology on 05/14/17. - 7 days of Augmentin to complete 14 days total antibiotic therapy - Discussed extensively about compliance with treatment to prevent worsening acidosis. Must make it to all office appointments. Time spent discussing smoking cessation with patient: more than 10 minutes - Time Spent with Patient Total time spent providing and/or coordinating discharge services: - Constitutional Vitals: Temp Pulse Resp BP Pulse Ox 98.4 F 62 17 102/69 98 04/27/17 11:03 04/27/17 11:56 04/27/17 11:56 04/27/17 11:56 04/27/17 11:56 General appearance: Present: A&O X 3, no acute distress - Head Head exam: Present: atraumatic, normocephalic - Eye Eye exam: Present: PERRL, conjuntiva pink, sclera anicteric Pupils: Present: PERRL - Neck Neck exam general surgery: Present: supple, trachea midline. Absent: lymphadenopathy - Respiratory Respiratory exam: Present: CTAB. Absent: accessory muscle use, rales, rhonchi, wheezes - Cardiovascular Cardiovascular exam: Present: RRR, +S1, +S2. Absent: diastolic murmur, gallop, rubs, systolic murmur - GI/Abdominal GI/Abdominal exam: Present: normal bowel sounds, soft, no peritoneal signs. Absent: distended, tenderness - Extremities Exam Extremities exam: Present: warm, radial pulses palpable and symmetrical. Absent : calf tenderness, cyanotic, pedal edema - Neurological Exam Neurological exam: Present: CN II-XII intact, oriented X3, no focal deficits. Absent: pronater drift, facial droop, speech deficit - Skin Skin exam: Present: dry, intact
[2017-04-27 17:21] LABS: HSV Source CSF
--- NOTE | 2017-05-01 07:58 | Electrocardiograph Report ---
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
== END 2017-04-27 16:06 | disposition home or self-care (01) | DRG 689 ==
LOC: 3BNU 15:22 → EMEROO 15:22 → 3BNU 04-21 00:52 → 2NENU 04-21 15:00
PROVIDERS: ADMIT Registered Nurse; ATTEND Registered Nurse

== ENCOUNTER 2017-07-13 16:34 | Inpatient (IN) ==
--- NOTE | 2017-07-13 17:14 | Emergency Department Note ---
Disposition Clinical Impression: Hypokalemia Chest pain Qualifiers: Chest pain type: unspecified Qualified Code(s): R07.9 - Chest pain, unspecified Disposition: Admitted As Inpatient Condition: Fair Referrals: Chio Keating CNP [Primary Care Provider] - Forms: ED Satisfaction Letter Time of Disposition: 18:37 Chest Pain HPI - General Chief Complaint: ED Chest Pain Stated Complaint: AMS/CP Time Seen by Provider: 07/13/17 17:07 Source: patient Mode of arrival: ambulatory Limitations: no limitations Vital Signs Reviewed: Yes Nursing Notes Reviewed: Yes - History of Present Illness HPI Narrative: 51-year-old had some intermittent chest pain today she has a history pancreatitis in the past and the daughter states she has been confused over the last couple of days. In the past she has had low potassium. 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: intermittent Onset: during rest Pain Location: substernal, left chest Severity scale (1-10): 8 Quality: tightness, aching Pain Radiation: none Improves with: nothing Worsens with: nothing Context: recent illness Associated symptoms: Reports: nausea Treatments prior to arrival chest pain: none - Related Data Home Medications Medication Instructions Recorded Confirmed HYDROcodone/Acet 10/325 mg [[place] 1 tab PO Q4-6H PRN MDD 5 TABS/24HRS 06/28/15 05/25/17 10-325 mg] Ibuprofen [Motrin] 800 mg PO Q8HR PRN 06/28/15 05/25/17 Norgestimate-Ethinyl Estradiol 1 tab PO DAILY 06/28/15 05/25/17 [Mononessa 28 Tablet] Zolpidem [Ambien] 5 mg PO HS PRN 06/28/15 05/25/17 Cetirizine HCl [All Day Allergy] 10 mg PO DAILY 01/02/17 05/25/17 FLUoxetine HCl [Fluoxetine HCl] 40 mg PO BID 01/02/17 05/25/17 Propranolol [Inderal] 20 mg PO BID 01/02/17 05/25/17 Quetiapine Fumarate [Seroquel] 50 mg PO 0600,1200 01/02/17 05/25/17 Quetiapine Fumarate [Seroquel] 100 mg PO HS 01/02/17 05/25/17 Ranitidine HCl [Zantac] 150 mg PO BID PRN 04/20/17 05/25/17 hydrOXYzine HCl [Hydroxyzine HCl] 25 mg PO Q8H 05/25/17 05/25/17 Previous Rx's Medication Instructions Recorded Amoxicillin/Clavulanate [Augmentin] 875 mg PO BIDWM #14 tablet 04/27/17 Potassium Chloride 40 meq PO BID #120 tab.er.prt 04/27/17 Sodium Bicarbonate 1,300 mg PO BID #60 tablet 04/27/17 aMILoride [Midamor] 5 mg PO DAILY #30 tablet 04/27/17 Allergies Allergy/AdvReac Type Severity Reaction Status Date / Time tramadol AdvReac Seizure Verified 07/13/17 18:27 All systems ED: reviewed and negative except as stated. Constitutional: Denies: fever, chills, weakness, weight change Eyes: Denies: eye pain, eye discharge, vision change ENT ED: Denies: ear pain, throat pain, dental pain, hearing loss, epistaxis, congestion, dysphagia Cardiovascular: Reports: chest pain. Denies: palpitations, dyspnea on exertion , edema, syncope Respiratory: Denies: cough, dyspnea, wheezes, hemoptysis, stridor Gastrointestinal: Reports: abdominal pain (Mild), nausea. Denies: vomiting, diarrhea, constipation, hematemesis, melena, hematochezia Genitourinary: Denies: dysuria, frequency, hematuria, discharge Musculoskeletal: Denies: back pain, neck pain, arthralgia, myalgia Integumentary: Denies: rash, abrasion, lesions Neurological: Reports: confusion. 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 - Social History Smoking Status: Never smoker Alcohol use: Reports: none Drug use: Reports: prescription drug abuse Physical Exam - General Limitations: no limitations General appearance: alert, in no apparent distress - Head Head exam: atraumatic, normocephalic, normal inspection - Eye Eye exam: Present: normal appearance, PERRL, EOMI - ENT ENT exam: normal exam, normal oropharynx, mucous membranes moist - Neck Neck exam: Present: normal inspection, full ROM, trachea midline - Chest Chest inspection: Present: normal inspection, symmetric chest wall rise - Respiratory Respiratory exam: Present: normal lung sounds bilaterally - Cardiovascular Cardiovascular exam: Present: regular rate, normal rhythm, normal heart sounds - Abdominal Exam Abdominal exam: Present: soft, Non-Tender. Absent: tenderness, distention, guarding, rebound, rigidity - Extremities Exam Extremities exam: Present: normal inspection, full ROM. Absent: tenderness, pedal edema - Expanded Lower Extremity Exam Neurovascular/Tendon exam: Absent: motor deficit, sensory deficit, tendon deficit Gait: observed and normal - Back Exam Back exam: Present: normal inspection, full ROM. Absent: tenderness - Neurological Exam Neurological exam: Present: alert, oriented X3 - Psychiatric Psychiatric exam: Present: normal affect, normal mood - Skin Skin exam: Present: warm, dry, intact, normal color Course - Reevaluation(s) Reevaluation #1: 51-year-old who has a history of low potassium states that she gets confused when her potassium is low comes in today with not eating or drinking. Patient' s awake and alert today, her potassium is low at 2.4. She also was having some chest pain on initial troponin is negative. We will admit chest pain rule out and potassium replacement. Time: 19:04 - Consultations Consultation #1: Discussed with , admit. Time: 19:04 Vital Signs Temperature 97.7 F 07/13/17 16:38 Pulse Rate 62 07/13/17 16:38 Respiratory Rate 18 07/13/17 16:38 Blood Pressure 119/74 07/13/17 16:38 O2 Sat by Pulse Oximetry 100 07/13/17 16:38 Temperature 97.7 F 07/13/17 16:38 Pulse Rate 62 07/13/17 18:30 Respiratory Rate 20 07/13/17 18:30 Blood Pressure 131/78 07/13/17 18:30 O2 Sat by Pulse Oximetry 100 07/13/17 18:35 Oxygen Delivery Oxygen Delivery Room Air Chest Pain - Lab Data Result diagrams: 07/13/17 17:54 07/13/17 17:54 Lab Results 07/13/17 07/13/17 07/13/17 Range/Units 17:54 17:54 17:54 WBC 8.9 (4.3-11.1) K/mcL RBC 3.46 L (3.82-4.97) M/mcL Hgb 11.2 L (11.5-15.4) g/dL Hct 31.2 L (35.3-44.9) % MCV 90.2 (83.0-100.0) fL MCH 32.4 (28.0-33.3) pg MCHC 35.9 H (31.6-35.5) g/dL RDW 16.5 H (11.5-14.5) % Plt Count 267 (140-400) K/mcL MPV 10.5 (9.4-12.4) fL Immature Gran % 0.3 (0-4) % Seg Neutrophils % 66.2 % Lymphocytes % 24.7 % Monocytes % 7.4 % Eosinophils % 1.1 % Basophils % 0.3 % Neutrophils # 5.9 (1.6-8.9) K/mcL Lymphocytes # 2.2 (0.6-4.6) K/mcL Monocytes # 0.7 (0.0-1.3) K/mcL Eosinophils # 0.1 (0.0-0.6) K/mcL Basophils # 0.0 (0.0-0.2) K/mcL PT 13.2 H (9.4-12.1) Seconds INR 1.2 APTT 31.5 (26.0-36.0) Seconds Sodium (136-145) mEq/L Potassium (3.5-5.1) mEq/L Chloride (98-107) mEq/L Carbon Dioxide (23-29) mEq/L BUN (6-20) mg/dL Creatinine (0.60-1.20) mg/dL Est GFR ( Amer) (> 60) Est GFR (Non-Af Amer) (> 60) BUN/Creatinine Ratio (6-26) Glucose (70-105) mg/dL Calculated Osmolality (280-300) Calcium (8.6-10.3) mg/dL Total Bilirubin 0.5 (0.3-1.0) mg/dL Direct Bilirubin 0.1 (0.0-0.2) mg/dL Indirect Bilirubin 0.4 (0.0-1.2) mg/dL AST 76 H (13-39) Units/L ALT 54 H (7-52) Units/L Alkaline Phosphatase 152 H (34-104) Units/L Troponin I (< 0.04) ng/mL Serum Total Protein 8.6 (6.4-8.9) g/dL Albumin 3.5 (3.5-5.7) g/dL Globulin 5.1 H (2.4-3.5) g/dL Albumin/Globulin Ratio 0.7 L (1.1-2.2) Amylase 45 (29-103) Units/L Lipase 47 (11-82) Units/L Urine Color (Yellow) Urine Clarity (Clear) Urine pH (5.0-8.0) pH Units Ur Specific [place] (1.010-1.025) Urine Protein (Neg-Trace) mg/dL Urine Glucose (UA) (Normal) mg/dL Urine Ketones (Negative) mg/dL Urine Blood (Negative) Urine Nitrite (Negative) Urine Bilirubin (Negative) Urine Urobilinogen (Normal) mg/dL Ur Leukocyte Esterase (Negative) Urine Microscopic RBC (0-3) per hpf Urine Microscopic WBC (0-3) per hpf Ur Squamous Epith Cells (None-Few) per lpf Urine Bacteria (None-Few) per hpf Hyaline Casts (None-Few) per lpf Ur Culture Indicated? (NO) 07/13/17 07/13/17 Range/Units 17:54 17:58 WBC (4.3-11.1) K/mcL RBC (3.82-4.97) M/mcL Hgb (11.5-15.4) g/dL Hct (35.3-44.9) % MCV (83.0-100.0) fL MCH (28.0-33.3) pg MCHC (31.6-35.5) g/dL RDW (11.5-14.5) % Plt Count (140-400) K/mcL MPV (9.4-12.4) fL Immature Gran % (0-4) % Seg Neutrophils % % Lymphocytes % % Monocytes % % Eosinophils % % Basophils % % Neutrophils # (1.6-8.9) K/mcL Lymphocytes # (0.6-4.6) K/mcL Monocytes # (0.0-1.3) K/mcL Eosinophils # (0.0-0.6) K/mcL Basophils # (0.0-0.2) K/mcL PT (9.4-12.1) Seconds INR APTT (26.0-36.0) Seconds Sodium 136 (136-145) mEq/L Potassium 2.4 L* (3.5-5.1) mEq/L Chloride 117 H (98-107) mEq/L Carbon Dioxide 12 L (23-29) mEq/L BUN 14 (6-20) mg/dL Creatinine 0.91 (0.60-1.20) mg/dL Est GFR ( Amer) > 60 (> 60) Est GFR (Non-Af Amer) > 60 (> 60) BUN/Creatinine Ratio 15 (6-26) Glucose 84 (70-105) mg/dL Calculated Osmolality 282 (280-300) Calcium 10.2 (8.6-10.3) mg/dL Total Bilirubin (0.3-1.0) mg/dL Direct Bilirubin (0.0-0.2) mg/dL Indirect Bilirubin (0.0-1.2) mg/dL AST (13-39) Units/L ALT (7-52) Units/L Alkaline Phosphatase (34-104) Units/L Troponin I < 0.03 (< 0.04) ng/mL Serum Total Protein (6.4-8.9) g/dL Albumin (3.5-5.7) g/dL Globulin (2.4-3.5) g/dL Albumin/Globulin Ratio (1.1-2.2) Amylase (29-103) Units/L Lipase (11-82) Units/L Urine Color Yellow (Yellow) Urine Clarity Clear (Clear) Urine pH 7.0 (5.0-8.0) pH Units Ur Specific [place] 1.009 L (1.010-1.025) Urine Protein 30 H (Neg-Trace) mg/dL Urine Glucose (UA) Normal (Normal) mg/dL Urine Ketones Negative (Negative) mg/dL Urine Blood Trace H (Negative) Urine Nitrite Negative (Negative) Urine Bilirubin Negative (Negative) Urine Urobilinogen Normal (Normal) mg/dL Ur Leukocyte Esterase Negative (Negative) Urine Microscopic RBC 5-15 H (0-3) per hpf Urine Microscopic WBC 0-3 (0-3) per hpf Ur Squamous Epith Cells Many H (None-Few) per lpf Urine Bacteria None Seen (None-Few) per hpf Hyaline Casts None Seen (None-Few) per lpf Ur Culture Indicated? NO (NO) - Radiology Data Radiology results reviewed: Yes I reviewed the patient's radiology results. Chest X-Ray 07/13/17 17:11 IMPRESSION: No acute process. D/ / Idris Coley MD / Idris Coley MD Interpreting Provider: Idris Coley MD Heart Score - Score History: Slightly Suspicious EKG: Non Specific repolarisation Disturbance Age: 45-65 Risk Factors: 1-2 risk factors Troponin: Less than normal limit HEART Score Total: 3
[2017-07-13] MEDS: 0.9 % Sodium Chloride 1,000 ML IVC SCH (17:30)
[2017-07-13 18:23] LABS: Bilirubin,Urine Negative (Negative); Blood,Urine Trace (Negative); Clarity,Urine Clear (Clear); Color,Urine Yellow (Yellow); Glucose,Urine (UA) Normal (Normal); Ketones,Urine Negative (Negative); Leukocyte Esterase,Urine Negative (Negative); Nitrite,Urine Negative (Negative); Protein,Urine 30 mg/dL (Neg-Trace); Specific Gravity,Urine 1.009 (1.010-1.025); Urobilinogen,Urine Normal (Normal)
[2017-07-13 18:25] LABS: Basophils % 0.3 %; Eosinophils # 0.1 K/mcL (0.0-0.6); Eosinophils % 1.1 %; Hematocrit 31.2 % (35.3-44.9); Hemoglobin 11.2 g/dL (11.5-15.4); Immature Granulocytes % 0.3 % (0-4); Lymphocytes # 2.2 K/mcL (0.6-4.6); Lymphocytes % 24.7 %; Mean Corpuscular HGB Conc 35.9 g/dL (31.6-35.5); Mean Corpuscular Hemoglobin 32.4 pg (28.0-33.3); Mean Corpuscular Volume 90.2 fL (83.0-100.0); Mean Platelet Volume 10.5 fL (9.4-12.4); Monocytes # 0.7 K/mcL (0.0-1.3); Monocytes % 7.4 %; Neutrophils # 5.9 K/mcL (1.6-8.9); Platelet Count 267 K/mcL (140-400); Red Blood Count 3.46 M/mcL (3.82-4.97); Red Cell Distribution Width 16.5 % (11.5-14.5); Segmented Neutrophils % 66.2 %
[2017-07-13 18:25] LABS: Bacteria,Urine None Seen per hpf (None-Few); Hyaline Casts,Urine None Seen per lpf (None-Few); Squamous Epithelial Cell,Urine Many per lpf (None-Few); WBC,Urine 0-3 per hpf (0-3)
[2017-07-13 18:30] LABS: Albumin 3.5 g/dL (3.5-5.7); Albumin/Globulin Ratio 0.7 (1.1-2.2); Bilirubin,Direct 0.1 mg/dL (0.0-0.2); Bilirubin,Indirect 0.4 mg/dL (0.0-1.2); Bilirubin,Total 0.5 mg/dL (0.3-1.0); Globulin 5.1 g/dL (2.4-3.5); Total Protein 8.6 g/dL (6.4-8.9)
[2017-07-13 18:33] LABS: INR 1.2; Prothrombin Time 13.2 Seconds (9.4-12.1)
[2017-07-13 18:35] LABS: Activated Partial Thrombo Time 31.5 Seconds (26.0-36.0); BUN/Creatinine Ratio 15 (6-26); Blood Urea Nitrogen 14 mg/dL (6-20); Calcium 10.2 mg/dL (8.6-10.3); Carbon Dioxide 12 mEq/L (23-29); Chloride 117 mEq/L (98-107); Glucose 84 mg/dL (70-105); Osmolality,Calculated 282 (280-300); Potassium 2.4 mEq/L (3.5-5.1); Sodium 136 mEq/L (136-145); Troponin I < 0.03 ng/mL (< 0.04); eGFR For African Americans > 60 (> 60); eGFR For Non-African Americans > 60 (> 60)
[2017-07-13] MEDS: Potassium Chloride 10 MEQ in 0.9 % Sodium Chloride 100 ML IVPB SCH ×2 (19:18→21:46)
[2017-07-13] MEDS ORDERED: Naloxone 0.4 MG/ML INJ IVP PRN (20:52)
--- NOTE | 2017-07-13 20:59 | Internal Med History&Physical ---
Date of Encounter: 07/13/17 Time of Encounter: 20:59 Internal Medicine - H&P: HPI Chief complaint: Confusion Admitted From: Emergency Dept Plans for Post Hospital Care: Home History of present illness: Ms. Ching is a 51 year old female with h/o- autoimmune disorders and RTA, was brought in by family with c/o- altered mental status. Patient is currently confused, and unable to provide detailed history. SHe also has fleet of thoughts and speaks inappropriately. Per ER notes, daughter brought her in due to confusion and generalized weakness , which happens when her potassium is low. SHe has been having poor oral intake and not keeping up with her medical appointments recently. While in the ER, patient also reported chest pain; on questioning now, she reports "its more like a panic attack, I don't think its chest pain". Past Med Surg Social Fam HX - Past Medical History Source: old records reviewed Medical history: arthritis, RA (sjogren's syndrome), renal disease (RTA), other Psychiatric history: anxiety, depression - Past Surgical History Surgical History: cholecystectomy - Social History Smoking Status: Never smoker Smokeless Tobacco Status: No Alcohol use: none Drug use: none, prescription drug abuse Current living situation: Home, With Family Activity Level: Independent ambulation Recent Out of Country Travel Within the Last 8 Weeks: No Exposure or Possible Exposure to Illness During Travel: No - Family History Mother Hx Family Cancer: Yes (leukemia, lung) Internal Medicine - H&P: Meds HYDROcodone/Acet 10/325 mg [Carbon 10-325 mg] 1 tab PO Q4-6H PRN MDD 5 TABS/ 24HRS 06/28/15 [History] Ibuprofen [Motrin] 800 mg PO Q8HR PRN 06/28/15 [History] Zolpidem [Ambien] 5 mg PO HS PRN 06/28/15 [History] Cetirizine HCl [All Day Allergy] 10 mg PO DAILY 01/02/17 [History] FLUoxetine HCl [Fluoxetine HCl] 40 mg PO BID 01/02/17 [History] Propranolol [Inderal] 20 mg PO BID 01/02/17 [History] Quetiapine Fumarate [Seroquel] 50 mg PO 0600,1200 01/02/17 [History] Quetiapine Fumarate [Seroquel] 100 mg PO HS 01/02/17 [History] Ranitidine HCl [Zantac] 150 mg PO BID PRN 04/20/17 [History] Potassium Chloride 40 meq PO BID #120 tab.er.prt 04/27/17 [Rx] Sodium Bicarbonate 1,300 mg PO BID #60 tablet 04/27/17 [Rx] aMILoride [Midamor] 5 mg PO DAILY #30 tablet 04/27/17 [Rx] hydrOXYzine HCl [Hydroxyzine HCl] 25 mg PO Q8H 05/25/17 [History] Pilocarpine HCl [Salagen] 5 mg PO TID 07/13/17 [History] Sucralfate [Carafate] 10 ml PO BID 07/13/17 [History] 3 Allergy/AdvReac Type Severity Reaction Status Date / Time tramadol AdvReac Seizure Verified 07/13/17 19:20 All Systems PM: A 10-system review of systems was performed and is negative for pertinent findings except as documented above in the HPI. - Constitutional Constitutional: fatigue, lethargy, weakness, no chills, no fever(s), no night sweats - EENT Eyes: no change in vision, no discharge, no pain, no photophobia Ears: no ear discharge, no ear pain, no tinnitus Nose, mouth and throat: no dysphagia, no nasal discharge, no neck pain, no sore throat - Cardiovascular Cardiovascular ROS IM: chest pain - Respiratory Respiratory: no cough, no dyspnea, no wheezing, no excessive phlegm production - Gastrointestinal Gastrointestinal: no abdominal pain, no diarrhea, no hematemesis, no hematochezia, no melena, no nausea, no vomiting - Genitourinary Genitourinary: no change in urinary stream, no dysuria, no flank pain, no hematuria - Musculoskeletal Musculoskeletal ROS IM: no numbness, no tingling - Integumentary Integumentary IM: no rash, no unusual bruising - Neurological Neurological ROS: behavioral changes, confusion, dizziness - Hematologic/Lymphatic Hematologic/Lymphatic: no easy bruising - Constitutional Vitals: Temp Pulse Resp BP Pulse Ox 97.8 F 65 16 130/73 93 07/13/17 20:37 07/13/17 20:37 07/13/17 20:37 07/13/17 20:37 07/13/17 20:37 General appearance: Present: A&O X 1. Absent: answers questions appropriately - Respiratory Respiratory exam: Present: CTAB. Absent: accessory muscle use, rales, rhonchi, wheezes - Cardiovascular Cardiovascular exam: Present: RRR, +S1, +S2. Absent: diastolic murmur, gallop, rubs, systolic murmur - GI/Abdominal GI/Abdominal exam: Present: normal bowel sounds, soft, no peritoneal signs. Absent: distended, tenderness - Extremities Exam Extremities exam: Present: full ROM, warm, radial pulses palpable and symmetrical. Absent: calf tenderness, cyanotic, pedal edema - Neurological Exam Neurological exam: Present: altered, CN II-XII intact, no focal deficits. Absent: pronater drift, facial droop, speech deficit - Skin Skin exam: Present: dry, intact Internal Med - H&P Results - Labs CBC & Chem 7: 07/13/17 17:54 07/13/17 17:54 - EKG Data -: EKG Interpreted by Myself EKG shows normal: sinus rhythm, ST-T waves (diffuse TWI in precordial leads) Rate: normal - Assessment and plan (1) Acute encephalopathy Current Visit: Yes Status: Acute Assessment and plan: likely metabolic encephalopathy due to acidosis and hypokalemia and dehydration ; treat underlying etiology and monitor closely; (2) Chest pain Current Visit: Yes Status: Acute Assessment and plan: nonspecific; EKG changes are noted, which could be due to metabolic abnormality ; repeat EKG in am; continue Telemetry monitoring and serial troponins; Qualifiers: Chest pain type: unspecified Qualified Code(s): R07.9 - Chest pain, unspecified (3) Hypokalemia Current Visit: Yes Status: Acute Assessment and plan: replete with PO KCl, while correcting metabolic acidosis; (4) Metabolic acidosis Current Visit: Yes Status: Acute Assessment and plan: patient has h/o- RTA and noted to be on sodium bicarbonate pills at home, doubtful compliance; start IV bicarbonate drip and monitor labs closely; Nephrology consult if does not improve; (5) Rheumatoid arthritis Current Visit: Yes Status: Chronic Qualifiers: Rheumatoid arthritis location: unspecified site Rheumatoid factor presence : unspecified presence Qualified Code(s): M06.9 - Rheumatoid arthritis, unspecified (6) Sjogrens syndrome Current Visit: Yes Status: Chronic Qualifiers: Sjogren's organ involvement: unspecified organ involvement Qualified Code(s ): M35.00 - Sicca syndrome, unspecified - Time Spent With Patient Total time spent is greater than 50% in coordination of care (as documented) at patient's floor/unit and/or counseling patient:
[2017-07-13] MEDS: Potassium Chloride Elixir 20 MEQ/15 ML UDC PO SCH (21:51)
[2017-07-13] MEDS: FLUoxetine 20 MG CAPSULE PO SCH (21:51)
[2017-07-13] MEDS: Sodium Bicarbonate 150 MEQ in D5% in Water 1,000 ML IVC SCH (22:54)
[2017-07-14] MEDS: Potassium Chloride Elixir 20 MEQ/15 ML UDC PO SCH (01:17)
[2017-07-14 05:14] LABS: Basophils % 0.3 %; Eosinophils # 0.1 K/mcL (0.0-0.6); Eosinophils % 1.1 %; Hemoglobin 9.9 g/dL (11.5-15.4); Immature Granulocytes % 0.2 % (0-4); Lymphocytes # 2.2 K/mcL (0.6-4.6); Lymphocytes % 24.3 %; Mean Corpuscular HGB Conc 35.4 g/dL (31.6-35.5); Mean Corpuscular Hemoglobin 31.3 pg (28.0-33.3); Mean Corpuscular Volume 88.6 fL (83.0-100.0); Mean Platelet Volume 10.5 fL (9.4-12.4); Monocytes # 0.7 K/mcL (0.0-1.3); Monocytes % 7.8 %; Platelet Count 234 K/mcL (140-400); Red Blood Count 3.16 M/mcL (3.82-4.97); Red Cell Distribution Width 16.4 % (11.5-14.5); Segmented Neutrophils % 66.3 %
[2017-07-14] MEDS: 0.9 % Sodium Chloride 1,000 ML IVC SCH ×3 (05:26→16:21)
[2017-07-14 05:37] LABS: BUN/Creatinine Ratio 14 (6-26); Blood Urea Nitrogen 11 mg/dL (6-20); Calcium 9.6 mg/dL (8.6-10.3); Carbon Dioxide 14 mEq/L (23-29); Chloride 118 mEq/L (98-107); Glucose 93 mg/dL (70-105); Magnesium 1.8 mg/dL (1.6-2.6); Osmolality,Calculated 291 (280-300); Potassium 2.2 mEq/L (3.5-5.1); Sodium 141 mEq/L (136-145); eGFR For African Americans > 60 (> 60); eGFR For Non-African Americans > 60 (> 60)
[2017-07-14] MEDS ORDERED: Potassium Chloride 40 MEQ, Lidocaine 1% 2 ML in D5% in Water 500 ML IVPB ONE (06:00)
[2017-07-14] MEDS: FLUoxetine 20 MG CAPSULE PO SCH ×2 (08:40→19:52)
[2017-07-14] MEDS: Loratadine 10 MG TABLET PO SCH (08:40)
[2017-07-14] MEDS: aMILoride 5 MG TABLET PO SCH (08:40)
--- NOTE | 2017-07-14 12:04 | Internal Med Progress Note ---
Date of Encounter: 07/14/17 Time of Encounter: 12:02 - Assessment and plan (1) Acute encephalopathy Current Visit: Yes Status: Acute Assessment and plan: likely metabolic encephalopathy due to acidosis and hypokalemia and dehydration ; she has improved continue treat underlying etiology and monitor closely; (2) Metabolic acidosis Current Visit: Yes Status: Acute Assessment and plan: patient has h/o- RTA and noted to be on sodium bicarbonate pills at home, doubtful compliance; start IV bicarbonate drip and monitor labs closely; Nephrology consulted (3) Sjogrens syndrome Current Visit: Yes Status: Chronic Assessment and plan: Patient to follow with rheumatology as outpatient Qualifiers: Sjogren's organ involvement: unspecified organ involvement Qualified Code(s ): M35.00 - Sicca syndrome, unspecified (4) Rheumatoid arthritis Current Visit: Yes Status: Chronic Assessment and plan: Patient to follow with rheumatology as outpatient Qualifiers: Rheumatoid arthritis location: unspecified site Rheumatoid factor presence : unspecified presence Qualified Code(s): M06.9 - Rheumatoid arthritis, unspecified (5) Hypokalemia Current Visit: Yes Status: Acute Assessment and plan: -We will need to correct metabolic acidosis continue to replenish potassium- orally (6) Chest pain Current Visit: Yes Status: Acute Assessment and plan: nonspecific; EKG changes are noted, which could be due to metabolic abnormality ; repeat EKG ; continue Telemetry monitoring and serial troponins are negative- patient denies any chest pain at this time continuous cardiac monitoring; Qualifiers: Chest pain type: unspecified Qualified Code(s): R07.9 - Chest pain, unspecified - Time Spent With Patient Total time spent is greater than 50% in coordination of care (as documented) at patient's floor/unit and/or counseling patient: - Subjective Interval history: This patient is new to me, I have reviewed medical records. Presently the patient is alert and oriented she following simple directions, deneis any CP or SOB at this time . I did review treatment plan with the patient who verbalized understanding - Constitutional Vitals: Temp Pulse Resp BP Pulse Ox 98.1 F 72 18 97/59 99 07/14/17 11:31 07/14/17 11:31 07/14/17 11:31 07/14/17 11:31 07/14/17 11:31 General appearance: Present: A&O X 3, answers questions appropriately - Head Head exam: Present: atraumatic, normocephalic - Eye Eye exam: Present: PERRL, conjuntiva pink, sclera anicteric Pupils: Present: PERRL - Neck Neck exam general surgery: Present: supple, trachea midline. Absent: lymphadenopathy - Respiratory Respiratory exam: Present: CTAB. Absent: accessory muscle use, rales, rhonchi, wheezes - Cardiovascular Cardiovascular exam: Present: RRR, +S1, +S2. Absent: diastolic murmur, gallop, rubs, systolic murmur - GI/Abdominal GI/Abdominal exam: Present: normal bowel sounds, soft, no peritoneal signs. Absent: distended, tenderness - Extremities Exam Extremities exam: Present: warm, radial pulses palpable and symmetrical. Absent : calf tenderness, cyanotic, pedal edema - Neurological Exam Neurological exam: Present: CN II-XII intact, oriented X3, no focal deficits. Absent: pronater drift, facial droop, speech deficit - Skin Skin exam: Present: dry, intact Internal Medicine: Result - Labs CBC & Chem 7: 07/14/17 03:57 07/14/17 13:00 Labs: Short CBC 07/14/17 Range/Units 03:57 WBC 9.0 (4.3-11.1) K/mcL Hgb 9.9 L (11.5-15.4) g/dL Hct 28.0 L (35.3-44.9) % Plt Count 234 (140-400) K/mcL Neutrophils # 6.0 (1.6-8.9) K/mcL BMP 07/14/17 03:57 Sodium 141 Potassium 2.2 L* Chloride 118 H Carbon Dioxide 14 L BUN 11 Creatinine 0.78 Glucose 93 Calcium 9.6 Cardiac Enzymes 07/13/17 07/14/17 Range/Units 21:08 03:57 Troponin I < 0.03 < 0.03 (< 0.04) ng/mL - ABG Interpretation ABG results: PT/INR, D-dimer PT 13.2 Seconds (9.4-12.1) H 07/13/17 17:54 Consult Discharge Plan - Plan Referrals: Rishabh,Chio Sarkar CNP [Primary Care Provider] -
[2017-07-14 13:50] LABS: BUN/Creatinine Ratio 13 (6-26); Blood Urea Nitrogen 9 mg/dL (6-20); Calcium 9.4 mg/dL (8.6-10.3); Carbon Dioxide 18 mEq/L (23-29); Chloride 115 mEq/L (98-107); Glucose 103 mg/dL (70-105); Osmolality,Calculated 283 (280-300); Potassium 2.4 mEq/L (3.5-5.1); Sodium 137 mEq/L (136-145); eGFR For African Americans > 60 (> 60); eGFR For Non-African Americans > 60 (> 60)
[2017-07-14] MEDS: Sodium Bicarbonate 150 MEQ in D5% in Water 1,000 ML IVC SCH (15:15)
--- NOTE | 2017-07-14 16:15 | Electrocardiograph Report ---
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
[2017-07-14] MEDS: Acetaminophen 325 MG TABLET PO PRN (17:00)
[2017-07-15] MEDS: 0.9 % Sodium Chloride 1,000 ML IVC SCH (06:07)
[2017-07-15 07:55] LABS: BUN/Creatinine Ratio 11 (6-26); Blood Urea Nitrogen 8 mg/dL (6-20); Calcium 9.4 mg/dL (8.6-10.3); Carbon Dioxide 17 mEq/L (23-29); Chloride 117 mEq/L (98-107); Glucose 91 mg/dL (70-105); Osmolality,Calculated 290 (280-300); Potassium 2.4 mEq/L (3.5-5.1); Sodium 141 mEq/L (136-145); eGFR For African Americans > 60 (> 60); eGFR For Non-African Americans > 60 (> 60)
[2017-07-15 08:20] LABS: Basophils % 0.4 %; Eosinophils # 0.1 K/mcL (0.0-0.6); Eosinophils % 1.7 %; Hemoglobin 9.3 g/dL (11.5-15.4); Immature Granulocytes % 0.3 % (0-4); Lymphocytes # 1.9 K/mcL (0.6-4.6); Mean Corpuscular HGB Conc 35.8 g/dL (31.6-35.5); Mean Corpuscular Hemoglobin 31.6 pg (28.0-33.3); Mean Corpuscular Volume 88.4 fL (83.0-100.0); Mean Platelet Volume 10.4 fL (9.4-12.4); Monocytes # 0.6 K/mcL (0.0-1.3); Monocytes % 8.3 %; Neutrophils # 4.5 K/mcL (1.6-8.9); Platelet Count 228 K/mcL (140-400); Red Blood Count 2.94 M/mcL (3.82-4.97); Red Cell Distribution Width 16.3 % (11.5-14.5); Segmented Neutrophils % 63.3 %
--- NOTE | 2017-07-15 08:23 | Nephrology Consult Note ---
Date of Encounter: 07/15/17 Time of Encounter: 08:21 Assessment and Plan (1) Hypokalemia Current Visit: No Status: Acute The patient has a normal anion gap metabolic acidosis and hypokalemia with a clinical picture of type I renal tubular acidosis associated with Sjogren syndrome. I am going to increase the bicarbonate replacement IV. She needs to continue to have potassium replaced intravenously. Hopefully as her metabolic acidosis improves it will become easier to normalize her potassium as well. (2) Hyperchloremic acidosis Current Visit: No Status: Acute History of Present Illness - History of Present Illness This is a 51-year-old female who has been seen previously in the hospital for normal a non-gap metabolic acidosis with associated hypokalemia in the setting of type I or distal RTA associated with Sjogren syndrome. Patient has had multiple admissions for severe hypokalemia and metabolic acidosis. She has a history of being poorly compliant with medications and she has a history of being poorly compliant with showing up for her outpatient follow-up appointments. She has been started on IV bicarbonate therapy. Her metabolic acidosis is improving. Her hypokalemia remains difficult to correct. Patient says overall she is feeling better. She denies any abdominal pain. She denies any have any diarrhea. She does state that she has been having some vomiting at home. She says she is compliant with her medications but I think that this is questionable. Past Med Surg Social Fam HX - Past Medical History Medical history: arthritis, RA (sjogren's syndrome), renal disease (RTA), other Psychiatric history: anxiety, depression - Past Surgical History Surgical History: cholecystectomy - Social History Smoking Status: Never smoker Smokeless Tobacco Status: No Alcohol use: none Drug use: none, prescription drug abuse - Family History Mother Hx Family Cancer: Yes (leukemia, lung) Medications and Allergies HYDROcodone/Acet 10/325 mg [[place] 10-325 mg] 1 tab PO Q4-6H PRN MDD 5 TABS/ 24HRS 06/28/15 [History] Ibuprofen [Motrin] 800 mg PO Q8HR PRN 06/28/15 [History] Zolpidem [Ambien] 5 mg PO HS PRN 06/28/15 [History] Cetirizine HCl [All Day Allergy] 10 mg PO DAILY 01/02/17 [History] FLUoxetine HCl [Fluoxetine HCl] 40 mg PO BID 01/02/17 [History] Propranolol [Inderal] 20 mg PO BID 01/02/17 [History] Quetiapine Fumarate [Seroquel] 50 mg PO 0600,1200 01/02/17 [History] Quetiapine Fumarate [Seroquel] 100 mg PO HS 01/02/17 [History] Ranitidine HCl [Zantac] 150 mg PO BID PRN 04/20/17 [History] Potassium Chloride 40 meq PO BID #120 tab.er.prt 04/27/17 [Rx] Sodium Bicarbonate 1,300 mg PO BID #60 tablet 04/27/17 [Rx] aMILoride [Midamor] 5 mg PO DAILY #30 tablet 04/27/17 [Rx] hydrOXYzine HCl [Hydroxyzine HCl] 25 mg PO Q8H 05/25/17 [History] Pilocarpine HCl [Salagen] 5 mg PO TID 07/13/17 [History] Sucralfate [Carafate] 10 ml PO BID 07/13/17 [History] 3 Allergy/AdvReac Type Severity Reaction Status Date / Time tramadol AdvReac Seizure Verified 07/13/17 19:20 Review of Systems Constitutional: as per HPI, weakness Eyes: bilateral: blurred vision (patient denies), diplopia (patient denies) Nose, mouth and throat: no dizziness, no headache(s) Cardiovascular: dyspnea on exertion, no chest pain, no palpitations Respiratory: dyspnea on exertion Gastrointestinal: as per HPI, abdominal pain, nausea, vomiting Musculoskeletal: no muscle weakness, no numbness Integumentary: no hirsutism, no striae Neurological: weakness Psychiatric: no depression, no difficulty concentrating Endocrine: as per HPI Hematologic/Lymphatic: no easy bruising, no lymphadenopathy Exam - Vital Signs Vital signs: Initial Vital Signs Temp Pulse Resp BP Pulse Ox 97.7 F 62 18 119/74 100 07/13/17 16:38 07/13/17 16:38 07/13/17 16:38 07/13/17 16:38 07/13/17 16:38 Vital Signs - Last 8 Hours Temp Pulse Resp BP Pulse Ox 07/15/17 06:54 98.5 F 67 16 112/61 95 07/15/17 03:15 97.5 F L 66 18 101/62 94 Intake and Output 07/14/17 07/15/17 07/15/17 23:59 07:59 15:59 Intake Total 500 / 500 Balance 500 / 500 Intake: IV Fluids 500 / 500 KCl 40 MEQ Xylocaine 2 ML In 500 / 500 Dextrose 5% 500 ML @ 130.5 mls/ hr IVPB ONCE ONE Rx#:[id number] Other: Weight 63.5 kg Patient Weight 07/15/17 23:59 Weight 63.5 kg - General Appearance Exam: Patient is alert and oriented. She is in no acute distress. Lungs essentially clear to auscultation. Heart regular rate and rhythm. Abdomen shows normal bowel sounds bruits masses or megaly or tenderness. There is no lower extremity swelling. Results - Lab Results 07/14/17 03:57 07/15/17 07:05 Most recent lab results Calcium 9.4 mg/dL (8.6-10.3) 07/15/17 07:05 Magnesium 1.8 mg/dL (1.6-2.6) 07/14/17 03:57 Consult Discharge Plan - Plan Referrals: Chio Keating CNP [Primary Care Provider] -
[2017-07-15 08:46] LABS: Magnesium 1.8 mg/dL (1.6-2.6)
[2017-07-15] MEDS: aMILoride 5 MG TABLET PO SCH (08:53)
[2017-07-15] MEDS: FLUoxetine 20 MG CAPSULE PO SCH ×2 (08:53→20:45)
[2017-07-15] MEDS: Loratadine 10 MG TABLET PO SCH (08:53)
[2017-07-15] MEDS: Sodium Bicarbonate 150 MEQ in D5% in Water 1,000 ML IVC SCH ×2 (11:57→20:42)
--- NOTE | 2017-07-15 13:50 | Internal Med Progress Note ---
Date of Encounter: 07/15/17 Time of Encounter: 13:48 - Assessment and plan (1) Acute encephalopathy Current Visit: Yes Status: Acute Assessment and plan: This has improved she is alert and appropriate following simple commands likely metabolic encephalopathy due to acidosis and hypokalemia and dehydration- continue treat underlying etiology and monitor closely; (2) Metabolic acidosis Current Visit: Yes Status: Acute Assessment and plan: patient has h/o- RTA and noted to be on sodium bicarbonate pills at home, doubtful compliance; continue IV bicarbonate drip and monitor labs closely; Nephrology consulted (3) Sjogrens syndrome Current Visit: Yes Status: Chronic Assessment and plan: Patient to follow with rheumatology as outpatient Qualifiers: Sjogren's organ involvement: unspecified organ involvement Qualified Code(s ): M35.00 - Sicca syndrome, unspecified (4) Rheumatoid arthritis Current Visit: Yes Status: Chronic Assessment and plan: Patient to follow with rheumatology as outpatient Qualifiers: Rheumatoid arthritis location: unspecified site Rheumatoid factor presence : unspecified presence Qualified Code(s): M06.9 - Rheumatoid arthritis, unspecified (5) Hypokalemia Current Visit: Yes Status: Acute Assessment and plan: -We will need to correct metabolic acidosis continue to replenish potassium-IV continue to monitor (6) Chest pain Current Visit: Yes Status: Acute Assessment and plan: nonspecific; EKG changes are noted, which could be due to metabolic abnormality ; repeat EKG does show some ST depression: Will recheck EKG in a.m. we will obtain echo continue Telemetry monitoring and serial troponins are negative- patient denies any chest pain at this time continuous cardiac monitoring; Qualifiers: Chest pain type: unspecified Qualified Code(s): R07.9 - Chest pain, unspecified - Time Spent With Patient Total time spent is greater than 50% in coordination of care (as documented) at patient's floor/unit and/or counseling patient: - Subjective Interval history: I examined the patient at bedside. Presently patient is alert and oriented 3 appropriate following simple commands. Denies any pain or discomfort at this time. Continues to require IV potassium replacement as well as IV sodium bicarbonate. I reviewed treatment plan with the patient and she verbalized understanding. - Constitutional Vitals: Temp Pulse Resp BP Pulse Ox 98.3 F 67 16 106/72 93 07/15/17 10:41 07/15/17 10:41 07/15/17 10:41 07/15/17 10:41 07/15/17 10:41 General appearance: Present: A&O X 3, answers questions appropriately - Head Head exam: Present: atraumatic, normocephalic - Eye Eye exam: Present: PERRL, conjuntiva pink, sclera anicteric Pupils: Present: PERRL - Neck Neck exam general surgery: Present: supple, trachea midline. Absent: lymphadenopathy - Respiratory Respiratory exam: Present: CTAB. Absent: accessory muscle use, rales, rhonchi, wheezes - Cardiovascular Cardiovascular exam: Present: RRR, +S1, +S2. Absent: diastolic murmur, gallop, rubs, systolic murmur - GI/Abdominal GI/Abdominal exam: Present: normal bowel sounds, soft, no peritoneal signs. Absent: distended, tenderness - Extremities Exam Extremities exam: Present: warm, radial pulses palpable and symmetrical. Absent : calf tenderness, cyanotic, pedal edema - Neurological Exam Neurological exam: Present: CN II-XII intact, oriented X3, no focal deficits. Absent: pronater drift, facial droop, speech deficit - Skin Skin exam: Present: dry, intact Internal Medicine: Result - Labs CBC & Chem 7: 07/15/17 07:05 07/15/17 07:05 Labs: Short CBC 07/15/17 Range/Units 07:05 WBC 7.1 (4.3-11.1) K/mcL Hgb 9.3 L (11.5-15.4) g/dL Hct 26.0 L (35.3-44.9) % Plt Count 228 (140-400) K/mcL Neutrophils # 4.5 (1.6-8.9) K/mcL BMP 07/14/17 07/15/17 13:00 07:05 Sodium 137 141 Potassium 2.4 L* 2.4 L* Chloride 115 H 117 H Carbon Dioxide 18 L 17 L BUN 9 8 Creatinine 0.72 0.70 Glucose 103 91 Calcium 9.4 9.4 - ABG Interpretation ABG results: PT/INR, D-dimer PT 13.2 Seconds (9.4-12.1) H 07/13/17 17:54 Consult Discharge Plan - Plan Referrals: Rishabh,Chio Sarkar CNP [Primary Care Provider] -
[2017-07-15] MEDS: Acetaminophen 325 MG TABLET PO PRN (20:45)
[2017-07-16] MEDS: Sodium Bicarbonate 150 MEQ in D5% in Water 1,000 ML IVC SCH ×3 (05:00→21:07)
--- NOTE | 2017-07-16 05:26 | Electrocardiograph Report ---
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
[2017-07-16 06:09] LABS: Basophils % 0.2 %; Eosinophils # 0.1 K/mcL (0.0-0.6); Eosinophils % 1.3 %; Hematocrit 24.4 % (35.3-44.9); Hemoglobin 8.7 g/dL (11.5-15.4); Immature Granulocytes % 0.6 % (0-4); Immature Platelets 2.8 % (1.1-6.1); Lymphocytes # 1.8 K/mcL (0.6-4.6); Lymphocytes % 29.2 %; Mean Corpuscular HGB Conc 35.7 g/dL (31.6-35.5); Mean Corpuscular Hemoglobin 31.1 pg (28.0-33.3); Mean Corpuscular Volume 87.1 fL (83.0-100.0); Mean Platelet Volume 10.6 fL (9.4-12.4); Monocytes # 0.6 K/mcL (0.0-1.3); Monocytes % 8.8 %; Neutrophils # 3.8 K/mcL (1.6-8.9); Platelet Count 210 K/mcL (140-400); Red Cell Distribution Width 15.5 % (11.5-14.5); Segmented Neutrophils % 59.9 %
[2017-07-16 06:22] LABS: Alanine Aminotransferase 39 Units/L (7-52); Albumin 2.6 g/dL (3.5-5.7); Albumin/Globulin Ratio 0.7 (1.1-2.2); Alkaline Phosphatase 115 Units/L (34-104); Aspartate Amino Transferase 58 Units/L (13-39); BUN/Creatinine Ratio 11 (6-26); Bilirubin,Total 0.5 mg/dL (0.3-1.0); Blood Urea Nitrogen 7 mg/dL (6-20); Calcium 8.4 mg/dL (8.6-10.3); Carbon Dioxide 25 mEq/L (23-29); Chloride 109 mEq/L (98-107); Globulin 3.9 g/dL (2.4-3.5); Glucose 95 mg/dL (70-105); Osmolality,Calculated 294 (280-300); Potassium 2.3 mEq/L (3.5-5.1); Sodium 143 mEq/L (136-145); Total Protein 6.5 g/dL (6.4-8.9); eGFR For African Americans > 60 (> 60); eGFR For Non-African Americans > 60 (> 60)
[2017-07-16] MEDS: FLUoxetine 20 MG CAPSULE PO SCH ×2 (07:13→19:26)
[2017-07-16] MEDS: Loratadine 10 MG TABLET PO SCH (07:13)
[2017-07-16] MEDS: aMILoride 5 MG TABLET PO SCH (07:14)
[2017-07-16] MEDS ORDERED: Potassium Chloride 40 MEQ, Lidocaine 1% 2 ML in D5% in Water 500 ML IVPB SCH (09:00)
--- NOTE | 2017-07-16 09:25 | Nephrology Progress Note ---
Date of Encounter: 07/16/17 Time of Encounter: 08:50 - Assessment and Plan (1) Hypokalemia Current Visit: No Status: Acute normal anion gap metabolic acidosis and hypokalemia with a clinical picture of type I renal tubular acidosis associated with Sjogren syndrome. Remains hypokalemic. Will order 40meq K rider. with repeat K+ level every 4 hours and replace with 40 K rider if < 3.5. Bicarb 25, will decrease bicarb drip 75cc/hr. will continue to monitor (2) Renal tubular acidosis type I Current Visit: No Status: Acute (3) Metabolic acidosis Current Visit: Yes Status: Acute Subjective Interval history: Sitting on edge of bed, breakfast tray at bedside. States not much appetite. Objective - Vital Signs Vital signs: Vital Signs Temp Pulse Resp BP Pulse Ox 07/16/17 06:45 98.8 F 68 14 115/72 98 07/16/17 03:00 98.1 F 62 15 104/65 98 07/15/17 23:19 98.6 F 69 16 91/49 95 07/15/17 18:44 99.4 F 78 16 100/57 100 07/15/17 14:43 99.5 F 72 16 99/58 98 07/15/17 10:41 98.3 F 67 16 106/72 93 Intake and Output 07/15/17 07/16/17 07/16/17 23:59 07:59 15:59 Intake Total 1120 / 1120 Balance 1120 / 1120 Intake: IV Fluids 1000 / 1000 Sodium Bicarbonate 150 MEQ In 1000 / 1000 Dextrose 5% 1,000 ML @ 150 mls/ hr IVC .[id number] [facility] Rx#: [id number] Oral 120 / 120 Other: Meal Dinner Breakfast Percent of Meal Consumed 50% 5% Weight 68 kg Patient Weight 07/16/17 23:59 Weight 68 kg - General Appearance General appearance: Present: well-developed, well-nourished, appears started age EENT: Present: mucous membranes moist Neck: Present: no JVD Respiratory: Present: clear Cardiology: Present: no edema Gastrointestinal: Present: normoactive bowel sounds, no tenderness Integumentary: Present: warm and dry Psychiatric: Present: mood/affect appropriate, cooperative - Lab 07/16/17 05:08 05/10/18 05:08 Most recent lab results Calcium 8.4 mg/dL (8.6-10.3) L 07/16/17 05:08 Magnesium 1.8 mg/dL (1.6-2.6) 07/15/17 07:05 Consult Discharge Plan - Plan Referrals: Chio Keating CNP [Primary Care Provider] -
[2017-07-16] MEDS: D5% in Water 1,000 ML IVC SCH ×2 (10:10→22:35)
[2017-07-16 10:18] LABS: Magnesium 1.6 mg/dL (1.6-2.6); Potassium 2.8 mEq/L (3.5-5.1)
[2017-07-16] MEDS: Potassium Chloride 40 MEQ, Lidocaine 1% 2 ML in D5% in Water 500 ML IVPB PRN ×2 (14:39→19:30)
[2017-07-16] MEDS: Acetaminophen 325 MG TABLET PO PRN (18:12)
--- NOTE | 2017-07-16 18:33 | Internal Med Progress Note ---
Date of Encounter: 07/16/17 Time of Encounter: 11:00 - Assessment and plan (1) Acute encephalopathy Current Visit: Yes Status: Acute Assessment and plan: This has resolved most likely related to metabolic acidosis we will continue to monitor (2) Metabolic acidosis Current Visit: Yes Status: Acute Assessment and plan: patient has h/o- RTA and noted to be on sodium bicarbonate pills at home, doubtful compliant-this is improving bicarbonate is 25 today. Nephrology has seen the patient and has stopped bicarbonate drip converted over to IV D5-we will closely monitor (3) Sjogrens syndrome Current Visit: Yes Status: Chronic Assessment and plan: Patient to follow with rheumatology as outpatient Qualifiers: Sjogren's organ involvement: unspecified organ involvement Qualified Code(s ): M35.00 - Sicca syndrome, unspecified (4) Rheumatoid arthritis Current Visit: Yes Status: Chronic Assessment and plan: Patient to follow with rheumatology as outpatient Qualifiers: Rheumatoid arthritis location: unspecified site Rheumatoid factor presence : unspecified presence Qualified Code(s): M06.9 - Rheumatoid arthritis, unspecified (5) Hypokalemia Current Visit: Yes Status: Acute Assessment and plan: -She remains hypokalemic bicarbonate has improved she will receive K riders and will have potassium checked every 4 hours with standing orders to replace with K rider (6) Chest pain Current Visit: Yes Status: Acute Assessment and plan: nonspecific; EKG changes are noted, which could be due to metabolic abnormality ; repeat EKG does show some ST depression: Did discuss this case with cardiology and reviewed EKG with cardiology nurse practitioner David Mondragon - felt that they were not very concerning given and her potassium is still low.. Advised to monitor and obtain EKG once patient's electrolytes have returned to normal.-A she has not had any chest pain since admission troponins are negative we will continue to monitor Qualifiers: Chest pain type: unspecified Qualified Code(s): R07.9 - Chest pain, unspecified (7) DVT prophylaxis Current Visit: Yes Status: Acute Assessment and plan: Heparin subcutaneous - Time Spent With Patient Total time spent is greater than 50% in coordination of care (as documented) at patient's floor/unit and/or counseling patient: - Subjective Interval history: I examined the patient at bedside. Presently patient is alert and appropriate following simple commands. She denies any pain or discomfort at this time. States she feels much better. I did review treatment plan with patient who verbalized understanding.. - Constitutional Vitals: Temp Pulse Resp BP Pulse Ox 98.2 F 72 14 92/54 97 07/16/17 15:14 07/16/17 15:14 07/16/17 15:14 07/16/17 15:14 07/16/17 15:14 General appearance: Present: A&O X 3, answers questions appropriately - Head Head exam: Present: atraumatic, normocephalic - Eye Eye exam: Present: PERRL, conjuntiva pink, sclera anicteric Pupils: Present: PERRL - Neck Neck exam general surgery: Present: supple, trachea midline. Absent: lymphadenopathy - Respiratory Respiratory exam: Present: CTAB. Absent: accessory muscle use, rales, rhonchi, wheezes - Cardiovascular Cardiovascular exam: Present: RRR, +S1, +S2. Absent: diastolic murmur, gallop, rubs, systolic murmur - GI/Abdominal GI/Abdominal exam: Present: normal bowel sounds, soft, no peritoneal signs. Absent: distended, tenderness - Extremities Exam Extremities exam: Present: warm, radial pulses palpable and symmetrical. Absent : calf tenderness, cyanotic, pedal edema - Neurological Exam Neurological exam: Present: CN II-XII intact, oriented X3, no focal deficits. Absent: pronater drift, facial droop, speech deficit - Skin Skin exam: Present: dry, intact Internal Medicine: Result - Labs CBC & Chem 7: 07/16/17 05:08 07/16/17 17:27 Labs: Short CBC 07/16/17 Range/Units 05:08 WBC 6.3 (4.3-11.1) K/mcL Hgb 8.7 L (11.5-15.4) g/dL Hct 24.4 L (35.3-44.9) % Plt Count 210 (140-400) K/mcL Neutrophils # 3.8 (1.6-8.9) K/mcL BMP 07/16/17 07/16/17 07/16/17 05:08 09:32 13:12 Sodium 143 Potassium 2.3 L* 2.8 L 3.1 L Chloride 109 H Carbon Dioxide 25 BUN 7 Creatinine 0.62 Glucose 95 Calcium 8.4 L 07/16/17 17:27 Sodium Potassium 3.3 L Chloride Carbon Dioxide BUN Creatinine Glucose Calcium Liver Function 07/16/17 Range/Units 05:08 Total Bilirubin 0.5 (0.3-1.0) mg/dL AST 58 H (13-39) Units/L ALT 39 (7-52) Units/L Alkaline Phosphatase 115 H (34-104) Units/L Albumin 2.6 L (3.5-5.7) g/dL - ABG Interpretation ABG results: PT/INR, D-dimer PT 13.2 Seconds (9.4-12.1) H 07/13/17 17:54 - Impressions Impressions Echocardiogram 07/15/17 14:41 Impressions: LVEF 60%. Mild left ventricular diastolic dysfunction. Normal right ventricular structure and function. Mild mitral regurgitation. Mild tricuspid regurgitation. No pulmonary hypertension. Left Ventricular Wall Motion: Rest Echo Findings All wall segments showed normal motion. Findings: Study Quality * Technically adequate exam. ECG Findings * Normal sinus rhythm. Left Ventricle * LVEF 60%. * Normal LV chamber size, wall thickness and function. * Mild left ventricular diastolic dysfunction. Right Ventricle * Normal right ventricular structure and function. Left Atrium * Mildly dilated left atrium. Right Atrium * Normal right atrial size. Mitral Valve * Normal mitral valve structure. * No mitral stenosis. * Mild mitral regurgitation. Aortic Valve * No aortic regurgitation. * Aortic valve not well visualized. * No aortic stenosis. Tricuspid Valve * Tricuspid valve not well visualized. * Mild tricuspid regurgitation. * Estimated RA pressure is 3 mmHg. * Estimated RVSP is 31 mmHg. * No pulmonary hypertension. Pulmonic Valve * Pulmonic valve is not well visualized. * No pulmonic stenosis. * No pulmonic regurgitation. Pulmonary Artery * Pulmonary artery not well visualized. Aorta * Normally sized aortic root. Pericardium * There is no pericardial effusion present. Interatrial Septum * No evidence of PFO by color Doppler. IVC * The IVC is not dilated. Consult Discharge Plan - Plan Referrals: Chio Keating CNP [Primary Care Provider] - 08/04/17 1:45 pm
[2017-07-17 02:02] LABS: BUN/Creatinine Ratio 8 (6-26); Basophils % 0.3 %; Blood Urea Nitrogen 5 mg/dL (6-20); Calcium 8.5 mg/dL (8.6-10.3); Carbon Dioxide 24 mEq/L (23-29); Chloride 114 mEq/L (98-107); Eosinophils # 0.1 K/mcL (0.0-0.6); Eosinophils % 1.6 %; Glucose 106 mg/dL (70-105); Hemoglobin 8.6 g/dL (11.5-15.4); Immature Granulocytes % 0.3 % (0-4); Mean Corpuscular HGB Conc 34.4 g/dL (31.6-35.5); Mean Corpuscular Hemoglobin 30.9 pg (28.0-33.3); Mean Corpuscular Volume 89.9 fL (83.0-100.0); Mean Platelet Volume 10.6 fL (9.4-12.4); Monocytes # 0.6 K/mcL (0.0-1.3); Monocytes % 8.2 %; Neutrophils # 4.3 K/mcL (1.6-8.9); Osmolality,Calculated 288 (280-300); Platelet Count 195 K/mcL (140-400); Potassium 3.7 mEq/L (3.5-5.1); Red Blood Count 2.78 M/mcL (3.82-4.97); Segmented Neutrophils % 61.6 %; Sodium 140 mEq/L (136-145); eGFR For African Americans > 60 (> 60); eGFR For Non-African Americans > 60 (> 60)
[2017-07-17] MEDS: *HR* Heparin 5,000 UNIT/ML VIAL SQ SCH ×2 (05:45→16:59)
[2017-07-17] MEDS: aMILoride 5 MG TABLET PO SCH (07:53)
[2017-07-17] MEDS: FLUoxetine 20 MG CAPSULE PO SCH ×2 (07:53→20:19)
[2017-07-17] MEDS: Loratadine 10 MG TABLET PO SCH (07:53)
--- NOTE | 2017-07-17 09:45 | Nephrology Progress Note ---
Date of Encounter: 07/17/17 Time of Encounter: 09:20 - Assessment and Plan (1) Hypokalemia Current Visit: No Status: Acute normal anion gap metabolic acidosis and hypokalemia with a clinical picture of type I renal tubular acidosis associated with Sjogren syndrome. K 3.7. Will stop IV, start on oral sodium bicarb. Will continue to monitor (2) Renal tubular acidosis type I Current Visit: No Status: Acute (3) Metabolic acidosis Current Visit: Yes Status: Acute Subjective Interval history: Sitting on edge of bed, talking on phone. Objective - Vital Signs Vital signs: Vital Signs Temp Pulse Resp BP Pulse Ox 07/17/17 07:17 98.1 F 61 17 114/70 97 07/17/17 04:03 98.2 F 90 16 114/77 96 07/17/17 00:21 98.1 F 71 14 92/59 96 07/16/17 20:48 75 109/59 07/16/17 19:18 98.8 F 62 14 89/51 93 07/16/17 15:14 98.2 F 72 14 92/54 97 07/16/17 11:12 98.6 F 70 14 93/58 99 Intake and Output 07/16/17 07/17/17 07/17/17 23:59 07:59 15:59 Intake Total 2215 / 2215 Balance 2215 / 2215 Intake: IV Fluids 1875 / 1875 Dextrose 5% 1,000 ML @ 75 mls/ 1000 / 1000 hr IVC .[id number] [facility] Rx#: [id number] KCl 40 MEQ Xylocaine 2 ML In 875 / 875 Dextrose 5% 500 ML @ 130.5 mls/ hr IVPB Q4H PRN Rx#:[id number] Oral 340 / 340 Other: # Voids 1 Weight 65.9 kg Patient Weight 07/17/17 23:59 Weight 65.9 kg - General Appearance General appearance: Present: well-developed, well-nourished, appears started age EENT: Present: mucous membranes moist Neck: Present: no JVD Respiratory: Present: clear Cardiology: Present: no edema, regular rate, regular rhythm Gastrointestinal: Present: normoactive bowel sounds, no tenderness - Lab 07/17/17 01:07 07/17/17 08:50 Most recent lab results Calcium 8.5 mg/dL (8.6-10.3) L 07/17/17 01:07 Magnesium 1.6 mg/dL (1.6-2.6) 07/16/17 09:32 Consult Discharge Plan - Plan Referrals: Chio Keating CNP [Primary Care Provider] - 08/04/17 1:45 pm
--- NOTE | 2017-07-17 11:23 | Internal Med Progress Note ---
Date of Encounter: 07/17/17 Time of Encounter: 11:22 - Assessment and plan (1) Acute encephalopathy Current Visit: Yes Status: Resolved Assessment and plan: This has resolved- most likely related to metabolic acidosis we will continue to monitor (2) Metabolic acidosis Current Visit: Yes Status: Acute Assessment and plan: patient has h/o- RTA and noted to be on sodium bicarbonate pills at home, doubtful compliant- this has resolved. Nephrology has stopped IV in place patient on oral bicarbonate. Continue to monitor electrolytes continues to be stable expect discharge in the a.m. (3) Sjogrens syndrome Current Visit: Yes Status: Chronic Assessment and plan: Patient to follow with rheumatology as outpatient Qualifiers: Sjogren's organ involvement: unspecified organ involvement Qualified Code(s ): M35.00 - Sicca syndrome, unspecified (4) Rheumatoid arthritis Current Visit: Yes Status: Chronic Assessment and plan: Patient to follow with rheumatology as outpatient Qualifiers: Rheumatoid arthritis location: unspecified site Rheumatoid factor presence : unspecified presence Qualified Code(s): M06.9 - Rheumatoid arthritis, unspecified (5) Hypokalemia Current Visit: Yes Status: Acute Assessment and plan: -This has resolved-Bang 3.7-continue with oral supplementation we will continue to monitor if remains stable we will discharge patient in the a.m. (6) Chest pain Current Visit: Yes Status: Acute Assessment and plan: nonspecific; EKG changes are noted, which could be due to metabolic abnormality ; repeat EKG does show some ST depression: Did discuss this case with cardiology and reviewed EKG with cardiology nurse practitioner David Mondragon - felt that they were not very concerning given and her potassium is still low.. Advised to monitor and obtain EKG once patient's electrolytes have returned to normal.-Electrolytes much improved We will recheck EKG in the a.m. Qualifiers: Chest pain type: unspecified Qualified Code(s): R07.9 - Chest pain, unspecified (7) DVT prophylaxis Current Visit: Yes Status: Acute Assessment and plan: Heparin subcutaneous - Time Spent With Patient Total time spent is greater than 50% in coordination of care (as documented) at patient's floor/unit and/or counseling patient: - Subjective Interval history: I examined the patient at bedside. Presently patient is alert and appropriate following simple commands. She denies any pain or discomfort at this time. Metabolic acidosis and hypokalemia have improved. Expect patient to be possibly discharge tomorrow. I did review treatment plan with patient to verbalized understanding. - Constitutional Vitals: Temp Pulse Resp BP Pulse Ox 98.8 F 62 16 111/69 100 07/17/17 11:11 07/17/17 11:11 07/17/17 11:11 07/17/17 11:11 07/17/17 11:11 General appearance: Present: A&O X 3, answers questions appropriately - Head Head exam: Present: atraumatic, normocephalic - Eye Eye exam: Present: PERRL, conjuntiva pink, sclera anicteric Pupils: Present: PERRL - Neck Neck exam general surgery: Present: supple, trachea midline. Absent: lymphadenopathy - Respiratory Respiratory exam: Present: CTAB. Absent: accessory muscle use, rales, rhonchi, wheezes - Cardiovascular Cardiovascular exam: Present: RRR, +S1, +S2. Absent: diastolic murmur, gallop, rubs, systolic murmur - GI/Abdominal GI/Abdominal exam: Present: normal bowel sounds, soft, no peritoneal signs. Absent: distended, tenderness - Extremities Exam Extremities exam: Present: warm, radial pulses palpable and symmetrical. Absent : calf tenderness, cyanotic, pedal edema - Neurological Exam Neurological exam: Present: CN II-XII intact, oriented X3, no focal deficits. Absent: pronater drift, facial droop, speech deficit - Skin Skin exam: Present: dry, intact Internal Medicine: Result - Labs CBC & Chem 7: 07/17/17 01:07 07/17/17 08:50 Labs: Short CBC 07/17/17 Range/Units 01:07 WBC 7.0 (4.3-11.1) K/mcL Hgb 8.6 L (11.5-15.4) g/dL Hct 25.0 L (35.3-44.9) % Plt Count 195 (140-400) K/mcL Neutrophils # 4.3 (1.6-8.9) K/mcL BMP 07/16/17 07/16/17 07/16/17 13:12 17:27 21:28 Sodium Potassium 3.1 L 3.3 L 3.5 Chloride Carbon Dioxide BUN Creatinine Glucose Calcium 07/17/17 07/17/1718 01:07 01:07 05:01 Sodium 140 Potassium 3.6 3.7 3.7 Chloride 114 H Carbon Dioxide 24 BUN 5 L Creatinine 0.66 Glucose 106 H Calcium 8.5 L 07/17/17 08:50 Sodium Potassium 3.7 Chloride Carbon Dioxide BUN Creatinine Glucose Calcium - ABG Interpretation ABG results: PT/INR, D-dimer PT 13.2 Seconds (9.4-12.1) H 07/13/17 17:54 Consult Discharge Plan - Plan Referrals: Chio Keating CNP [Primary Care Provider] - 08/04/17 1:45 pm
[2017-07-17] MEDS: Acetaminophen 325 MG TABLET PO PRN (20:31)
[2017-07-18 01:44] LABS: BUN/Creatinine Ratio 9 (6-26); Blood Urea Nitrogen 6 mg/dL (6-20); Calcium 8.6 mg/dL (8.6-10.3); Carbon Dioxide 22 mEq/L (23-29); Chloride 112 mEq/L (98-107); Glucose 89 mg/dL (70-105); Osmolality,Calculated 285 (280-300); Potassium 3.7 mEq/L (3.5-5.1); Sodium 139 mEq/L (136-145); eGFR For African Americans > 60 (> 60); eGFR For Non-African Americans > 60 (> 60)
[2017-07-18 02:50] LABS: Basophils % 0.3 %; Eosinophils # 0.2 K/mcL (0.0-0.6); Eosinophils % 2.2 %; Hemoglobin 8.3 g/dL (11.5-15.4); Immature Granulocytes % 0.3 % (0-4); Lymphocytes # 1.7 K/mcL (0.6-4.6); Lymphocytes % 24.7 %; Mean Corpuscular HGB Conc 34.6 g/dL (31.6-35.5); Mean Corpuscular Hemoglobin 32.3 pg (28.0-33.3); Mean Corpuscular Volume 93.4 fL (83.0-100.0); Mean Platelet Volume 10.9 fL (9.4-12.4); Monocytes # 0.6 K/mcL (0.0-1.3); Monocytes % 8.1 %; Neutrophils # 4.5 K/mcL (1.6-8.9); Nucleated Red Blood Cells 0.3 /100 WBC (0); Platelet Count 204 K/mcL (140-400); Red Blood Count 2.57 M/mcL (3.82-4.97); Segmented Neutrophils % 64.4 %
[2017-07-18] MEDS: *HR* Heparin 5,000 UNIT/ML VIAL SQ SCH (05:59)
--- NOTE | 2017-07-18 08:38 | Nephrology Progress Note ---
Date of Encounter: 07/18/17 Time of Encounter: 08:10 - Assessment and Plan (1) Hypokalemia Current Visit: No Status: Acute normal anion gap metabolic acidosis and hypokalemia with a clinical picture of type I renal tubular acidosis associated with Sjogren syndrome. K 3.7, holding. On oral sodium bicarb. (2) Renal tubular acidosis type I Current Visit: No Status: Acute (3) Metabolic acidosis Current Visit: Yes Status: Acute Subjective Interval history: Laying in bed, states feeling good, wants to go home. Objective - Vital Signs Vital signs: Vital Signs Temp Pulse Resp BP Pulse Ox 07/18/17 07:30 98.9 F 62 16 122/76 99 07/18/17 02:57 98.5 F 63 16 84/51 97 07/17/17 23:19 97.8 F 64 16 101/68 98 07/17/17 19:08 97.6 F 64 16 136/90 100 07/17/17 15:55 98.2 F 76 17 93/57 97 07/17/17 11:11 98.8 F 62 16 111/69 100 Intake and Output 07/17/17 07/18/17 07/18/17 23:59 07:59 15:59 Intake Total 360 / 360 Output Total 0 / 0 Balance 360 / 360 Intake: Oral 360 / 360 Output: Urine 0 / 0 Other: Meal Dinner Percent of Meal Consumed 95% Weight 66.3 kg Patient Weight 07/18/17 23:59 Weight 66.3 kg - General Appearance General appearance: Present: well-developed, well-nourished, appears started age EENT: Present: mucous membranes moist Neck: Present: no JVD Respiratory: Present: clear Cardiology: Present: no edema, regular rate, regular rhythm Gastrointestinal: Present: normoactive bowel sounds, no tenderness Integumentary: Present: warm and dry Neurologic: Present: alert and oriented x3 - Lab 07/18/17 00:56 07/18/17 05:24 Most recent lab results Calcium 8.6 mg/dL (8.6-10.3) 07/18/17 00:56 Magnesium 1.6 mg/dL (1.6-2.6) 07/16/17 09:32 Consult Discharge Plan - Plan Referrals: Chio Keating CNP [Primary Care Provider] - 08/04/17 1:45 pm
[2017-07-18] MEDS: aMILoride 5 MG TABLET PO SCH (09:50)
[2017-07-18] MEDS: FLUoxetine 20 MG CAPSULE PO SCH (09:50)
[2017-07-18] MEDS: Loratadine 10 MG TABLET PO SCH (09:50)
[2017-07-18 10:45] LABS: Hematocrit 28.7 % (35.3-44.9); Hemoglobin 9.5 g/dL (11.5-15.4)
[2017-07-18 11:06] VITALS: BP 111/55
--- NOTE | 2017-07-18 12:01 | Discharge Summary ---
- NOTES TO OUTPATIENT PROVIDER Notes to Outpatient Provider: Monitor chem 7 - cont potassium and sodium bicarb Orders not resulted at time of discharge: Pending orders 07/18/17 08:25 Occult Blood,Stool [BF] Routine 07/18/17 16:00 H/H [Hemoglobin and Hematocrit] [HEME] Q6H Date of Encounter: 07/18/17 Time of Encounter: 11:56 - Discharge Diagnosis (1) Acute encephalopathy Priority: Primary Status: Resolved (2) Metabolic acidosis Priority: Primary Status: Acute (3) Sjogrens syndrome Priority: Secondary Status: Chronic Qualifiers: Sjogren's organ involvement: unspecified organ involvement Qualified Code(s ): M35.00 - Sicca syndrome, unspecified (4) Rheumatoid arthritis Priority: Secondary Status: Chronic Qualifiers: Rheumatoid arthritis location: unspecified site Rheumatoid factor presence : unspecified presence Qualified Code(s): M06.9 - Rheumatoid arthritis, unspecified (5) Hypokalemia Priority: Primary Status: Acute (6) Chest pain Priority: Secondary Status: Acute Qualifiers: Chest pain type: unspecified Qualified Code(s): R07.9 - Chest pain, unspecified Hospital course: Ms. Ching is a 51 year old female past medical history of autoimmune disorders and RTA . Patient was brought to [facility] ER per family complaints of altered mental status. Patient was confused on presentation lab work was obtained which did show metabolic acidosis with a bicarbonate of 12 and hypokalemia potassium 2.4. She was initiated on bicarbonate drip potassium was replaced IV. Nephrology was consulted lab work was closely monitored patient's neuro status improved. Hemoglobin was 8-9 through the admission she does have a history of anemia and this appears to be her baseline. She was eventually transitioned from IV to oral bicarbonate and oral potassium. She did maintain her electrolytes over the next 2 days. On admission there was some EKG changes which was evaluated by cardiology who suspected this is related to metabolic acidosis/ electrolyte abnormalities. Troponins were negative. Recheck of EKG did show return to baseline. I did advise patient to follow-up with nephrology as well as to continue with home bicarbonate and potassium. Patient does have a history of noncompliance. Patient verbalized understanding. She is hemodynamic be stable at this time and ready for discharge. - Time Spent with Patient Total time spent providing and/or coordinating discharge services: - Discharge Medications Home Medications: HYDROcodone/Acet 10/325 mg [Cordell 10-325 mg] 1 tab PO Q4-6H PRN MDD 5 TABS/ 24HRS 06/28/15 [History] Ibuprofen [Motrin] 800 mg PO Q8HR PRN 06/28/15 [History] Zolpidem [Ambien] 5 mg PO HS PRN 06/28/15 [History] Cetirizine HCl [All Day Allergy] 10 mg PO DAILY 01/02/17 [History] FLUoxetine HCl [Fluoxetine HCl] 40 mg PO BID 01/02/17 [History] Propranolol [Inderal] 20 mg PO BID 01/02/17 [History] Quetiapine Fumarate [Seroquel] 50 mg PO 0600,1200 01/02/17 [History] Quetiapine Fumarate [Seroquel] 100 mg PO HS 01/02/17 [History] Ranitidine HCl [Zantac] 150 mg PO BID PRN 04/20/17 [History] Potassium Chloride 40 meq PO BID #120 tab.er.prt 04/27/17 [Rx] Sodium Bicarbonate 1,300 mg PO BID #60 tablet 04/27/17 [Rx] aMILoride [Midamor] 5 mg PO DAILY #30 tablet 04/27/17 [Rx] hydrOXYzine HCl [Hydroxyzine HCl] 25 mg PO Q8H 05/25/17 [History] Pilocarpine HCl [Salagen] 5 mg PO TID 07/13/17 [History] Sucralfate [Carafate] 10 ml PO BID 07/13/17 [History] Allergies/Adverse Reactions: 3 Allergy/AdvReac Type Severity Reaction Status Date / Time tramadol AdvReac Seizure Verified 07/13/17 19:20 Date of admission: 07/15/17 13:15 Primary care physician: Chio Keating, [facility] Discharging clinician: Vanessa Grimes Anticipated date of discharge: 07/18/17 - Constitutional Vitals: Temp Pulse Resp BP Pulse Ox 98.4 F 62 16 111/55 97 07/18/17 11:01 07/18/17 11:01 07/18/17 11:01 07/18/17 11:01 07/18/17 11:01 General appearance: Present: A&O X 3, answers questions appropriately - Head Head exam: Present: atraumatic, normocephalic - Eye Eye exam: Present: PERRL, conjuntiva pink, sclera anicteric Pupils: Present: PERRL - Neck Neck exam general surgery: Present: supple, trachea midline. Absent: lymphadenopathy - Respiratory Respiratory exam: Present: CTAB. Absent: accessory muscle use, rales, rhonchi, wheezes - Cardiovascular Cardiovascular exam: Present: RRR, +S1, +S2. Absent: diastolic murmur, gallop, rubs, systolic murmur - GI/Abdominal GI/Abdominal exam: Present: normal bowel sounds, soft, no peritoneal signs. Absent: distended, tenderness - Extremities Exam Extremities exam: Present: warm, radial pulses palpable and symmetrical. Absent : calf tenderness, cyanotic, pedal edema - Neurological Exam Neurological exam: Present: CN II-XII intact, oriented X3, no focal deficits. Absent: pronater drift, facial droop, speech deficit - Skin Skin exam: Present: dry, intact - Patient Status Disposition: Home, Self-Care Condition: Fair Overall status at discharge: patient is back to baseline - Discharge Instructions Follow Up With: Chio Keating CNP [Primary Care Provider] - 08/04/17 1:45 pm Guanako Daniels DO [Non-Partnered Physician] -
--- NOTE | 2017-07-20 15:33 | Electrocardiograph Report ---
[address] [address] Test Date: 2017-07-18 Pat Name: Ana Ching Department: 113 Room: 3B32 Gender: F [employer]: : 1965 Requested By: Nivia Camilo Order Number: [id number] Reading MD: Booker Astorga Measurements Intervals [place] Rate: 64 P: 52 [place]: 136 QRS: 33 QRSD: 94 T: 36 QT: 428 QTc: 437 Interpretive Statements SINUS RHYTHM NONSPECIFIC T-WAVE ABNORMALITY Electronically Signed On 07-20-2017 15:31:33 EDT by Booker Astorga
== END 2017-07-18 13:41 | disposition home or self-care (01) | DRG 640 ==
LOC: EMEROO 16:34 → 3BNU 16:34
PROVIDERS: ADMIT Internal Medicine; ATTEND General Practice

== ENCOUNTER 2017-11-02 16:32 | Observation (INO) ==
--- NOTE | 2017-11-02 17:31 | Emergency Department Note ---
Disposition Clinical Impression: Hypokalemia Disposition: Admitted As Inpatient Condition: Fair Time of Disposition: 22:38 General Adult HPI - General Chief complaint: ED Recheck/Abnormal Lab/Rx Stated complaint: low potassium Time Seen by Provider: 11/02/17 16:58 Source: patient Mode of arrival: ambulatory Limitations: no limitations Nursing Notes Reviewed: Yes Vital Signs Reviewed: Yes - History of Present Illness HPI Narrative: Patient is a 52-year-old female with past medical history of Sjogren syndrome since he was department for lab abnormality. The patient states that she has a history of electrolyte abnormalities and states that normally when her potassium is low she begins to become mildly confused does feel slightly weak. States that she also had 2-3 episodes of nausea and vomiting approximately 2-3 days ago. She had labwork done outpatient on Thursday and was called today and told that she has come in for a potassium of 2.6. States this is also on a potassium sparing diuretic and also takes oral supplements however this is always an issue. Denies any other symptoms such as fevers, chills, emesis or nausea at this time, chest pain, shortness of breath or any focal neurological deficits. Pain Scale: 8 - Related Data Home Medications Medication Instructions Recorded Confirmed HYDROcodone/Acet 10/325 mg [Festus 2 tab PO BID PRN MDD 5 TABS/24HRS 06/28/15 10-325 mg] Zolpidem [Ambien] 5 mg PO HS PRN 06/28/15 11/02/17 FLUoxetine HCl [Fluoxetine HCl] 40 mg PO BID 01/02/17 11/02/17 Quetiapine Fumarate [Seroquel] 50 mg PO 0600,1200 01/02/17 11/02/17 Quetiapine Fumarate [Seroquel] 100 mg PO HS 01/02/17 11/02/17 hydrOXYzine HCl [Hydroxyzine HCl] 25 mg PO Q8H PRN 05/25/17 11/02/17 Pilocarpine HCl [Salagen] 5 mg PO TID 07/13/17 11/02/17 Lactulose 20 gm PO QID PRN 11/02/17 11/02/17 Potassium Citrate [Urocit-K] 15 meq PO DAILY 11/02/17 11/02/17 Propranolol [Inderal] 10 mg PO BID 11/02/17 11/02/17 Previous Rx's Medication Instructions Recorded aMILoride [Midamor] 5 mg PO DAILY #30 tablet 04/27/17 Allergies Allergy/AdvReac Type Severity Reaction Status Date / Time tramadol AdvReac Seizure Verified 07/13/17 19:20 All systems ED: reviewed and negative except as stated. Review of Systems: As Per HPI Constitutional: Reports: weakness. Denies: fever, chills Cardiovascular: Denies: chest pain, palpitations, dyspnea on exertion Respiratory: Denies: cough, dyspnea, wheezes Gastrointestinal: Reports: nausea, vomiting. Denies: abdominal pain, diarrhea, constipation, hematemesis Genitourinary: Denies: urgency, dysuria, frequency Musculoskeletal: Denies: back pain, neck pain Past Medical History - Past Medical History Attestation: Yes The following information was validated with the patient. Medical history: Reports: arthritis, RA (sjogren's syndrome), renal disease (RTA ), other Surgical history: Reports: cholecystectomy Psychiatric history: Reports: anxiety, depression [employer] OFFICER history: Reports: non-contributory - Social History Smoking Status: Never smoker Smokeless Tobacco Status: No Alcohol use: Reports: none Drug use: Reports: none, prescription drug abuse Physical Exam CONSTITUTIONAL: Alert and oriented X3, well-nourished, well appearing, in no apparent distress HEAD: Normocephalic; atraumatic. EYES: PERRL, no scleral icterus. NOSE: The nose is normal in appearance without rhinorrhea RESP: Normal chest excursion with respiration; breath sounds clear and equal bilaterally; no wheezes, rhonchi, or rales CARD: Regular rhythm, without murmurs, rub or gallop ABD: Non-distended; non-tender, soft,without rigidity, rebound or guarding SKIN: Normal for age and race; warm and dry; no apparent lesions NEUROLOGICAL: Patient is alert and oriented times three. Cranial nerves III- XII are intact. Sensory and motor functions are intact. Strength is 5/5 for flexion and extension in all 4 extremities. Patellar DTRS are equal and intact. Finger to nose testing is equal and normal bilaterally. Course Course Narrative: Discussed with the patient that plans times to repeat her lab work to make sure that the lab value obtained outpatient was accurate. Patient agrees with this plan. - Reevaluation(s) Reevaluation #1: Patient was found to have a potassium of 2.4. She was ordered 40 mEq of oral as well as IV potassium discussed plan to admit her for continue supplementation of potassium. She did have an EKG done which showed T-wave abnormalities in all leads when compared to her old EKG. She is except as the hospitalist Dr. Cabrales. Vital Signs Temperature 98.3 F 11/02/17 16:52 Pulse Rate 82 11/02/17 16:52 Respiratory Rate 16 11/02/17 16:52 Blood Pressure 117/74 11/02/17 16:52 O2 Sat by Pulse Oximetry 95 11/02/17 16:52 Temperature 97.7 F 11/02/17 20:40 Pulse Rate 63 11/02/17 20:40 Respiratory Rate 18 11/02/17 20:40 Blood Pressure 116/75 11/02/17 20:40 O2 Sat by Pulse Oximetry 99 11/02/17 20:40 Oxygen Delivery Oxygen Delivery Room Air Medical Decision Making - Medical Records Medical records reviewed: Yes I reviewed the patient's medical records. - Lab Data Lab results reviewed: Yes I reviewed the patient's lab results. Result diagrams: 11/02/17 21:41 Lab Results 11/02/17 Range/Units 17:40 Sodium 134 L (136-145) mEq/L Potassium 2.4 L* (3.5-5.1) mEq/L Chloride 113 H (98-107) mEq/L Carbon Dioxide 15 L (23-29) mEq/L BUN 16 (6-20) mg/dL Creatinine 1.15 (0.60-1.20) mg/dL Est GFR ( Amer) > 60 (> 60) Est GFR (Non-Af Amer) 50 L (> 60) BUN/Creatinine Ratio 14 (6-26) Glucose 97 (70-105) mg/dL Calculated Osmolality 279 L (280-300) Calcium 9.0 (8.6-10.3) mg/dL Magnesium 2.0 (1.6-2.6) mg/dL - EKG Data EKG #1 EKG attestation: Yes I reviewed and interpreted this EKG. EKG results narrative: EKG done at its 18:06 shows sinus rhythm at a rate of 54 bpm. Normal axis. SD and QRS within normal limits. Patient does have a mildly prolonged QT at 515. QTC is within normal limits. No signs of ST elevation, ST depression or Q waves present. The patient does have borderline T-wave abnormalities in diffuse leads. These abnormalities are new when compared to the EKG that was done on July 182017. Attestation Statement - Attestation Attestation: I examined this patient and my medical decision-making was reviewed with the Resident Physician, Dr. Toscano. I agree with the documented findings, disposition and treatment plan as described except to the extent set forth below. Patient is a 52-year-old white female who presents to the emergency department after her doctor called her reporting an abnormally low potassium level and recommending she come to the emergency department for evaluation. Patient states she is been incredibly fatigued and she has had low potassium before require replacement and she is in fact on current potassium replacement at home that she is been taking as directed. Patient's on a diuretic that contributes to her symptoms. Patient denies any other associated symptoms at this time is resting comfortably and in no acute distress. I agree with patient's physical exam findings as documented. Vital signs are stable. EKG shows a normal sinus rhythm with some nonspecific T-wave changes but no acute ischemia. This is unchanged from her prior EKG that we have on file. Patient's repeat labs show low potassium at 2.4 and a normal magnesium level. We will plan to replace both orally and IV and admit the patient for continued cardiac monitoring and potassium replacement. He should not agrees with this plan and case was discussed with hospitalist.
[2017-11-02 18:47] LABS: BUN/Creatinine Ratio 14 (6-26); Blood Urea Nitrogen 16 mg/dL (6-20); Carbon Dioxide 15 mEq/L (23-29); Chloride 113 mEq/L (98-107); Glucose 97 mg/dL (70-105); Osmolality,Calculated 279 (280-300); Potassium 2.4 mEq/L (3.5-5.1); Sodium 134 mEq/L (136-145); eGFR For Non-African Americans 50 (> 60)
[2017-11-02] MEDS ORDERED: Potassium Chloride Elixir 20 MEQ/15 ML UDC PO ONE (18:54)
[2017-11-02] MEDS ORDERED: 0.9 % Sodium Chloride 500 ML IVC STA (19:35)
[2017-11-02] MEDS ORDERED: 0.9 % Sodium Chloride 500 ML ONE (19:36)
[2017-11-02] MEDS: 0.9 % Sodium Chloride w KCl 40 MEQ/1,000 ML MLS IVC SCH (22:14)
[2017-11-02 22:22] LABS: Blood Urea Nitrogen 14 mg/dL (6-20); Calcium 8.6 mg/dL (8.6-10.3); Carbon Dioxide 16 mEq/L (23-29); Chloride 115 mEq/L (98-107); Glucose 140 mg/dL (70-105); Osmolality,Calculated 283 (280-300); Potassium 3.1 mEq/L (3.5-5.1); Sodium 135 mEq/L (136-145)
[2017-11-02] MEDS ORDERED: *HR* HYDROcodone/Acet 10/325 mg TABLET PO PRN (23:04)
[2017-11-02 23:40] LABS: BUN/Creatinine Ratio 13 (6-26); eGFR For Non-African Americans 56 (> 60)
[2017-11-03] MEDS ORDERED: Naloxone 0.4 MG/ML INJ IVP PRN (01:13)
[2017-11-03] MEDS ORDERED: *HR* Promethazine 25 MG/ML VIAL IVP PRN (01:17)
--- NOTE | 2017-11-03 03:01 | Internal Med History&Physical ---
Date of Encounter: 11/03/17 Time of Encounter: 00:50 Internal Medicine - H&P: HPI Chief complaint: ABNORMAL LABS Admitted From: Emergency Dept Plans for Post Hospital Care: Home History of present illness: Ms. Ching is a 52 year old female who presents to the ER under the advice of her PCP and correctional substance abuse counselor. She had labs done earlier yesterday which revealed a profound hypokalemia with a potassium level of 2.4. She was reluctant to come to the ER and was hoping to self medicate/correct her hypokalemia at home, but her PCP and her correctional substance abuse counselor advised her to go the ER. Workup in the ER included routine chemistries, which revealed potassium 2.4 and a non-gap acidosis. She was given a dose of oral potassium followed by IV potassium K rider. She was subsequently admitted to the hospitalist service. Upon my assessment of the patient, she feels well and has no complaints. She does state that she has had some protracted nausea and vomiting over the weekend and a few episodes of diarrhea. Diarrhea has resolved, but the vomiting and nausea persisted. She feels better now but she still has some nausea. She denies any fevers, chills, or night sweats. Appetite is improving. She has had some muscle cramps and aches, which are improving with a potassium correction. Past Med Surg Social Fam HX - Past Medical History Attestation: Yes The following information was validated with the patient. Source: patient, old records reviewed Medical history: arthritis, RA (sjogren's syndrome), renal disease (RTA), other Additional medical history: Sjogren's disease, anemia, malnutrition Psychiatric history: anxiety, depression - Past Surgical History Surgical History: cholecystectomy - Social History Smoking Status: Never smoker Smokeless Tobacco Status: No Alcohol use: none Drug use: none, prescription drug abuse Current living situation: Home Activity Level: Independent ambulation Recent Out of Country Travel Within the Last 8 Weeks: No - Family History Mother Hx Family Cancer: Yes (leukemia) Internal Medicine - H&P: Meds HYDROcodone/Acet 10/325 mg [[place] 10-325 mg] 2 tab PO BID PRN MDD 5 TABS/24HRS 06/28/15 [History] Zolpidem [Ambien] 5 mg PO HS PRN 06/28/15 [History] FLUoxetine HCl [Fluoxetine HCl] 40 mg PO BID 01/02/17 [History] Quetiapine Fumarate [Seroquel] 50 mg PO 0600,1200 01/02/17 [History] Quetiapine Fumarate [Seroquel] 100 mg PO HS 01/02/17 [History] aMILoride [Midamor] 5 mg PO DAILY #30 tablet 04/27/17 [Rx] hydrOXYzine HCl [Hydroxyzine HCl] 25 mg PO Q8H PRN 05/25/17 [History] Pilocarpine HCl [Salagen] 5 mg PO TID 07/13/17 [History] Lactulose 20 gm PO QID PRN 11/02/17 [History] Potassium Citrate [Urocit-K] 15 meq PO DAILY 11/02/17 [History] Propranolol [Inderal] 10 mg PO BID 11/02/17 [History] 3 Allergy/AdvReac Type Severity Reaction Status Date / Time tramadol AdvReac Seizure Verified 07/13/17 19:20 - Constitutional Constitutional: no chills, no fever(s), no night sweats - EENT Eyes: no blurry vision, no change in vision Ears: no ear pain, no tinnitus Nose, mouth and throat: no nasal congestion, no nasal discharge, no sore throat - Cardiovascular Cardiovascular ROS IM: no chest pain, no dyspnea, no dyspnea on exertion, no palpitations, no syncope - Respiratory Respiratory: no cough, no dyspnea, no chest congestion, no excessive phlegm production - Gastrointestinal Gastrointestinal: diarrhea, nausea, vomiting, no abdominal pain, no hematemesis , no hematochezia, no melena - Genitourinary Genitourinary: no dysuria, no flank pain, no hematuria - Musculoskeletal Musculoskeletal ROS IM: arthralgias, muscle cramps - Integumentary Integumentary IM: no rash, no jaundice - Neurological Neurological ROS: no dizziness, no focal weakness, no frequent falls, no headache(s) - Psychiatric Psychiatric: no anxiety, no depression - Endocrine Endocrine IM: no polydipsia, no polyuria - Allergic/Immunologic Allergic/Immunologic: GI upset with certain foods - Constitutional Vitals: Temp Pulse Resp BP Pulse Ox 98.7 F 65 16 114/68 95 11/03/17 01:04 11/03/17 01:04 11/03/17 01:04 11/03/17 01:04 11/03/17 01:04 General appearance: Present: cooperative, A&O X 3, pleasant, answers questions appropriately Exam: looks minimally dry - Head Head exam: Present: atraumatic, normal inspection - Eye Eye exam: Present: EOMI, PERRL. Absent: scleral icterus Pupils: Present: normal accommodation - ENT ENT exam: Present: mucous membranes dry, normal exam, normal oropharynx - Neck Neck exam general surgery: Present: full ROM, supple. Absent: tenderness, nuchal rigidity, thyromegaly - Respiratory Respiratory exam: Present: CTAB. Absent: chest wall tenderness, rales, rhonchi , wheezes - Cardiovascular Cardiovascular exam: Present: RRR, +S1, +S2. Absent: diastolic murmur, systolic murmur - GI/Abdominal GI/Abdominal exam: Present: normal bowel sounds, soft. Absent: hepatomegaly, mass, splenomegaly, tenderness - Extremities Exam Extremities exam: Present: normal capillary refill, warm, radial pulses palpable and symmetrical. Absent: calf tenderness, pedal edema, tenderness - Back Exam Back exam: Absent: CVA tenderness (L), CVA tenderness (R) - Neurological Exam Neurological exam: Present: alert, CN II-XII intact, oriented X3, no focal deficits - Psychiatric Psychiatric exam: Present: normal affect, normal mood - Skin Skin exam: Present: dry, intact, warm Internal Med - H&P Results - Labs CBC & Chem 7: 11/02/17 21:41 Labs: BMP 11/02/17 21:41 Sodium 135 L Potassium 3.1 L D Chloride 115 H Carbon Dioxide 16 L BUN 14 Creatinine 1.04 Glucose 140 H Calcium 8.6 - EKG Data -: EKG Interpreted by Myself - EKG Data Prior EKG available for review: no EKG comments: 11/03/17 03:06 Sinus bradycardia; QT 515; no acute St-T changes - Assessment and plan (1) Hypokalemia Current Visit: Yes Status: Acute Assessment and plan: 1. Oral replacement. 2. IVF hydration with potassium replacement. 3. Will trend potassium levels and BMP closely. 4. Monitor on telemetry. (2) RTA (renal tubular acidosis) Current Visit: Yes Status: Suspected Assessment and plan: 1. Patient has a non-gap acidosis and hypokalemia. 2. She follows with nephrology. 3. Will hydrate and replace Potassium. 4. Consult nephrology for assistance. (3) DVT prophylaxis Current Visit: Yes Status: Acute Assessment and plan: 1. Heparin SQ.
[2017-11-03 05:44] LABS: BUN/Creatinine Ratio 13 (6-26); Blood Urea Nitrogen 12 mg/dL (6-20); Carbon Dioxide 13 mEq/L (23-29); Chloride 119 mEq/L (98-107); Glucose 85 mg/dL (70-105); Magnesium 1.8 mg/dL (1.6-2.6); Osmolality,Calculated 281 (280-300); Potassium 3.1 mEq/L (3.5-5.1); Sodium 136 mEq/L (136-145); eGFR For Non-African Americans > 60 (> 60)
[2017-11-03] MEDS ORDERED: Pantoprazole 40 MG VIAL IVP SCH (06:00)
[2017-11-03] MEDS: *HR* Heparin 5,000 UNIT/ML VIAL SQ SCH ×2 (06:25→17:50)
[2017-11-03] MEDS: 0.9 % Sodium Chloride w KCl 40 MEQ/1,000 ML MLS IVC SCH ×2 (07:47→19:45)
[2017-11-03] MEDS: FLUoxetine 20 MG CAPSULE PO SCH ×2 (07:47→21:00)
[2017-11-03] MEDS: *HR* HYDROcodone/Acet 10/325 mg TABLET PO PRN ×2 (07:54→19:49)
--- NOTE | 2017-11-03 11:04 | Nephrology Consult Note ---
Date of Encounter: 11/03/17 Time of Encounter: 10:57 Assessment and Plan (1) Renal tubular acidosis type I Current Visit: No Status: Acute Is currently being managed by Dr. Martin outpatient. Sodium bicarb tabs started today. Midamor and Urocit-K restarted as home medications. Check labs in AM. (2) Hypokalemia Current Visit: No Status: Acute see above. History of Present Illness - Reason for Consult Consult date: 11/03/17 hypokalemia - Chief Complaint low potassium - History of Present Illness Mrs. Ching is a 52 year old female who presented to ED under the direction of PCP and microbiology director. PMH: anxiety, depression, arthritis, RA (sjogren's syndrome), renal disease (RTA). Initial outpatient K was 2.4. She admits to weakness, vomiting, diarrhea, muscle cramps and aches. Denies CP/SOB. She has been seen outpatient by Dr. Martin for RTA type I. Home medications noted for this condition are Midamor and Urocit-K both were restarted and increased today. Sodium Bicarb tabs also started today. Past Med Surg Social Fam HX - Past Medical History Medical history: arthritis, RA (sjogren's syndrome), renal disease (RTA), other Additional medical history: Sjogren's disease, anemia, malnutrition Psychiatric history: anxiety, depression - Past Surgical History Surgical History: cholecystectomy Additional surgical history: Unknown - Social History Smoking Status: Never smoker Smokeless Tobacco Status: No Alcohol use: none Drug use: none, prescription drug abuse - Family History Mother Hx Family Cancer: Yes (leukemia) Medications and Allergies HYDROcodone/Acet 10/325 mg [[place] 10-325 mg] 2 tab PO BID PRN MDD 5 TABS/24HRS 06/28/15 [History] Zolpidem [Ambien] 5 mg PO HS PRN 06/28/15 [History] FLUoxetine HCl [Fluoxetine HCl] 40 mg PO BID 01/02/17 [History] Quetiapine Fumarate [Seroquel] 50 mg PO 0600,1200 01/02/17 [History] Quetiapine Fumarate [Seroquel] 100 mg PO HS 01/02/17 [History] aMILoride [Midamor] 5 mg PO DAILY #30 tablet 04/27/17 [Rx] hydrOXYzine HCl [Hydroxyzine HCl] 25 mg PO Q8H PRN 05/25/17 [History] Pilocarpine HCl [Salagen] 5 mg PO TID 07/13/17 [History] Lactulose 20 gm PO QID PRN 11/02/17 [History] Potassium Citrate [Urocit-K] 15 meq PO DAILY 11/02/17 [History] Propranolol [Inderal] 10 mg PO BID 11/02/17 [History] 3 Allergy/AdvReac Type Severity Reaction Status Date / Time tramadol AdvReac Seizure Verified 07/13/17 19:20 Review of Systems Constitutional: weakness, no chills, no fatigue, no fever(s) Cardiovascular: chest pain, dyspnea, edema Gastrointestinal: diarrhea, nausea, vomiting Exam - Vital Signs Vital signs: Initial Vital Signs Temp Pulse Resp BP Pulse Ox 98.3 F 82 16 117/74 95 11/02/17 16:52 11/02/17 16:52 11/02/17 16:52 11/02/17 16:52 11/02/17 16:52 Vital Signs - Last 8 Hours Temp Pulse Resp BP Pulse Ox 11/03/17 09:15 98.4 F 66 16 117/76 94 11/03/17 07:55 96 11/03/17 05:12 98.0 F 62 16 88/53 96 Intake and Output 11/02/17 11/03/17 11/03/17 23:59 07:59 15:59 Intake Total 200 / 200 1000 / 1000 249 / 249 Output Total 200 / 200 550 / 550 Balance 0 / 0 450 / 450 249 / 249 Intake: IV Fluids 200 / 200 1000 / 1000 249 / 249 KCl 40mEq in 0.9% Sodium 1000 / 1000 249 / 249 Chloride 40 meq In 1,000 ml @ 100 mls/hr IVC .Q10H [facility] Rx#: [id number] Potassium Chloride 10 mEq/100mL 200 / 200 10 meq In 100 ml @ 100 mls/hr IVPB Q1H [facility] Rx#:[id number] Output: Urine 200 / 200 550 / 550 Other: Weight 64.4 kg 64.4 kg Patient Weight 11/03/17 23:59 Weight 64.4 kg - General Appearance General appearance: well-developed, well-nourished EENT: ATNC, hearing intact, vision intact Neck: supple Respiratory: clear Cardiology: no edema, normal S1, normal S2 Gastrointestinal: normoactive bowel sounds, no tenderness, no guarding Integumentary: no rash, warm and dry Neurologic: alert and oriented x3 Psychiatric: mood/affect appropriate, cooperative Results - Lab Results 11/03/17 05:09 Most recent lab results Calcium 8.0 mg/dL (8.6-10.3) L 11/03/17 05:09 Magnesium 1.8 mg/dL (1.6-2.6) 11/03/17 05:09 Consult Discharge Plan - Plan Referrals: Chio Keating PATIENT FINANCIAL ADVOCATE [Primary Care Provider] -
[2017-11-03] MEDS: Potassium Citrate 10 MEQ TABLET.ER PO SCH (15:31)
[2017-11-03] MEDS: aMILoride 5 MG TABLET PO SCH (15:32)
--- NOTE | 2017-11-03 19:02 | Event Note ---
Date of Encounter: 11/03/17 Time of Encounter: 11:00 Patient seen and evaluated by nocturnalist earlier this morning and also by myself. Patient presents with hypokalemia suspect secondary to RTA Continue potassium replacements and nephrology consult and appreciate recommendations.
[2017-11-04] MEDS: *HR* Heparin 5,000 UNIT/ML VIAL SQ SCH (05:07)
[2017-11-04] MEDS: 0.9 % Sodium Chloride w KCl 40 MEQ/1,000 ML MLS IVC SCH (05:07)
[2017-11-04 05:15] LABS: BUN/Creatinine Ratio 12 (6-26); Blood Urea Nitrogen 10 mg/dL (6-20); Calcium 7.8 mg/dL (8.6-10.3); Carbon Dioxide 14 mEq/L (23-29); Chloride 124 mEq/L (98-107); Glucose 72 mg/dL (70-105); Magnesium 1.7 mg/dL (1.6-2.6); Osmolality,Calculated 274 (280-300); Potassium 3.7 mEq/L (3.5-5.1); Sodium 133 mEq/L (136-145); eGFR For Non-African Americans > 60 (> 60)
--- NOTE | 2017-11-04 08:12 | Electrocardiograph Report ---
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
[2017-11-04] MEDS: Potassium Citrate 10 MEQ TABLET.ER PO SCH (09:39)
[2017-11-04] MEDS: aMILoride 5 MG TABLET PO SCH (09:40)
[2017-11-04] MEDS: FLUoxetine 20 MG CAPSULE PO SCH (09:40)
[2017-11-04] MEDS: *HR* HYDROcodone/Acet 10/325 mg TABLET PO PRN (09:47)
--- NOTE | 2017-11-04 11:12 | Nephrology Progress Note ---
Date of Encounter: 11/04/17 Time of Encounter: 09:35 - Assessment and Plan (1) Hypokalemia Status: Acute Improved, and would continue the Amiloride 10mg po daily (she was on just 5mg po daily prior to admission), and the Inc'd UroCit-K at 20mEq po daily, plus continue the NaBicarb 650mg po bid. She'll need a BMP in about 1 week after discharge, in which could be routed to me, and I'll plan to further titrate the these Rx to goal. The pt requested to discharge today. Discussed with the Hospitalist. Thank you. (2) Renal tubular acidosis type I Status: Acute See above. Subjective Principal diagnosis: Hypokalemia Interval history: Pt was s/e earlier today. She reported that her energy levels are much improved and she has been able to walk around the room and to the chair. She did not affirm N/V/D or dizziness upon standing. Objective - Vital Signs Vital signs: Vital Signs Temp Pulse Resp BP Pulse Ox 11/04/17 08:46 113/71 11/04/17 07:49 97.6 F 76 15 87/45 97 11/04/17 03:52 98 F 60 15 87/51 98 11/03/17 23:56 98 F 66 15 97/65 98 11/03/17 18:51 97.8 F 60 15 104/63 100 11/03/17 15:36 97.5 F L 68 16 99/62 98 11/03/17 11:22 98.2 F 64 16 124/81 100 Intake and Output 11/03/17 11/04/17 11/04/17 23:59 07:59 15:59 Intake Total 1540 / 1540 1000 / 1000 380 / 380 Output Total 800 / 800 Balance 740 / 740 1000 / 1000 380 / 380 Intake: IV Fluids 1000 / 1000 1000 / 1000 KCl 40mEq in 0.9% Sodium 1000 / 1000 1000 / 1000 Chloride 40 meq In 1,000 ml @ 100 mls/hr IVC .Q10H [facility] Rx#: [id number] Oral 540 / 540 380 / 380 Output: Urine 800 / 800 Other: Meal Breakfast Percent of Meal Consumed 90% Weight 65.227 kg - General Appearance General appearance: Present: well-developed, well-nourished, appears started age EENT: Present: ATNC, mucous membranes dry Neck: Present: supple Respiratory: Present: clear Cardiology: Present: no edema, regular rate, regular rhythm, normal S1, normal S2 Gastrointestinal: Present: normoactive bowel sounds, no tenderness, no guarding Integumentary: Present: warm and dry Neurologic: Present: no focal deficit, no asterixis, alert and oriented x3 Musculoskeletal: Present: no erythema, no cyanosis Psychiatric: Present: mood/affect appropriate, cooperative - Lab 11/04/17 04:13 Most recent lab results Calcium 7.8 mg/dL (8.6-10.3) L 11/04/17 04:13 Magnesium 1.7 mg/dL (1.6-2.6) 11/04/17 04:13 Consult Discharge Plan - Plan Instructions: Sodium Bicarbonate (By mouth), Potassium Citrate (By mouth) Referrals: Jim Martin DO [Partnered Physician] - 11/19/17 3:00 pm (Please follow up as schedule...) Chio Keating HOSPITAL CHIEF EXECUTIVE OFFICER [Primary Care Provider] - (Office of Chio keating will call patient for an appt....) Prescriptions: aMILoride [Midamor] 10 mg PO DAILY #60 tablet Potassium Citrate [Urocit-K] 20 meq PO DAILY #60 tablet.er Sodium Bicarbonate 650 mg PO BID #120 tablet
[2017-11-04 12:05] VITALS: BP 94/60
--- NOTE | 2017-11-04 12:41 | Discharge Summary ---
- NOTES TO OUTPATIENT PROVIDER Notes to Outpatient Provider: Patient to follow-up with nephrology for monitoring of hypokalemia Date of Encounter: 11/04/17 Time of Encounter: 11:00 - Discharge Diagnosis (1) Hypokalemia Priority: Primary Status: Acute (2) RTA (renal tubular acidosis) Priority: Primary Status: Suspected Hospital course: Patient is a 52-year-old female with past medical history significant for RTA, Sojourn syndrome and mood disorder who presents the ER on 11/02/17 due to low potassium. She had labs done earlier yesterday which revealed a profound hypokalemia with a potassium level of 2.4. She was reluctant to come to the ER and was hoping to self-medicate/correct her hypokalemia at home, but her PCP and her director merit system advised her to go the ER. Workup in the ER included routine chemistries, which revealed potassium 2.4 and a non-gap acidosis. She was given a dose of oral potassium followed by IV potassium K rider. She was subsequently admitted to the hospitalist service. Patients hospital stay her hypokalemia resolved nephrology was consulted with recommendations to increased dose of Amiloride as well as Inc'd UroCit-K at 20mEq po daily, plus continue the NaBicarb 650mg po bid. Patient will follow-up with nephrology as an outpatient. - Time Spent with Patient Total time spent providing and/or coordinating discharge services: - Discharge Medications Prescriptions: aMILoride [Midamor] 10 mg PO DAILY #60 tablet Potassium Citrate [Urocit-K] 20 meq PO DAILY #60 tablet.er Sodium Bicarbonate 650 mg PO BID #120 tablet Home Medications: HYDROcodone/Acet 10/325 mg [[place] 10-325 mg] 2 tab PO BID PRN MDD 5 TABS/24HRS 06/28/15 [History] Zolpidem [Ambien] 5 mg PO HS PRN 06/28/15 [History] FLUoxetine HCl [Fluoxetine HCl] 40 mg PO BID 01/02/17 [History] Quetiapine Fumarate [Seroquel] 50 mg PO 0600,1200 01/02/17 [History] Quetiapine Fumarate [Seroquel] 100 mg PO HS 01/02/17 [History] hydrOXYzine HCl [Hydroxyzine HCl] 25 mg PO Q8H PRN 05/25/17 [History] Pilocarpine HCl [Salagen] 5 mg PO TID 07/13/17 [History] Lactulose 20 gm PO QID PRN 11/02/17 [History] Propranolol [Inderal] 10 mg PO BID 11/02/17 [History] Potassium Citrate [Urocit-K] 20 meq PO DAILY #60 tablet.er 11/04/17 [Rx] Sodium Bicarbonate 650 mg PO BID #120 tablet 11/04/17 [Rx] aMILoride [Midamor] 10 mg PO DAILY #60 tablet 11/04/17 [Rx] Allergies/Adverse Reactions: 3 Allergy/AdvReac Type Severity Reaction Status Date / Time tramadol AdvReac Seizure Verified 07/13/17 19:20 Date of admission: 11/02/17 19:53 Primary care physician: Chio Keating CNP Consults: 11/02/17 22:45 Consult to Nutrition [CONS] Routine Comment: Consulting Provider: NUTRITION Reason for Dietary Consult: MST Score Other:: recent weight loss 11/03/17 01:16 Consult to Physician [CONS] Routine Consulting Provider: Jim Martin Reason for Consult: hypokalemia; RTA Call Completed: No - Constitutional Vitals: Temp Pulse Resp BP Pulse Ox 99.5 F 69 18 94/60 98 11/04/17 12:00 11/04/17 12:00 11/04/17 12:00 11/04/17 12:00 11/04/17 12:00 General appearance: Present: cooperative, A&O X 3, pleasant, no acute distress, answers questions appropriately Exam: As below - Cardiovascular Cardiovascular exam: Present: RRR, +S1, +S2. Absent: diastolic murmur, gallop, rubs, systolic murmur - Patient Status Disposition: Home, Self-Care Condition: Fair - Discharge Instructions Instructions: Sodium Bicarbonate (By mouth), Potassium Citrate (By mouth) Follow Up With: Jim Martin DO [Partnered Physician] - 11/19/17 3:00 pm (Please follow up as schedule...) Chio Keating CNP [Primary Care Provider] - (Office of Chio keating will call patient for an appt....)
--- NOTE | 2017-11-06 10:14 | Electrocardiograph Report ---
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
== END 2017-11-04 14:29 | disposition home or self-care (01) ==
LOC: EMEROOARM 16:32 → 2ANU 16:32 → SUATTDRO 19:53 → 2ANU 20:12
PROVIDERS: ADMIT Pediatrics; ATTEND Hospitalist

== ENCOUNTER 2018-07-09 22:41 | Inpatient (IN) ==
[2018-07-09] MEDS ORDERED: Lactulose Oral Soln 20 GM/30 ML UDC PO ONE (23:03)
--- NOTE | 2018-07-09 23:05 | Emergency Department Note ---
Disposition Clinical Impression: Hypokalemia, Colitis, CALISTA (acute kidney injury), Hypotension Altered mental status Qualifiers: Altered mental status type: unspecified Qualified Code(s): R41.82 - Altered mental status, unspecified LLL pneumonia Qualifiers: Pneumonia type: due to unspecified organism Qualified Code(s): J18.1 - Lobar pneumonia, unspecified organism Disposition: Admitted As Inpatient Condition: Fair Time of Disposition: 05:13 Altered Mental Status HPI - General Chief Complaint: ED Altered Mental Status Stated Complaint: AMS since worse today Time Seen by Provider: 07/09/18 22:48 Source: patient, family Limitations: altered mental status Nursing Notes Reviewed: Yes Vital Signs Reviewed: Yes - History of Present Illness HPI Narrative: 52-year-old female presents emergency department with concern for worsening mental status since . Reports that today she got worse. She did not know where or who she was at the time. Tried to feed her grandson raw hamburger. Family reports that patient acts like this when her ammonia levels get too high. Patient also reporting some right lower quadrant abdominal pain. She reports as sharp in nature, it does not radiate anywhere. Nothing makes it better. - Related Data Home Medications Medication Instructions Recorded Confirmed Zolpidem [Ambien] 5 mg PO HS PRN 06/28/15 07/10/18 FLUoxetine HCl [Fluoxetine HCl] 40 mg PO BID 01/02/17 07/10/18 Quetiapine Fumarate [Seroquel] 50 mg PO 0600,1200 01/02/17 07/10/18 hydrOXYzine HCl [Hydroxyzine HCl] 25 mg PO Q8H PRN 05/25/17 07/10/18 Lactulose 20 gm PO QID PRN 11/02/17 07/10/18 Iron Polysaccharide Complex 07/10/18 OxyCODONE/APAP 5/325 [Percocet 1 each PO Q6HR PRN 07/10/18 07/10/18 5/325 MG] aMILoride [Midamor] 5 mg PO BID 07/10/18 07/10/18 Previous Rx's Medication Instructions Recorded Potassium Citrate [Urocit-K] 20 meq PO DAILY #60 tablet.er 11/04/17 Sodium Bicarbonate 650 mg PO BID #120 tablet 11/04/17 Allergies Allergy/AdvReac Type Severity Reaction Status Date / Time tramadol AdvReac Seizure Verified 07/09/18 22:46 All systems ED: reviewed and negative except as stated. Review of Systems: As Per HPI Constitutional: Denies: fever Cardiovascular: Denies: chest pain Respiratory: Reports: cough. Denies: dyspnea Gastrointestinal: Reports: abdominal pain. Denies: nausea, vomiting, diarrhea, constipation Genitourinary: Denies: urgency, dysuria, frequency Past Medical History - Past Medical History Attestation: Yes The following information was validated with the patient. Medical history: Reports: arthritis, RA, renal disease, other Surgical history: Reports: cholecystectomy Psychiatric history: Reports: anxiety, depression BR[employer] HAND history: Reports: non-contributory - Social History Smoking Status: Never smoker Smokeless Tobacco Status: No Alcohol use: Reports: none Drug use: Reports: none, prescription drug abuse Physical Exam - General Limitations: altered mental status General appearance: alert - Head Head exam: normocephalic - Eye Eye exam: Present: EOMI - ENT ENT exam: mucous membranes dry - Neck Neck exam: Present: trachea midline - Chest Chest inspection: Present: symmetric chest wall rise - Respiratory Respiratory exam: Present: normal lung sounds bilaterally. Absent: respiratory distress, accessory muscle use - Cardiovascular Cardiovascular exam: Present: regular rate, normal rhythm - Abdominal Exam Abdominal exam: Present: soft, tenderness. Absent: distention, guarding, rebound, rigidity Abdominal tenderness: Present: RLQ - Extremities Exam Extremities exam: Present: normal capillary refill - Back Exam Back exam: Present: full ROM - Neurological Exam Neurological exam: Present: alert, oriented X3, other (No focal neurologic deficits, patient mildly confused, asterixis) - Psychiatric Psychiatric exam: Present: normal affect, normal mood - Skin Skin exam: Present: warm, dry, intact Course Vital Signs Temperature 98.7 F 07/09/18 22:46 Pulse Rate 73 07/09/18 22:46 Respiratory Rate 20 07/09/18 22:46 Blood Pressure 112/76 07/09/18 22:46 O2 Sat by Pulse Oximetry 98 07/09/18 22:46 Temperature 98.7 F 07/09/18 22:46 Pulse Rate 67 07/10/18 04:20 Respiratory Rate 20 07/10/18 04:01 Blood Pressure 99/60 07/10/18 04:20 O2 Sat by Pulse Oximetry 98 07/10/18 04:20 Oxygen Delivery Oxygen Delivery Room Air Altered Mental Status - MDM Narrative Medical decision making narrative: 50-year-old female presents emergency department with concern for altered mental status. Patient precluded her from TPA as last known well was over 10 hours prior to arrival to the emergency department. Patient with no focal neurologic deficits, just global confusion. Obtain CT scan of the head which revealed no intracranial abnormality. Chest x-ray reveals left lower lobe pneumonia. CT scan of abdomen and pelvis reveals colitis well. Patient given Zosyn, Flagyl, azithromycin. I guess it was normal initially. Patient's blood pressures became slightly decreased throughout her stay, she is given a liter bolus, blood pressures responded somewhat, patient had a bowel movement and maps less than 65. - Lab Data Result diagrams: 07/09/18 23:18 07/09/18 23:18 Lab Results 07/09/18 07/09/18 07/09/18 Range/Units 23:18 23:18 23:18 WBC 15.2 H (4.3-11.1) K/mcL RBC 3.31 L (3.82-4.97) M/mcL Hgb 9.8 L (11.5-15.4) g/dL Hct 29.6 L (35.3-44.9) % MCV 89.4 (83.0-100.0) fL MCH 29.6 (28.0-33.3) pg MCHC 33.1 (31.6-35.5) g/dL RDW 16.4 H (11.5-14.5) % Plt Count 291 (140-400) K/mcL MPV 9.8 (9.4-12.4) fL Immature Gran % 1.2 (0-4) % Seg Neutrophils % 78.5 % Lymphocytes % 11.2 % Monocytes % 8.3 % Eosinophils % 0.5 % Basophils % 0.3 % Neutrophils # 12.0 H (1.6-8.9) K/mcL Lymphocytes # 1.7 (0.6-4.6) K/mcL Monocytes # 1.3 (0.0-1.3) K/mcL Eosinophils # 0.1 (0.0-0.6) K/mcL Basophils # 0.1 (0.0-0.2) K/mcL PT 16.4 H (9.4-12.1) Seconds INR 1.5 APTT 37.7 H (26.0-36.0) Seconds Sodium 132 L (136-145) mEq/L Potassium 2.5 L* (3.5-5.1) mEq/L Chloride 108 H (98-107) mEq/L Carbon Dioxide 13 L (23-29) mEq/L BUN 16 (6-20) mg/dL Creatinine 1.29 H (0.60-1.20) mg/dL Est GFR ( Amer) 53 L (> 60) Est GFR (Non-Af Amer) 43 L (> 60) BUN/Creatinine Ratio 12 (6-26) Glucose 148 H (70-105) mg/dL Calculated Osmolality 278 L (280-300) Calcium 9.3 (8.6-10.3) mg/dL Magnesium 1.8 (1.6-2.6) mg/dL Total Bilirubin 0.7 (0.3-1.0) mg/dL Direct Bilirubin 0.3 H (0.0-0.2) mg/dL Indirect Bilirubin 0.4 (0.0-1.2) mg/dL AST 62 H (13-39) Units/L ALT 27 (7-52) Units/L Alkaline Phosphatase 213 H (34-104) Units/L Ammonia (16-53) mcmol/L Creatine Kinase 264 H (30-223) Units/L Troponin I 0.03 (< 0.04) ng/mL Serum Total Protein 8.8 (6.4-8.9) g/dL Albumin 3.0 L (3.5-5.7) g/dL Globulin 5.8 H (2.4-3.5) g/dL Albumin/Globulin Ratio 0.5 L (1.1-2.2) TSH 1.379 (0.340-5.600) mcIU/mL Urine Color (Yellow) Urine Clarity (Clear) Urine pH (5.0-8.0) pH Units Ur Specific [place] (1.010-1.025) Urine Protein (Neg-Trace) mg/dL Urine Glucose (UA) (Normal) mg/dL Urine Ketones (Negative) mg/dL Urine Blood (Negative) Urine Nitrite (Negative) Urine Bilirubin (Negative) Urine Urobilinogen (Normal) mg/dL Ur Leukocyte Esterase (Negative) Urine Microscopic RBC (0-3) per hpf Urine Microscopic WBC (0-3) per hpf Ur Squamous Epith Cells (None-Few) per lpf Urine Bacteria (None-Few) per hpf Hyaline Casts (None-Few) per lpf Urine Yeast (None Seen) per hpf Ur Culture Indicated? (NO) Salicylates < 2.5 L (15.0-30.0) mg/dL Urine Opiates Screen (Toamis=949) ng/mL Acetaminophen < 10 L (10-20) mcg/mL Ur Barbiturates Screen (Xcmglp=680) ng/mL Ur Phencyclidine Scrn (Cutoff=25) ng/mL Ur Amphetamines Screen (Uyhhvi=6047) ng/mL U Benzodiazepines Scrn (Gaxndw=056) ng/mL Urine Cocaine Screen (Cutoff= 300) ng/mL U Marijuana (THC) Screen (Cutoff = 50) ng/mL Ur Drug Screen Interp Ethyl Alcohol < 10 (Less than 10) mg/dL 07/09/18 07/10/18 07/10/18 Range/Units 23:18 00:23 00:23 WBC (4.3-11.1) K/mcL RBC (3.82-4.97) M/mcL Hgb (11.5-15.4) g/dL Hct (35.3-44.9) % MCV (83.0-100.0) fL MCH (28.0-33.3) pg MCHC (31.6-35.5) g/dL RDW (11.5-14.5) % Plt Count (140-400) K/mcL MPV (9.4-12.4) fL Immature Gran % (0-4) % Seg Neutrophils % % Lymphocytes % % Monocytes % % Eosinophils % % Basophils % % Neutrophils # (1.6-8.9) K/mcL Lymphocytes # (0.6-4.6) K/mcL Monocytes # (0.0-1.3) K/mcL Eosinophils # (0.0-0.6) K/mcL Basophils # (0.0-0.2) K/mcL PT (9.4-12.1) Seconds INR APTT (26.0-36.0) Seconds Sodium (136-145) mEq/L Potassium (3.5-5.1) mEq/L Chloride (98-107) mEq/L Carbon Dioxide (23-29) mEq/L BUN (6-20) mg/dL Creatinine (0.60-1.20) mg/dL Est GFR ( Amer) (> 60) Est GFR (Non-Af Amer) (> 60) BUN/Creatinine Ratio (6-26) Glucose (70-105) mg/dL Calculated Osmolality (280-300) Calcium (8.6-10.3) mg/dL Magnesium (1.6-2.6) mg/dL Total Bilirubin (0.3-1.0) mg/dL Direct Bilirubin (0.0-0.2) mg/dL Indirect Bilirubin (0.0-1.2) mg/dL AST (13-39) Units/L ALT (7-52) Units/L Alkaline Phosphatase (34-104) Units/L Ammonia 102 H (16-53) mcmol/L Creatine Kinase (30-223) Units/L Troponin I (< 0.04) ng/mL Serum Total Protein (6.4-8.9) g/dL Albumin (3.5-5.7) g/dL Globulin (2.4-3.5) g/dL Albumin/Globulin Ratio (1.1-2.2) TSH (0.340-5.600) mcIU/mL Urine Color Yellow (Yellow) Urine Clarity Cloudy A (Clear) Urine pH 7.0 (5.0-8.0) pH Units Ur Specific [place] 1.008 L (1.010-1.025) Urine Protein 30 H (Neg-Trace) mg/dL Urine Glucose (UA) Normal (Normal) mg/dL Urine Ketones Negative (Negative) mg/dL Urine Blood Moderate H (Negative) Urine Nitrite Negative (Negative) Urine Bilirubin Small H (Negative) Urine Urobilinogen 2.0 H (Normal) mg/dL Ur Leukocyte Esterase Trace H (Negative) Urine Microscopic RBC 30-50 H (0-3) per hpf Urine Microscopic WBC 5-15 H (0-3) per hpf Ur Squamous Epith Cells Many H (None-Few) per lpf Urine Bacteria None Seen (None-Few) per hpf Hyaline Casts Few (None-Few) per lpf Urine Yeast Moderate H (None Seen) per hpf Ur Culture Indicated? YES A (NO) Salicylates (15.0-30.0) mg/dL Urine Opiates Screen Positive H (Hklddg=877) ng/mL Acetaminophen (10-20) mcg/mL Ur Barbiturates Screen Negative (Cuuelg=492) ng/mL Ur Phencyclidine Scrn Negative (Cutoff=25) ng/mL Ur Amphetamines Screen Negative (Byoqve=0001) ng/mL U Benzodiazepines Scrn Negative (Pqpnys=859) ng/mL Urine Cocaine Screen Negative (Cutoff= 300) ng/mL U Marijuana (THC) Screen Negative (Cutoff = 50) ng/mL Ur Drug Screen Interp See Below Ethyl Alcohol (Less than 10) mg/dL - EKG Data EKG attestation: Yes I reviewed and interpreted this EKG. EKG results narrative: 23:19 Heart rate 60 bpm, appearing 140 ms, QRS duration 106 ms, QTC 465 ms, normal axis. Sinus rhythm. There are changes in morphology of the ST segments that may be related to patient's hypokalemia. No ischemic ST changes. TPA Checklist - LKW: 3-4.5 hrs Add. Warnings/Precautions Patient/family understanding: The patient/family members have been counseled and understood the risk, benefit, and alternatives of treatment. Critical Care Time Critical Care Time: Yes Total Critical Care Time: 35 Attestation: Acute altered mental status Attestation Statement - Attestation Attestation: Dr. Lainez note: Patient seen in conjunction with emergency medicine resident Dr. Jourdan Fisher. Please see his charting for complete documentation. I spent [id number] time with the patient and I agree with the patient's treatment and disposition. Patient is functional baseline yesterday. Family at bedside reports more confus ion and less active over the last day. Weak all over and history of liver failure and hypokalemia. Hypotensive in the ER. She is alert to self and place but not time. Close commands without focal neurological signs or symptoms. Blood work and imaging results of been reviewed. I directly supervised placement of the right internal jugular central venous catheter. This was done without complication
[2018-07-09 23:50] LABS: Basophils # 0.1 K/mcL (0.0-0.2); Basophils % 0.3 %; Eosinophils # 0.1 K/mcL (0.0-0.6); Eosinophils % 0.5 %; Hematocrit 29.6 % (35.3-44.9); Hemoglobin 9.8 g/dL (11.5-15.4); Immature Granulocytes % 1.2 % (0-4); Lymphocytes # 1.7 K/mcL (0.6-4.6); Lymphocytes % 11.2 %; Mean Corpuscular HGB Conc 33.1 g/dL (31.6-35.5); Mean Corpuscular Hemoglobin 29.6 pg (28.0-33.3); Mean Corpuscular Volume 89.4 fL (83.0-100.0); Mean Platelet Volume 9.8 fL (9.4-12.4); Monocytes # 1.3 K/mcL (0.0-1.3); Monocytes % 8.3 %; Platelet Count 291 K/mcL (140-400); Red Blood Count 3.31 M/mcL (3.82-4.97); Red Cell Distribution Width 16.4 % (11.5-14.5); Segmented Neutrophils % 78.5 %
[2018-07-09 23:51] LABS: Activated Partial Thrombo Time 37.7 Seconds (26.0-36.0)
[2018-07-10 00:08] LABS: BUN/Creatinine Ratio 12 (6-26); Blood Urea Nitrogen 16 mg/dL (6-20); Carbon Dioxide 13 mEq/L (23-29); Chloride 108 mEq/L (98-107); Potassium 2.5 mEq/L (3.5-5.1); Sodium 132 mEq/L (136-145)
[2018-07-10 00:09] LABS: Acetaminophen < 10 mcg/mL (10-20); Alanine Aminotransferase 27 Units/L (7-52); Albumin/Globulin Ratio 0.5 (1.1-2.2); Alkaline Phosphatase 213 Units/L (34-104); Aspartate Amino Transferase 62 Units/L (13-39); Bilirubin,Direct 0.3 mg/dL (0.0-0.2); Bilirubin,Indirect 0.4 mg/dL (0.0-1.2); Bilirubin,Total 0.7 mg/dL (0.3-1.0); Calcium 9.3 mg/dL (8.6-10.3); Creatine Kinase 264 Units/L (30-223); Ethanol < 10 mg/dL (Less than 10); Globulin 5.8 g/dL (2.4-3.5); Glucose 148 mg/dL (70-105); Osmolality,Calculated 278 (280-300); Salicylate < 2.5 mg/dL (15.0-30.0); Total Protein 8.8 g/dL (6.4-8.9); Troponin I 0.03 ng/mL (< 0.04); eGFR For Non-African Americans 43 (> 60)
[2018-07-10 00:14] LABS: Thyroid Stimulating Hormone 1.379 mcIU/mL (0.340-5.600)
[2018-07-10 00:32] LABS: Bilirubin,Urine Small (Negative); Blood,Urine Moderate (Negative); Clarity,Urine Cloudy (Clear); Color,Urine Yellow (Yellow); Glucose,Urine (UA) Normal (Normal); Ketones,Urine Negative (Negative); Leukocyte Esterase,Urine Trace (Negative); Nitrite,Urine Negative (Negative); Protein,Urine 30 mg/dL (Neg-Trace); Specific Gravity,Urine 1.008 (1.010-1.025)
[2018-07-10 00:33] LABS: Bacteria,Urine None Seen per hpf (None-Few); Hyaline Casts,Urine Few per lpf (None-Few); Squamous Epithelial Cell,Urine Many per lpf (None-Few)
[2018-07-10 00:44] LABS: Amphetamine Screen,Urine Negative ng/mL (Cutoff=1000); Barbiturate Screen,Urine Negative ng/mL (Cutoff=200); Benzodiazepines Screen,Urine Negative ng/mL (Cutoff=200); Cannabinoid Screen,Urine Negative ng/mL (Cutoff = 50); Cocaine Screen,Urine Negative ng/mL (Cutoff= 300); Opiate Screen,Urine Positive ng/mL (Cutoff=300); Phencyclidine Screen,Urine Negative ng/mL (Cutoff=25)
[2018-07-10 00:45] LABS: RBC,Urine 30-50 per hpf (0-3); Yeast,Urine Moderate per hpf (None Seen)
[2018-07-10] MEDS ORDERED: MetroNIDAZOLE 500 MG/100 ML 500 MG/100 ML BAG IVPB ONE (01:00)
[2018-07-10] MEDS ORDERED: Piperacillin/Tazobactam 3.375 GM in 0.9 % Sodium Chloride Mini Bag 100 ML IVPB ONE (01:00)
[2018-07-10] MEDS ORDERED: Azithromycin 500 MG in D5% in Water 250 ML IVPB ONE (01:01)
[2018-07-10 01:13] LABS: INR 1.5; Prothrombin Time 16.4 Seconds (9.4-12.1)
[2018-07-10] MEDS ORDERED: 0.9 % Sodium Chloride 1,000 ML IVC ONE ×2 (01:18→02:32)
[2018-07-10 01:30] LABS: Magnesium 1.8 mg/dL (1.6-2.6)
[2018-07-10] MEDS ORDERED: Potassium Chloride 40 MEQ, Lidocaine 1% 2 ML in D5% in Water 500 ML IVPB ONE (01:30)
[2018-07-10] MEDS ORDERED: *HR* FentaNYL (PF) 100 MCG/2 ML VIAL IVP ONE (01:56)
--- NOTE | 2018-07-10 03:22 | Internal Med History&Physical ---
<Teddy Briscoe - Last Filed: 07/10/18 06:32> Date of Encounter: 07/10/18 Time of Encounter: 03:23 Internal Medicine - H&P: HPI Chief complaint: altered mental status History of present illness: Ms. Ching is a 52 year old female with a past medical history of recurrent hypokalemia, autoimmune disorders like Sjogren syndrome diagnosed in 2001 and rheumatoid arthritis, RTA type 1, HTN, insomnia, anxiety, depression, and stress incontinence who presented to the ED because of change in behaviors. There was no family at the bedside but what I learned from the nurses in the ED was that this afternoon found her to be confused and not be herself. She manifested odd behaviors like trying to feed raw hamburger with taco sauce to her grandson, had left milk outside the Refrigerator. Patient was last admitted to the hospital on 11/03/2017 and sent to the ER on advice of her PCP and neurodiagnostic tech for concerns for profound hypokalemia with a potassium level of 2.4. Patient has had multiple appointments with Dr. Jim Martin for her hy pokalemia but she has not kept up with her appointments. It appears from the the outpatient notes that patient is taking bicarbonate supplement and potassium supplements. She also has a history of abnormal LFTs and has canceled with GI multiple times. She also has a history of elevated ammonia levels during her past admissions and has never been worked up for liver cirrhosis, although concerns have been made for autoimmune hepatitis causing her elevated ammonia levels. Workup in the ED showed patient's white blood count of 15.2, was hypotensive at 93/54. Patient had elevated alkaline phosphatase at 213, AST 162 and ammonia levels were elevated at 102. She also had mildly elevated direct bilirubin at 0.3. There are changes in morphology of the ST segments that may be related to patient's hypokalemia. No ischemic ST changes. She also had elevation in her creatinine of 1.29. Her head CT was negative for any intracranial abnormalities like infarct or hemorrhage. Her chest x-ray was concerning for left total basilar consolidation with concerns for pneumonia. Patient's abdominal CT showed suspected colitis of the Cecum and ascending colon. She received a liter of flow IV fluids , IV Flagyl, Zithromax and Zosyn. She also received 40 mEq of potassium chloride. She was admitted to the hospital for further management Past Med Surg Social Fam HX - Past Medical History Medical history: arthritis, RA, renal disease, other Additional medical history: Sjogren's disease, anemia, malnutrition,pancreatitis , renal tubular abscess Psychiatric history: anxiety, depression - Past Surgical History Surgical History: cholecystectomy Additional surgical history: Unknown - Social History Smoking Status: Never smoker Smokeless Tobacco Status: No Alcohol use: none Drug use: none, prescription drug abuse - Family History Mother Hx Family Cancer: Yes (leukemia) Internal Medicine - H&P: Meds Zolpidem [Ambien] 5 mg PO HS PRN 06/28/15 [History] FLUoxetine HCl [Fluoxetine HCl] 40 mg PO BID 01/02/17 [History] Quetiapine Fumarate [Seroquel] 50 mg PO 0600,1200 01/02/17 [History] hydrOXYzine HCl [Hydroxyzine HCl] 25 mg PO Q8H PRN 05/25/17 [History] Lactulose 20 gm PO QID PRN 11/02/17 [History] Potassium Citrate [Urocit-K] 20 meq PO DAILY #60 tablet.er 11/04/17 [Rx] Sodium Bicarbonate 650 mg PO BID #120 tablet 11/04/17 [Rx] Iron Polysaccharide Complex 07/10/18 [History] OxyCODONE/APAP 5/325 [Percocet 5/325 MG] 1 each PO Q6HR PRN 07/10/18 [History] aMILoride [Midamor] 5 mg PO BID 07/10/18 [History] Allergy/AdvReac Type Severity Reaction Status Date / Time tramadol AdvReac Seizure Verified 07/09/18 22:46 All Systems PM: A 10-system review of systems was performed and is negative for pertinent findings except as documented above in the HPI. - Constitutional Constitutional: no fever(s) - Cardiovascular Cardiovascular ROS IM: no chest pain - Respiratory Respiratory: no dyspnea - Gastrointestinal Gastrointestinal: abdominal pain - Constitutional Vitals: Temp Pulse Resp BP Pulse Ox 98.7 F 66 18 90/50 98 07/09/18 22:46 07/10/18 03:00 07/10/18 03:00 07/10/18 03:00 07/10/18 03:00 Exam: Gen.: Vitals noted. No acute distress. Alert, awake and oriented * 1 (to place) , well developed, well-nourished resting comfortably in bed. Somnolent HEENT: oropharynx clear, Normocephalic, atraumatic, MMM Neck: supple, no JVD, no lymphadenopathy, no carotid bruit. Cardiac: RRR, no murmur, +S1/S2, No BLE edema, PMI non-displaced Pulmonary: Decreased of lung sounds at the left lung base, bilateral wheezing , no rales or rhonchi, equal chest expansion, unlabored breathing Abdomen: RLQ tenderness, non-distended, no guarding. No organomegaly, no pulsatile masses, Skin: warm and dry, no visible lesions. Feels warm, clammy, no rashes, no lesions, no erythema MSK: mild asterixis present, no joint swelling noted, gait not assessed while in bed. Non tender calf or clubbing, no cyanosis/clubbing/ or edema Neuro: A&O, moves all extremities, no focal deficits, sensation intact. Psych: somnolent therefore wasn't able to assess her mentation. Internal Med - H&P Results - Labs CBC & Chem 7: 07/09/18 23:18 07/09/18 23:18 Labs: Short CBC 07/09/18 Range/Units 23:18 WBC 15.2 H (4.3-11.1) K/mcL Hgb 9.8 L (11.5-15.4) g/dL Hct 29.6 L (35.3-44.9) % Plt Count 291 (140-400) K/mcL Neutrophils # 12.0 H (1.6-8.9) K/mcL BMP 07/09/18 23:18 Sodium 132 L Potassium 2.5 L* Chloride 108 H Carbon Dioxide 13 L BUN 16 Creatinine 1.29 H Glucose 148 H Calcium 9.3 Cardiac Enzymes 07/09/18 Range/Units 23:18 Troponin I 0.03 (< 0.04) ng/mL Liver Function 07/09/18 Range/Units 23:18 Total Bilirubin 0.7 (0.3-1.0) mg/dL Direct Bilirubin 0.3 H (0.0-0.2) mg/dL AST 62 H (13-39) Units/L ALT 27 (7-52) Units/L Alkaline Phosphatase 213 H (34-104) Units/L Albumin 3.0 L (3.5-5.7) g/dL Urine 07/10/18 Range/Units 00:23 Urine Color Yellow (Yellow) Urine Clarity Cloudy A (Clear) Urine pH 7.0 (5.0-8.0) pH Units Ur Specific [place] 1.008 L (1.010-1.025) Urine Protein 30 H (Neg-Trace) mg/dL Urine Glucose (UA) Normal (Normal) mg/dL - Impressions ITS Impressions Chest X-Ray 07/09/18 23:03 IMPRESSION: Left basilar consolidation, compatible with pneumonia. That must be followed to resolution. D/ / Hunter Adler MD / Hunter Adler MD Interpreting Provider: Hunter Adler MD Head CT 07/09/18 23:04 IMPRESSION: No acute intracranial abnormality. Pansinusitis. D/ / Harrison Cohen MD / Harrison Cohen MD Interpreting Provider: Harrison Cohen MD Abdomen/Pelvis CT 07/09/18 23:11 IMPRESSION: 1. Suspected colitis of the cecum and ascending colon. There is no evidence to suggest appendicitis. 2. Left upper lobe and left lower lobe airspace disease likely represents pneumonia. Significant secretions in the left lower lobe raise the possibility of aspiration pneumonia. D/ / Harrison Cohen MD / Harrison Cohen MD Interpreting Provider: Harrison Cohen MD - Assessment and Plan (1) Sepsis Current Visit: Yes Status: Suspected Assessment and plan: -Suspected sepsis likely due to left lower lobe pneumonia and colitis -Patient presented to the ED with a blood pressure of 93/54, was afebrile -She had a white blood count of 15.2, with neutrophils of 12 -Patient's CT abdomen shows suspect colitis of the cecum and ascending colon -her chest x-ray showed basilar consolidation compatible with pneumonia -Status post total a liter of IV fluids in the ED. -Patient continued to be hypotensive despite fluids and decision was made to put a central venous catheter for pressor support if needed. -Patient was given Flagyl, Zithromax and Zosyn while in the ED. PLAN: -We will continue with the same combination of antibiotics to cover for what appears to be a comunity acquired pneumonia and colitis -We will start her on Levophed drip if patient is not able to maintain her mean arterial pressure - Legionella and strep pneumo antigen test pending -Sputum and blood cultures are pending -GI panel pending - C Diff PCR pending Qualifiers: Qualified Code(s): A41.9 - Sepsis, unspecified organism (2) Metabolic encephalopathy Current Visit: Yes Status: Acute Assessment and plan: -Likely multifactorial because of suspected sepsis and an elevated ammonia levels of 102. -Patient was found to manifest abnormal behavior as per her since yester afternoon. -Patient's head CT was negative for any intracranial abnormalities. -Patient was found to have left lower consolidation with concerns for pneumonia. -CT was concerning for suspected colitis of the cecum and ascending colon -Physical exam patient was somnolent but she was responsive to verbal commands, was A&O*1 (to place) . PLAN: -Will give NG / Rectal lactulose to reduce the ammonia levels in the body. No PO because of colitis. - Frequent Neuro checks -Continue antibiotics Zosyn, Flagyl and Zithromax to go for enteric microorganisms including atypicals (3) Increased ammonia level Current Visit: Yes Status: Acute Assessment and plan: She has a history of elevated ammonia level. Patient has been told to follow-up with a GI as an outpatient but has not kept up with her appointments Patient has elevated liver chemistries with alkaline phosphatase of 213, AST of 62, and slightly elevated direct bilirubin of 0.3 Given her history of autoimmune diseases, one cannot rule out the possibility of autoimmune hepatitis PLAN: She will continue to be on lactulose via NG tube or rectally for goal of 3-4 bowel movements per day GI will be consulted to undergo the cause of her multiple admissions for elevated ammonia (4) Hypokalemia Current Visit: No Status: Acute Assessment and plan: -Patient presents to the with potassium was 2.5. 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 -On physical exam patient endorses no muscle aches, tingling or numbness. -She was given 40 mEq potassium in the ED -Repeat BMP in the morning and replete potassium as needed PLAN: -Magnesium repletion as needed -Consult nephrology for her recurrent hypo-kalemia (5) Colitis Current Visit: Yes Status: Acute Assessment and plan: Patient so CT of the abdomen showed suspected colitis the cecum and ascending colon She presents to the ED with an elevated white blood count but was afebrile On physical exam she endorsed right lower quadrant abdominal tenderness Currently on Zosyn and Flagyl to cover enteric orgasms -GI panel pending (6) Sjogrens syndrome Current Visit: No Status: Chronic Assessment and plan: Patient has a H f Sjgrans Syndrome diagnsoed in [address] Pimentel as an outpatient Qualifiers: Sjogren's organ involvement: unspecified organ involvement Qualified Code(s): M35.00 - Sicca syndrome, unspecified (7) Hypotension Current Visit: Yes Status: Acute Assessment and plan: Patient presented to the ED with blood pressure 90/60. She received a liter of IV fluids in the ED. Most recent blood pressure is 99/60. Will consider adding pressor support if patient's MAP drops Qualifiers: Hypotension type: unspecified hypotension type Qualified Code(s): I95.9 - Hypotension, unspecified (8) Pneumonia Current Visit: Yes Status: Acute Assessment and plan: Patient is chest x-ray showed consolidation of the left lung base with concerns for pneumonia Presented to the ED with WBC of 14.2, neutrophils of 12 On physical exam she has bilateral wheezes, she also had decreased breath sounds left more than right currently being covered with Zosyn and Zithromax PLAN MRSA swab pending Sputum and blood cultures are pending Will de-escalate antibiotics after culture sensitivities Qualifiers: Qualified Code(s): J18.9 - Pneumonia, unspecified organism (9) Rheumatoid arthritis Current Visit: No Status: Chronic Assessment and plan: Patient has a history of RA Sees Dr. Pimentel as an outpatient. Qualifiers: Rheumatoid arthritis location: unspecified site Rheumatoid factor presence: unspecified presence Qualified Code(s): M06.9 - Rheumatoid arthritis, unspecified (10) HTN (hypertension) Current Visit: Yes Status: Acute Assessment and plan: Patient history of hypertension She presented to the ED and hypotensive state Will hold antihypertensives for now Qualifiers: Qualified Code(s): I10 - Essential (primary) hypertension (11) RTA (renal tubular acidosis) Current Visit: No Status: Suspected Assessment and plan: -She has a history of hypokalemia - Has skipped multiple appointments in the past with Dr. Martin -patient was hydrated and given potassium in the ED -Consult to nephrology for her recurrent hypokalemia (12) DVT prophylaxis Current Visit: No Status: Acute Assessment and plan: Subcutaneous heparin - Time Spent With Patient Total time spent is greater than 50% in coordination of care (as documented) at patient's floor/unit and/or counseling patient: <Jim Diop - Last Filed: 07/10/18 07:49> Date of Encounter: 07/10/18 Internal Medicine - H&P: HPI History of present illness: Ms. Ching is a 52 year old female All Systems PM: A 10-system review of systems was performed and is negative for pertinent findings except as documented above in the HPI. - Constitutional Vitals: Temp Pulse Resp BP Pulse Ox 97.6 F 62 20 91/58 98 07/10/18 05:22 07/10/18 06:00 07/10/18 06:00 07/10/18 06:00 07/10/18 06:00 Internal Med - H&P Results - Labs CBC & Chem 7: 07/09/18 23:18 07/09/18 23:18 Labs: Short CBC 07/09/18 Range/Units 23:18 WBC 15.2 H (4.3-11.1) K/mcL Hgb 9.8 L (11.5-15.4) g/dL Hct 29.6 L (35.3-44.9) % Plt Count 291 (140-400) K/mcL Neutrophils # 12.0 H (1.6-8.9) K/mcL BMP 07/09/18 23:18 Sodium 132 L Potassium 2.5 L* Chloride 108 H Carbon Dioxide 13 L BUN 16 Creatinine 1.29 H Glucose 148 H Calcium 9.3 Cardiac Enzymes 07/09/18 Range/Units 23:18 Troponin I 0.03 (< 0.04) ng/mL Liver Function 07/09/18 Range/Units 23:18 Total Bilirubin 0.7 (0.3-1.0) mg/dL Direct Bilirubin 0.3 H (0.0-0.2) mg/dL AST 62 H (13-39) Units/L ALT 27 (7-52) Units/L Alkaline Phosphatase 213 H (34-104) Units/L Albumin 3.0 L (3.5-5.7) g/dL Urine 07/10/18 Range/Units 00:23 Urine Color Yellow (Yellow) Urine Clarity Cloudy A (Clear) Urine pH 7.0 (5.0-8.0) pH Units Ur Specific [place] 1.008 L (1.010-1.025) Urine Protein 30 H (Neg-Trace) mg/dL Urine Glucose (UA) Normal (Normal) mg/dL - Impressions ITS Impressions Chest X-Ray 07/09/18 23:03 IMPRESSION: Left basilar consolidation, compatible with pneumonia. That must be followed to resolution. D/ / Hunter Adler MD / Hunter Adler MD Interpreting Provider: Hunter Adler MD Head CT 07/09/18 23:04 IMPRESSION: No acute intracranial abnormality. Pansinusitis. D/ / Harrison Cohen MD / Harrison Cohen MD Interpreting Provider: Harrison Cohen MD Abdomen/Pelvis CT 07/09/18 23:11 IMPRESSION: 1. Suspected colitis of the cecum and ascending colon. There is no evidence to suggest appendicitis. 2. Left upper lobe and left lower lobe airspace disease likely represents pneumonia. Significant secretions in the left lower lobe raise the possibility of aspiration pneumonia. D/ / Harrison Cohen MD / Harrison Cohen MD Interpreting Provider: Harrison Cohen MD Chest X-Ray 07/10/18 04:02 IMPRESSION: 1. Right internal jugular central venous catheter tip terminates at the caval atrial junction. 2. Worsening left base opacity and small effusion concerning for infection. 3. New right infrahilar opacity may also represent infection versus atelectasis. D/ / Laura Noguera MD / Laura Noguera MD Interpreting Provider: Laura Noguera MD - Time Spent With Patient Total time spent is greater than 50% in coordination of care (as documented) at patient's floor/unit and/or counseling patient: - Attending Attestation I saw and evaluated the patient. I reviewed the residents note, performed my own physical examination and agree with findings and plan as documented in the residents note. Patient seen and examined on 07/10/18. Patient presented with encephalopathy, possibly due to ammonia level. Patient also has colitis and possible pneumonia. Antibiotics started in the ER. Will also give PO lactulose for elevated ammonia despite colitis. Will send stool for GI panel, but patient has not had a bowel movement since arrival to the ICU. Continue to supplement potassium, monitor for worsening signs of infection. Central line has been placed, but thus far patient's vital signs have been stable.
--- NOTE | 2018-07-10 05:17 | Emergency Department Note ---
Disposition Clinical Impression: Hypokalemia, Colitis, CALISTA (acute kidney injury) Altered mental status Qualifiers: Altered mental status type: unspecified Qualified Code(s): R41.82 - Altered mental status, unspecified LLL pneumonia Qualifiers: Pneumonia type: due to unspecified organism Qualified Code(s): J18.1 - Lobar pneumonia, unspecified organism Hypotension Qualifiers: Hypotension type: unspecified hypotension type Qualified Code(s): I95.9 - Hypotension, unspecified Disposition: Admitted As Inpatient Condition: Fair Altered Mental Status HPI - General Chief Complaint: ED Altered Mental Status Stated Complaint: AMS since Easter worse today Time Seen by Provider: 07/09/18 22:48 Source: patient, family Limitations: altered mental status - History of Present Illness HPI Narrative: This note place for procedure purposes only Patient's blood pressure not respond to fluid boluses as felt appropriate, central line placed. - Related Data Home Medications Medication Instructions Recorded Confirmed Zolpidem [Ambien] 5 mg PO HS PRN 06/28/15 07/11/18 FLUoxetine HCl [Fluoxetine HCl] 40 mg PO BID 01/02/17 07/11/18 Quetiapine Fumarate [Seroquel] 100 mg PO QAM 01/02/17 07/11/18 hydrOXYzine HCl [Hydroxyzine HCl] 25 mg PO AD PRN 05/25/17 07/11/18 Iron Polysaccharide Complex 150 mg PO DAILY 07/10/18 07/11/18 [Ferrex 150] aMILoride [Midamor] 10 mg PO DAILY 07/10/18 07/11/18 HYDROcodone/Acet 10/325 mg [[place] 1 tab PO Q6H PRN 07/11/18 07/11/18 10-325 mg] Lactulose [Enulose] 20 gm PO BID PRN 07/11/18 07/11/18 Potassium Citrate [Urocit-K] 20 meq PO BID 07/11/18 07/11/18 Propranolol [Inderal] 10 mg PO BID 07/11/18 07/11/18 Quetiapine Fumarate [Seroquel] 150 mg PO HS 07/11/18 07/11/18 Sodium Bicarbonate 650 mg PO BID 07/11/18 07/11/18 Allergies Allergy/AdvReac Type Severity Reaction Status Date / Time tramadol AdvReac Seizure Verified 07/11/18 11:08 Constitutional: Denies: fever Cardiovascular: Denies: chest pain Respiratory: Reports: cough. Denies: dyspnea Gastrointestinal: Reports: abdominal pain. Denies: nausea, vomiting, diarrhea, constipation Genitourinary: Denies: urgency, dysuria, frequency Past Medical History - Past Medical History Medical history: Reports: arthritis, RA, renal disease, other Surgical history: Reports: cholecystectomy Psychiatric history: Reports: anxiety, depression [employer] history: Reports: non-contributory - Social History Smoking Status: Never smoker Smokeless Tobacco Status: No Alcohol use: Reports: none Drug use: Reports: none, prescription drug abuse Physical Exam - General Limitations: altered mental status General appearance: alert Course Vital Signs Temperature 98.7 F 07/09/18 22:46 Pulse Rate 73 07/09/18 22:46 Respiratory Rate 20 07/09/18 22:46 Blood Pressure 112/76 07/09/18 22:46 O2 Sat by Pulse Oximetry 98 07/09/18 22:46 Temperature 98.7 F 07/09/18 22:46 Pulse Rate 67 07/10/18 04:20 Respiratory Rate 20 07/10/18 04:01 Blood Pressure 99/60 07/10/18 04:20 O2 Sat by Pulse Oximetry 98 07/10/18 04:20 Oxygen Delivery Oxygen Delivery Room Air Procedures - Central Line Placement Right IJ Central Line Inserted*: Yes Central Line Catheter Replacement*: Yes Central Line Insertion: emergent Consent Obtained: verbal consent Procedural Pause: verify patient name and date of , timeout performed per policy, festus and assess the site, perform hand hygiene Patient Placed on Monitor/Pulse Ox: Yes During the Procedure: clinician is wearing sterile gloves, cap, mask,& gown during insertion, sterile field and sterile technique are maintained, patient's face is covered with drape or mask and wearing a cap, everyone in room is wearing a mask Central Line Prep: Chlorhexidine scrub, sterile drapes applied Prep the Procedure Site: apply chloraprep to the skin using a back and forth scrubbing motion, apply chloraprep for 30 seconds (upper body), 1-2 min (femoral sites), drape the patient with a full body drape Local Anesthetic: lidocaine 1% Ultrasound Used for Placement: Yes Central Line Lumen Inserted: triple Post Procedure: sutured in place, good blood return, all ports aspirated, flushed, capped, sterile dressing applied, guide wire removed and visualized, dressing is dated Patient Tolerated Procedure: well, no complications Complications: none Name of Clinician Inserting Central Line: Dr. Jourdan Emery, Dr. Jeancarlos Lainez, Willi Ramirez, S III Date: 07/10/18 Altered Mental Status - Lab Data Result diagrams: 07/12/18 08:36 07/12/18 19:59 Lab Results 07/09/18 07/09/18 07/09/18 Range/Units 23:18 23:18 23:18 WBC 15.2 H (4.3-11.1) K/mcL RBC 3.31 L (3.82-4.97) M/mcL Hgb 9.8 L (11.5-15.4) g/dL Hct 29.6 L (35.3-44.9) % MCV 89.4 (83.0-100.0) fL MCH 29.6 (28.0-33.3) pg MCHC 33.1 (31.6-35.5) g/dL RDW 16.4 H (11.5-14.5) % Plt Count 291 (140-400) K/mcL MPV 9.8 (9.4-12.4) fL Immature Gran % 1.2 (0-4) % Seg Neutrophils % 78.5 % Lymphocytes % 11.2 % Monocytes % 8.3 % Eosinophils % 0.5 % Basophils % 0.3 % Neutrophils # 12.0 H (1.6-8.9) K/mcL Lymphocytes # 1.7 (0.6-4.6) K/mcL Monocytes # 1.3 (0.0-1.3) K/mcL Eosinophils # 0.1 (0.0-0.6) K/mcL Basophils # 0.1 (0.0-0.2) K/mcL PT 16.4 H (9.4-12.1) Seconds INR 1.5 APTT 37.7 H (26.0-36.0) Seconds Sodium 132 L (136-145) mEq/L Potassium 2.5 L* (3.5-5.1) mEq/L Chloride 108 H (98-107) mEq/L Carbon Dioxide 13 L (23-29) mEq/L BUN 16 (6-20) mg/dL Creatinine 1.29 H (0.60-1.20) mg/dL Est GFR ( Amer) 53 L (> 60) Est GFR (Non-Af Amer) 43 L (> 60) BUN/Creatinine Ratio 12 (6-26) Glucose 148 H (70-105) mg/dL Calculated Osmolality 278 L (280-300) Calcium 9.3 (8.6-10.3) mg/dL Magnesium 1.8 (1.6-2.6) mg/dL Total Bilirubin 0.7 (0.3-1.0) mg/dL Direct Bilirubin 0.3 H (0.0-0.2) mg/dL Indirect Bilirubin 0.4 (0.0-1.2) mg/dL AST 62 H (13-39) Units/L ALT 27 (7-52) Units/L Alkaline Phosphatase 213 H (34-104) Units/L Ammonia (16-53) mcmol/L Creatine Kinase 264 H (30-223) Units/L Troponin I 0.03 (< 0.04) ng/mL Serum Total Protein 8.8 (6.4-8.9) g/dL Albumin 3.0 L (3.5-5.7) g/dL Globulin 5.8 H (2.4-3.5) g/dL Albumin/Globulin Ratio 0.5 L (1.1-2.2) TSH 1.379 (0.340-5.600) mcIU/mL Urine Color (Yellow) Urine Clarity (Clear) Urine pH (5.0-8.0) pH Units Ur Specific [place] (1.010-1.025) Urine Protein (Neg-Trace) mg/dL Urine Glucose (UA) (Normal) mg/dL Urine Ketones (Negative) mg/dL Urine Blood (Negative) Urine Nitrite (Negative) Urine Bilirubin (Negative) Urine Urobilinogen (Normal) mg/dL Ur Leukocyte Esterase (Negative) Urine Microscopic RBC (0-3) per hpf Urine Microscopic WBC (0-3) per hpf Ur Squamous Epith Cells (None-Few) per lpf Urine Bacteria (None-Few) per hpf Hyaline Casts (None-Few) per lpf Urine Yeast (None Seen) per hpf Ur Culture Indicated? (NO) Salicylates < 2.5 L (15.0-30.0) mg/dL Urine Opiates Screen (Lkvcti=744) ng/mL Acetaminophen < 10 L (10-20) mcg/mL Ur Barbiturates Screen (Osnuqc=813) ng/mL Ur Phencyclidine Scrn (Cutoff=25) ng/mL Ur Amphetamines Screen (Rpdxun=9787) ng/mL U Benzodiazepines Scrn (Fjtlbj=268) ng/mL Urine Cocaine Screen (Cutoff= 300) ng/mL U Marijuana (THC) Screen (Cutoff = 50) ng/mL Ur Drug Screen Interp Ethyl Alcohol < 10 (Less than 10) mg/dL 07/09/18 07/10/18 07/10/18 Range/Units 23:18 00:23 00:23 WBC (4.3-11.1) K/mcL RBC (3.82-4.97) M/mcL Hgb (11.5-15.4) g/dL Hct (35.3-44.9) % MCV (83.0-100.0) fL MCH (28.0-33.3) pg MCHC (31.6-35.5) g/dL RDW (11.5-14.5) % Plt Count (140-400) K/mcL MPV (9.4-12.4) fL Immature Gran % (0-4) % Seg Neutrophils % % Lymphocytes % % Monocytes % % Eosinophils % % Basophils % % Neutrophils # (1.6-8.9) K/mcL Lymphocytes # (0.6-4.6) K/mcL Monocytes # (0.0-1.3) K/mcL Eosinophils # (0.0-0.6) K/mcL Basophils # (0.0-0.2) K/mcL PT (9.4-12.1) Seconds INR APTT (26.0-36.0) Seconds Sodium (136-145) mEq/L Potassium (3.5-5.1) mEq/L Chloride (98-107) mEq/L Carbon Dioxide (23-29) mEq/L BUN (6-20) mg/dL Creatinine (0.60-1.20) mg/dL Est GFR ( Amer) (> 60) Est GFR (Non-Af Amer) (> 60) BUN/Creatinine Ratio (6-26) Glucose (70-105) mg/dL Calculated Osmolality (280-300) Calcium (8.6-10.3) mg/dL Magnesium (1.6-2.6) mg/dL Total Bilirubin (0.3-1.0) mg/dL Direct Bilirubin (0.0-0.2) mg/dL Indirect Bilirubin (0.0-1.2) mg/dL AST (13-39) Units/L ALT (7-52) Units/L Alkaline Phosphatase (34-104) Units/L Ammonia 102 H (16-53) mcmol/L Creatine Kinase (30-223) Units/L Troponin I (< 0.04) ng/mL Serum Total Protein (6.4-8.9) g/dL Albumin (3.5-5.7) g/dL Globulin (2.4-3.5) g/dL Albumin/Globulin Ratio (1.1-2.2) TSH (0.340-5.600) mcIU/mL Urine Color Yellow (Yellow) Urine Clarity Cloudy A (Clear) Urine pH 7.0 (5.0-8.0) pH Units Ur Specific [place] 1.008 L (1.010-1.025) Urine Protein 30 H (Neg-Trace) mg/dL Urine Glucose (UA) Normal (Normal) mg/dL Urine Ketones Negative (Negative) mg/dL Urine Blood Moderate H (Negative) Urine Nitrite Negative (Negative) Urine Bilirubin Small H (Negative) Urine Urobilinogen 2.0 H (Normal) mg/dL Ur Leukocyte Esterase Trace H (Negative) Urine Microscopic RBC 30-50 H (0-3) per hpf Urine Microscopic WBC 5-15 H (0-3) per hpf Ur Squamous Epith Cells Many H (None-Few) per lpf Urine Bacteria None Seen (None-Few) per hpf Hyaline Casts Few (None-Few) per lpf Urine Yeast Moderate H (None Seen) per hpf Ur Culture Indicated? YES A (NO) Salicylates (15.0-30.0) mg/dL Urine Opiates Screen Positive H (Cnlhbw=890) ng/mL Acetaminophen (10-20) mcg/mL Ur Barbiturates Screen Negative (Hgzzab=575) ng/mL Ur Phencyclidine Scrn Negative (Cutoff=25) ng/mL Ur Amphetamines Screen Negative (Fqkthn=9362) ng/mL U Benzodiazepines Scrn Negative (Rptaju=387) ng/mL Urine Cocaine Screen Negative (Cutoff= 300) ng/mL U Marijuana (THC) Screen Negative (Cutoff = 50) ng/mL Ur Drug Screen Interp See Below Ethyl Alcohol (Less than 10) mg/dL TPA Checklist - LKW: 3-4.5 hrs Add. Warnings/Precautions Patient/family understanding: The patient/family members have been counseled and understood the risk, benefit, and alternatives of treatment. Attestation Statement - Attestation Attestation: Dr. Lainez note: Patient was seen in conjunction with emergency medicine resident Dr. Jourdan Fisher. Please see his charting for complete documentation. I spent frxn-le-esen time with the patient and I agree with patient's treatment and disposition. Blood pressure improved prior to admission. Offered mental status over the last day. History of same. Family at bedside. No trauma by history or examination. Elevated ammonia level noted. Low potassium noted and replaced. Admitted and stabilized improved condition. I directly supervised the placement of the right internal jugular catheter. Simple line was placed by Dr. Jourdan Fisher without complication.
[2018-07-10] MEDS ORDERED: *HR* Heparin 5,000 UNIT/ML VIAL SQ SCH (06:00)
[2018-07-10] MEDS ORDERED: Lactulose Oral Soln 20 GM/30 ML UDC PO PRN (07:00)
[2018-07-10] MEDS ORDERED: Lactulose Oral Soln 20 GM/30 ML UDC PO ONE (07:00)
[2018-07-10] MEDS ORDERED: 0.9 % Sodium Chloride 1,000 ML IVC SCH (07:30)
[2018-07-10 08:11] LABS: Basophils % 0.2 %; Eosinophils # 0.1 K/mcL (0.0-0.6); Eosinophils % 0.7 %; Hematocrit 25.3 % (35.3-44.9); Immature Granulocytes % 0.7 % (0-4); Lymphocytes % 16.3 %; Mean Corpuscular HGB Conc 32.4 g/dL (31.6-35.5); Mean Corpuscular Hemoglobin 28.9 pg (28.0-33.3); Mean Corpuscular Volume 89.1 fL (83.0-100.0); Mean Platelet Volume 9.8 fL (9.4-12.4); Monocytes # 1.1 K/mcL (0.0-1.3); Monocytes % 9.3 %; Neutrophils # 8.8 K/mcL (1.6-8.9); Platelet Count 247 K/mcL (140-400); Red Blood Count 2.84 M/mcL (3.82-4.97); Red Cell Distribution Width 16.5 % (11.5-14.5); Segmented Neutrophils % 72.8 %
[2018-07-10 08:16] LABS: Hemoglobin 8.2 g/dL (11.5-15.4)
[2018-07-10 08:26] LABS: Alanine Aminotransferase 19 Units/L (7-52); Albumin 2.4 g/dL (3.5-5.7); Albumin/Globulin Ratio 0.5 (1.1-2.2); Alkaline Phosphatase 168 Units/L (34-104); Aspartate Amino Transferase 41 Units/L (13-39); BUN/Creatinine Ratio 12 (6-26); Bilirubin,Total 0.6 mg/dL (0.3-1.0); Blood Urea Nitrogen 12 mg/dL (6-20); Carbon Dioxide 14 mEq/L (23-29); Chloride 114 mEq/L (98-107); Globulin 4.6 g/dL (2.4-3.5); Glucose 85 mg/dL (70-105); Osmolality,Calculated 283 (280-300); Phosphorous 3.3 mg/dL (2.7-4.5); Potassium 2.6 mEq/L (3.5-5.1); Sodium 137 mEq/L (136-145); eGFR For Non-African Americans 57 (> 60)
[2018-07-10] MEDS ORDERED: Potassium Chloride Elixir 20 MEQ/15 ML UDC PO ONE (09:29)
--- NOTE | 2018-07-10 09:29 | Internal Med Progress Note ---
<Wyatt Vazquez S - Last Filed: 07/10/18 12:24> Hospitalist Progress Note - Encounter Date of Encounter: 07/10/18 Time of Encounter: 09:57 - Subjective Interval History: Pt seen at bedside. She still feels very weak. She has no acute complaints or concerns. She is sleepy but denies any chest pain, worsening SOB, N/V/D. She has some minimal abdominal pain in RLQ/LLQ. - Exam Vitals: Temp Pulse Resp BP Pulse Ox 97.8 F 66 20 109/69 99 07/10/18 08:28 07/10/18 08:28 07/10/18 08:28 07/10/18 08:28 07/10/18 08:28 Exam: Gen.: Vitals noted. No acute distress. Alert, awake and oriented * 3 , well developed, well-nourished resting comfortably in bed. Somnolent HEENT: oropharynx clear, Normocephalic, atraumatic, MMM Neck: supple, no JVD, no lymphadenopathy, no carotid bruit. Cardiac: RRR, no murmur, +S1/S2, No BLE edema, PMI non-displaced Pulmonary: Decreased of lung sounds at the left lung base, no wheezing , no rales or rhonchi, equal chest expansion, unlabored breathing Abdomen: RLQ tenderness, non-distended, no guarding. No organomegaly, no pulsatile masses, Skin: warm and dry, no visible lesions. no rashes, no lesions, no erythema MSK: no joint swelling noted, gait not assessed while in bed. Non tender calf or clubbing, no cyanosis/clubbing/ or edema Neuro: A&Ox3, moves all extremities, no focal deficits, sensation intact. Psych: normal affect/mood - Assessment and Plan (1) Sepsis Current Visit: Yes Status: Acute Assessment and Plan: Pt presenting with AMS, hypotension, multiple sources of infxn and hyperammonia - has a hx of Sjorgen's and RTA as detailed below PNA likely CAP, pt not hospitalized in the last 3 mos nor has she received IV abx in last 3 mos, last hospital admission from 11/02/17 XR chest from admission Left basilar consolidation, compatible with pneumonia. CT abd/chestscan on admission showed Suspected colitis of the cecum and ascending colon. There is no evidence to suggest appendicitis. Left upper lobe and left lower lobe airspace disease likely represents pneumonia. Significant secretions in the left lower lobe raise the possibility of aspiration pneumonia. CT head showed pansinusitis UA from admission showed evidence for infxn MRSA swab negative Legionella/strep pneumo negative Meets 1/ SIRS for white count, which was 15.2 on admission, has decreased 12.0 Plan: - continue zithromax, zosyn and flagyl day 1 plan to de-escalate flagyl if c dif negative - stool panel pending - c dif antigen pending - speech consulted to r/o aspiration - continue 125cc/hr IVF - 500cc fluid bolus - FEN: CLD - dispo: admitted to ICU, plan to move out today if BP remains stable and MAP>65 (2) Hypokalemia Current Visit: No Status: Acute Assessment and Plan: Potassium 2.5 on admission, 2.6 this morning - replaced PO with 40mEq x2 - likely secondary to RTA from sjogren's - continue to monitor K, will recheck at 1200 and 1600 - nephrology consulted and will handle replacement (3) Sjogrens syndrome Current Visit: No Status: Chronic Assessment and Plan: Chronic. Managed by Dr. Pimentel as an outpatient. (4) RTA (renal tubular acidosis) Current Visit: No Status: Suspected Assessment and Plan: Hx of hypokalemia in the setting of Sjorgren's syndrome - has skipped multiple appt with nephrology - nephrology consulted (5) Colitis Current Visit: Yes Status: Acute Assessment and Plan: Pt with suspected colitis on abdominal CT scan with mild LLQ/RLQ CT report from admission: Suspected colitis of the cecum and ascending colon. There is no evidence to suggest appendicitis. See above for sepsis. (6) CALISTA (acute kidney injury) Current Visit: Yes Status: Acute Assessment and Plan: Resolved. Creatinine 1.29 on admission, improved to 1.02 today with hydration Continue to monitor renal fxn Likely pre-renal in the setting of poor PO intake and dehydration (7) Hypotension Current Visit: Yes Status: Acute Assessment and Plan: Pt presented with hypotension on admission - CVC inserted, post procedure XR negative for pneumothorax Likely secondary to infxn Plan: - continue IVF 125cc/hr - levophed if MAP<65 , will re-assess BP around 1300 - see plan as above for sepsis (8) Pneumonia Current Visit: Yes Status: Acute Assessment and Plan: CT from admission showed Left upper lobe and left lower lobe airspace disease likely represents pneumonia. Significant secretions in the left lower lobe raise the possibility of aspiration pneumonia. MRSA swab negative Urine anitgens negative Plan: - speech consulted to r/o aspiration - continue azithromycin, zosyn and flagyl day 1 - blood cx pending - sputum cx pending (9) Increased ammonia level Current Visit: Yes Status: Acute Assessment and Plan: Ammonia 102, had mild asterixes on exam as per hospitalist note overnight - no hx of liver dz or alcoholism, US abd negative, no evidence for cirrhosis on CT - will re-check in AM - lactulose QID, I&Os to monitor how many BM, titrate for 3 BM per day (10) HTN (hypertension) Current Visit: No Status: Chronic Assessment and Plan: On amiloride. Will hold home anti HTN due to hypotension. (11) Metabolic encephalopathy Current Visit: Yes Status: Acute Assessment and Plan: Likely secondary to infectious source. PNA, UTI, pansinusitis. (12) DVT prophylaxis Current Visit: No Status: Acute Assessment and Plan: sq heparin switched to SCD (13) Anemia Current Visit: No Status: Chronic Assessment and Plan: Pt does have a baseline hemoglobin, however, has had over a point drop since admission. Hgb this AM 8.2 , admission 9.8 - switch heparin sq to SCD - h&h q6hr - type and screen - transfuse to keep hgb >7 (14) Elevated creatine kinase Current Visit: Yes Status: Acute Assessment and Plan: CK 264, likely related to minor mm injury - unknown if pt had a down time - will re-check in AM, likely to resolve with IVF DVT Prophylaxis: scd - Time Spent with Patient Total time spent is greater than 50% in coordination of care (as documented) at patient's floor/unit and/or counseling patient: 25 - 35 minutes Plan of Care Discussed with: patient Internal Medicine: Result - Labs CBC & Chem 7: 07/10/18 07:52 07/10/18 07:52 Labs: Short CBC 07/09/18 07/10/18 Range/Units 23:18 07:52 WBC 15.2 H 12.0 H (4.3-11.1) K/mcL Hgb 9.8 L 8.2 L D (11.5-15.4) g/dL Hct 29.6 L 25.3 L (35.3-44.9) % Plt Count 291 247 (140-400) K/mcL Neutrophils # 12.0 H 8.8 (1.6-8.9) K/mcL BMP 07/09/18 07/10/18 23:18 07:52 Sodium 132 L 137 Potassium 2.5 L* 2.6 L Chloride 108 H 114 H Carbon Dioxide 13 L 14 L BUN 16 12 Creatinine 1.29 H 1.02 Glucose 148 H 85 Calcium 9.3 8.0 L Cardiac Enzymes 07/09/18 Range/Units 23:18 Troponin I 0.03 (< 0.04) ng/mL Liver Function 07/09/18 07/10/18 Range/Units 23:18 07:52 Total Bilirubin 0.7 0.6 (0.3-1.0) mg/dL Direct Bilirubin 0.3 H (0.0-0.2) mg/dL AST 62 H 41 H (13-39) Units/L ALT 27 19 (7-52) Units/L Alkaline Phosphatase 213 H 168 H (34-104) Units/L Albumin 3.0 L 2.4 L (3.5-5.7) g/dL Urine 07/10/18 Range/Units 00:23 Urine Color Yellow (Yellow) Urine Clarity Cloudy A (Clear) Urine pH 7.0 (5.0-8.0) pH Units Ur Specific [place] 1.008 L (1.010-1.025) Urine Protein 30 H (Neg-Trace) mg/dL Urine Glucose (UA) Normal (Normal) mg/dL - ABG Interpretation ABG results: PT/INR, D-dimer PT 16.4 Seconds (9.4-12.1) H 07/09/18 23:18 - Impressions Impressions Chest X-Ray 07/09/18 23:03 IMPRESSION: Left basilar consolidation, compatible with pneumonia. That must be followed to resolution. D/ / Hunter Adler MD / Hunter Adler MD Interpreting Provider: Hunter Adler MD Head CT 07/09/18 23:04 IMPRESSION: No acute intracranial abnormality. Pansinusitis. D/ / Harrison Cohen MD / Harrison Cohen MD Interpreting Provider: Harrison Cohen MD Abdomen/Pelvis CT 07/09/18 23:11 IMPRESSION: 1. Suspected colitis of the cecum and ascending colon. There is no evidence to suggest appendicitis. 2. Left upper lobe and left lower lobe airspace disease likely represents pneumonia. Significant secretions in the left lower lobe raise the possibility of aspiration pneumonia. D/ / Harrison Cohen MD / Harrison Cohen MD Interpreting Provider: Harrison Cohen MD Chest X-Ray 07/10/18 04:02 IMPRESSION: 1. Right internal jugular central venous catheter tip terminates at the cavoatrial junction. 2. Worsening left base opacity and small effusion concerning for infection. 3. New right infrahilar opacity may also represent infection versus atelectasis. D/ / 07/10/2018 08:58:20 Laura Noguera MD / dale Interpreting Provider: Laura Noguera MD Consult Discharge Plan - Plan Referrals: Chio Keating TRAPPER ANIMAL [Primary Care Provider] - <Arleen Tay - Last Filed: 07/10/18 12:57> Hospitalist Progress Note - Encounter Date of Encounter: 07/10/18 - Exam Vitals: Temp Pulse Resp BP Pulse Ox 98.1 F 73 20 113/72 100 07/10/18 12:02 07/10/18 12:00 07/10/18 12:00 07/10/18 12:00 07/10/18 12:00 - Time Spent with Patient Total time spent is greater than 50% in coordination of care (as documented) at patient's floor/unit and/or counseling patient: Internal Medicine: Result - Labs CBC & Chem 7: 07/10/18 07:52 07/10/18 07:52 Labs: Short CBC 07/09/18 07/10/18 Range/Units 23:18 07:52 WBC 15.2 H 12.0 H (4.3-11.1) K/mcL Hgb 9.8 L 8.2 L D (11.5-15.4) g/dL Hct 29.6 L 25.3 L (35.3-44.9) % Plt Count 291 247 (140-400) K/mcL Neutrophils # 12.0 H 8.8 (1.6-8.9) K/mcL BMP 07/09/18 07/10/18 23:18 07:52 Sodium 132 L 137 Potassium 2.5 L* 2.6 L Chloride 108 H 114 H Carbon Dioxide 13 L 14 L BUN 16 12 Creatinine 1.29 H 1.02 Glucose 148 H 85 Calcium 9.3 8.0 L Cardiac Enzymes 07/09/18 Range/Units 23:18 Troponin I 0.03 (< 0.04) ng/mL Liver Function 07/09/18 07/10/18 Range/Units 23:18 07:52 Total Bilirubin 0.7 0.6 (0.3-1.0) mg/dL Direct Bilirubin 0.3 H (0.0-0.2) mg/dL AST 62 H 41 H (13-39) Units/L ALT 27 19 (7-52) Units/L Alkaline Phosphatase 213 H 168 H (34-104) Units/L Albumin 3.0 L 2.4 L (3.5-5.7) g/dL Urine 07/10/18 Range/Units 00:23 Urine Color Yellow (Yellow) Urine Clarity Cloudy A (Clear) Urine pH 7.0 (5.0-8.0) pH Units Ur Specific [place] 1.008 L (1.010-1.025) Urine Protein 30 H (Neg-Trace) mg/dL Urine Glucose (UA) Normal (Normal) mg/dL - ABG Interpretation ABG results: PT/INR, D-dimer PT 16.4 Seconds (9.4-12.1) H 07/09/18 23:18 - Impressions Impressions Chest X-Ray 07/09/18 23:03 IMPRESSION: Left basilar consolidation, compatible with pneumonia. That must be followed to resolution. D/ / Hunter Adler MD / Hunter Adler MD Interpreting Provider: Hunter Adler MD Head CT 07/09/18 23:04 IMPRESSION: No acute intracranial abnormality. Pansinusitis. D/ / Harrison Cohen MD / Harrison Cohen MD Interpreting Provider: Harrison Cohen MD Abdomen/Pelvis CT 07/09/18 23:11 IMPRESSION: 1. Suspected colitis of the cecum and ascending colon. There is no evidence to suggest appendicitis. 2. Left upper lobe and left lower lobe airspace disease likely represents pneumonia. Significant secretions in the left lower lobe raise the possibility of aspiration pneumonia. D/ / Harrison Cohen MD / Harrison Cohen MD Interpreting Provider: Harrison Cohen MD Chest X-Ray 07/10/18 04:02 IMPRESSION: 1. Right internal jugular central venous catheter tip terminates at the cavoatrial junction. 2. Worsening left base opacity and small effusion concerning for infection. 3. New right infrahilar opacity may also represent infection versus atelectasis. D/ / 07/10/2018 08:58:20 Laura Noguera MD / dale Interpreting Provider: Laura Noguera MD Abdomen Ultrasound 07/10/18 07:29 IMPRESSION: Negative right upper quadrant ultrasound. D/ / Shadi Salinas MD / Shadi Salinas MD Interpreting Provider: Shadi Salinas MD - Attending Attestation I examined this patient and my medical decision-making was reviewed with the Re sident Physician Dr Vazquez. I agree with the documented findings, disposition and treatment plan as described except to the extent set forth below. Ms hancock is admitted to the ICU with sepsis awake, US tech at bedside. Pt appears very somnolent though answers all questions appropriately. Has some cramping abd pain, no n/v. unsure if she's had diarrhea. wasn't taking lactulose at home due to nausea. Denies sob, cough or wheezing. no sputum production. + dysuria, no cva pain. denies fevers or chills. gen- somnolent ,appears stated age eyes- pupils equal round , no scleral icterus cv- reg rate and rhythm, normal s1,s2, no murmurs appreciated, no le edema lungs- ctabl, no wheezing, rhonchi or crackles in ant/lat joel, normal resp effort abd- soft, non tender, non distended, + bs neuro- AAOx3, CN grossly intact, no focal deficits Sepsis 2/2 pna, suspected UTI and colitis, also has pansinusitis -MAPs remain at or below goal with MIVF, repeat bolus and cont to monitor, has CVC and will start pressor if needed after bolus -bl cx, ucx pending, stool cx and c diff pending ct scans reviewed -azithro + zosyn + flagyl Suspected UTI- zosyn LLL pna, organism - attempt to ID organism, cannot rule out aspiration based on CT findings of lower lung, A+ Zosyn, reticle printer eval Pansinusitis- zosyn, no meningitic sxs Colitis- cont flagyl + zosyn while awaiting c diff result, monoitor stool output Encepahlopathy likely infectious + elevated ammonia and electrolyte abnormalitis (etabolic) AAOx3 now, appears resolved No neuro deficits - neuro checks, infectious tx as above, lactulose, elctrolyte repletion Chronic anemia, baseline varies 8-9 or 10-11- no signs of bleeidng- cont to monitor, scds for vte ppx Suspected RTA CALISTA resolved Hypolalemia -nephro consulted, IV repletion, serial checks, i/os Chronic ammonia elevation- cont lacutlose, monitor bms, serial levels further diagnoses and plan as noted by resident <Wyatt Vazquez S - Last Filed: 07/10/18 12:24> (1) Sepsis Qualifiers: Qualified Code(s): A41.9 - Sepsis, unspecified organism (3) Sjogrens syndrome Qualifiers: Sjogren's organ involvement: unspecified organ involvement Qualified Code(s): M35.00 - Sicca syndrome, unspecified (7) Hypotension Qualifiers: Hypotension type: unspecified hypotension type Qualified Code(s): I95.9 - Hypotension, unspecified (8) Pneumonia Qualifiers: Pneumonia type: due to unspecified organism Laterality: left Lung location: upper lobe of lung Qualified Code(s): J18.1 - Lobar pneumonia, unspecified organism (10) HTN (hypertension) Qualifiers: Hypertension type: essential hypertension Qualified Code(s): I10 - Essential (primary) hypertension (13) Anemia Qualifiers: Anemia type: unspecified type Qualified Code(s): D64.9 - Anemia, unspecified
[2018-07-10] MEDS ORDERED: MetroNIDAZOLE 500 MG/100 ML 500 MG/100 ML BAG IVPB SCH (10:00)
[2018-07-10] MEDS ORDERED: 0.9 % Sodium Chloride 500 ML IVC ONE (11:03)
--- NOTE | 2018-07-10 11:09 | Electrocardiograph Report ---
[address] [place] [address] Test Date: 2018-07-09 Pat Name: Ana Ching Department: [id number] Room: [facility] Gender: F Intermediate Card Tender: : 1965 Requested By: Jourdan Emery Order Number: [id number] Reading MD: Adilia Astorga Measurements Intervals [place] Rate: 68 P: 50 WV: 148 QRS: 38 QRSD: 106 T: -78 QT: 465 QTc: 495 Interpretive Statements Sinus rhythm Nonspecific ST-T wave changes, consider ischemia Electronically Signed On 07-10-2018 11:07:50 EDT by Adilia Astorga
--- NOTE | 2018-07-10 11:44 | Nephrology Consult Note ---
Date of Encounter: 07/10/18 Time of Encounter: 12:00 Assessment and Plan (1) Hypokalemia Current Visit: No Status: Acute Needs more aggressive repletion, will arrange Will check urine lytes, osmolality etc Regular diet advised (2) Renal tubular acidosis type I Current Visit: No Status: Acute Needs bicarb resumed (3) Mental status, decreased Current Visit: No Status: Acute Unlikely caused by her chronic electrolyte issues Per primary team, await cultures (4) CALISTA (acute kidney injury) Current Visit: Yes Status: Acute Resolving with fluids likely caused by hypoperfusion Continue volume repletion Continue to hold amiloride History of Present Illness - Reason for Consult Consult date: 07/10/18 Acute Kidney Injury, hypokalemia Requesting physician: Teddy Briscoe - History of Present Illness 52 y o female with PMH of type 1 RTA with recurrent hypokalemia, RA, sjogren's and hTN admitted with altered mental status found very hypotensive. SCr noted at 1.29, improving to 1.02 with fluids. Potassium at 2.5 improving to 2.6 after 80Meq total of potassium. Bicarbonate level noted at 13 improving to 14. Renal consulted to help with RTA management. Pt follows with Dr Martin but noncompliant with followup and meds. Should be taking potassium citrate, sodium bicarb tabs and amiloride. CT shows possible PNA and colitis Past Med Surg Social Fam HX - Past Medical History Medical history: arthritis, coronary artery disease, hypertension, RA, renal disease, other Additional medical history: Sjogren's disease, anemia, malnutrition,pancreatitis , renal tubular acidosis type I, drug overdose,. alcohol intoxification, hypokalemia, diverticulitis, hypercholemic acidosis, hypophosphatemia, shingles,splenic infarct, metabolic encephalopathy,diastolic dysfunction Psychiatric history: anxiety, depression - Past Surgical History Surgical History: cholecystectomy Additional surgical history: Unknown - Social History Smoking Status: Never smoker Smokeless Tobacco Status: No Alcohol use: none Drug use: none, prescription drug abuse - Family History Mother Hx Family Cancer: Yes (leukemia) Medications and Allergies Zolpidem [Ambien] 5 mg PO HS PRN 06/28/15 [History] FLUoxetine HCl [Fluoxetine HCl] 40 mg PO BID 01/02/17 [History] Quetiapine Fumarate [Seroquel] 100 mg PO QAM 01/02/17 [History] hydrOXYzine HCl [Hydroxyzine HCl] 25 mg PO AD PRN 05/25/17 [History] Iron Polysaccharide Complex [Ferrex 150] 150 mg PO DAILY 07/10/18 [History] aMILoride [Midamor] 10 mg PO DAILY 07/10/18 [History] HYDROcodone/Acet 10/325 mg [Premium 10-325 mg] 1 tab PO Q6H PRN 07/11/18 [History] Lactulose [Enulose] 20 gm PO BID PRN 07/11/18 [History] Potassium Citrate [Urocit-K] 20 meq PO BID 07/11/18 [History] Propranolol [Inderal] 10 mg PO BID 07/11/18 [History] Quetiapine Fumarate [Seroquel] 150 mg PO HS 07/11/18 [History] Sodium Bicarbonate 650 mg PO BID 07/11/18 [History] Allergy/AdvReac Type Severity Reaction Status Date / Time tramadol AdvReac Seizure Verified 07/11/18 11:08 Review of Systems All Systems review (narrative): The rest of the systems are negative Constitutional: anorexia (admits), fatigue (admits) Cardiovascular: chest pain (denies), edema (denies) Respiratory: dyspnea (denies) Gastrointestinal: abdominal pain (admits) Exam - Vital Signs Vital signs: Initial Vital Signs Temp Pulse Resp BP Pulse Ox 98.7 F 73 20 112/76 98 07/09/18 22:46 07/09/18 22:46 07/09/18 22:46 07/09/18 22:46 07/09/18 22:46 Vital Signs - Last 8 Hours Temp Pulse Resp BP Pulse Ox 07/10/18 08:28 97.8 F 66 20 109/69 99 07/10/18 07:50 97.8 F 07/10/18 06:00 62 20 91/58 98 07/10/18 05:22 97.6 F 68 22 118/75 98 07/10/18 04:20 67 99/60 98 07/10/18 04:01 65 20 88/56 98 07/10/18 03:52 65 20 95/56 98 Intake and Output 07/09/18 07/10/18 07/10/18 23:59 07:59 15:59 Intake Total 2976 / 2976 Output Total 0 / 0 Balance 2976 / 2976 Intake: IV Fluids 2976 / 2976 0.9 % Sodium Chloride 1,000 ML 1999 / 1999 @ Wide Open IVC .Q0M ONE Rx#: [id number] Zithromax 500 mg In Dextrose 5% 250 / 250 250 ML @ 252 mls/hr IVPB ONCE ONE Rx#:[id number] Magnesium Sulfate 2 GM In 0.9 % 104 / 104 Sodium Chloride 100 ML @ 100 mls/hr IVPB ONCE ONE Rx#: [id number] Flagyl Premix 500 MG/100 ML 500 100 / 100 mg In 100 ml @ 100 mls/hr IVPB ONCE ONE Rx#:[id number] KCl 40 MEQ Xylocaine 2 ML In 522 / 522 Dextrose 5% 500 ML @ 130.5 mls/ hr IVPB ONCE ONE Rx#:[id number] Oral 0 / 0 Output: Urine 0 / 0 Other: # Voids 1 Weight 61.28 kg 58.9 kg Blood Glucose* 102 Patient Weight 07/10/18 23:59 Weight 58.9 kg - General Appearance General appearance: chronically ill, fatigue EENT: ATNC, mucous membranes dry Neck: no JVD, supple Respiratory: course breath sounds Cardiology: no edema, normal S1, normal S2 Gastrointestinal: tenderness (mild, diffuse), no guarding Integumentary: warm and dry Neurologic: no focal deficit Musculoskeletal: no deformities Psychiatric: mood/affect appropriate Results - Lab Results 07/11/18 15:55 07/11/18 15:59 Most recent lab results 07/09/18 07/10/18 23:18 07:52 Calcium 9.3 8.0 L Phosphorus 3.3 Magnesium 1.8 Consult Discharge Plan - Plan Referrals: Chio Keating MANIFEST CLERK [Primary Care Provider] -
[2018-07-10] MEDS: 0.9 % Sodium Chloride 1,000 ML IVC SCH ×3 (11:55→20:40)
[2018-07-10] MEDS: Piperacillin/Tazobactam 3.375 GM in 0.9 % Sodium Chloride Mini Bag 100 ML IVPB SCH ×2 (12:00→20:21)
[2018-07-10] MEDS ORDERED: hydrOXYzine pamoate 25 MG CAPSULE PO PRN (12:26)
[2018-07-10] MEDS ORDERED: *HR* OxyCODONE/APAP 5/325 TABLET PO PRN (12:26)
[2018-07-10 13:02] LABS: Potassium,Urine 59.9 mEq/L; Sodium, Urine 12.8 mEq/L
[2018-07-10 13:12] LABS: Hematocrit 25.3 % (35.3-44.9); Hemoglobin 8.3 g/dL (11.5-15.4)
[2018-07-10] MEDS: Lactulose Oral Soln 20 GM/30 ML UDC PO SCH ×3 (13:40→20:20)
[2018-07-10 15:23] LABS: Adenovirus F 40/41 PCR Not detected (Not detect); Astrovirus PCR Not detected (Not detect); C.difficile Toxin A/B Gene PCR Not detected (Not detect); Campylobacter by PCR Not detected (Not detect); Cryptosporidium by PCR Not detected (Not detect); Cyclospora cayetanensis PCR Not detected (Not detect); E. coli O157 by PCR Not detected (Not detect); Entamoeba histolytica PCR Not detected (Not detect); Enteroaggregative E.coli(EAEC) Not detected (Not detect); Enteropathogenic E.coli(EPEC) Not detected (Not detect); Enterotoxigenic E.coli (ETEC) Not detected (Not detect); Giardia lamblia PCR Not detected (Not detect); Norovirus GI/GII PCR Not detected (Not detect); Plesiomonas shigelloides PCR Not detected (Not detect); Rotavirus A PCR Not detected (Not detect); Salmonella PCR Not detected (Not detect); Sapovirus PCR Not detected (Not detect); Shig/EnteroinvasiveE coli EIEC Not detected (Not detect); Shigalike tox-prod E coli STEC Not detected (Not detect); Vibrio PCR Not detected (Not detect); Vibrio cholerae PCR Not detected (Not detect); Yersinia enterocolitica PCR Not detected (Not detect)
[2018-07-10 17:10] LABS: Hematocrit 24.6 % (35.3-44.9)
[2018-07-10 20:47] LABS: Hematocrit 25.6 % (35.3-44.9); Hemoglobin 8.4 g/dL (11.5-15.4)
[2018-07-10] MEDS ORDERED: FLUoxetine 20 MG CAPSULE PO SCH (21:00)
[2018-07-11] MEDS: Piperacillin/Tazobactam 3.375 GM in 0.9 % Sodium Chloride Mini Bag 100 ML IVPB SCH ×3 (03:08→21:59)
[2018-07-11 03:25] LABS: Hemoglobin 7.9 g/dL (11.5-15.4); Mean Corpuscular HGB Conc 32.9 g/dL (31.6-35.5); Mean Corpuscular Hemoglobin 29.8 pg (28.0-33.3); Mean Corpuscular Volume 90.6 fL (83.0-100.0); Mean Platelet Volume 9.3 fL (9.4-12.4); Platelet Count 215 K/mcL (140-400); Red Blood Count 2.65 M/mcL (3.82-4.97); Red Cell Distribution Width 17.2 % (11.5-14.5)
[2018-07-11 03:45] LABS: BUN/Creatinine Ratio 10 (6-26); Blood Urea Nitrogen 10 mg/dL (6-20); Calcium 7.5 mg/dL (8.6-10.3); Carbon Dioxide 11 mEq/L (23-29); Chloride 121 mEq/L (98-107); Glucose 82 mg/dL (70-105); Osmolality,Calculated 284 (280-300); Potassium 3.2 mEq/L (3.5-5.1); Sodium 138 mEq/L (136-145); eGFR For Non-African Americans > 60 (> 60)
[2018-07-11] MEDS: 0.9 % Sodium Chloride 1,000 ML IVC SCH ×3 (04:38→15:41)
[2018-07-11] MEDS ORDERED: Azithromycin 500 MG in D5% in Water 250 ML IVPB SCH (05:00)
[2018-07-11] MEDS ORDERED: *HR* OxyCODONE/APAP 5/325 TABLET PO PRN (07:26)
[2018-07-11] MEDS ORDERED: hydrOXYzine pamoate 25 MG CAPSULE PO PRN (07:26)
--- NOTE | 2018-07-11 07:30 | Internal Med Progress Note ---
<Wyatt Vazquez S - Last Filed: 07/11/18 12:09> Hospitalist Progress Note - Encounter Date of Encounter: 07/11/18 Time of Encounter: 12:09 - Subjective Interval History: Pt seen at bedside. No acute complaint or concern. She is tolerating CLD. - Exam Vitals: Temp Pulse Resp BP Pulse Ox 98.2 F 64 17 108/59 99 07/10/18 23:47 07/11/18 06:00 07/11/18 06:00 07/11/18 06:00 07/11/18 06:00 Exam: Gen.: Vitals noted. No acute distress. Alert, awake and oriented * 3 , well developed, well-nourished resting comfortably in bed. Somnolent HEENT: oropharynx clear, Normocephalic, atraumatic, MMM Neck: supple, no JVD, no lymphadenopathy, no carotid bruit. Cardiac: RRR, no murmur, +S1/S2, No BLE edema, PMI non-displaced Pulmonary: Decreased of lung sounds at the left lung base, no wheezing , no rales or rhonchi, equal chest expansion, unlabored breathing Abdomen: RLQ tenderness, non-distended, no guarding. No organomegaly, no pulsatile masses, Skin: warm and dry, no visible lesions. no rashes, no lesions, no erythema MSK: no joint swelling noted, gait not assessed while in bed. Non tender calf or clubbing, no cyanosis/clubbing/ or edema Neuro: A&Ox3, moves all extremities, no focal deficits, sensation intact. Psych: normal affect/mood - Assessment and Plan (1) Sepsis Current Visit: Yes Status: Acute Assessment and Plan: Pt presenting with AMS, hypotension, multiple sources of infxn and hyperammonia - has a hx of Sjorgen's and RTA as detailed below PNA likely CAP, pt not hospitalized in the last 3 mos nor has she received IV abx in last 3 mos, last hospital admission from 11/02/17 XR chest from admission Left basilar consolidation, compatible with pneumonia. CT abd/chestscan on admission showed Suspected colitis of the cecum and ascending colon. There is no evidence to suggest appendicitis. Left upper lobe and left lower lobe airspace disease likely represents pneumonia. Significant secretions in the left lower lobe raise the possibility of aspiration pneumonia. CT head showed pansinusitis UA from admission showed evidence for infxn MRSA swab negative Legionella negative Strep pneumo antigen (+) Currently does not meet SIRS critera; has resolved Plan: - continue zithromax, zosyn day 2 flagyl d/c on 07/10 (c dif negative) - stool panel pending - c dif antigen pending - speech consulted to r/o aspiration - continue 125cc/hr IVF - FEN: CLD - dispo: admitted to ICU, plan to move out today if BP remains stable and MAP>65 (2) Hypokalemia Current Visit: No Status: Acute Assessment and Plan: Potassium 2.5 on admission, 3.3 this morning - likely secondary to RTA from sjogren's - continue to monitor K - nephrology consulted and will handle replacement ; awaiting recommendations (3) Sjogrens syndrome Current Visit: No Status: Chronic Assessment and Plan: Chronic. Managed by Dr. Pimentel as an outpatient. (4) RTA (renal tubular acidosis) Current Visit: No Status: Suspected Assessment and Plan: Hx of hypokalemia in the setting of Sjorgren's syndrome - has skipped multiple appt with nephrology - nephrology consulted, recommendations appreciated pt takes sodium bicarb and amiloride K sparing agent as an outpatient (5) Colitis Current Visit: Yes Status: Acute Assessment and Plan: Pt with suspected colitis on abdominal CT scan with mild LLQ/RLQ CT report from admission: Suspected colitis of the cecum and ascending colon. There is no evidence to suggest appendicitis. Stool panel negative, c dif negative. See above for sepsis. (6) CALISTA (acute kidney injury) Current Visit: Yes Status: Acute Assessment and Plan: Resolved. Creatinine 1.29 on admission, improved to 1.02 on 07/10, and 0.96 today with hydration Continue to monitor renal fxn Likely pre-renal in the setting of poor PO intake and dehydration (7) Hypotension Current Visit: Yes Status: Acute Assessment and Plan: Pt presented with hypotension on admission - CVC inserted, post procedure XR negative for pneumothorax Likely secondary to infxn Plan: - continue IVF 125cc/hr - levophed or ?midodrine if MAP<65 , will re-assess BP around 1300 - see plan as above for sepsis (8) Pneumonia Current Visit: Yes Status: Acute Assessment and Plan: CT from admission showed Left upper lobe and left lower lobe airspace disease likely represents pneumonia. Significant secretions in the left lower lobe raise the possibility of aspiration pneumonia. MRSA swab negative Strep pneumo anitgen (+) Legionella negative Plan: - speech consulted to r/o aspiration - continue azithromycin, zosyn day 2 - blood cx pending - sputum cx pending (9) Increased ammonia level Current Visit: Yes Status: Acute Assessment and Plan: Ammonia 102, increased to 174, had mild asterixes on exam as per hospitalist note overnight - no hx of liver dz or alcoholism, US abd negative, no evidence for cirrhosis on CT - lactulose QID, I&Os to monitor how many BM, titrate for 3 BM per day - GI consulted, plan to call thursday AM (10) Metabolic encephalopathy Current Visit: Yes Status: Acute Assessment and Plan: Likely secondary to infectious source. PNA, UTI, pansinusitis. (11) DVT prophylaxis Current Visit: No Status: Acute Assessment and Plan: scd (12) Anemia Current Visit: No Status: Chronic Assessment and Plan: Pt does have a baseline hemoglobin, however, has had over a point drop since admission. Hgb this AM 7.9 ---> 7.2 , admission 9.8 - SCD, heparin sq d/c on 07/10 - h&h q6hr - type and screen - transfuse to keep hgb >7 - iron panel pending - FOBT pending (13) Elevated creatine kinase Current Visit: Yes Status: Acute Assessment and Plan: CK 264 ---> 79, likely related to minor mm injury - unknown if pt had a down time - resolved with IVF - Time Spent with Patient Total time spent is greater than 50% in coordination of care (as documented) at patient's floor/unit and/or counseling patient: 25 - 35 minutes Plan of Care Discussed with: patient Internal Medicine: Result - Labs CBC & Chem 7: 07/11/18 09:45 07/11/18 03:10 Labs: Short CBC 07/10/18 07/10/18 07/10/18 Range/Units 07:52 09:30 15:30 WBC 12.0 H (4.3-11.1) K/mcL Hgb 8.2 L D 8.3 L 8.0 L (11.5-15.4) g/dL Hct 25.3 L 25.3 L 24.6 L (35.3-44.9) % Plt Count 247 (140-400) K/mcL Neutrophils # 8.8 (1.6-8.9) K/mcL 07/10/18 07/11/18 Range/Units 20:20 03:10 WBC 10.5 (4.3-11.1) K/mcL Hgb 8.4 L 7.9 L (11.5-15.4) g/dL Hct 25.6 L 24.0 L (35.3-44.9) % Plt Count 215 (140-400) K/mcL Neutrophils # (1.6-8.9) K/mcL BMP 07/10/18 07/10/18 07/10/18 07:52 12:00 16:00 Sodium 137 Potassium 2.6 L 2.7 L 2.8 L Chloride 114 H Carbon Dioxide 14 L BUN 12 Creatinine 1.02 Glucose 85 Calcium 8.0 L 07/11/18 03:10 Sodium 138 Potassium 3.2 L Chloride 121 H Carbon Dioxide 11 L BUN 10 Creatinine 0.96 Glucose 82 Calcium 7.5 L Liver Function 07/10/18 Range/Units 07:52 Total Bilirubin 0.6 (0.3-1.0) mg/dL AST 41 H (13-39) Units/L ALT 19 (7-52) Units/L Alkaline Phosphatase 168 H (34-104) Units/L Albumin 2.4 L (3.5-5.7) g/dL - ABG Interpretation ABG results: PT/INR, D-dimer PT 16.4 Seconds (9.4-12.1) H 07/09/18 23:18 - Impressions Impressions Chest X-Ray 07/10/18 04:02 IMPRESSION: 1. Right internal jugular central venous catheter tip terminates at the cavoatrial junction. 2. Worsening left base opacity and small effusion concerning for infection. 3. New right infrahilar opacity may also represent infection versus atelectasis. D/ / 07/10/2018 08:58:20 Laura Noguera MD / dale Interpreting Provider: Laura Noguera MD Abdomen Ultrasound 07/10/18 07:29 IMPRESSION: Negative right upper quadrant ultrasound. D/ / Shadi Salinas MD / Shadi Salinas MD Interpreting Provider: Shadi Salinas MD Consult Discharge Plan - Plan Referrals: Chio Keating [employer] [Primary Care Provider] - <Arleen Tay - Last Filed: 07/11/18 12:27> Hospitalist Progress Note - Encounter Date of Encounter: 07/11/18 - Exam Vitals: Temp Pulse Resp BP Pulse Ox 98.0 F 66 14 101/63 100 07/11/18 11:10 07/11/18 12:00 07/11/18 12:00 07/11/18 12:00 07/11/18 12:00 - Time Spent with Patient Total time spent is greater than 50% in coordination of care (as documented) at patient's floor/unit and/or counseling patient: Internal Medicine: Result - Labs CBC & Chem 7: 07/11/18 09:45 07/11/18 03:10 Labs: Short CBC 07/10/18 07/10/18 07/10/18 Range/Units 09:30 15:30 20:20 WBC (4.3-11.1) K/mcL Hgb 8.3 L 8.0 L 8.4 L (11.5-15.4) g/dL Hct 25.3 L 24.6 L 25.6 L (35.3-44.9) % Plt Count (140-400) K/mcL 07/11/18 07/11/18 Range/Units 03:10 09:45 WBC 10.5 (4.3-11.1) K/mcL Hgb 7.9 L 7.5 L (11.5-15.4) g/dL Hct 24.0 L 23.4 L (35.3-44.9) % Plt Count 215 (140-400) K/mcL BMP 07/10/18 07/10/18 07/11/18 12:00 16:00 03:10 Sodium 138 Potassium 2.7 L 2.8 L 3.2 L Chloride 121 H Carbon Dioxide 11 L BUN 10 Creatinine 0.96 Glucose 82 Calcium 7.5 L - ABG Interpretation ABG results: PT/INR, D-dimer PT 16.4 Seconds (9.4-12.1) H 07/09/18 23:18 - Impressions Impressions Chest X-Ray 07/10/18 04:02 IMPRESSION: 1. Right internal jugular central venous catheter tip terminates at the cavoatrial junction. 2. Worsening left base opacity and small effusion concerning for infection. 3. New right infrahilar opacity may also represent infection versus atelectasis. D/ / 07/10/2018 08:58:20 Laura Noguera MD / dale Interpreting Provider: Laura Noguera MD - Attending Attestation I examined this patient and my medical decision-making was reviewed with the Resident Physician Dr Vazquez. I agree with the documented findings, disposition and treatment plan as described except to the extent set forth below. Ms hancock is admitted to the ICU with sepsis awake, alert,mild abd cramping pain, denies n/v, no fevers or chills. bp remain low normotensive. she insists she runs low at baseline and denies lightheadedness or dizziness. gen- awake, alert ,appears stated age eyes- pupils equal round , no scleral icterus cv- reg rate and rhythm, normal s1,s2, no murmurs appreciated, no le edema lungs- ctabl, no wheezing, rhonchi or crackles in ant/lat joel, normal resp effort abd- soft, mildly tender thorughout, no guard or grimace, non distended, + bs neuro- AAOx3, CN grossly intact, no focal deficits Sepsis 2/2 pna, suspected UTI and colitis, also has pansinusitis Sepsis resovled, but remains with lower than goal BPs -MIVF, may need to try albumin or midodrine if does not resolve , given no longer septic and with colitis would like to avoid pressor -bl cx, ucx pending, stool cx and c diff neg -step ag + -azithro + zosyn Suspected UTI- zosyn LLL pna, strep pne- cannot rule out aspiration based on CT findings of lower lung, A+ Zosyn, biotech production specialist eval pending Pansinusitis- zosyn, no meningitic sxs Colitis- zosyn monitor stool output Encepahlopathy likely infectious + elevated ammonia and electrolyte abnormalitis (metabolic) AAOx3 now, appears resolved No neuro deficits - neuro checks, infectious tx as above, lactulose, electrolyte repletion acute on Chronic anemia, baseline varies 8-9 or 10-11- no signs of bleeding- check fobt, iron panel, serial h/hs RTA Type I CALISTA resolved Hypokalemia Low bicarb -nephro managing repletions, cont sodium bicarb i/os Chronic ammonia elevation- cont lacutlose, bms at goal, GI consult thursday ,monitor bms, serial levels further diagnoses and plan as noted by resident <Wyatt Vazquez S - Last Filed: 07/11/18 12:09> (1) Sepsis Qualifiers: Qualified Code(s): A41.9 - Sepsis, unspecified organism (3) Sjogrens syndrome Qualifiers: Sjogren's organ involvement: unspecified organ involvement Qualified Code(s): M35.00 - Sicca syndrome, unspecified (7) Hypotension Qualifiers: Hypotension type: unspecified hypotension type Qualified Code(s): I95.9 - Hypotension, unspecified (8) Pneumonia Qualifiers: Pneumonia type: due to unspecified organism Laterality: left Lung location: upper lobe of lung Qualified Code(s): J18.1 - Lobar pneumonia, unspecified organism (12) Anemia Qualifiers: Anemia type: unspecified type Qualified Code(s): D64.9 - Anemia, unspecified
[2018-07-11] MEDS ORDERED: Acetaminophen 325 MG TABLET PO PRN (08:19)
[2018-07-11] MEDS: Lactulose Oral Soln 20 GM/30 ML UDC PO SCH ×4 (08:31→21:59)
[2018-07-11] MEDS: FLUoxetine 20 MG CAPSULE PO SCH ×2 (08:31→21:59)
[2018-07-11 10:17] LABS: Hematocrit 23.4 % (35.3-44.9); Hemoglobin 7.5 g/dL (11.5-15.4)
[2018-07-11] MEDS: *HR* OxyCODONE Immed Rel 5 MG TABLET PO PRN ×2 (15:50→22:03)
[2018-07-11 16:09] LABS: Hematocrit 24.9 % (35.3-44.9); Hemoglobin 8.3 g/dL (11.5-15.4)
[2018-07-11 17:09] LABS: BUN/Creatinine Ratio 9 (6-26); Blood Urea Nitrogen 9 mg/dL (6-20); Calcium 7.5 mg/dL (8.6-10.3); Carbon Dioxide 11 mEq/L (23-29); Chloride 122 mEq/L (98-107); Glucose 80 mg/dL (70-105); Osmolality,Calculated 282 (280-300); Potassium 3.3 mEq/L (3.5-5.1); Sodium 137 mEq/L (136-145); eGFR For Non-African Americans 60 (> 60)
[2018-07-11 17:24] LABS: % Iron Saturation 12 % (15-50); Iron 28 mcg/dL (50-170); Transferrin 161 mg/dL (203-362)
--- NOTE | 2018-07-11 21:28 | Nephrology Progress Note ---
Date of Encounter: 07/11/18 Time of Encounter: 12:00 - Assessment and Plan (1) Hypokalemia Current Visit: No Status: Acute Potassium improving at 3.2 with aggressive repletion, will continue Will hold off on amiloride for now given hypotension (2) Renal tubular acidosis type I Current Visit: No Status: Acute Continue sodium bicarb, might need to increase dose again Will change IVF from NS to LR due to hyperchloremia UAG positive confirming RTA (3) Mental status, decreased Current Visit: No Status: Acute resolved (4) CALISTA (acute kidney injury) Current Visit: Yes Status: Acute resolved with fluids Subjective Interval history: Pt seen and examined feels betetr today than yesterday but still hypotensive 80/50s at the time of this exam despite IVF: NS at 125cc/hr. She reports no appetite Objective - Vital Signs Vital signs: Vital Signs Temp Pulse Resp BP Pulse Ox 07/11/18 19:00 97.8 F 07/11/18 15:49 97.1 F L 07/11/18 15:00 66 20 109/73 100 07/11/18 13:00 67 14 105/78 98 07/11/18 12:00 66 14 101/63 100 07/11/18 11:10 98.0 F 07/11/18 09:00 70 17 96/59 99 07/11/18 08:00 70 18 100/65 97 07/11/18 07:05 97.9 F 07/11/18 06:00 64 17 108/59 99 07/11/18 04:01 66 15 88/56 98 07/11/18 02:20 67 07/11/18 02:00 67 17 93/55 95 07/11/18 00:00 71 15 90/51 97 07/10/18 23:47 98.2 F 07/10/18 22:25 65 07/10/18 21:36 64 17 109/68 97 Intake and Output 07/11/18 07/11/18 07/11/18 07:59 15:59 23:59 Intake Total 1350 / 2690 1000 / 2690 340 / 2690 Output Total 900 / 1600 700 / 1600 Balance 450 / 1090 300 / 1090 340 / 1090 Intake: IV Fluids 1350 / 2450 1000 / 2450 100 / 2450 0.9 % Sodium Chloride 1,000 ML 1000 / 2000 1000 / 2000 @ 125 mls/hr IVC .Q8H JOE Rx#: [id number] Zithromax 500 mg In Dextrose 5% 250 / 250 250 ML @ 252 mls/hr IVPB Q24H [facility] Rx#:[id number] Zosyn 3.375 GM In 0.9 % Sodium 100 / 200 100 / 200 Chloride (Mini-Bag +) 100 ML @ 25 mls/hr IVPB Q8H [facility] Rx#: [id number] Oral 240 / 240 Output: Urine 0 / 0 Urine/Stool Mix 900 / 1600 700 / 1600 Other: Meal Clears Stool Size Large Stool Consistency loose Stool Color Brown Brown Yellow Yellow # Voids 1 - General Appearance General appearance: Present: chronically ill, fatigue EENT: Present: ATNC, mucous membranes moist Neck: Present: no JVD, supple Additional Comments: good areation ant bilat Cardiology: Present: no edema, normal S1, normal S2 Gastrointestinal: Present: no tenderness, no guarding Integumentary: Present: warm and dry Neurologic: Present: no focal deficit Musculoskeletal: Present: no deformities Psychiatric: Present: mood/affect appropriate, cooperative - Lab 07/11/18 15:55 07/11/18 15:59 Most recent lab results 07/11/18 15:59 Calcium 7.5 L Consult Discharge Plan - Plan Referrals: Chio Keating CNP [Primary Care Provider] -
[2018-07-11] MEDS: Ringers Solution, Lactated 1,000 ML IVC SCH (21:58)
[2018-07-11 22:18] LABS: Hematocrit 28.6 % (35.3-44.9); Hemoglobin 9.1 g/dL (11.5-15.4)
[2018-07-12] MEDS: Piperacillin/Tazobactam 3.375 GM in 0.9 % Sodium Chloride Mini Bag 100 ML IVPB SCH ×3 (04:07→20:13)
[2018-07-12] MEDS ORDERED: Azithromycin 500 MG in D5% in Water 250 ML IVPB SCH ×2 (05:00→08:00)
[2018-07-12 08:43] LABS: Basophils % 0.3 %; Eosinophils # 0.2 K/mcL (0.0-0.6); Hematocrit 25.4 % (35.3-44.9); Hemoglobin 8.3 g/dL (11.5-15.4); Immature Granulocytes % 0.9 % (0-4); Lymphocytes # 1.6 K/mcL (0.6-4.6); Lymphocytes % 17.5 %; Mean Corpuscular HGB Conc 32.7 g/dL (31.6-35.5); Mean Corpuscular Hemoglobin 29.7 pg (28.0-33.3); Mean Platelet Volume 9.3 fL (9.4-12.4); Monocytes # 0.6 K/mcL (0.0-1.3); Monocytes % 6.8 %; Neutrophils # 6.4 K/mcL (1.6-8.9); Platelet Count 224 K/mcL (140-400); Red Blood Count 2.79 M/mcL (3.82-4.97); Red Cell Distribution Width 17.6 % (11.5-14.5); Segmented Neutrophils % 72.5 %
[2018-07-12 09:12] LABS: Alanine Aminotransferase 18 Units/L (7-52); Albumin 2.2 g/dL (3.5-5.7); Albumin/Globulin Ratio 0.5 (1.1-2.2); Alkaline Phosphatase 151 Units/L (34-104); Aspartate Amino Transferase 41 Units/L (13-39); BUN/Creatinine Ratio 8 (6-26); Bilirubin,Total 0.6 mg/dL (0.3-1.0); Blood Urea Nitrogen 8 mg/dL (6-20); Calcium 7.7 mg/dL (8.6-10.3); Carbon Dioxide 11 mEq/L (23-29); Chloride 120 mEq/L (98-107); Globulin 4.4 g/dL (2.4-3.5); Glucose 73 mg/dL (70-105); Osmolality,Calculated 285 (280-300); Potassium 2.9 mEq/L (3.5-5.1); Sodium 139 mEq/L (136-145); Total Protein 6.6 g/dL (6.4-8.9); eGFR For Non-African Americans 57 (> 60)
[2018-07-12] MEDS: Lactulose Oral Soln 20 GM/30 ML UDC PO SCH ×4 (09:14→20:13)
[2018-07-12] MEDS: FLUoxetine 20 MG CAPSULE PO SCH ×2 (09:15→20:12)
[2018-07-12] MEDS: Ringers Solution, Lactated 1,000 ML IVC SCH ×3 (11:57→22:15)
--- NOTE | 2018-07-12 12:45 | Internal Med Progress Note ---
<Arleen Tay - Last Filed: 07/12/18 14:17> Hospitalist Progress Note - Encounter Date of Encounter: 07/12/18 - Exam Vitals: Temp Pulse Resp BP Pulse Ox 98.3 F 86 14 109/69 94 07/12/18 11:07 07/12/18 11:07 07/12/18 11:07 07/12/18 11:07 07/12/18 11:07 - Time Spent with Patient Total time spent is greater than 50% in coordination of care (as documented) at patient's floor/unit and/or counseling patient: Internal Medicine: Result - Labs CBC & Chem 7: 07/12/18 08:36 07/12/18 08:36 Labs: Short CBC 07/11/18 07/11/18 07/12/18 Range/Units 15:55 19:42 08:36 WBC 8.8 (4.3-11.1) K/mcL Hgb 8.3 L 9.1 L 8.3 L (11.5-15.4) g/dL Hct 24.9 L 28.6 L 25.4 L (35.3-44.9) % Plt Count 224 (140-400) K/mcL Neutrophils # 6.4 (1.6-8.9) K/mcL BMP 07/11/18 07/12/18 15:59 08:36 Sodium 137 139 Potassium 3.3 L 2.9 L Chloride 122 H 120 H Carbon Dioxide 11 L 11 L BUN 9 8 Creatinine 0.98 1.02 Glucose 80 73 Calcium 7.5 L 7.7 L Liver Function 07/12/18 Range/Units 08:36 Total Bilirubin 0.6 (0.3-1.0) mg/dL AST 41 H (13-39) Units/L ALT 18 (7-52) Units/L Alkaline Phosphatase 151 H (34-104) Units/L Albumin 2.2 L (3.5-5.7) g/dL - ABG Interpretation ABG results: PT/INR, D-dimer PT 16.4 Seconds (9.4-12.1) H 07/09/18 23:18 Consult Discharge Plan - Plan Referrals: Chio Keating PICC NURSE [Primary Care Provider] - - Attending Attestation I examined this patient and my medical decision-making was reviewed with the Resident Physician Dr Anders. I agree with the documented findings, disposition and treatment plan as described except to the extent set forth below. Ms hancock is admitted with sepsis 2/2 pna, colitis with addl dx pansinusitis awake, alert,tired bc got moved out of icu overnight and didnt get much sleep. no fevers, chills, cough, + cramping abd pain, no n/v. no bm thus far today gen- awake, alert ,appears stated age eyes- no scleral icterus cv- reg rate and rhythm, normal s1,s2, no murmurs appreciated, no le edema lungs- ctabl, in ant/lat joel, normal resp effort on ra abd- soft, mildly tender throughout, no guard or grimace, non distended, + hyperactive bs neuro- AAOx3, CN grossly intact, no focal deficits Sepsis 2/2 pna, suspected UTI and colitis, also has pansinusitis Sepsis resolved -bl cx ngtd, ucx neg, stool cx and c diff neg -step ag + -dc azithro given strep pna, cont zosyn UTI- ruled out LLL pna, strep pne- cannot rule out aspiration based on CT findings of lower lung,Zosyn, leather cutter eval and no aspiration, reg diet/thins when colitis improves Pansinusitis- zosyn, no meningitic sxs Colitis- zosyn monitor stool output, advance diet slowly Encepahlopathy likely infectious + elevated ammonia and electrolyte abnormalitis (metabolic) resolved - neuro checks, infectious tx as above, lactulose, electrolyte repletion acute on Chronic anemia, baseline varies 8-9 or 10-11- no signs of bleeding- fobt pending, monitor hgb, stable RTA Type I CALISTA resolved Hypokalemia persists Low bicarb persists -nephro managing repletions, will confirm with nephro team they will cont to do so, kcl 2.9, cont stading oral Kcl, cont sodium bicarb i/os Chronic ammonia elevation, down trending- cont lactulose, bms at goal, GI consulted further diagnoses and plan as noted by resident <Adilia Anders - Last Filed: 07/12/18 18:03> Hospitalist Progress Note - Encounter Date of Encounter: 07/12/18 Time of Encounter: 10:30 - Subjective Interval History: Patient seen and examined at bedside today. She continues to complain of a productive cough, diffuse abdominal pain. She states that she did have a bowel movement today which was loose, she denies any hematochezia or melena. She denies any shortness of breath or chest pain or calf pain. Her potassium and bicarbonate continue to be low. Nephrology currently following and managing depletions of the potassium and bicarbonate. - Exam Vitals: Temp Pulse Resp BP Pulse Ox 98.3 F 86 14 109/69 94 07/12/18 11:07 07/12/18 11:07 07/12/18 11:07 07/12/18 11:07/12/18 11:07 Exam: Gen.: Vitals noted. No acute distress. AAOx3 HEENT: PERRL/EOMI, oropharynx clear, Normocephalic, atraumatic, MMM Cardiac: RRR, no murmur, +S1/S2, radial and dorsal pedis pulses 3+ and symmetrical. Pulmonary: CTA bilaterally, no wheezes, rales or rhonchi, equal chest expansion Abdomen: Mildly distended, soft, right upper quadrant tenderness to palpation, BS noted, no guarding, no rebound. MSK: ROM intact, no joint swelling noted Extremities: no BLE edema, no calf tenderness, no cyanosis or clubbing Neuro: A&Ox3, moves all extremities, no focal deficits Psych: Appropriate mood and behavior, pleasant - Assessment and Plan (1) Sepsis Current Visit: Yes Status: Acute Assessment and Plan: Sepsis has resolved Secondary to strep pneumonia, colitis, pansinusitis Leukocytosis has decreased, white blood cells currently 8.8 Blood cultures, urine culture, stool culture negative, C. difficile negative CT had positive for pansinusitis Abdominal pelvis CT positive for colitis of the cecum and ascending colon, left lobe has significant secretions suggestive of possible aspiration. Continue antibiotic coverage with Zosyn (2) Acute metabolic encephalopathy Current Visit: No Status: Resolved Assessment and Plan: Resolved Suspect secondary to electrolyte abnormalities as well as sepsis to 2 strep pneumonia, colitis, pansinusitis Continue antibiotic coverage with Zosyn Continue lactulose for hyper ammonia (3) Pneumonia Current Visit: Yes Status: Acute Assessment and Plan: Patient found to have significant left lobe secretions suggestive of possible aspiration on abdominal CT Urine antigens for strep pneumonia positive MRSA swab as well as Legionella urine antigen negative Speech consult for swallow evaluation was negative for aspiration. Recommend regular diet with thin fluids Continue Zosyn for antibiotic coverage Respiratory support if needed (4) Pansinusitis Current Visit: Yes Status: Acute Assessment and Plan: Pansinusitis seen on head CT Currently no meningeal symptoms Continue Zosyn for antibiotic coverage (5) Colitis Current Visit: Yes Status: Acute Assessment and Plan: Abdominal CT showed colitis of the cecum and ascending colon Continue to monitor stool output Continue Zosyn for antibiotic coverage Advance regular diet with clear liquids as colitis improves GI recommends outpatient EGD and colonoscopy in the future with follow-up with Dr. Vásquze in 3 weeks (6) Increased ammonia level Current Visit: Yes Status: Acute Assessment and Plan: Patient has a history of elevated ammonia level Ammonia level 114 today No history of cirrhosis and no cirrhotic changes seen on imaging GI has been consulted and they have ordered AFP, alpha 1 antitrypsin, AL, ceruloplasmin, F actin IgG, MPO/PRC ANCA, mitochondrial M2 antibody for further workup Continue lactulose (7) Renal tubular acidosis type I Current Visit: No Status: Acute Assessment and Plan: Patient has a history of renal tubular acidosis type I Decreased potassium and bicarbonate Nephrology following and repleting bicarbonate with sodium bicarbonate 650 mg 3 times a day and potassium with calcium chloride 40 mg twice a day (8) Hypokalemia Current Visit: No Status: Acute Assessment and Plan: Secondary to renal tubular acidosis Potassium today at 2.9. Highest potassium during admission was 3.3 Continue potassium chloride Nephrology managing (9) CAILSTA (acute kidney injury) Current Visit: Yes Status: Acute Assessment and Plan: Patient found to have CLAISTA secondary to decreased by mouth intake This has resolved secondary to fluids (10) Anemia Current Visit: No Status: Acute Assessment and Plan: Patient has a history of anemia Suspect possibly secondary to chronic disease Baseline hemoglobin is 7-9, currently 8.3 Iron studies positive for iron deficiency anemia GIs been consulted and recommend EGD and colonoscopy outpatient. Follow-up with Dr. Vásquez in 3 weeks (11) Sjogrens syndrome Current Visit: No Status: Chronic Assessment and Plan: History of Sjogren's syndrome follows with Dr. Pimentel outpatient (12) Rheumatoid arthritis Current Visit: No Status: Chronic Assessment and Plan: History of rheumatoid arthritis Follows with Dr. Pimentel outpatient (13) HTN (hypertension) Current Visit: No Status: Chronic Assessment and Plan: Patient has a history of hypertension Blood pressure has been low during admission Home medication Amiloride on hold DVT Prophylaxis: SCDs in setting of anemia - Time Spent with Patient Total time spent is greater than 50% in coordination of care (as documented) at patient's floor/unit and/or counseling patient: Internal Medicine: Result - Labs CBC & Chem 7: 07/12/18 08:36 07/12/18 08:36 Labs: Short CBC 07/11/18 07/11/18 07/12/18 Range/Units 15:55 19:42 08:36 WBC 8.8 (4.3-11.1) K/mcL Hgb 8.3 L 9.1 L 8.3 L (11.5-15.4) g/dL Hct 24.9 L 28.6 L 25.4 L (35.3-44.9) % Plt Count 224 (140-400) K/mcL Neutrophils # 6.4 (1.6-8.9) K/mcL BMP 07/11/18 07/12/18 15:59 08:36 Sodium 137 139 Potassium 3.3 L 2.9 L Chloride 122 H 120 H Carbon Dioxide 11 L 11 L BUN 9 8 Creatinine 0.98 1.02 Glucose 80 73 Calcium 7.5 L 7.7 L Liver Function 07/12/18 Range/Units 08:36 Total Bilirubin 0.6 (0.3-1.0) mg/dL AST 41 H (13-39) Units/L ALT 18 (7-52) Units/L Alkaline Phosphatase 151 H (34-104) Units/L Albumin 2.2 L (3.5-5.7) g/dL - ABG Interpretation ABG results: PT/INR, D-dimer PT 16.4 Seconds (9.4-12.1) H 07/09/18 23:18 __ <Adilia Anders - Last Filed: 07/12/18 18:03> (1) Sepsis Qualifiers: Qualified Code(s): A41.9 - Sepsis, unspecified organism (3) Pneumonia Qualifiers: Pneumonia type: due to unspecified organism Laterality: left Lung location: upper lobe of lung Qualified Code(s): J18.1 - Lobar pneumonia, unspecified organism (10) Anemia Qualifiers: Anemia type: unspecified type Qualified Code(s): D64.9 - Anemia, unspecified (11) Sjogrens syndrome Qualifiers: Sjogren's organ involvement: unspecified organ involvement Qualified Code(s): M35.00 - Sicca syndrome, unspecified (12) Rheumatoid arthritis Qualifiers: Rheumatoid arthritis location: unspecified site Rheumatoid factor presence: unspecified presence Qualified Code(s): M06.9 - Rheumatoid arthritis, unspecified (13) HTN (hypertension) Qualifiers: Hypertension type: essential hypertension Qualified Code(s): I10 - Essential (primary) hypertension
--- NOTE | 2018-07-12 15:42 | Gastroenterology Consult Note ---
Date of Encounter: 07/12/18 Time of Encounter: 11:30 - Assessment and plan (1) Anemia Current Visit: No Status: Acute Assessment and plan: On admission Hgb 9.8 and today Hgb 8.3. Continue to monitor CBC and transfuse PRBC as needed. Plan for colonoscopy as outpatient in 6-8 weeks. Consider EGD at that time as well. Follow up with Dr. Vásquez in 3 weeks. Qualifiers: Anemia type: unspecified type Qualified Code(s): D64.9 - Anemia, unspecified (2) Colitis Current Visit: Yes Status: Acute Assessment and plan: CT A/P with possible colitis of cecum and ascending colon. GI panel negative. Continue antibiotics. Plan for colonoscopy in 6-8 weeks as outpatient. (3) Increased ammonia level Current Visit: Yes Status: Acute Assessment and plan: Continue Lactulose, titrate for 2-4 BMs daily. No evidence of cirrhosis on CT A/P or RUQ US. Complete liver workup. R/o autoimmune hepatitis. (4) Sjogrens syndrome Current Visit: No Status: Chronic Qualifiers: Sjogren's organ involvement: unspecified organ involvement Qualified Code(s): M35.00 - Sicca syndrome, unspecified - Time Spent With Patient Total time spent is greater than 50% in coordination of care (as documented) at patient's floor/unit and/or counseling patient: GI History of Present Illness - Data of Consult Patient: known to practice within the last 3 years Consult date: 07/12/18 Requesting Physician: Arleen Tay - Consult Narrative Reason for consult: anemia, increased ammonia History of present illness: Ms. Ching is a 52 year old female with PMHx of Sjogren's disease, anemia, rheumatoid arthritis, abnormal LFTs who presented to the ED because of change in behaviors. She manifested odd behaviors like trying to feed raw hamburger with taco sauce to her grandson, had left milk outside the refrigerator. CXR concerning for left total basilar consolidation with concerns for pneumonia. She also has a history of elevated ammonia levels during her past admissions and has never been worked up for liver cirrhosis, although concerns have been made for autoimmune hepatitis causing her elevated ammonia levels. CT A/P with possible colitis of cecum and ascending colon. RUQ US negative. On admission Hgb 9.8, TB 0.7, AST 62, ALT 27, ammonia 102. Today Hgb 8.3, TB 0.6, AST 41, ALT 19, ammonia 114. Procedures: Colonoscopy 05/25/2017 Dr. Vásquez: Tortuous colon internal hemorrhoids. NSAIDs: None Anticoagulation: None Past Med Surg Social Fam HX - Past Medical History Medical history: arthritis, coronary artery disease, hypertension, RA, renal disease, other Additional medical history: Sjogren's disease, anemia, malnutrition,pancreatitis , renal tubular acidosis type I, drug overdose,. alcohol intoxification, hypokalemia, diverticulitis, hypercholemic acidosis, hypophosphatemia, shingles,splenic infarct, metabolic encephalopathy,diastolic dysfunction Psychiatric history: anxiety, depression - Past Surgical History Surgical History: cholecystectomy Additional surgical history: Unknown - Social History Smoking Status: Never smoker Smokeless Tobacco Status: No Alcohol use: none Drug use: none, prescription drug abuse - Family History Mother Hx Family Cancer: Yes (leukemia) - Gastrointestinal Gastrointestinal: Present: as per HPI - Constitutional Constitutional: as per HPI - EENT Eyes: as per HPI Ears: Present: as per HPI Nose, mouth and throat: Present: as per HPI - Cardiovascular Cardiovascular ROS: Present: as per HPI - Respiratory Respiratory IM: Present: as per HPI - Genitourinary Genitourinary: Absent: change in color, Urinary frequency - Neurological ROS Neurological GI: Present: as per HPI - Hematologic/Lymphatic Hematologic/Lymphatic pediatric: Present: as per HPI - Musculoskeletal Musculoskeletal ROS GI: Present: as per HPI - Integumentary Integumentary GI: Present: as per HPI - Psychiatric ROS Psychiatric GI: Present: as per HPI - Endocrine Endocrine IM: Present: as per HPI - Constitutional Vitals: Temp Pulse Resp BP Pulse Ox 98.7 F 82 14 115/68 95 07/12/18 14:48 07/12/18 14:48 07/12/18 14:48 07/12/18 14:48 07/12/18 14:48 General appearance: Present: cooperative, A&O X 3, no acute distress, answers questions appropriately - Head Head exam: Present: atraumatic, normocephalic - Eye Eye exam: Present: normal appearance, sclera anicteric - ENT ENT exam: Present: mucous membranes moist - Neck Neck exam general surgery: Present: normal inspection, trachea midline - Respiratory Respiratory exam: Present: CTAB. Absent: rales, rhonchi - Cardiovascular Cardiovascular exam: Present: RRR, +S1, +S2 - GI/Abdominal GI/Abdominal exam: Present: soft, no peritoneal signs. Absent: distended, firm, guarding, tenderness - Rectal Rectal exam: Present: deferred - Extremities Exam Extremities exam: Present: warm - Neurological Exam Neurological exam: Present: no focal deficits - Psychiatric Psychiatric exam: Present: normal affect, normal mood - Skin Skin exam: Present: dry, intact, normal color, warm Results - Labs CBC & Chem 7: 07/12/18 08:36 07/12/18 08:36 Labs: Last Result 07/12/18 08:36 Calcium 7.7 L Entire Visit 07/12/18 07/12/18 07/12/18 05:09 08:36 08:36 Hgb 8.3 L Hct 25.4 L Total Bilirubin 0.6 AST 41 H ALT 18 Ammonia 114 H - ABG ABG results: PT/INR, D-dimer PT 16.4 Seconds (9.4-12.1) H 07/09/18 23:18 Consult Discharge Plan - Plan Referrals: Chio Keating ADJUNCT INSTRUCTOR [Primary Care Provider] -
[2018-07-12 17:03] LABS: Hepatitis B Surface Antigen Nonreactive (Nonreactive)
[2018-07-12 17:33] LABS: Hepatitis B Core IgM Nonreactive (Nonreactive)
[2018-07-12 17:35] LABS: Hepatitis A Antibody IgM Nonreactive (Nonreactive); Hepatitis C Virus Antibody Nonreactive (Nonreactive)
--- NOTE | 2018-07-12 18:14 | Nephrology Progress Note ---
Date of Encounter: 07/12/18 Time of Encounter: 12:00 - Assessment and Plan (1) Hypokalemia Current Visit: No Status: Acute (2) Renal tubular acidosis type I Current Visit: No Status: Acute (3) Mental status, decreased Current Visit: No Status: Acute (4) CALISTA (acute kidney injury) Current Visit: Yes Status: Acute Subjective Interval history: Pt seen and examined feels betetr today than yesterday but still hypotensive 80/50s at the time of this exam despite IVF: NS at 125cc/hr. She reports no appetite Objective - Vital Signs Vital signs: Vital Signs Temp Pulse Resp BP Pulse Ox 07/12/18 14:48 98.7 F 82 14 115/68 95 07/12/18 11:07 98.3 F 86 14 109/69 94 07/12/18 07:01 98.1 F 74 16 100/66 95 07/12/18 05:00 64 07/12/18 04:00 64 16 92/63 97 07/12/18 03:38 97.7 F 07/12/18 00:32 97.7 F 07/12/18 00:15 62 07/12/18 00:00 62 15 119/65 97 07/11/18 21:30 65 07/11/18 20:00 64 20 122/78 98 07/11/18 19:00 97.8 F Intake and Output 07/12/18 07/12/18 07/12/18 07:59 15:59 23:59 Intake Total 1100 / 1460 120 / 1460 240 / 1460 Output Total 0 / 0 Balance 1100 / 1460 120 / 1460 240 / 1460 Intake: IV Fluids 1100 / 1100 Lactated Ringers 1,000 ML @ 125 1000 / 1000 mls/hr IVC .Q8H JOE Rx#: [id number] Zosyn 3.375 GM In 0.9 % Sodium 100 / 100 Chloride (Mini-Bag +) 100 ML @ 25 mls/hr IVPB Q8H JOE Rx#: [id number] Oral 120 / 360 240 / 360 Output: Urine 0 / 0 Other: Meal BREAKFAST CLEARS DINNER CLEARS # Voids 1 # Bowel Movements 0 0 Weight 66.7 kg Patient Weight 07/12/18 23:59 Weight 66.7 kg - Lab 07/12/18 08:36 07/12/18 08:36 Most recent lab results 07/12/18 08:36 Calcium 7.7 L Consult Discharge Plan - Plan Referrals: Chio Keating, ERIK [Primary Care Provider] -
[2018-07-12] MEDS: *HR* OxyCODONE Immed Rel 5 MG TABLET PO PRN (20:12)
[2018-07-13] MEDS: Piperacillin/Tazobactam 3.375 GM in 0.9 % Sodium Chloride Mini Bag 100 ML IVPB SCH (04:21)
--- NOTE | 2018-07-13 08:55 | Internal Med Progress Note ---
<Arleen Tay - Last Filed: 07/13/18 15:36> Hospitalist Progress Note - Encounter Date of Encounter: 07/13/18 - Exam Vitals: Temp Pulse Resp BP Pulse Ox 97.8 F 74 16 104/69 98 07/13/18 15:19 07/13/18 15:19 07/13/18 15:19 07/13/18 15:19 07/13/18 15:19 - Time Spent with Patient Total time spent is greater than 50% in coordination of care (as documented) at patient's floor/unit and/or counseling patient: Internal Medicine: Result - Labs CBC & Chem 7: 07/13/18 09:31 07/13/18 09:31 Labs: Short CBC 07/13/18 Range/Units 09:31 WBC 9.3 (4.3-11.1) K/mcL Hgb 9.2 L (11.5-15.4) g/dL Hct 28.6 L (35.3-44.9) % Plt Count 252 (140-400) K/mcL Neutrophils # 6.9 (1.6-8.9) K/mcL BMP 07/12/18 07/13/18 19:59 09:31 Sodium 140 Potassium 2.8 L 2.8 L Chloride 118 H Carbon Dioxide 13 L BUN 7 Creatinine 1.03 Glucose 156 H Calcium 8.0 L Liver Function 07/13/18 Range/Units 09:31 Total Bilirubin 0.7 (0.3-1.0) mg/dL AST 49 H (13-39) Units/L ALT 20 (7-52) Units/L Alkaline Phosphatase 165 H (34-104) Units/L Albumin 2.4 L (3.5-5.7) g/dL - ABG Interpretation ABG results: PT/INR, D-dimer PT 16.4 Seconds (9.4-12.1) H 07/09/18 23:18 Consult Discharge Plan - Plan Referrals: Chio Keating [employer]ISH[employer] [Primary Care Provider] - - Attending Attestation I examined this patient and my medical decision-making was reviewed with the Resident Physician Dr Anders. I agree with the documented findings, dispo sition and treatment plan as described except to the extent set forth below. Ms hancock is admitted with sepsis 2/2 pna, colitis with addl dx pansinusitis awake, alert,greatly improved energy, no confusion at all, feeling near baseline. some abd discomfort, no n/v, tolerating liquid diet and ready to advance. no fevers or chills. no palpitations. 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 and no aspiration, reg diet/thins when colitis improves Pansinusitis- zosyn, no meningitic sxs Colitis- zosyn, advance diet Encepahlopathy likely infectious + elevated ammonia and electrolyte abnormalitis (metabolic) resolved acute on Chronic anemia, baseline varies 8-9 or 10-11- no signs of bleeding- fu outpt RTA Type I CALISTA resolved Hypokalemia persists- IV repletion today + PO KCL as ordered as d/w nephro and repeat level later this evening, unclear why despite very high amounts of KCL she still has K level of 2.8, once level >3 would be ok for dc with outpt fu as team d/w Dr Hopson today Low bicarb persists- cont to monitor as d/w nephro on bicarb -resume amiloride Chronic ammonia elevation, down trending- cont lactulose, bms at goal, GI consulted-- autoimmune work up started, fu with gi outpt further diagnoses and plan as noted by resident <Adilia Anders - Last Filed: 07/13/18 16:08> Hospitalist Progress Note - Encounter Date of Encounter: 07/13/18 Time of Encounter: 08:55 - Subjective Interval History: Patient seen and examined at bedside today. Clinically she is much improved, she is up, walking around, organizing her belongings. She states that she is doing well. She denies any sinus pain or congestion, she states that she does not have shortness of breath, pleuritic pain, productive cough. She states that her abdominal pain has significantly improved. She states that she is having multiple bowel movements secondary to the lactulose, she denies any hematochezia or melena. - Exam Vitals: Temp Pulse Resp BP Pulse Ox 98.2 F 71 16 92/48 94 07/13/18 04:35 07/13/18 04:35 07/13/18 04:35 07/13/18 04:35 07/13/18 04:35 Exam: Gen: Vitals noted. No acute distress. AAOx3 HEENT: PERRL/EOMI, oropharynx clear, Normocephalic, atraumatic, MMM Cardiac: RRR, no murmur, +S1/S2, radial and dorsal pedis pulses 3+ and symmetrical Pulmonary: CTA bilaterally, no wheezes, rales or rhonchi, equal chest expansion Abdomen: soft, nontender, nondistended, BS noted, no guarding, no rebound. MSK: ROM intact, no joint swelling noted Extremities: no BLE edema, no calf tenderness, no cyanosis or clubbing Neuro: A&Ox3, moves all extremities, no focal deficits Psych: Appropriate mood and behavior, cheerful and pleasant - Assessment and Plan (1) Sepsis Current Visit: Yes Status: Resolved Assessment and Plan: Resolved No longer meeting SIRS criteria- Leukocytosis, afebrile, no tachycardia, and no tachypnea Secondary to strep pneumonia, colitis, pansinusitis Blood cultures as well as urine cultures no growth to date MRSA swab, GI panel, C. difficile negative Will discontinue Zosyn and switched to Augmentin, currently day 3 of 10 for antibiotic coverage (2) Pneumonia Current Visit: Yes Status: Acute Assessment and Plan: Improving Chest x-ray showed left basilar consolidation Urine antigens for strep pneumonia positive Legionella antigen, MRSA, blood cultures negative Speech consult for swallow evaluation was negative for aspiration Continue Augmentin for antibiotic coverage Respiratory support as needed (3) Pansinusitis Current Visit: Yes Status: Acute Assessment and Plan: Asymptomatic CT head was positive for pansinusitis Continue Augmentin for antibiotic coverage (4) Colitis Current Visit: Yes Status: Acute Assessment and Plan: Improving Abdominal CT showed colitis of the cecum and ascending colon Patient having adequate stool output Advance diet GI recommendations for follow up in 3 weeks with EGD and colonoscopy after colitis resolves Continue Augmentin (5) Increased ammonia level Current Visit: Yes Status: Acute Assessment and Plan: Etiology unclear- no history of cirrhosis, hepatitis panel negative, autoimmune workup remains pending Has a history of elevated ammonia level Currently 144 today Patient no longer having altered mental status, she is alert and oriented 3 Continue lactulose (6) Renal tubular acidosis type I Current Visit: No Status: Acute Assessment and Plan: History of renal tubular acidosis Continues to have hypokalemia, 2.8 today Patient on potassium chloride 40 mg 3 times a day, will attempt IV potassium 40 mg in hopes that it will improve level Will restart amiloride Continue sodium bicarbonate Nephrology continues to follow (7) Hypokalemia Current Visit: No Status: Acute Assessment and Plan: Secondary to renal tubular acidosis See management above (8) CALISTA (acute kidney injury) Current Visit: Yes Status: Acute Assessment and Plan: Resolved Secondary to decreased by mouth intake (9) Anemia Current Visit: Yes Status: Acute Assessment and Plan: Suspect secondary to chronic kidney disease and iron deficiency based on iron study Baseline hemoglobin 7 - 9. Currently 9.3 Consider iron supplementation GI has been consulted and EGD and colonoscopy once colitis has resolved further workup outpatient (10) Sjogrens syndrome Current Visit: No Status: Chronic Assessment and Plan: History of Sjogren's syndrome Follows with Dr. Pimentel outpatient (11) Rheumatoid arthritis Current Visit: No Status: Chronic Assessment and Plan: History of rheumatoid arthritis Also Dr. Pimentel patient (12) HTN (hypertension) Current Visit: Yes Status: Chronic Assessment and Plan: History of hypertension Blood pressures have been low normal throughout admission, beginning to trend upwards Nephrology recommendations include restarting amiloride DVT Prophylaxis: SCDs in setting of anemia - Time Spent with Patient Total time spent is greater than 50% in coordination of care (as documented) at patient's floor/unit and/or counseling patient: Internal Medicine: Result - Labs CBC & Chem 7: 07/13/18 09:31 07/13/18 09:31 Labs: BMP 07/12/18 07/12/18 08:36 19:59 Sodium 139 Potassium 2.9 L 2.8 L Chloride 120 H Carbon Dioxide 11 L BUN 8 Creatinine 1.02 Glucose 73 Calcium 7.7 L Liver Function 07/12/18 Range/Units 08:36 Total Bilirubin 0.6 (0.3-1.0) mg/dL AST 41 H (13-39) Units/L ALT 18 (7-52) Units/L Alkaline Phosphatase 151 H (34-104) Units/L Albumin 2.2 L (3.5-5.7) g/dL - ABG Interpretation ABG results: PT/INR, D-dimer PT 16.4 Seconds (9.4-12.1) H 07/09/18 23:18 <Adilia Anders - Last Filed: 07/13/18 16:08> (1) Sepsis Qualifiers: Qualified Code(s): A41.9 - Sepsis, unspecified organism (2) Pneumonia Qualifiers: Pneumonia type: due to unspecified organism Laterality: left Lung location: upper lobe of lung Qualified Code(s): J18.1 - Lobar pneumonia, unspecified organism (9) Anemia Qualifiers: Anemia type: unspecified type Qualified Code(s): D64.9 - Anemia, unspecified (10) Sjogrens syndrome Qualifiers: Sjogren's organ involvement: unspecified organ involvement Qualified Code(s): M35.00 - Sicca syndrome, unspecified (11) Rheumatoid arthritis Qualifiers: Rheumatoid arthritis location: unspecified site Rheumatoid factor presence: unspecified presence Qualified Code(s): M06.9 - Rheumatoid arthritis, unspecified (12) HTN (hypertension) Qualifiers: Hypertension type: essential hypertension Qualified Code(s): I10 - Essential (primary) hypertension
[2018-07-13 09:59] LABS: Basophils % 0.4 %; Eosinophils # 0.1 K/mcL (0.0-0.6); Eosinophils % 1.1 %; Hematocrit 28.6 % (35.3-44.9); Hemoglobin 9.2 g/dL (11.5-15.4); Immature Granulocytes % 0.6 % (0-4); Lymphocytes # 1.7 K/mcL (0.6-4.6); Lymphocytes % 18.2 %; Mean Corpuscular HGB Conc 32.2 g/dL (31.6-35.5); Mean Corpuscular Volume 90.2 fL (83.0-100.0); Mean Platelet Volume 9.9 fL (9.4-12.4); Monocytes # 0.5 K/mcL (0.0-1.3); Monocytes % 5.3 %; Neutrophils # 6.9 K/mcL (1.6-8.9); Platelet Count 252 K/mcL (140-400); Red Blood Count 3.17 M/mcL (3.82-4.97); Red Cell Distribution Width 17.3 % (11.5-14.5); Segmented Neutrophils % 74.4 %
[2018-07-13] MEDS: Lactulose Oral Soln 20 GM/30 ML UDC PO SCH ×4 (10:10→21:22)
[2018-07-13] MEDS: FLUoxetine 20 MG CAPSULE PO SCH ×2 (10:11→21:21)
[2018-07-13 10:14] LABS: Alanine Aminotransferase 20 Units/L (7-52); Albumin 2.4 g/dL (3.5-5.7); Albumin/Globulin Ratio 0.5 (1.1-2.2); Alkaline Phosphatase 165 Units/L (34-104); Aspartate Amino Transferase 49 Units/L (13-39); BUN/Creatinine Ratio 7 (6-26); Bilirubin,Total 0.7 mg/dL (0.3-1.0); Blood Urea Nitrogen 7 mg/dL (6-20); Carbon Dioxide 13 mEq/L (23-29); Chloride 118 mEq/L (98-107); Globulin 4.9 g/dL (2.4-3.5); Glucose 156 mg/dL (70-105); Osmolality,Calculated 291 (280-300); Potassium 2.8 mEq/L (3.5-5.1); Sodium 140 mEq/L (136-145); Total Protein 7.3 g/dL (6.4-8.9); eGFR For Non-African Americans 56 (> 60)
[2018-07-13] MEDS: *HR* OxyCODONE Immed Rel 5 MG TABLET PO PRN ×2 (10:17→21:22)
[2018-07-13] MEDS ORDERED: Ondansetron ODT 4 MG TAB.RAPDIS SL PRN (11:08)
[2018-07-13] MEDS ORDERED: Potassium Chloride 40 MEQ, Lidocaine 1% 2 ML in D5% in Water 500 ML IVPB ONE (14:13)
--- NOTE | 2018-07-13 23:49 | Nephrology Progress Note ---
Date of Encounter: 07/13/18 Time of Encounter: 15:00 - Assessment and Plan (1) Hypokalemia Current Visit: No Status: Acute Potassium noted low at 2.8despite aggressive supplementation with potaasium increased to tid yesterday Will give iv runs today x4 and repeat Will resume amiloride as well (2) Renal tubular acidosis type I Current Visit: No Status: Acute (3) Mental status, decreased Current Visit: No Status: Acute (4) CALISTA (acute kidney injury) Current Visit: Yes Status: Acute Subjective Interval history: Pt seen and examined feels good and eager to go home Objective - Vital Signs Vital signs: Vital Signs Temp Pulse Resp BP Pulse Ox 07/13/18 23:41 98.1 F 83 16 114/68 96 07/13/18 19:30 98.1 F 95 15 129/74 92 07/13/18 15:19 97.8 F 74 16 104/69 98 07/13/18 11:11 98.2 F 78 16 124/82 98 07/13/18 04:35 98.2 F 71 16 92/48 94 Intake and Output 07/13/18 07/13/18 07/13/18 07:59 15:59 23:59 Intake Total 100 / 800 600 / 800 100 / 800 Output Total 0 / 0 Balance 100 / 800 600 / 800 100 / 800 Intake: IV Fluids 100 / 100 Zosyn 3.375 GM In 0.9 % Sodium 100 / 100 Chloride (Mini-Bag +) 100 ML @ 25 mls/hr IVPB Q8H [facility] Rx#: [id number] Oral 0 / 700 600 / 700 100 / 700 Output: Urine 0 / 0 Other: Meal Lunch Dinner Percent of Meal Consumed 90% 10% Stool Consistency liquid Stool Color Brown # Voids 1 1 1 # Bowel Movements 0 1 Weight 65.589 kg Patient Weight 07/13/18 23:59 Weight 65.589 kg - Lab 07/13/18 09:31 07/13/18 22:21 Consult Discharge Plan - Plan Referrals: Chio Keating CNP [Primary Care Provider] -
[2018-07-14 05:55] LABS: Basophils % 0.3 %; Eosinophils # 0.1 K/mcL (0.0-0.6); Eosinophils % 1.1 %; Immature Granulocytes % 0.6 % (0-4); Lymphocytes # 1.4 K/mcL (0.6-4.6); Lymphocytes % 20.4 %; Mean Corpuscular HGB Conc 32.7 g/dL (31.6-35.5); Mean Corpuscular Hemoglobin 29.4 pg (28.0-33.3); Mean Corpuscular Volume 89.8 fL (83.0-100.0); Mean Platelet Volume 9.6 fL (9.4-12.4); Monocytes # 0.5 K/mcL (0.0-1.3); Monocytes % 6.6 %; Neutrophils # 4.9 K/mcL (1.6-8.9); Platelet Count 187 K/mcL (140-400); Red Blood Count 2.45 M/mcL (3.82-4.97); Red Cell Distribution Width 17.3 % (11.5-14.5)
[2018-07-14 06:09] LABS: Alanine Aminotransferase 20 Units/L (7-52); Albumin 2.1 g/dL (3.5-5.7); Albumin/Globulin Ratio 0.5 (1.1-2.2); Alkaline Phosphatase 170 Units/L (34-104); Aspartate Amino Transferase 64 Units/L (13-39); BUN/Creatinine Ratio 8 (6-26); Bilirubin,Total 0.4 mg/dL (0.3-1.0); Blood Urea Nitrogen 7 mg/dL (6-20); Calcium 7.8 mg/dL (8.6-10.3); Carbon Dioxide 14 mEq/L (23-29); Chloride 118 mEq/L (98-107); Globulin 3.9 g/dL (2.4-3.5); Glucose 87 mg/dL (70-105); Osmolality,Calculated 283 (280-300); Potassium 3.6 mEq/L (3.5-5.1); Sodium 138 mEq/L (136-145); eGFR For Non-African Americans > 60 (> 60)
[2018-07-14 06:19] LABS: Hemoglobin 7.2 g/dL (11.5-15.4)
[2018-07-14 08:04] LABS: Hematocrit 22.5 % (35.3-44.9); Hemoglobin 7.3 g/dL (11.5-15.4)
[2018-07-14] MEDS: Lactulose Oral Soln 20 GM/30 ML UDC PO SCH ×4 (08:50→20:44)
[2018-07-14] MEDS: aMILoride 5 MG TABLET PO SCH (08:50)
[2018-07-14] MEDS: FLUoxetine 20 MG CAPSULE PO SCH ×2 (08:51→20:44)
[2018-07-14] MEDS: *HR* OxyCODONE Immed Rel 5 MG TABLET PO PRN (10:23)
[2018-07-14 13:24] LABS: AFP Tumor Marker Non-Pregnant 2 ng/mL (0-9)
[2018-07-14 15:55] LABS: Hematocrit 21.8 % (35.3-44.9); Hemoglobin 7.2 g/dL (11.5-15.4)
--- NOTE | 2018-07-14 17:29 | Internal Med Progress Note ---
<Arleen Tay - Last Filed: 07/14/18 17:50> Hospitalist Progress Note - Encounter Date of Encounter: 07/14/18 - Exam Vitals: Temp Pulse Resp BP Pulse Ox 98.7 F 77 16 103/65 97 07/14/18 15:03 07/14/18 15:03 07/14/18 15:03 07/14/18 15:03 07/14/18 15:03 - Time Spent with Patient Total time spent is greater than 50% in coordination of care (as documented) at patient's floor/unit and/or counseling patient: Internal Medicine: Result - Labs CBC & Chem 7: 07/14/18 15:34 07/14/18 15:34 Labs: Short CBC 07/14/18 07/14/18 07/14/18 Range/Units 05:40 07:36 15:34 WBC 7.0 (4.3-11.1) K/mcL Hgb 7.2 L D 7.3 L 7.2 L (11.5-15.4) g/dL Hct 22.0 L 22.5 L 21.8 L (35.3-44.9) % Plt Count 187 (140-400) K/mcL Neutrophils # 4.9 (1.6-8.9) K/mcL BMP 07/13/18 07/14/18 07/14/18 22:21 05:40 15:34 Sodium 138 Potassium 3.4 L 3.6 3.9 Chloride 118 H Carbon Dioxide 14 L BUN 7 Creatinine 0.91 Glucose 87 Calcium 7.8 L Liver Function 07/14/18 Range/Units 05:40 Total Bilirubin 0.4 (0.3-1.0) mg/dL AST 64 H (13-39) Units/L ALT 20 (7-52) Units/L Alkaline Phosphatase 170 H (34-104) Units/L Albumin 2.1 L (3.5-5.7) g/dL - ABG Interpretation ABG results: PT/INR, D-dimer PT 16.4 Seconds (9.4-12.1) H 07/09/18 23:18 Consult Discharge Plan - Plan Referrals: Chio Keating [employer]ER [Primary Care Provider] - - Attending Attestation I examined this patient and my medical decision-making was reviewed with the Resident Physician Dr Howard. I agree with the documented findings, disposition and treatment plan as described except to the extent set forth below. Ms hancock is admitted with sepsis 2/2 pna, colitis with addl dx pansinusitis awake, alert,having mild abd pain today, which she is not concerned about, however, she is feeling very sob after walking to bathroom and is standing trying to catch her breath. discussed how am hgb showed significant drop. She denies any melena or hematochezia with bms on lactulose. no cp, pressure or palpitations. denies presyncope. 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, reg diet/thins when colitis improves Pansinusitis- no meningitic sxs Colitis-advance diet as tolerated Encepahlopathy likely infectious + elevated ammonia and electrolyte abnormalitis (metabolic) resolved acute on Chronic anemia, baseline varies 8-9 or 10-11- no signs of bleeding but hgb 2g drop today to low 7s- serial h/hs, fobt, gi has seen previously and will do cscope outpt after colitis resolved, and egd then; if cont to drop would re consult prior to dc RTA Type I CALISTA resolved Hypokalemia resolved- as d/w nephro ok to dc from renal standpoint when K >3, discussed today and cont PO BID KCL Low bicarb - will dc on bicarb -resume amiloride -outpt nephro follow up Chronic ammonia elevation, down trending- cont lactulose, bms at goal, GI consulted-- autoimmune work up started, fu with gi outpt further diagnoses and plan as noted by resident <John Howard - Last Filed: 07/14/18 20:02> Hospitalist Progress Note - Encounter Date of Encounter: 07/14/18 Time of Encounter: 09:27 - Subjective Interval History: Patient was seen and examined at bedside. She states that overall she continues to feel very well with complete resolution of her symptoms. She denies any symptoms of shortness of breath, fevers, chills, nausea, vomiting. She is tolerating her diet well. She still does admit to some loose bowel movements but they are much improved from previous. - Exam Vitals: Temp Pulse Resp BP Pulse Ox 98.7 F 77 16 103/65 97 07/14/18 15:03 07/14/18 15:03 07/14/18 15:03 07/14/18 15:03 07/14/18 15:03 Exam: Gen: Vitals noted. No acute distress. AAOx3 HEENT: PERRL/EOMI, oropharynx clear, Normocephalic, atraumatic, MMM Cardiac: RRR, no murmur, +S1/S2, radial and dorsal pedis pulses 3+ and symmetrical Pulmonary: CTA bilaterally, no wheezes, rales or rhonchi, equal chest expansion Abdomen: soft, minimally tender to palpation in right lower quadrant, nondistended, BS noted, no guarding, no rebound. MSK: ROM intact, no joint swelling noted Extremities: no BLE edema, no calf tenderness, no cyanosis or clubbing Neuro: A&Ox3, moves all extremities, no focal deficits Psych: Appropriate mood and behavior, cheerful and pleasant - Assessment and Plan (1) Sepsis Current Visit: Yes Status: Resolved Assessment and Plan: Resolved Initially presented with leukocytosis, tachypnea. These have since resolved No longer meeting SIRS criteria- Leukocytosis, afebrile, no tachycardia, and no tachypnea Lactic acid on presentation within normal limits 0.7 Was initially hypotensive and did receive CVC placement in the emergency room, however never did require vasopressor support Suspected source: strep pneumonia, colitis, pansinusitis Organism: Likely multifactorial including strep pneumoniae Blood cultures as well as urine cultures no growth to date MRSA swab, GI panel, C. difficile negative UTI ruled out with negative culture Clinically patient is much improved Chest x-ray in the emergency room shows left basilar consolidation compatible with pneumonia. CT of the abdomen and pelvis shows suspected colitis of the cecum and ascending colon as well as again left upper lobe and left lower lobe pneumonia Initially started on Zosyn, completed 2 days Switch to Augmentin on 07/13. This is day 2 and a /10 of total antibiotic coverage Plan Continue antibiotics as above (2) Anemia Current Visit: Yes Status: Chronic Assessment and Plan: - Appears to be acute on chronic in nature - Etiology is likely iron deficiency - Hemoglobin this morning of 7.2 which is significantly decreased from yesterday at 9.2 - Baseline appears to range anywhere from 7-10 - Patient is on home iron supplementation which is being held here due to colitis - Repeated this morning and this afternoon and remained stable - Patient denies any symptoms of bleeding including hematochezia or melena in the setting of colitis Plan - Suspect that this is near her baseline and in the setting of not receiving her supplementation, will continue to monitor - GI is following, no plans for endoscopy at this time in the setting of acute colitis - We will continue to monitor for now with daily labs - May consider continuing iron supplementation after colitis symptoms have resolved (3) RTA (renal tubular acidosis) Current Visit: Yes Status: Chronic Assessment and Plan: History of renal tubular acidosis with poor compliance for nephrology follow-up Continues to have hypokalemia, however much improved today at 3.6 from 2.8 This was discussed with nephrology at length yesterday, nephrology comfortable with discharge with potassium greater than 3 Current regimen includes 40 mEq twice a day which is what nephrology recommends continuing his outpatient Continue amiloride per nephrology recommendations Continue sodium bicarbonate Nephrology continues to follow Plan Continue potassium supplementation, further management as outpatient (4) Colitis Current Visit: Yes Status: Acute Assessment and Plan: As above for sepsis (5) Hypotension Current Visit: Yes Status: Resolved Assessment and Plan: - Improved - Patient does have a history of chronic hypotension. Has been as low as 87/58 during this admission - Never required vasopressor support during this admission - Most recent blood pressure 137/76 - Etiology is likely acute on chronic with evidence of sepsis, RTA - Patient is on home ameloride which has been continued per nephrology recommendations Plan - We will continue monitor on current regimen (6) Pneumonia Current Visit: Yes Status: Acute Assessment and Plan: As above Streptococcal antigen positive Antibiotic as above (7) Increased ammonia level Current Visit: Yes Status: Acute Assessment and Plan: - Patient reports chronically elevated ammonia level of unclear etiology - Most recent level of 152 which is consistent with where she has been throughout this admission - Patient reports no symptoms with elevated ammonia normally - Right upper quadrant ultrasound was obtained and showed no evidence of cirrhosis or other liver disease - GI has been consulted, workup pending and was instructed to follow-up as outpatient for further management - We will continue lactulose at current dose (8) HTN (hypertension) Current Visit: Yes Status: Chronic Assessment and Plan: As above for hypotension (9) Metabolic encephalopathy Current Visit: Yes Status: Resolved Assessment and Plan: Resolved - Most likely secondary to infectious etiology as above - Also possible that elevated ammonia level playing a role however patient is still having hyperammonia and is alert and oriented 3 for the previous 2 days - Treating underlying etiology as above (10) Pansinusitis Current Visit: Yes Status: Resolved Assessment and Plan: Resolved as above for sepsis (11) DVT prophylaxis Current Visit: No Status: Acute Assessment and Plan: SCDs due to anemia - Time Spent with Patient Total time spent is greater than 50% in coordination of care (as documented) at patient's floor/unit and/or counseling patient: Internal Medicine: Result - Labs CBC & Chem 7: 07/14/18 15:34 07/14/18 15:34 Labs: Short CBC 07/14/18 07/14/18 07/14/18 Range/Units 05:40 07:36 15:34 WBC 7.0 (4.3-11.1) K/mcL Hgb 7.2 L D 7.3 L 7.2 L (11.5-15.4) g/dL Hct 22.0 L 22.5 L 21.8 L (35.3-44.9) % Plt Count 187 (140-400) K/mcL Neutrophils # 4.9 (1.6-8.9) K/mcL BMP 07/13/18 07/14/18 07/14/18 22:21 05:40 15:34 Sodium 138 Potassium 3.4 L 3.6 3.9 Chloride 118 H Carbon Dioxide 14 L BUN 7 Creatinine 0.91 Glucose 87 Calcium 7.8 L Liver Function 07/14/18 Range/Units 05:40 Total Bilirubin 0.4 (0.3-1.0) mg/dL AST 64 H (13-39) Units/L ALT 20 (7-52) Units/L Alkaline Phosphatase 170 H (34-104) Units/L Albumin 2.1 L (3.5-5.7) g/dL - ABG Interpretation ABG results: PT/INR, D-dimer PT 16.4 Seconds (9.4-12.1) H 07/09/18 23:18 <John Howard - Last Filed: 07/14/18 20:02> (1) Sepsis Qualifiers: Qualified Code(s): A41.9 - Sepsis, unspecified organism (2) Anemia Qualifiers: Anemia type: iron deficiency Iron deficiency anemia type: inadequate dietary iron intake Qualified Code(s): D50.8 - Other iron deficiency anemias (5) Hypotension Qualifiers: Hypotension type: unspecified hypotension type Qualified Code(s): I95.9 - Hypotension, unspecified (6) Pneumonia Qualifiers: Pneumonia type: due to group B Streptococcus Laterality: left Lung location: upper lobe of lung Qualified Code(s): J15.3 - Pneumonia due to streptococcus, group B (8) HTN (hypertension) Qualifiers: Hypertension type: essential hypertension Qualified Code(s): I10 - Essential (primary) hypertension (10) Pansinusitis Qualifiers: Chronicity: acute Recurrence: non-recurrent Qualified Code(s): J01.40 - Acute pansinusitis, unspecified
--- NOTE | 2018-07-14 22:25 | Nephrology Progress Note ---
Date of Encounter: 07/14/18 Time of Encounter: 14:00 - Assessment and Plan (1) Hypokalemia Current Visit: No Status: Acute Potassium normalized at 3.6, continue supplements at 40meq bid for now Continue amiloride Repeat BMP in a week on discharge and followup with Dr Martin in 4 weeks (2) Renal tubular acidosis type I Current Visit: No Status: Acute Continue sodium bicarb at current dose (3) Mental status, decreased Current Visit: No Status: Acute resolved (4) CALISTA (acute kidney injury) Current Visit: Yes Status: Acute resolved Subjective Interval history: Pt seen and examined feels good and eager to go home Objective - Vital Signs Vital signs: Vital Signs Temp Pulse Resp BP Pulse Ox 07/14/18 19:37 97.9 F 85 16 137/76 98 07/14/18 15:03 98.7 F 77 16 103/65 97 07/14/18 10:43 98.0 F 80 16 102/65 97 07/14/18 07:09 98.7 F 80 16 101/62 95 07/14/18 03:43 98.9 F 81 15 103/65 96 07/13/18 23:41 98.1 F 83 16 114/68 96 Intake and Output 07/14/18 07/14/18 07/14/18 07:59 15:59 23:59 Intake Total 0 / 1420 1060 / 1420 360 / 1420 Output Total 0 / 0 Balance 0 / 1420 1060 / 1420 360 / 1420 Intake: Oral 0 / 1420 1060 / 1420 360 / 1420 Output: Urine 0 / 0 Other: Meal Lunch Percent of Meal Consumed 100% 0% # Voids 1 1 1 # Bowel Movements 0 0 Weight 65.8 kg Patient Weight 07/14/18 23:59 Weight 65.8 kg - General Appearance General appearance: Present: well-developed, well-nourished EENT: Present: ATNC, mucous membranes moist Neck: Present: no JVD, supple Respiratory: Present: clear Cardiology: Present: no edema, normal S1, normal S2 Gastrointestinal: Present: no tenderness, no guarding Integumentary: Present: warm and dry Neurologic: Present: no focal deficit Musculoskeletal: Present: no deformities Psychiatric: Present: mood/affect appropriate - Lab 07/14/18 15:34 07/14/18 15:34 Consult Discharge Plan - Plan Referrals: Chio Keating, ERIK [Primary Care Provider] -
[2018-07-15 04:32] LABS: Basophils % 0.1 %; Eosinophils # 0.1 K/mcL (0.0-0.6); Eosinophils % 1.5 %; Hematocrit 22.1 % (35.3-44.9); Hemoglobin 7.1 g/dL (11.5-15.4); Immature Granulocytes % 0.4 % (0-4); Lymphocytes # 1.6 K/mcL (0.6-4.6); Mean Corpuscular HGB Conc 32.1 g/dL (31.6-35.5); Mean Corpuscular Hemoglobin 28.7 pg (28.0-33.3); Mean Corpuscular Volume 89.5 fL (83.0-100.0); Mean Platelet Volume 9.4 fL (9.4-12.4); Monocytes # 0.6 K/mcL (0.0-1.3); Monocytes % 8.5 %; Neutrophils # 4.4 K/mcL (1.6-8.9); Platelet Count 186 K/mcL (140-400); Red Blood Count 2.47 M/mcL (3.82-4.97); Red Cell Distribution Width 17.4 % (11.5-14.5); Segmented Neutrophils % 65.5 %
[2018-07-15 04:52] LABS: BUN/Creatinine Ratio 7 (6-26); Blood Urea Nitrogen 5 mg/dL (6-20); Calcium 7.7 mg/dL (8.6-10.3); Carbon Dioxide 14 mEq/L (23-29); Chloride 122 mEq/L (98-107); Glucose 76 mg/dL (70-105); Osmolality,Calculated 280 (280-300); Potassium 3.9 mEq/L (3.5-5.1); Sodium 137 mEq/L (136-145); eGFR For Non-African Americans > 60 (> 60)
[2018-07-15] MEDS: FLUoxetine 20 MG CAPSULE PO SCH ×2 (08:19→20:01)
[2018-07-15] MEDS: aMILoride 5 MG TABLET PO SCH (08:19)
[2018-07-15] MEDS: Lactulose Oral Soln 20 GM/30 ML UDC PO SCH ×4 (08:20→20:01)
[2018-07-15] MEDS: *HR* OxyCODONE Immed Rel 5 MG TABLET PO PRN ×2 (08:33→20:07)
[2018-07-15 10:25] LABS: F-Actin (sm muscle) Ab IgG 24 Units (0-19)
[2018-07-15 10:40] LABS: ANA IgG by ELISA DETECTED (None Detected)
[2018-07-15] MEDS ORDERED: Iron Sucrose Complex 250 MG in 0.9 % Sodium Chloride 250 ML IVPB SCH (12:00)
--- NOTE | 2018-07-15 17:37 | Event Note ---
Date of Encounter: 07/15/18 Time of Encounter: 16:59
[2018-07-15] MEDS ORDERED: 0.9 % Sodium Chloride 250 ML ONE (17:49)
--- NOTE | 2018-07-15 18:08 | Discharge Summary ---
Date of Encounter: 07/15/18 Time of Encounter: 17:57 NB- Discharge Summary Diag - Discharge Diagnosis (1) Sepsis Status: Resolved Code(s): A41.9 - Sepsis, unspecified organism SNOMED Code(s): 77667063 (2) Pneumonia Status: Acute Code(s): J18.9 - Pneumonia, unspecified organism SNOMED Code(s): 856586640 (3) Pansinusitis Status: Resolved Code(s): J32.4 - Chronic pansinusitis SNOMED Code(s): 750682351 (4) Colitis Status: Acute Code(s): K52.9 - Noninfective gastroenteritis and colitis, unspecified SNOMED Code(s): 98577438 (5) Increased ammonia level Status: Acute Code(s): R79.89 - Other specified abnormal findings of blood chemistry SNOMED Code(s): 942050918 (6) Renal tubular acidosis type I Status: Acute Code(s): N25.89 - Other disorders resulting from impaired renal tubular function SNOMED Code(s): 794431731 (7) Hypokalemia Status: Acute Code(s): E87.6 - Hypokalemia SNOMED Code(s): 96858837 (8) CALISTA (acute kidney injury) Status: Acute Code(s): N17.9 - Acute kidney failure, unspecified SNOMED Code(s): 53000837 (9) Anemia Status: Acute Code(s): D64.9 - Anemia, unspecified SNOMED Code(s): 513940058 (10) Sjogrens syndrome Status: Chronic Code(s): M35.00 - Sicca syndrome, unspecified SNOMED Code(s): 64553504 (11) Rheumatoid arthritis Status: Chronic Code(s): M06.9 - Rheumatoid arthritis, unspecified SNOMED Code(s): 74902863 (12) HTN (hypertension) Status: Chronic Code(s): I10 - Essential (primary) hypertension SNOMED Code(s): 56149006 NB- Discharge Summary Meds - Discharge Medications Prescriptions: Amoxicillin/Clavulanate [Augmentin] 875 mg PO BIDWM 5 Days #10 tablet Lactulose 20 gm PO QID 10 Days #40 udc Potassium Chloride 40 meq PO BID 10 Days #20 tab.er.prt Sodium Bicarbonate 650 mg PO TID 10 Days #30 tablet NB- Discharge Summary Data - Pertinent Studies Pertinent Studies: Bilirubins 07/09/18 07/10/18 07/12/18 23:18 07:52 08:36 Total Bilirubin 0.7 0.6 0.6 07/13/18 07/14/18 09:31 05:40 Total Bilirubin 0.7 0.4 Procedures and tests throughout hospitalization: Pending Orders 07/09/18 23:03 Glucose, blood poc measurement [RC] .ONCE 07/10/18 01:[address] Stat 07/10/18 03:56 Sputum Culture [Culture,Sputum with Gram Stain] [RM] Routine 07/10/18 05:17 Consult to Nephrology [CONS] Routine 07/10/18 06:14 Resuscitation Status: Active [RES] Routine 07/10/18 06:38 Admit as Inpatient Routine 07/10/18 10:01 SCD [Intermittent pneumatic rick] [RC] .CONTINUOUS 07/10/18 10:58 Intake and Output, Strict [RC] DAILY 07/11/18 07:26 hydrOXYzine pamoate 25 mg PO Q8H PRN 07/11/18 09:00 FLUoxetine HCl [PROzac] 40 mg PO BID Lactulose 20 gm PO QID Sodium Bicarbonate 650 mg PO TID 07/11/18 10:41 Consult to Gastroenterology [CONS] Routine 07/11/18 15:28 OxyCODONE Immed Rel [Roxicodone] 5 mg PO Q6HR PRN 07/12/18 15:21 Zolpidem [Ambien] 5 mg PO HS PRN 07/12/18 15:59 AFP Tumor Marker Non- Routine AL IgG TIANNA rflx IFA Routine F-Actin IgG Reflex Sm Muscle Routine 07/12/18 21:00 Quetiapine Fumarate [SEROquel] 150 mg PO HS 07/13/18 09:00 Quetiapine Fumarate [SEROquel] 100 mg PO QAM 07/13/18 11:08 Ondansetron ODT [Zofran ODT] 4 mg SL Q6HR PRN 07/13/18 17:00 Amoxicillin/Clavulanate [Augmentin] 875 mg PO BIDWM 07/13/18 Lunch Mechanically Altered Diet Ground Meat 07/14/18 07:29 Type and Screen [BBK] Stat 07/14/18 09:00 Potassium Chloride 40 meq PO BID aMILoride [Midamor] 5 mg PO DAILY 07/15/18 12:00 Iron Sucrose Complex [Venofer] 250 mg 0.9 % Sodium Chloride 250 ml IVPB DAILY 07/15/18 17:11 Red Blood Cells [BBK] Stat 07/15/18 17:56 Hemoglobin and Hematocrit [HEME] Routine 07/16/18 04:00 CBC [Complete Blood Count] [HEME] AM 0400 Labs on day of discharge: Labs from last 24 hours 07/15/18 07/15/18 07/15/18 09:20 04:12 04:12 WBC 6.7 RBC 2.47 L Hgb 7.1 L Hct 22.1 L MCV 89.5 MCH 28.7 MCHC 32.1 RDW 17.4 H Plt Count 186 MPV 9.4 Immature Gran % 0.4 Seg Neutrophils % 65.5 Lymphocytes % 24.0 Monocytes % 8.5 Eosinophils % 1.5 Basophils % 0.1 Neutrophils # 4.4 Lymphocytes # 1.6 Monocytes # 0.6 Eosinophils # 0.1 Basophils # 0.0 Sodium 137 Potassium 3.9 Chloride 122 H Carbon Dioxide 14 L BUN 5 L Creatinine 0.74 Est GFR ( Amer) > 60 Est GFR (Non-Af Amer) > 60 BUN/Creatinine Ratio 7 Glucose 76 Calculated Osmolality 280 Calcium 7.7 L Stool Occult Blood Positive A AL Screen Myeloperoxidase Ab Mitochondria M2 IgG Ab F-Actin IgG Antibody Serine Protease 3 Ab Blood Type Antibody Screen Crossmatch 07/14/18 07/12/18 07/12/18 07:29 15:59 15:59 WBC RBC Hgb Hct MCV MCH MCHC RDW Plt Count MPV Immature Gran % Seg Neutrophils % Lymphocytes % Monocytes % Eosinophils % Basophils % Neutrophils # Lymphocytes # Monocytes # Eosinophils # Basophils # Sodium Potassium Chloride Carbon Dioxide BUN Creatinine Est GFR ( Amer) Est GFR (Non-Af Amer) BUN/Creatinine Ratio Glucose Calculated Osmolality Calcium Stool Occult Blood AL Screen DETECTED A Myeloperoxidase Ab 0 Mitochondria M2 IgG Ab 9.4 F-Actin IgG Antibody 24 H Serine Protease 3 Ab 1 Blood Type O POSITIVE Antibody Screen NEGATIVE Crossmatch See Detail - Impressions ITS Impressions Chest X-Ray 07/09/18 23:03 IMPRESSION: Left basilar consolidation, compatible with pneumonia. That must be followed to resolution. D/ / Hunter Adler MD / Hunter Adler MD Interpreting Provider: Hunter Adler MD Head CT 07/09/18 23:04 IMPRESSION: No acute intracranial abnormality. Pansinusitis. D/ / Harrison Cohen MD / Harrison Cohen MD Interpreting Provider: Harrison Cohen MD Abdomen/Pelvis CT 07/09/18 23:11 IMPRESSION: 1. Suspected colitis of the cecum and ascending colon. There is no evidence to suggest appendicitis. 2. Left upper lobe and left lower lobe airspace disease likely represents pneumonia. Significant secretions in the left lower lobe raise the possibility of aspiration pneumonia. D/ / Harrison Cohen MD / Harrison Cohen MD Interpreting Provider: Harrison Cohen MD Chest X-Ray 07/10/18 04:02 IMPRESSION: 1. Right internal jugular central venous catheter tip terminates at the cavoatrial junction. 2. Worsening left base opacity and small effusion concerning for infection. 3. New right infrahilar opacity may also represent infection versus atelectasis. D/ / 07/10/2018 08:58:20 Laura Noguera MD / dale Interpreting Provider: Laura Noguera MD Abdomen Ultrasound 07/10/18 07:29 IMPRESSION: Negative right upper quadrant ultrasound. D/ / Shadi Salinas MD / Shadi Salinas MD Interpreting Provider: Shadi Salinas MD - DS Prov Date of admission: 07/10/18 06:38 Primary care physician: Chio Keating CNP Discharging clinician: Adilia Anders Anticipated date of discharge: 07/15/18 NB- Discharge Summary A/P - Discharge Instructions Follow Up With: Chio Keating CNP [Primary Care Provider] - - Patient Status Condition: Fair - Time Spent with Patient Time Attestation: Total time spent providing and/or coordinating discharge services: NB- Discharge Summary Exam - Weights Discharge Weight: 65.8 kg
--- NOTE | 2018-07-15 18:12 | Discharge Summary ---
<dAilia Anders - Last Filed: 07/15/18 18:20> - NOTES TO OUTPATIENT PROVIDER Notes to Outpatient Provider: Medication changes. 5 days of Augmentin, twice a day. Potassium chloride 40 mEq twice a day. Sodium bicarbonate 650 mg 3 times a day. Lactulose 20 g/30 mL UDC 4 times a day Orders not resulted at time of discharge: Pending orders 07/10/18 03:56 Sputum Culture [Culture,Sputum with Gram Stain] [RM] Routine 07/12/18 15:59 AFP Tumor Marker Non- Routine AL IgG TIANNA rflx IFA Routine F-Actin IgG Reflex Sm Muscle Routine 07/14/18 07:29 Type and Screen [BBK] Stat 07/15/18 17:11 Red Blood Cells [BBK] Stat 07/15/18 17:56 Hemoglobin and Hematocrit [HEME] Routine 07/16/18 04:00 CBC [Complete Blood Count] [HEME] AM 0400 Date of Encounter: 07/15/18 Time of Encounter: 18:10 - Discharge Diagnosis (1) Sepsis Priority: Primary Status: Resolved Qualifiers: Sepsis type: sepsis due to unspecified organism Qualified Code(s): A41.9 - Sepsis, unspecified organism (2) Pneumonia Priority: Secondary Status: Acute Qualifiers: Pneumonia type: due to group B Streptococcus Laterality: left Lung location: upper lobe of lung Qualified Code(s): J15.3 - Pneumonia due to streptococcus, group B (3) Pansinusitis Priority: Secondary Status: Resolved Qualifiers: Chronicity: acute Recurrence: non-recurrent Qualified Code(s): J01.40 - A cute pansinusitis, unspecified (4) Colitis Priority: Secondary Status: Acute (5) Increased ammonia level Priority: Secondary Status: Acute (6) Renal tubular acidosis type I Priority: Secondary Status: Chronic (7) Hypokalemia Priority: Secondary Status: Chronic (8) CALISTA (acute kidney injury) Priority: Secondary Status: Resolved (9) Anemia Priority: Secondary Status: Chronic Qualifiers: Anemia type: unspecified type Qualified Code(s): D64.9 - Anemia, unspecified (10) Sjogrens syndrome Priority: Secondary Status: Chronic Qualifiers: Sjogren's organ involvement: unspecified organ involvement Qualified Code(s): M35.00 - Sicca syndrome, unspecified (11) Rheumatoid arthritis Priority: Secondary Status: Chronic Qualifiers: Rheumatoid arthritis location: unspecified site Rheumatoid factor presence: unspecified presence Qualified Code(s): M06.9 - Rheumatoid arthritis, unspecified (12) HTN (hypertension) Priority: Secondary Status: Chronic Qualifiers: Hypertension type: essential hypertension Qualified Code(s): I10 - Essential (primary) hypertension Hospital course: Ana Ching is a 52 y/o female with past medical history of hypokalemia, Sjogren syndrome, RTA type I, hypertension, insomnia, anxiety, depression who presented to the emergency room due to alteration in mental status. She also has a history of recurrent elevated ammonia levels which no obvious etiology has been found to this point. Upon presentation to the emergency room, vital signs were significant for hypotension at 93/54 as well as laboratory results of leukocytosis of 15.2, potassium 2.5, alkaline phosphatase 213, AST 162 and ammonia of 102. Mildly elevated direct bilirubin 0.3. Creatinine mildly elevated at 1.29. EKG shows no ischemic changes. Head CT in the emerged from was negative for any acute intracranial abnormalities and chest x-ray showed left total basilar consolidation with concerns for pneumonia. Abdominal CT also showed suspected colitis of the cecum and ascending colon. She was started on Flagyl, Zithromax, Zosyn and was admitted to the hospital. She did have a central venous catheterization placed emergency room however never acquired vasopressor support. Throughout course of hospital stay, patient did gradually improve. Her mental status is currently at baseline after antibiotic therapy, fluid resuscitation. Right upper quadrant ultrasound was negative for acute pathology. Additional workup shows pansinusitis on her CT of her head as well as a urinalysis with possible infection. Legionella strep antigen were however negative. Blood cultures obtained admission were negative for growth and urine culture also showed no growth. She was de-escalated to Zosyn and azithromycin. Nephrology and gastroenterology were consulted during this admission. Gastroenterology recommends colonoscopy as an outpatient in 6-8 weeks and consider an EGD at that time as well. Also recommend continuation of lactulose which she was on home and rule out autoimmune hepatitis and other liver workup as an outpatient. Nephrology has been working to replenish electrolytes most significantly potassium which is remained in the 2-3 range. Suspect that this is likely secondary to her renal tubular acidosis. She was increased to supplemental potassium 40 mg 2 times a day. She was reminded again to follow up with nephrology as an outpatient. On day of discharge, patients mental status has returned to baseline and hypotension is improved. Patients laboratory results and return to baseline levels and potassium is now 3.9, which after discussing with nephrology is acceptable for an outpatient follow-up. For her anemia, she did have acute hemoglobin drop from 9 down to 7.1. She is status post 1 unit of packed red blood cells per recommendation of GI. She will be discharged home in stable medical condition with close follow-up with GI and nephrology as well as her primary care physician. Discharge discussed with: patient - Time Spent with Patient Total time spent providing and/or coordinating discharge services: - Discharge Medications Prescriptions: New Amoxicillin/Clavulanate [Augmentin] 875 mg PO BIDWM 5 Days #10 tablet Lactulose 20 gm PO QID 10 Days #40 udc Potassium Chloride 40 meq PO BID 10 Days #20 tab.er.prt Sodium Bicarbonate 650 mg PO TID 10 Days #30 tablet Continued Zolpidem [Ambien] 5 mg PO HS PRN PRN Reason: Sleep Quetiapine Fumarate [Seroquel] 100 mg PO QAM FLUoxetine HCl [Fluoxetine HCl] 40 mg PO BID hydrOXYzine HCl [Hydroxyzine HCl] 25 mg PO AD PRN PRN Reason: Anxiety aMILoride [Midamor] 10 mg PO DAILY Iron Polysaccharide Complex [Ferrex 150] 150 mg PO DAILY HYDROcodone/Acet 10/325 mg [[place] 10-325 mg] 1 tab PO Q6H PRN PRN Reason: Pain Propranolol [Inderal] 10 mg PO BID Quetiapine Fumarate [Seroquel] 150 mg PO HS Discontinued Lactulose [Enulose] 20 gm PO BID PRN PRN Reason: Constipation Potassium Citrate [Urocit-K] 20 meq PO BID Sodium Bicarbonate 650 mg PO BID Home Medications: Zolpidem [Ambien] 5 mg PO HS PRN 06/28/15 [History] FLUoxetine HCl [Fluoxetine HCl] 40 mg PO BID 01/02/17 [History] Quetiapine Fumarate [Seroquel] 100 mg PO QAM 01/02/17 [History] hydrOXYzine HCl [Hydroxyzine HCl] 25 mg PO AD PRN 05/25/17 [History] Iron Polysaccharide Complex [Ferrex 150] 150 mg PO DAILY 07/10/18 [History] aMILoride [Midamor] 10 mg PO DAILY 07/10/18 [History] HYDROcodone/Acet 10/325 mg [[place] 10-325 mg] 1 tab PO Q6H PRN 07/11/18 [History] Propranolol [Inderal] 10 mg PO BID 07/11/18 [History] Quetiapine Fumarate [Seroquel] 150 mg PO HS 07/11/18 [History] Amoxicillin/Clavulanate [Augmentin] 875 mg PO BIDWM 5 Days #10 tablet 07/15/18 [Rx] Lactulose 20 gm PO QID 10 Days #40 udc 07/15/18 [Rx] Potassium Chloride 40 meq PO BID 10 Days #20 tab.er.prt 07/15/18 [Rx] Sodium Bicarbonate 650 mg PO TID 10 Days #30 tablet 07/15/18 [Rx] Allergies/Adverse Reactions: Allergy/AdvReac Type Severity Reaction Status Date / Time tramadol AdvReac Seizure Verified 07/11/18 11:08 Date of admission: 07/10/18 06:38 Primary care physician: Chio Keating CNP Consults: 07/10/18 05:17 Consult to Nephrology [CONS] Routine Consulting Provider: Kidney Abbey/ROCHELLE/SAVIAT/[place] Reason for Consult: hypokalemia and RTA 1 Call Completed: No 07/11/18 10:41 Consult to Gastroenterology [CONS] Routine Consulting Provider: Gastroenterology [facility] Reason for Consult: anemia, hyperammonia, no hx of liver dz Call Completed: Yes Discharging clinician: Adilia Anders Anticipated date of discharge: 07/15/18 - Constitutional Vitals: Temp Pulse Resp BP Pulse Ox 98.4 F 83 16 113/68 91 07/15/18 15:01 07/15/18 15:01 07/15/18 15:01 07/15/18 15:01 07/15/18 15:01 Exam: Gen: Vitals noted. No acute distress. AAOx3 HEENT: PERRL/EOMI, oropharynx clear, Normocephalic, atraumatic, mucous membranes dry Cardiac: RRR, no murmur, +S1/S2, radial and dorsal pedis pulses 3+ and symmetrical Pulmonary: CTA bilaterally, no wheezes, rales or rhonchi, equal chest expansion Abdomen: soft, nontender, mildly distended, BS noted, no guarding, no rebound. MSK: ROM intact, no joint swelling noted Extremities: no BLE edema, no calf tenderness, no cyanosis or clubbing Neuro: A&Ox3, moves all extremities, no focal deficits Psych: Appropriate mood and behavior - Patient Status Disposition: Home, Self-Care Condition: Good Functional capacity at discharge: independent ambulation Overall status at discharge: patient is back to baseline - Discharge Instructions Follow Up With: Chio Keating BUR[facility]ENCH [facility] [Primary Care Provider] - - Diet and Activity Activity: resume usual activities as tolerated Diet: advance to your usual diet <Alejo Pendleton - Last Filed: 07/15/18 20:12> Orders not resulted at time of discharge: Pending orders 07/10/18 03:56 Sputum Culture [Culture,Sputum with Gram Stain] [RM] Routine 07/12/18 15:59 AFP Tumor Marker Non- Routine AL IgG TIANNA rflx IFA Routine F-Actin IgG Reflex Sm Muscle Routine 07/15/18 17:56 Hemoglobin and Hematocrit [HEME] Routine 07/16/18 04:00 CBC [Complete Blood Count] [HEME] AM 0400 Date of Encounter: 07/15/18 - Discharge Diagnosis (1) DVT prophylaxis Status: Acute (2) RTA (renal tubular acidosis) Status: Chronic (3) Colitis Status: Acute (4) Sepsis Status: Resolved Qualifiers: Sepsis type: sepsis due to unspecified organism Qualified Code(s): A41.9 - Sepsis, unspecified organism (5) Hypotension Status: Resolved Qualifiers: Hypotension type: unspecified hypotension type Qualified Code(s): I95.9 - Hypotension, unspecified (6) Pneumonia Status: Acute Qualifiers: Pneumonia type: due to group B Streptococcus Laterality: left Lung location: upper lobe of lung Qualified Code(s): J15.3 - Pneumonia due to streptococcus, group B (7) Increased ammonia level Status: Acute (8) HTN (hypertension) Status: Chronic Qualifiers: Hypertension type: essential hypertension Qualified Code(s): I10 - Essential (primary) hypertension (9) Metabolic encephalopathy Status: Resolved (10) Anemia Status: Chronic Qualifiers: Anemia type: iron deficiency Iron deficiency anemia type: inadequate dietary iron intake Qualified Code(s): D50.8 - Other iron deficiency anemias (11) Pansinusitis Status: Resolved Qualifiers: Chronicity: acute Recurrence: non-recurrent Qualified Code(s): J01.40 - Acute pansinusitis, unspecified Hospital course: Ms. Ching is a 52 year old female - Time Spent with Patient Total time spent providing and/or coordinating discharge services: Date of admission: 07/10/18 06:38 Primary care physician: Chio Keating CNP Consults: 07/10/18 05:17 Consult to Nephrology [CONS] Routine Consulting Provider: [facility]ney Abbey/ROCHELLE/SAVITA/[place] Reason for Consult: hypokalemia and RTA 1 Call Completed: No 07/11/18 10:41 Consult to Gastroenterology [CONS] Routine Consulting Provider: Gastroenterology [facility] Reason for Consult: anemia, hyperammonia, no hx of liver dz Call Completed: Yes - Constitutional Vitals: Temp Pulse Resp BP Pulse Ox 98.9 F 94 18 126/75 98 07/15/18 18:42 07/15/18 18:42 07/15/18 18:42 07/15/18 18:42 07/15/18 18:42 - Attending Attestation I examined this patient and my medical decision-making was reviewed with the Resident Physician. I agree with the documented findings, disposition and treatment plan as described except to the extent set forth below.
[2018-07-15 23:21] LABS: Hematocrit 26.2 % (35.3-44.9)
[2018-07-15 23:23] LABS: Hemoglobin 8.8 g/dL (11.5-15.4)
[2018-07-16 04:02] VITALS: BP 96/54
[2018-07-16 07:55] LABS: Basophils % 0.2 %; Eosinophils # 0.1 K/mcL (0.0-0.6); Eosinophils % 0.7 %; Hematocrit 29.9 % (35.3-44.9); Immature Granulocytes % 0.6 % (0-4); Lymphocytes # 1.8 K/mcL (0.6-4.6); Lymphocytes % 18.5 %; Mean Corpuscular HGB Conc 33.4 g/dL (31.6-35.5); Mean Corpuscular Hemoglobin 29.9 pg (28.0-33.3); Mean Corpuscular Volume 89.3 fL (83.0-100.0); Mean Platelet Volume 9.6 fL (9.4-12.4); Neutrophils # 6.6 K/mcL (1.6-8.9); Platelet Count 241 K/mcL (140-400); Red Blood Count 3.35 M/mcL (3.82-4.97); Red Cell Distribution Width 16.7 % (11.5-14.5)
[2018-07-16 09:25] LABS: Smooth Muscle Ab Titer IgG <1:20 (<1:20)
[2018-07-16 19:57] LABS: ANA HEp-2 IgG IFA DETECTED (<1:80); Anti Nuclear Ab Pattern SPECKLED
== END 2018-07-16 07:07 | disposition home or self-care (01) | DRG 871 ==
LOC: 3ANU 22:41 → EMEROOARM 22:41 → 2NENU 07-10 03:49 → ICNU 07-10 04:26 → SUATTDRO 07-10 06:38 → 3ANU 07-12 04:39
PROVIDERS: ADMIT Family Medicine; ATTEND Student in an Organized Health Care Education/Training Program

== ENCOUNTER 2018-11-26 00:22 | Inpatient (IN) ==
--- NOTE | 2018-11-26 00:41 | Decisional Incapacity Hold ---
Decisional Incapacity Hold - Assessment of Capacity Does the pt know/understand his or her medical condition?: No Does the pt know/understand the risks of leaving without tx?: No - Criteria Criteria to institute DIH: 1. The patient is making efforts to leave that place him/her at significant risk for serious harm, disability, or . 2. The patient has been clinically determined to lack the capacity to make an informed decision, or otherwise understand the risks of declining care and leaving the hospital. 3. The patient does not meet the criteria for Involuntary Psychiatric Hospitalization ("[place]") (Consider reference to Policy: Safe Transfer of Psychiatric Patients 4.6) Criteria for Decisional Incapacity Hold: Patient has efforts to leave,placing them at significant risk, Patient clinically determined to lack the capacity/understand risks, Patient does not meet criteria for Involuntary Psych Hospitalization. - Supporting facts for DIH Clinical circumstances and anticipated outcomes: Patient has not been taking her medications for over one week. Daughter states that she gets the way feels tonight when she does not take her lactulose. Often when she is admitted her ammonia level is very high and her potassium level is low. She also has a history of chronic anemia. History of hepatic encephalopathy. Patient was seen out in a parking lot just outside the hospital doors emergency room as a concern of her well-being and her mental capacity. We felt that she was not able to make her own decisions as she was confused stating the year was 1998 was unsure who the president of [facility] is. Patient's daughter who is a nurse was very concerned about her mother and brought her here for treatment and it was felt that she did not have the capacity to make her own medical decisions. It was felt that if the patient did leave this up place her at significant risk for serious harm, disability, or even . Patient was found to black capacity to make an informed decision or understanding the risk of the clinic care and leaving the hospital. She does not meet criteria for involuntary psychiatric hospitalization at this time. The expected outcome is to replace her potassium, treat her elevated ammonia level and observe her in the hospital. CT scan abdomen and pelvis obtained secondary to family request as she does have abdominal pain at times. - Surrogate Surrogate contacted?: Yes Surrogate Relationship: Adult Child
--- NOTE | 2018-11-26 00:47 | Emergency Department Note ---
Disposition Clinical Impression: Hepatic encephalopathy, Hyperammonemia, Acute on chronic anemia, Hypokalemia Disposition: Admitted As Inpatient Condition: Fair Time of Disposition: 04:00 Altered Mental Status HPI - General Chief Complaint: ED Altered Mental Status Stated Complaint: AMS Time Seen by Provider: 11/26/18 00:29 Source: family Nursing Notes Reviewed: Yes Vital Signs Reviewed: Yes - History of Present Illness HPI Narrative: 53-year-old female patient with a history of hepatic encephalopathy and hypokalemia has not taken medications for the last week. She presents here with her daughter in a private vehicle. I was asked to evaluate her out in the parking lot to ensure that she was neurologically intact with good insight and perform medical screening exam. However, patient was found to be incapacitated in confused. He is unsure what year it was she reported it was 1998. I also asked who the president was and she was not sure it was felt that she was a danger to herself since she does not have good insight to her disease and she has not been taking her medications. Her daughter who is a nurse, states that she has not taken medications and when this happens she does usually have an elevated ammonia level as well as a low potassium. MD complaint: confusion Timing confirmed by: family member Pain Severity: none Pain Scale: 0 Associated symptoms: Denies: chest pain, cough, diaphoresis, headaches, nausea/vomiting, shortness of breath, syncope - Related Data Home Medications Medication Instructions Recorded Confirmed Zolpidem [Ambien] 5 mg PO HS PRN 06/28/15 08/28/18 FLUoxetine HCl [Fluoxetine HCl] 40 mg PO BID 01/02/17 08/28/18 Quetiapine Fumarate [Seroquel] 100 mg PO QAM 01/02/17 08/28/18 hydrOXYzine HCl [Hydroxyzine HCl] 25 mg PO DAILY PRN 05/25/17 08/28/18 Iron Polysaccharide Complex 150 mg PO DAILY 07/10/18 08/28/18 [Ferrex 150] aMILoride [Midamor] 10 mg PO DAILY 07/10/18 08/28/18 HYDROcodone/Acet 10/325 mg [[place] 1 tab PO Q6H PRN 07/11/18 08/28/18 10-325 mg] Propranolol [Inderal] 10 mg PO BID 07/11/18 08/28/18 Quetiapine Fumarate [Seroquel] 150 mg PO HS 07/11/18 08/28/18 Lactulose 20 gm PO QID 08/28/18 08/28/18 Potassium Citrate [Urocit-K] 20 meq PO BID 08/28/18 08/28/18 Sodium Bicarbonate 650 mg PO TID 08/28/18 08/28/18 Allergies Allergy/AdvReac Type Severity Reaction Status Date / Time tramadol AdvReac Seizure Verified 08/28/18 10:21 All systems ED: reviewed and negative except as stated. Limitations: ROS unobtainable due to patients medical condition (But obtained from daughter) Constitutional: Reports: weakness, other (Confusion). Denies: fever, chills, weight change Eyes: Denies: eye pain, eye discharge, vision change ENT ED: Denies: ear pain, throat pain, dental pain, hearing loss, epistaxis, congestion, dysphagia Cardiovascular: Denies: chest pain, palpitations, dyspnea on exertion, edema, syncope Respiratory: Denies: cough, dyspnea, wheezes, hemoptysis, stridor Gastrointestinal: Reports: abdominal pain (Intermittently chronic). Denies: nausea, vomiting, diarrhea, constipation, hematemesis, melena, hematochezia Genitourinary: Denies: dysuria, frequency, hematuria, discharge Musculoskeletal: Denies: back pain, neck pain, arthralgia, myalgia Integumentary: Denies: rash, abrasion, lesions Neurological: Reports: weakness, confusion. Denies: headache, numbness, paresthesias, abnormal gait, vertigo Psychiatric: Denies: anxiety, depression, suicidal thoughts, homicidal thoughts, auditory hallucinations, visual hallucinations Past Medical History - Past Medical History Attestation: Yes The following information was validated with the patient. Source: patient, old records reviewed, obtained from family, nursing notes reviewed Medical history: Reports: arthritis, coronary artery disease, hypertension, liver disease, RA, renal disease, other Surgical history: Reports: cholecystectomy Psychiatric history: Reports: anxiety, depression SERVICE ATTENDANT history: Reports: non-contributory - Social History Smoking Status: Never smoker Smokeless Tobacco Status: No Alcohol use: Reports: none Drug use: Reports: none Physical Exam - General Limitations: no limitations General appearance: alert, in no apparent distress - Head Head exam: atraumatic, normocephalic, normal inspection - Eye Eye exam: Present: normal appearance, PERRL, EOMI - ENT ENT exam: normal exam, normal oropharynx, mucous membranes moist - Neck Neck exam: Present: normal inspection, full ROM, trachea midline - Chest Chest inspection: Present: normal inspection, symmetric chest wall rise. Absent: tenderness - Respiratory Respiratory exam: Present: normal lung sounds bilaterally. Absent: respiratory distress, wheezes - Cardiovascular Cardiovascular exam: Present: regular rate, normal rhythm, normal heart sounds - Abdominal Exam Abdominal exam: Present: soft, Non-Tender, normal bowel sounds. Absent: tenderness, distention, guarding, rebound, rigidity - Extremities Exam Extremities exam: Present: normal inspection, full ROM, normal capillary refill. Absent: tenderness, pedal edema - Back Exam Back exam: Present: normal inspection, full ROM. Absent: tenderness, CVA tenderness (R), CVA tenderness (L) - Neurological Exam Neurological exam: Present: alert, oriented X3, CN II-XII intact, normal gait - Expanded Neurological Exam Patient oriented to: Present: person, place, time Speech: Present: fluid speech Cranial nerves: EOM function (II, III, IV, ): Normal, facial sensation (V): Normal, facial palsy (VII): Normal, gag reflex (IX): Normal, spinal accessory function (XI): Normal, tongue deviation (XII): Normal Motor strength - LUE: 4/5 Motor strength - RUE: 4/5 Motor strength - LLE: 4/5 Motor strength - RLE: 4/5 Coma Scale Eye Opening: Spontaneous Coma Scale Motor Response: Localizes to Pain Coma Scale Verbal Response: Confused Coma Scale Total: 13 - Psychiatric Psychiatric exam: Present: normal affect, normal mood - Skin Skin exam: Present: warm, dry, intact, normal color Course Course Narrative: Patient is resting comfortably. Once the patient was brought into the emergency room she was more cooperative. Patient did have a CT scan of abdomen and pelvis which showed trace ascites and this was performed at the request of the family secondary that she has intermittent chronic abdominal pain - Consultations Consultation #1: Dr Mane accepts the admission as obs Time: 03:59 Vital Signs Temperature 98.7 F 11/26/18 00:28 Pulse Rate 76 11/26/18 00:28 Respiratory Rate 18 11/26/18 00:28 Blood Pressure 163/85 11/26/18 00:28 O2 Sat by Pulse Oximetry 98 11/26/18 00:28 Temperature 97.1 F L 11/26/18 05:17 Pulse Rate 69 11/26/18 05:17 Respiratory Rate 16 11/26/18 04:19 Blood Pressure 115/61 11/26/18 05:17 O2 Sat by Pulse Oximetry 97 11/26/18 05:17 Oxygen Delivery Oxygen Delivery Room Air Altered Mental Status - MDM Narrative Medical decision making narrative: Her hemoglobin is chronically low but actually is improved from previous testing at 9 g. Her potassium is low at 2.4 this replaced both orally and IV. Lactulose was given - Medical Records Medical records reviewed: Yes I reviewed the patient's medical records. - Lab Data Lab results reviewed: Yes I reviewed the patient's lab results. Result diagrams: 11/26/18 00:40 11/26/18 00:40 Lab Results 11/26/18 11/26/18 11/26/18 Range/Units 00:40 00:40 00:40 WBC 4.6 (4.3-11.1) K/mcL RBC 3.09 L (3.82-4.97) M/mcL Hgb 9.0 L (11.5-15.4) g/dL Hct 26.7 L (35.3-44.9) % MCV 86.4 (83.0-100.0) fL MCH 29.1 (28.0-33.3) pg MCHC 33.7 (31.6-35.5) g/dL RDW 17.5 H (11.5-14.5) % Plt Count 136 L (140-400) K/mcL MPV 10.1 (9.4-12.4) fL Immature Gran % 0.2 (0-4) % Seg Neutrophils % 55.9 % Lymphocytes % 32.3 % Monocytes % 9.0 % Eosinophils % 2.2 % Basophils % 0.4 % Neutrophils # 2.5 (1.6-8.9) K/mcL Lymphocytes # 1.5 (0.6-4.6) K/mcL Monocytes # 0.4 (0.0-1.3) K/mcL Eosinophils # 0.1 (0.0-0.6) K/mcL Basophils # 0.0 (0.0-0.2) K/mcL PT 14.4 H (9.4-12.1) Seconds INR 1.3 APTT 31.5 (26.0-36.0) Seconds Sodium 135 L (136-145) mEq/L Potassium 2.4 L* (3.5-5.1) mEq/L Chloride 114 H (98-107) mEq/L Carbon Dioxide 12 L (23-29) mEq/L BUN 14 (6-20) mg/dL Creatinine 1.13 (0.60-1.20) mg/dL Est GFR ( Amer) > 60 (> 60) Est GFR (Non-Af Amer) 50 L (> 60) BUN/Creatinine Ratio 12 (6-26) Glucose 101 (70-105) mg/dL POC Glucose (70-99) mg/dL Calculated Osmolality 281 (280-300) Calcium 9.3 (8.6-10.3) mg/dL Magnesium 2.0 (1.6-2.6) mg/dL Total Bilirubin 0.7 (0.3-1.0) mg/dL Direct Bilirubin 0.2 (0.0-0.2) mg/dL Indirect Bilirubin 0.5 (0.0-1.2) mg/dL AST 42 H (13-39) Units/L ALT 19 (7-52) Units/L Alkaline Phosphatase 129 H (34-104) Units/L Ammonia (16-53) mcmol/L Troponin I < 0.03 (< 0.04) ng/mL Serum Total Protein 8.8 (6.4-8.9) g/dL Albumin 3.3 L (3.5-5.7) g/dL Globulin 5.5 H (2.4-3.5) g/dL Albumin/Globulin Ratio 0.6 L (1.1-2.2) Urine Color (Yellow) Urine Clarity (Clear) Urine pH (5.0-8.0) pH Units Ur Specific [place] (1.010-1.025) Urine Protein (Neg-Trace) mg/dL Urine Glucose (UA) (Normal) mg/dL Urine Ketones (Negative) mg/dL Urine Blood (Negative) Urine Nitrite (Negative) Urine Bilirubin (Negative) Urine Urobilinogen (Normal) mg/dL Ur Leukocyte Esterase (Negative) Urine Microscopic RBC (0-3) per hpf Urine Microscopic WBC (0-3) per hpf Ur Squamous Epith Cells (None-Few) per lpf Urine Bacteria (None-Few) per hpf Hyaline Casts (None-Few) per lpf Ur Culture Indicated? (NO) Urine Opiates Screen (Bbvicj=628) ng/mL Ur Buprenorphine Scrn (Cutoff=5) ng/mL Ur Barbiturates Screen (Njtfjn=942) ng/mL Ur Phencyclidine Scrn (Cutoff=25) ng/mL Ur Amphetamines Screen (Aauhva=1005) ng/mL U Benzodiazepines Scrn (Rnepnp=520) ng/mL Urine Cocaine Screen (Cutoff= 300) ng/mL U Marijuana (THC) Screen (Cutoff = 50) ng/mL Ur Drug Screen Interp Ethyl Alcohol < 10 (Less than 10) mg/dL 11/26/18 11/26/18 11/26/18 Range/Units 00:40 01:22 01:22 WBC (4.3-11.1) K/mcL RBC (3.82-4.97) M/mcL Hgb (11.5-15.4) g/dL Hct (35.3-44.9) % MCV (83.0-100.0) fL MCH (28.0-33.3) pg MCHC (31.6-35.5) g/dL RDW (11.5-14.5) % Plt Count (140-400) K/mcL MPV (9.4-12.4) fL Immature Gran % (0-4) % Seg Neutrophils % % Lymphocytes % % Monocytes % % Eosinophils % % Basophils % % Neutrophils # (1.6-8.9) K/mcL Lymphocytes # (0.6-4.6) K/mcL Monocytes # (0.0-1.3) K/mcL Eosinophils # (0.0-0.6) K/mcL Basophils # (0.0-0.2) K/mcL PT (9.4-12.1) Seconds INR APTT (26.0-36.0) Seconds Sodium (136-145) mEq/L Potassium (3.5-5.1) mEq/L Chloride (98-107) mEq/L Carbon Dioxide (23-29) mEq/L BUN (6-20) mg/dL Creatinine (0.60-1.20) mg/dL Est GFR ( Amer) (> 60) Est GFR (Non-Af Amer) (> 60) BUN/Creatinine Ratio (6-26) Glucose (70-105) mg/dL POC Glucose (70-99) mg/dL Calculated Osmolality (280-300) Calcium (8.6-10.3) mg/dL Magnesium (1.6-2.6) mg/dL Total Bilirubin (0.3-1.0) mg/dL Direct Bilirubin (0.0-0.2) mg/dL Indirect Bilirubin (0.0-1.2) mg/dL AST (13-39) Units/L ALT (7-52) Units/L Alkaline Phosphatase (34-104) Units/L Ammonia 255 H (16-53) mcmol/L Troponin I (< 0.04) ng/mL Serum Total Protein (6.4-8.9) g/dL Albumin (3.5-5.7) g/dL Globulin (2.4-3.5) g/dL Albumin/Globulin Ratio (1.1-2.2) Urine Color Yellow (Yellow) Urine Clarity Clear (Clear) Urine pH 7.0 (5.0-8.0) pH Units Ur Specific [place] 1.009 L (1.010-1.025) Urine Protein Negative (Neg-Trace) mg/dL Urine Glucose (UA) Normal (Normal) mg/dL Urine Ketones Negative (Negative) mg/dL Urine Blood Trace H (Negative) Urine Nitrite Negative (Negative) Urine Bilirubin Negative (Negative) Urine Urobilinogen Normal (Normal) mg/dL Ur Leukocyte Esterase Negative (Negative) Urine Microscopic RBC 0-3 (0-3) per hpf Urine Microscopic WBC 0-3 (0-3) per hpf Ur Squamous Epith Cells Few (None-Few) per lpf Urine Bacteria None Seen (None-Few) per hpf Hyaline Casts None Seen (None-Few) per lpf Ur Culture Indicated? NO (NO) Urine Opiates Screen Positive H (Zoxuuz=130) ng/mL Ur Buprenorphine Scrn Positive H (Cutoff=5) ng/mL Ur Barbiturates Screen Negative (Etjiup=064) ng/mL Ur Phencyclidine Scrn Negative (Cutoff=25) ng/mL Ur Amphetamines Screen Negative (Zifuub=1686) ng/mL U Benzodiazepines Scrn Negative (Jwwsoo=189) ng/mL Urine Cocaine Screen Negative (Cutoff= 300) ng/mL U Marijuana (THC) Screen Negative (Cutoff = 50) ng/mL Ur Drug Screen Interp See Below Ethyl Alcohol (Less than 10) mg/dL 11/26/18 Range/Units 01:30 WBC (4.3-11.1) K/mcL RBC (3.82-4.97) M/mcL Hgb (11.5-15.4) g/dL Hct (35.3-44.9) % MCV (83.0-100.0) fL MCH (28.0-33.3) pg MCHC (31.6-35.5) g/dL RDW (11.5-14.5) % Plt Count (140-400) K/mcL MPV (9.4-12.4) fL Immature Gran % (0-4) % Seg Neutrophils % % Lymphocytes % % Monocytes % % Eosinophils % % Basophils % % Neutrophils # (1.6-8.9) K/mcL Lymphocytes # (0.6-4.6) K/mcL Monocytes # (0.0-1.3) K/mcL Eosinophils # (0.0-0.6) K/mcL Basophils # (0.0-0.2) K/mcL PT (9.4-12.1) Seconds INR APTT (26.0-36.0) Seconds Sodium (136-145) mEq/L Potassium (3.5-5.1) mEq/L Chloride (98-107) mEq/L Carbon Dioxide (23-29) mEq/L BUN (6-20) mg/dL Creatinine (0.60-1.20) mg/dL Est GFR ( Amer) (> 60) Est GFR (Non-Af Amer) (> 60) BUN/Creatinine Ratio (6-26) Glucose (70-105) mg/dL POC Glucose 107 H (70-99) mg/dL Calculated Osmolality (280-300) Calcium (8.6-10.3) mg/dL Magnesium (1.6-2.6) mg/dL Total Bilirubin (0.3-1.0) mg/dL Direct Bilirubin (0.0-0.2) mg/dL Indirect Bilirubin (0.0-1.2) mg/dL AST (13-39) Units/L ALT (7-52) Units/L Alkaline Phosphatase (34-104) Units/L Ammonia (16-53) mcmol/L Troponin I (< 0.04) ng/mL Serum Total Protein (6.4-8.9) g/dL Albumin (3.5-5.7) g/dL Globulin (2.4-3.5) g/dL Albumin/Globulin Ratio (1.1-2.2) Urine Color (Yellow) Urine Clarity (Clear) Urine pH (5.0-8.0) pH Units Ur Specific [place] (1.010-1.025) Urine Protein (Neg-Trace) mg/dL Urine Glucose (UA) (Normal) mg/dL Urine Ketones (Negative) mg/dL Urine Blood (Negative) Urine Nitrite (Negative) Urine Bilirubin (Negative) Urine Urobilinogen (Normal) mg/dL Ur Leukocyte Esterase (Negative) Urine Microscopic RBC (0-3) per hpf Urine Microscopic WBC (0-3) per hpf Ur Squamous Epith Cells (None-Few) per lpf Urine Bacteria (None-Few) per hpf Hyaline Casts (None-Few) per lpf Ur Culture Indicated? (NO) Urine Opiates Screen (Eyixkq=742) ng/mL Ur Buprenorphine Scrn (Cutoff=5) ng/mL Ur Barbiturates Screen (Vkgtzm=681) ng/mL Ur Phencyclidine Scrn (Cutoff=25) ng/mL Ur Amphetamines Screen (Trmcot=7729) ng/mL U Benzodiazepines Scrn (Zxhcdw=370) ng/mL Urine Cocaine Screen (Cutoff= 300) ng/mL U Marijuana (THC) Screen (Cutoff = 50) ng/mL Ur Drug Screen Interp Ethyl Alcohol (Less than 10) mg/dL - Radiology Data Radiology results reviewed: Yes I reviewed the patient's radiology results. Chest X-Ray 11/26/18 01:04 IMPRESSION: No acute findings. Previously seen left infrahilar nodule is not seen. D/ / Luis Antonio Serrano / Luis Antonio Serrano Interpreting Provider: Luis Antonio Serrano Head CT 11/26/18 02:22 IMPRESSION: No acute intracranial abnormality. Paranasal sinusitis. D/ / Luis Antonio Serrano / Luis Antonio Serrano Interpreting Provider: Luis Antonio Serrano Abdomen/Pelvis CT 11/26/18 03:42 IMPRESSION: No acute abdominopelvic findings. Markedly distended urinary bladder without hydronephrosis. Nonobstructive right nephrolithiasis. Cirrhotic liver morphology. Trace perihepatic ascites. D/ / Luis Antonio Serrano / Luis Antonio Serrano Interpreting Provider: Luis Antonio Serrano - EKG Data EKG attestation: Yes I reviewed and interpreted this EKG. EKG results narrative: EKG performed at 0038 shows normal sinus rhythm 70 bpm normal AL interval, normal axis, prolonged QRS duration at 106, interventricular conduction delay, no acute ST elevations, there are ST depressions anteriorly lateral leads which are essentially unchanged from EKG from 08/28/2018 at 1034 When compared to previous EKG there are: no significant changes, other (08/28/2018 at 1034) Interpretation: no acute changes TPA Checklist - LKW: 3-4.5 hrs Add. Warnings/Precautions Patient/family understanding: The patient/family members have been counseled and understood the risk, benefit, and alternatives of treatment. Critical Care Time Critical Care Time: Yes Total Critical Care Time: 30 Attestation: Chest X-Ray 11/26/18 01:04 IMPRESSION: No acute findings. Previously seen left infrahilar nodule is not seen. D/ / Luis Antonio Serrano / Luis Antonio Serrano Interpreting Provider: Luis Antonio Serrano Head CT 11/26/18 02:22 IMPRESSION: No acute intracranial abnormality. Paranasal sinusitis. D/ / Luis Antonio Serrano / Luis Antonio Serrano Interpreting Provider: Luis Antonio Serrano Abdomen/Pelvis CT 11/26/18 03:42
[2018-11-26 01:05] LABS: Basophils % 0.4 %; Eosinophils # 0.1 K/mcL (0.0-0.6); Eosinophils % 2.2 %; Hematocrit 26.7 % (35.3-44.9); Immature Granulocytes % 0.2 % (0-4); Lymphocytes # 1.5 K/mcL (0.6-4.6); Lymphocytes % 32.3 %; Mean Corpuscular HGB Conc 33.7 g/dL (31.6-35.5); Mean Corpuscular Hemoglobin 29.1 pg (28.0-33.3); Mean Corpuscular Volume 86.4 fL (83.0-100.0); Mean Platelet Volume 10.1 fL (9.4-12.4); Monocytes # 0.4 K/mcL (0.0-1.3); Neutrophils # 2.5 K/mcL (1.6-8.9); Platelet Count 136 K/mcL (140-400); Red Blood Count 3.09 M/mcL (3.82-4.97); Red Cell Distribution Width 17.5 % (11.5-14.5); Segmented Neutrophils % 55.9 %; White Blood Count 4.6 K/mcL (4.3-11.1)
[2018-11-26 01:13] LABS: INR 1.3; Prothrombin Time 14.4 Seconds (9.4-12.1)
[2018-11-26 01:15] LABS: Activated Partial Thrombo Time 31.5 Seconds (26.0-36.0)
[2018-11-26 01:31] LABS: Alanine Aminotransferase 19 Units/L (7-52); Albumin 3.3 g/dL (3.5-5.7); Albumin/Globulin Ratio 0.6 (1.1-2.2); Alkaline Phosphatase 129 Units/L (34-104); Aspartate Amino Transferase 42 Units/L (13-39); BUN/Creatinine Ratio 12 (6-26); Bilirubin,Direct 0.2 mg/dL (0.0-0.2); Bilirubin,Indirect 0.5 mg/dL (0.0-1.2); Bilirubin,Total 0.7 mg/dL (0.3-1.0); Blood Urea Nitrogen 14 mg/dL (6-20); Calcium 9.3 mg/dL (8.6-10.3); Carbon Dioxide 12 mEq/L (23-29); Chloride 114 mEq/L (98-107); Ethanol < 10 mg/dL (Less than 10); Globulin 5.5 g/dL (2.4-3.5); Glucose 101 mg/dL (70-105); Osmolality,Calculated 281 (280-300); Potassium 2.4 mEq/L (3.5-5.1); Sodium 135 mEq/L (136-145); Total Protein 8.8 g/dL (6.4-8.9); Troponin I < 0.03 ng/mL (< 0.04); eGFR For African Americans > 60 (> 60); eGFR For Non-African Americans 50 (> 60)
[2018-11-26] MEDS ORDERED: Potassium Chloride Elixir 20 MEQ/15 ML UDC PO ONE ×2 (01:35→04:08)
[2018-11-26] MEDS ORDERED: Lactulose Oral Soln 20 GM/30 ML UDC PO ONE (01:35)
[2018-11-26 01:38] LABS: Bilirubin,Urine Negative (Negative); Blood,Urine Trace (Negative); Clarity,Urine Clear (Clear); Color,Urine Yellow (Yellow); Glucose,Urine (UA) Normal (Normal); Ketones,Urine Negative (Negative); Leukocyte Esterase,Urine Negative (Negative); Nitrite,Urine Negative (Negative); Protein,Urine Negative (Neg-Trace); Specific Gravity,Urine 1.009 (1.010-1.025); Urobilinogen,Urine Normal (Normal)
[2018-11-26 01:41] LABS: Bacteria,Urine None Seen per hpf (None-Few); Hyaline Casts,Urine None Seen per lpf (None-Few); RBC,Urine 0-3 per hpf (0-3); Squamous Epithelial Cell,Urine Few per lpf (None-Few); WBC,Urine 0-3 per hpf (0-3)
[2018-11-26 01:51] LABS: Amphetamine Screen,Urine Negative ng/mL (Cutoff=1000); Barbiturate Screen,Urine Negative ng/mL (Cutoff=200); Benzodiazepines Screen,Urine Negative ng/mL (Cutoff=200); Cannabinoid Screen,Urine Negative ng/mL (Cutoff = 50); Cocaine Screen,Urine Negative ng/mL (Cutoff= 300); Opiate Screen,Urine Positive ng/mL (Cutoff=300); Phencyclidine Screen,Urine Negative ng/mL (Cutoff=25)
[2018-11-26] MEDS ORDERED: Lactulose Oral Soln 20 GM/30 ML UDC PO SCH (09:00)
--- NOTE | 2018-11-26 09:09 | Internal Med History&Physical ---
<Nicki Mattson - Last Filed: 11/26/18 12:58> Date of Encounter: 11/26/18 Time of Encounter: 12:58 Internal Medicine - H&P: HPI History of present illness: Ms. Ching is a 53 year old female Internal Medicine - H&P: Meds Zolpidem [Ambien] 5 mg PO HS PRN 06/28/15 [History] FLUoxetine HCl [Fluoxetine HCl] 40 mg PO BID 01/02/17 [History] Quetiapine Fumarate [Seroquel] 100 mg PO QAM 01/02/17 [History] hydrOXYzine HCl [Hydroxyzine HCl] 25 mg PO Q48H PRN 05/25/17 [History] Iron Polysaccharide Complex [Ferrex 150] 150 mg PO DAILY 07/10/18 [History] aMILoride [Midamor] 5 mg PO QAM 07/10/18 [History] HYDROcodone/Acet 10/325 mg [Imler 10-325 mg] 1 tab PO Q6H PRN 07/11/18 [History] Propranolol [Inderal] 10 mg PO BID 07/11/18 [History] Quetiapine Fumarate [Seroquel] 150 mg PO HS 07/11/18 [History] Lactulose 20 gm PO QID PRN 08/28/18 [History] Potassium Citrate [Urocit-K] 20 meq PO BID 08/28/18 [History] Sodium Bicarbonate 650 mg PO TID 08/28/18 [History] Allergy/AdvReac Type Severity Reaction Status Date / Time tramadol AdvReac Seizure Verified 08/28/18 10:21 All Systems PM: A 10-system review of systems was performed and is negative for pertinent findings except as documented above in the HPI. - Constitutional Vitals: Temp Pulse Resp BP Pulse Ox 98.7 F 61 18 126/67 97 11/26/18 11:31 11/26/18 11:31 11/26/18 11:31 11/26/18 11:31 11/26/18 11:31 Internal Med - H&P Results - Labs CBC & Chem 7: 11/26/18 00:40 11/26/18 00:40 Labs: Short CBC 11/26/18 Range/Units 00:40 WBC 4.6 (4.3-11.1) K/mcL Hgb 9.0 L (11.5-15.4) g/dL Hct 26.7 L (35.3-44.9) % Plt Count 136 L (140-400) K/mcL Neutrophils # 2.5 (1.6-8.9) K/mcL BMP 11/26/18 00:40 Sodium 135 L Potassium 2.4 L* Chloride 114 H Carbon Dioxide 12 L BUN 14 Creatinine 1.13 Glucose 101 Calcium 9.3 Cardiac Enzymes 11/26/18 Range/Units 00:40 Troponin I < 0.03 (< 0.04) ng/mL Liver Function 11/26/18 Range/Units 00:40 Total Bilirubin 0.7 (0.3-1.0) mg/dL Direct Bilirubin 0.2 (0.0-0.2) mg/dL AST 42 H (13-39) Units/L ALT 19 (7-52) Units/L Alkaline Phosphatase 129 H (34-104) Units/L Albumin 3.3 L (3.5-5.7) g/dL Urine 11/26/18 Range/Units 01:22 Urine Color Yellow (Yellow) Urine Clarity Clear (Clear) Urine pH 7.0 (5.0-8.0) pH Units Ur Specific [place] 1.009 L (1.010-1.025) Urine Protein Negative (Neg-Trace) mg/dL Urine Glucose (UA) Normal (Normal) mg/dL - Impressions ITS Impressions Chest X-Ray 11/26/18 01:04 IMPRESSION: No acute findings. Previously seen left infrahilar nodule is not seen. D/ / Luis Antonio Serrano / Luis Antonio Serrano Interpreting Provider: Luis Antonio Serrano Head CT 11/26/18 02:22 IMPRESSION: No acute intracranial abnormality. Paranasal sinusitis. D/ / Luis Antonio Serrano / Luis Antonio Serrano Interpreting Provider: Luis Antonio Serrano Abdomen/Pelvis CT 11/26/18 03:42 IMPRESSION: No acute abdominopelvic findings. Markedly distended urinary bladder without hydronephrosis. Nonobstructive right nephrolithiasis. Cirrhotic liver morphology. Trace perihepatic ascites. D/ / Luis Antonio Serrano / Luis Antonio Serrano Interpreting Provider: Luis Antonio Serrano - Time Spent With Patient Total time spent is greater than 50% in coordination of care (as documented) at patient's floor/unit and/or counseling patient: - Attending Attestation I saw evaluated and examined this patient and reviewed past medical, family, social histories and objective data including labs and my medical decision- making was reviewed with the Resident Physician, Reece Velasquez. I agree with the documented findings, disposition and treatment plan as described except to any changes set forth below. We independently had [id number] contact with the patient. Patient with history of chronic liver disease/cirrhosis, coronary artery disease, hypertension presented to the ER with confusion most likely due to n oncompliance with her lactulose. She remains confused and disoriented. Heart sounds are normal. Breath sounds are normal. Labs show potassium of 2.4, ammonia of 255, creatinine is 1.13. Oral lactulose has been ordered but patient has been having emesis with it. Will order lactulose enema. Decisional incapacity hold had been placed at admission. Continue supportive care. Anticipate improvement in her symptoms with resolution of hepatic encephalopathy once she starts to have bowel movements with lactulose. Consider starting rifaximin once patient is able to take oral medications. <Reece Velasquez - Last Filed: 11/26/18 18:26> Date of Encounter: 11/26/18 Time of Encounter: 09:30 Internal Medicine - H&P: HPI Chief complaint: ams Admitted From: Home History of present illness: Ms. Ching is a 53 year old female with PMH of arthritis, CAD, HTN, cirrhosis, and renal disease. She initially presented to the ED on 11/26/18 with altered mental status. It was reported by the patient's daughter that she had been noncompliant with her medications for the past 2-3 days. Vital signs from the ED as follows: Temp 98.7 Heart rate 76 Respiratory rate 18 Blood pressure 160/85 SPO2 98% on room air Labs were significant for an anemia with hemoglobin at 9, thrombocytopenia with platelets of 136, INR 1.3, potassium 2.4, glucose 107, AST 42, ALT 19, alkaline phosphatase 129, ammonia 255. Urine drug screen was positive for opiates and buprenorphine. Chest x-ray from ED demonstrated no acute findings. CT of the head demonstrated no acute intracranial abnormality with paranasal sinusitis. CT abdomen and pelvis demonstrated no acute abdominopelvic findings, cirrhotic liver morphology, trace perihepatic ascites, and nonobstructive right nephrolithiasis. The patient was given 20 g by mouth lactulose, 40 mEq IV potassium, as well as 40 mEq by mouth potassium. The patient was then admitted for further management of hepatic encephalopathy. Patient seen and examined at bedside. Patient has minimal ability to focus and is only oriented to location. She denies any new or acute complaints. She does state that whenever she attempts to take by mouth lactulose she becomes very nauseous and was not able to keep her vomiting. Patient is difficult to direct to complete remaining questioning. The patient's past medical history is obtained from previous records as well as the ER note during which the patient's daughter was present. Patient's daughter is not at bedside today. Past Med Surg Social Fam HX - Past Medical History Source: old records reviewed, nursing notes reviewed Medical history: arthritis, coronary artery disease, hypertension, liver disease, RA, renal disease, other Additional medical history: Sjogren's disease, anemia, malnutrition,pancreatitis , renal tubular acidosis type I, drug overdose,. alcohol intoxification, hypokalemia, diverticulitis, hypercholemic acidosis, hypophosphatemia, shingles,splenic infarct, metabolic encephalopathy,diastolic dysfunction Psychiatric history: anxiety, depression - Past Surgical History Surgical History: cholecystectomy Additional surgical history: Unknown - Social History Smoking Status: Never smoker Smokeless Tobacco Status: No Alcohol use: none Drug use: none - Family History Mother Hx Family Cancer: Yes (leukemia) ROS unobtainable: due to mental status All Systems PM: A 10-system review of systems was performed and is negative for pertinent findings except as documented above in the HPI. - Constitutional Vitals: Temp Pulse Resp BP Pulse Ox 97.5 F L 58 19 105/59 96 11/26/18 07:30 11/26/18 07:30 11/26/18 07:30 11/26/18 07:30 11/26/18 07:30 General appearance: Present: A&O X 1, disheveled, no acute distress Exam: Constitutional: Well-developed female in no acute distress Head: Normocephalic, atraumatic Eyes: PERRL, EOMI, conjunctiva pink, sclera anicteric Neck: Supple, trachea midline Lungs: Clear to auscultation bilaterally. Nonlabored breathing. No wheezes, rales, or rhonchi noted. Cardiac: RRR. +s1 +S2 No murmurs, clicks, or rubs noted. GI: Abdomen soft, nontender, nondistended. Normoactive bowel sounds Extremities: Warm, radial pulses palpable and symmetrical. No cyanosis, pedal edema, or calf tenderness. Neuro: Alert and oriented 1. Cooperative with exam, but difficult to direct. Normal speech. Skin: Warm, dry, and intact. Internal Med - H&P Results - Labs CBC & Chem 7: 11/26/18 00:40 11/26/18 12:48 Labs: Short CBC 11/26/18 Range/Units 00:40 WBC 4.6 (4.3-11.1) K/mcL Hgb 9.0 L (11.5-15.4) g/dL Hct 26.7 L (35.3-44.9) % Plt Count 136 L (140-400) K/mcL Neutrophils # 2.5 (1.6-8.9) K/mcL BMP 11/26/18 00:40 Sodium 135 L Potassium 2.4 L* Chloride 114 H Carbon Dioxide 12 L BUN 14 Creatinine 1.13 Glucose 101 Calcium 9.3 Cardiac Enzymes 11/26/18 Range/Units 00:40 Troponin I < 0.03 (< 0.04) ng/mL Liver Function 11/26/18 Range/Units 00:40 Total Bilirubin 0.7 (0.3-1.0) mg/dL Direct Bilirubin 0.2 (0.0-0.2) mg/dL AST 42 H (13-39) Units/L ALT 19 (7-52) Units/L Alkaline Phosphatase 129 H (34-104) Units/L Albumin 3.3 L (3.5-5.7) g/dL Urine 11/26/18 Range/Units 01:22 Urine Color Yellow (Yellow) Urine Clarity Clear (Clear) Urine pH 7.0 (5.0-8.0) pH Units Ur Specific [place] 1.009 L (1.010-1.025) Urine Protein Negative (Neg-Trace) mg/dL Urine Glucose (UA) Normal (Normal) mg/dL - Impressions ITS Impressions Chest X-Ray 11/26/18 01:04 IMPRESSION: No acute findings. Previously seen left infrahilar nodule is not seen. D/ / Luis Antonio Serrano / Luis Antonio Serrano Interpreting Provider: Luis Antonio Serrano Head CT 11/26/18 02:22 IMPRESSION: No acute intracranial abnormality. Paranasal sinusitis. D/ / Luis Antonio Serrano / Luis Antonio Serrano Interpreting Provider: Luis Antonio Serrano Abdomen/Pelvis CT 11/26/18 03:42 IMPRESSION: No acute abdominopelvic findings. Markedly distended urinary bladder without hydronephrosis. Nonobstructive right nephrolithiasis. Cirrhotic liver morphology. Trace perihepatic ascites. D/ / Luis Antonio Serrano / Luis Antonio Serrano Interpreting Provider: Luis Antonio Serrano - Assessment and Plan (1) Hepatic encephalopathy Current Visit: Yes Status: Acute Assessment and plan: Secondary to medication noncompliance Patient takes 20 g lactulose 4 times a day at home for cirrhosis Ammonia level elevated at 255 Continue confused and disoriented, only oriented to location. As patient is unable to tolerate PO lactulose, will begin lactulose enemas Also has concomitant hypokalemia, continue to monitor closely and replete via IV (2) Hyperammonemia Current Visit: Yes Status: Acute Assessment and plan: Plan as above (3) Hypokalemia Current Visit: Yes Status: Acute Assessment and plan: Likely secondary to hyperammonemia Initial potassium decreased at 2.4 Magnesium normal at 2 Received 40 mEq IV in the ED, as well as 40 mEq PO Continue to monitor closely and replete as needed Continue telemetry (4) Nausea and vomiting Current Visit: Yes Status: Acute Assessment and plan: Patient continues to have nausea and vomiting associated with PO lactulose Bilious in nature PRN Zofran and/or Phenergan as tolerated Qualifiers: Vomiting type: unspecified Vomiting Intractability: non-intractable Qualified Code(s): R11.2 - Nausea with vomiting, unspecified (5) Anemia Current Visit: Yes Status: Chronic Assessment and plan: Patient has history of anemia Hemoglobin on presentation at 9 Continue to monitor Continue patient's iron complex when able to tolerate by mouth medications Qualifiers: Anemia type: unspecified type Qualified Code(s): D64.9 - Anemia, unspecified (6) Renal tubular acidosis type I Current Visit: Yes Status: Chronic Assessment and plan: Patient has history of RTA type I On amiloride at home Will resume this medication patient is able to tolerate by mouth medications (7) Sjogrens syndrome Current Visit: Yes Status: Chronic Qualifiers: Sjogren's organ involvement: unspecified organ involvement Qualified Code(s): M35.00 - Sicca syndrome, unspecified (8) HTN (hypertension) Current Visit: Yes Status: Chronic Assessment and plan: Most recent blood pressure this a.m. is 118/59 Continue to monitor Qualifiers: Hypertension type: essential hypertension Qualified Code(s): I10 - Essential (primary) hypertension (9) DVT prophylaxis Current Visit: Yes Status: Acute Assessment and plan: EPCDs - Time Spent With Patient Total time spent is greater than 50% in coordination of care (as documented) at patient's floor/unit and/or counseling patient:
[2018-11-26] MEDS ORDERED: *HR* Promethazine 25 MG/ML VIAL IVP ONE (10:30)
[2018-11-26] MEDS ORDERED: Naloxone 0.4 MG/ML INJ IVP PRN (10:43)
[2018-11-26] MEDS ORDERED: *HR* Promethazine 25 MG/ML VIAL IVP PRN (10:43)
[2018-11-26] MEDS ORDERED: Lactulose 200 GM, Sodium Chloride IRRigation 700 ML RC ONE (10:46)
[2018-11-26 13:21] LABS: BUN/Creatinine Ratio 12 (6-26); Blood Urea Nitrogen 13 mg/dL (6-20); Calcium 9.3 mg/dL (8.6-10.3); Carbon Dioxide 16 mEq/L (23-29); Chloride 117 mEq/L (98-107); Glucose 99 mg/dL (70-105); Osmolality,Calculated 292 (280-300); Potassium 2.3 mEq/L (3.5-5.1); Sodium 141 mEq/L (136-145); eGFR For African Americans > 60 (> 60); eGFR For Non-African Americans 53 (> 60)
[2018-11-26] MEDS ORDERED: Ondansetron 4 MG/2 ML VIAL IVP PRN (13:56)
[2018-11-26] MEDS ORDERED: Lactulose 200 GM/300 ML (for enema) RC SCH (14:30)
[2018-11-26] MEDS: Lactulose 200 GM, Sodium Chloride IRRigation 700 ML RC SCH ×2 (16:50→23:04)
[2018-11-26 22:32] LABS: Calcium 9.7 mg/dL (8.6-10.3); Potassium 2.6 mEq/L (3.5-5.1)
[2018-11-26] MEDS ORDERED: Potassium Chloride 40 MEQ, Lidocaine 1% 2 ML in 0.9 % Sodium Chloride 500 ML IVPB ONE (23:34)
[2018-11-27 05:26] LABS: Basophils % 0.3 %; Eosinophils % 0.4 %; Hematocrit 27.6 % (35.3-44.9); Immature Granulocytes % 0.3 % (0-4); Lymphocytes # 1.7 K/mcL (0.6-4.6); Lymphocytes % 23.5 %; Mean Corpuscular HGB Conc 32.6 g/dL (31.6-35.5); Mean Corpuscular Hemoglobin 28.9 pg (28.0-33.3); Mean Corpuscular Volume 88.7 fL (83.0-100.0); Mean Platelet Volume 10.3 fL (9.4-12.4); Monocytes # 0.6 K/mcL (0.0-1.3); Monocytes % 8.4 %; Platelet Count 153 K/mcL (140-400); Red Blood Count 3.11 M/mcL (3.82-4.97); Red Cell Distribution Width 18.3 % (11.5-14.5); Segmented Neutrophils % 67.1 %
[2018-11-27 05:27] LABS: White Blood Count 7.4 K/mcL (4.3-11.1)
[2018-11-27 05:45] LABS: Alanine Aminotransferase 17 Units/L (7-52); Albumin 3.2 g/dL (3.5-5.7); Albumin/Globulin Ratio 0.6 (1.1-2.2); Alkaline Phosphatase 134 Units/L (34-104); Aspartate Amino Transferase 35 Units/L (13-39); BUN/Creatinine Ratio 14 (6-26); Bilirubin,Total 0.7 mg/dL (0.3-1.0); Blood Urea Nitrogen 15 mg/dL (6-20); Calcium 9.4 mg/dL (8.6-10.3); Carbon Dioxide 13 mEq/L (23-29); Chloride 118 mEq/L (98-107); Globulin 5.3 g/dL (2.4-3.5); Glucose 108 mg/dL (70-105); Osmolality,Calculated 295 (280-300); Potassium 2.8 mEq/L (3.5-5.1); Sodium 142 mEq/L (136-145); Total Protein 8.5 g/dL (6.4-8.9); eGFR For African Americans > 60 (> 60); eGFR For Non-African Americans 52 (> 60)
--- NOTE | 2018-11-27 06:43 | Electrocardiograph Report ---
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 Electronically Signed On 11-27-2018 6:41:52 EDT by Emile Barry
[2018-11-27] MEDS ORDERED: Potassium Chloride 40 MEQ, Lidocaine 1% 2 ML in 0.9 % Sodium Chloride 500 ML IVPB ONE (07:03)
--- NOTE | 2018-11-27 07:55 | Internal Med Progress Note ---
<Nicki Mattson - Last Filed: 11/27/18 13:47> Hospitalist Progress Note - Encounter Date of Encounter: 11/27/18 Time of Encounter: 10:40 - Exam Vitals: Temp Pulse Resp BP Pulse Ox 98.4 F 55 16 128/69 96 11/27/18 12:01 11/27/18 12:01 11/27/18 12:01 11/27/18 12:01 11/27/18 12:01 - Assessment and Plan (1) Hepatic encephalopathy Current Visit: Yes Status: Acute (2) Hyperammonemia Current Visit: Yes Status: Acute (3) Hypokalemia Current Visit: Yes Status: Acute (4) Nausea and vomiting Current Visit: Yes Status: Acute (5) Anemia Current Visit: Yes Status: Chronic (6) Renal tubular acidosis type I Current Visit: Yes Status: Chronic (7) Sjogrens syndrome Current Visit: Yes Status: Chronic (8) HTN (hypertension) Current Visit: Yes Status: Chronic (9) DVT prophylaxis Current Visit: Yes Status: Acute - Time Spent with Patient Total time spent is greater than 50% in coordination of care (as documented) at patient's floor/unit and/or counseling patient: Internal Medicine: Result - Labs CBC & Chem 7: 11/27/18 04:54 11/27/18 04:54 Labs: Short CBC 11/27/18 Range/Units 04:54 WBC 7.4 D (4.3-11.1) K/mcL Hgb 9.0 L (11.5-15.4) g/dL Hct 27.6 L (35.3-44.9) % Plt Count 153 (140-400) K/mcL Neutrophils # 5.0 (1.6-8.9) K/mcL BMP 11/26/18 11/27/18 22:03 04:54 Sodium 144 142 Potassium 2.6 L 2.8 L Chloride 124 H 118 H Carbon Dioxide 13 L 13 L BUN 14 15 Creatinine 1.15 1.10 Glucose 119 H 108 H Calcium 9.7 9.4 Liver Function 11/27/18 Range/Units 04:54 Total Bilirubin 0.7 (0.3-1.0) mg/dL AST 35 (13-39) Units/L ALT 17 (7-52) Units/L Alkaline Phosphatase 134 H (34-104) Units/L Albumin 3.2 L (3.5-5.7) g/dL - ABG Interpretation ABG results: PT/INR, D-dimer PT 14.4 Seconds (9.4-12.1) H 11/26/18 00:40 Consult Discharge Plan - Plan Referrals: NONE,PCP [Primary Care Provider] - - Attending Attestation I saw evaluated and examined this patient and reviewed objective data including labs and my medical decision-making was reviewed with the Resident Physician, Reece Velasquez. I agree with the documented findings, disposition and treatment plan as described except to any changes set forth below. We independently had [id number] contact with the patient. Patient remains confused and disoriented. Complaints of generalized body aches. Nausea and vomiting have improved. Ammonia levels trending down but remained elevated. Resume oral lactulose and switch lactulose enema to PRN. We will also start rifaximin. Potassium levels remain low. Continue to replete. Resume home medications now that her nausea and vomiting have improved. Moderate risk for complications. <Reece Velasquez - Last Filed: 11/27/18 15:10> Hospitalist Progress Note - Encounter Date of Encounter: 11/27/18 - Subjective Interval History: Pt seen and examined at bedside. Pt reports no further vomiting since yesterday evening. Reports she has bowel movements with the lactulose enemas. Denies any nausea, fever, chills, chest pain, shortness of breath, abdominal pain, or urinary symptoms. - Exam Vitals: Temp Pulse Resp BP Pulse Ox 98.2 F 56 16 123/63 97 11/27/18 06:59 11/27/18 06:59 11/27/18 06:59 11/27/18 06:59 11/27/18 06:59 Exam: Constitutional: Well-developed female in no acute distress Head: Normocephalic, atraumatic Eyes: PERRL, EOMI, conjunctiva pink, sclera anicteric Neck: Supple, trachea midline Lungs: Clear to auscultation bilaterally. Nonlabored breathing. No wheezes, rales, or rhonchi noted. Cardiac: RRR. +s1 +S2 No murmurs, clicks, or rubs noted. GI: Abdomen soft, nontender, nondistended. Normoactive bowel sounds Extremities: Warm, radial pulses palpable and symmetrical. No cyanosis, pedal edema, or calf tenderness. Neuro: Alert and oriented 2. Cooperative with exam, but difficult to direct. Normal speech. Skin: Warm, dry, and intact. - Assessment and Plan (1) Hepatic encephalopathy Current Visit: Yes Status: Acute Assessment and Plan: Secondary to medication noncompliance Patient takes 20 g lactulose 4 times a day at home for cirrhosis Ammonia level elevated at 255, improved to 154 today Continue confused and disoriented, only oriented to location and self. As patient is unable to tolerate PO lactulose, will continue lactulose enemas until able to tolerate po Also has concomitant hypokalemia, continue to monitor closely and replete via IV (2) Hyperammonemia Current Visit: Yes Status: Acute Assessment and Plan: as above (3) Hypokalemia Current Visit: Yes Status: Acute Assessment and Plan: Likely secondary to hyperammonemia Initial potassium decreased at 2.4 Magnesium normal at 2 Received 40 mEq IV in the ED, as well as 40 mEq PO Improved to 2.8 this AM Continue to replete, will trial po replacement as pt is not currently experiencing nausea Continue telemetry (4) Nausea and vomiting Current Visit: Yes Status: Resolved Assessment and Plan: Patient continues to have nausea and vomiting associated with PO lactulose Bilious in nature Pt continues to report she has nausea with po lactulose at home as well PRN Zofran and/or Phenergan as tolerated (5) Anemia Current Visit: Yes Status: Chronic Assessment and Plan: Patient has history of anemia Hemoglobin on presentation at 9, remains unchanged today Continue to monitor Continue patient's iron complex when able to tolerate by mouth medications (6) Renal tubular acidosis type I Current Visit: Yes Status: Chronic Assessment and Plan: Patient has history of RTA type I On amiloride at home Will resume this medication patient is able to tolerate by mouth medications (7) Sjogrens syndrome Current Visit: Yes Status: Chronic (8) HTN (hypertension) Current Visit: Yes Status: Chronic Assessment and Plan: Most recent blood pressure this a.m. is 123/63 Continue to monitor DVT Prophylaxis: EPCDs - Time Spent with Patient Total time spent is greater than 50% in coordination of care (as documented) at patient's floor/unit and/or counseling patient: Internal Medicine: Result - Labs CBC & Chem 7: 11/27/18 04:54 11/27/18 13:36 Labs: Short CBC 11/27/18 Range/Units 04:54 WBC 7.4 D (4.3-11.1) K/mcL Hgb 9.0 L (11.5-15.4) g/dL Hct 27.6 L (35.3-44.9) % Plt Count 153 (140-400) K/mcL Neutrophils # 5.0 (1.6-8.9) K/mcL BMP 11/26/18 11/26/18 11/27/18 12:48 22:03 04:54 Sodium 141 144 142 Potassium 2.3 L* 2.6 L 2.8 L Chloride 117 H 124 H 118 H Carbon Dioxide 16 L 13 L 13 L BUN 13 14 15 Creatinine 1.08 1.15 1.10 Glucose 99 119 H 108 H Calcium 9.3 9.7 9.4 Liver Function 11/27/18 Range/Units 04:54 Total Bilirubin 0.7 (0.3-1.0) mg/dL AST 35 (13-39) Units/L ALT 17 (7-52) Units/L Alkaline Phosphatase 134 H (34-104) Units/L Albumin 3.2 L (3.5-5.7) g/dL - ABG Interpretation ABG results: PT/INR, D-dimer PT 14.4 Seconds (9.4-12.1) H 11/26/18 00:40 <Nicki Mattson - Last Filed: 11/27/18 13:47> (4) Nausea and vomiting Qualifiers: Vomiting type: unspecified Vomiting Intractability: non-intractable Qualified Code(s): R11.2 - Nausea with vomiting, unspecified (5) Anemia Qualifiers: Anemia type: unspecified type Qualified Code(s): D64.9 - Anemia, unspecified (7) Sjogrens syndrome Qualifiers: Sjogren's organ involvement: unspecified organ involvement Qualified Code(s): M35.00 - Sicca syndrome, unspecified (8) HTN (hypertension) Qualifiers: Hypertension type: essential hypertension Qualified Code(s): I10 - Essential (primary) hypertension <Reece Velasquez - Last Filed: 11/27/18 15:10> (4) Nausea and vomiting Qualifiers: Vomiting type: unspecified Vomiting Intractability: non-intractable Qualified Code(s): R11.2 - Nausea with vomiting, unspecified (5) Anemia Qualifiers: Anemia type: unspecified type Qualified Code(s): D64.9 - Anemia, unspecified (7) Sjogrens syndrome Qualifiers: Sjogren's organ involvement: unspecified organ involvement Qualified Code(s): M35.00 - Sicca syndrome, unspecified (8) HTN (hypertension) Qualifiers: Hypertension type: essential hypertension Qualified Code(s): I10 - Essential (primary) hypertension
[2018-11-27] MEDS: Lactulose 200 GM, Sodium Chloride IRRigation 700 ML RC SCH ×2 (11:47→21:29)
[2018-11-27 14:21] LABS: BUN/Creatinine Ratio 14 (6-26); Blood Urea Nitrogen 15 mg/dL (6-20); Calcium 9.2 mg/dL (8.6-10.3); Carbon Dioxide 13 mEq/L (23-29); Chloride 119 mEq/L (98-107); Glucose 93 mg/dL (70-105); Osmolality,Calculated 293 (280-300); Potassium 2.7 mEq/L (3.5-5.1); Sodium 141 mEq/L (136-145); eGFR For African Americans > 60 (> 60); eGFR For Non-African Americans 52 (> 60)
[2018-11-27] MEDS ORDERED: Potassium Chloride Elixir 20 MEQ/15 ML UDC PO ONE (14:27)
[2018-11-27] MEDS ORDERED: hydrOXYzine pamoate 25 MG CAPSULE PO PRN (14:27)
[2018-11-27] MEDS ORDERED: *HR* HYDROcodone/Acet 10/325 mg TABLET PO PRN (14:27)
--- NOTE | 2018-11-27 15:04 | Electrocardiograph Report ---
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
[2018-11-27 18:44] LABS: BUN/Creatinine Ratio 13 (6-26); Blood Urea Nitrogen 14 mg/dL (6-20); Calcium 8.8 mg/dL (8.6-10.3); Carbon Dioxide 12 mEq/L (23-29); Chloride 122 mEq/L (98-107); Glucose 138 mg/dL (70-105); Osmolality,Calculated 297 (280-300); Potassium 2.5 mEq/L (3.5-5.1); Sodium 142 mEq/L (136-145); eGFR For African Americans > 60 (> 60); eGFR For Non-African Americans 52 (> 60)
[2018-11-27] MEDS: FLUoxetine 20 MG CAPSULE PO SCH (21:19)
--- NOTE | 2018-11-28 07:28 | Internal Med Progress Note ---
<Reece Velasquez - Last Filed: 11/28/18 10:23> Hospitalist Progress Note - Encounter Date of Encounter: 11/28/18 Time of Encounter: 07:45 - Subjective Interval History: seen and examined at bedside. No acute events overnight. Patient remains pleasantly confused at this time stating as 1926. Reports she is no lower exper iencing nausea and wishes to try more solid foods. Denies any overnight emesis, diarrhea, or constipation. No fever, chills, chest pain, shortness of breath, or urinary symptoms. - Exam Vitals: Temp Pulse Resp BP Pulse Ox 97.7 F 52 16 104/56 97 11/28/18 06:54 11/28/18 06:54 11/28/18 06:54 11/28/18 06:54 11/28/18 06:54 Exam: Constitutional: Well-developed female in no acute distress Head: Normocephalic, atraumatic Eyes: PERRL, EOMI, conjunctiva pink, sclera anicteric Neck: Supple, trachea midline Lungs: Clear to auscultation bilaterally. Nonlabored breathing. No wheezes, rales, or rhonchi noted. Cardiac: RRR. +s1 +S2 No murmurs, clicks, or rubs noted. GI: Abdomen soft, nontender, nondistended. Normoactive bowel sounds Extremities: Warm, radial pulses palpable and symmetrical. No cyanosis, pedal edema, or calf tenderness. Neuro: Alert and oriented 2. Cooperative with exam, but difficult to direct. Normal speech. Skin: Warm, dry, and intact. - Assessment and Plan (1) Hepatic encephalopathy Current Visit: Yes Status: Acute Assessment and Plan: Secondary to medication noncompliance Patient takes 20 g lactulose 4 times a day at home for cirrhosis Ammonia level elevated at 255, stable at 156 today Continue confused and disoriented, only oriented to location and self. As patient is unable to tolerate PO lactulose, will continue lactulose enemas until able to tolerate po Also has concomitant hypokalemia, continue to monitor closely and replete via IV and PO (2) Hyperammonemia Current Visit: Yes Status: Acute Assessment and Plan: as above (3) Hypokalemia Current Visit: Yes Status: Acute Assessment and Plan: Likely secondary to hyperammonemia Initial potassium decreased at 2.4 Magnesium normal at 2 Has required both IV and PO placement during admission Continues to be decreased at 2.7 this AM Continue to replete, we will schedule 40 mEq PO BID Continue telemetry (4) Anemia Current Visit: Yes Status: Chronic Assessment and Plan: Patient has history of anemia Hemoglobin on presentation at 9, remains stable No overt signs of bleeding including but not limited to hematochezia, melena, or hematemesis Continue to monitor Continue patient's iron complex when able to tolerate by mouth medications (5) Renal tubular acidosis type I Current Visit: Yes Status: Chronic Assessment and Plan: Patient has history of RTA type I On amiloride at home Continue home meds (6) Sjogrens syndrome Current Visit: Yes Status: Chronic (7) HTN (hypertension) Current Visit: Yes Status: Chronic Assessment and Plan: Most recent blood pressure this a.m. is 104/56 Continue to monitor DVT Prophylaxis: EPCDs - Time Spent with Patient Total time spent is greater than 50% in coordination of care (as documented) at patient's floor/unit and/or counseling patient: Internal Medicine: Result - Labs CBC & Chem 7: 11/28/18 07:09 11/28/18 07:09 Labs: BMP 11/27/18 11/27/18 13:36 18:06 Sodium 141 142 Potassium 2.7 L 2.5 L* Chloride 119 H 122 H Carbon Dioxide 13 L 12 L BUN 15 14 Creatinine 1.10 1.10 Glucose 93 138 H Calcium 9.2 8.8 - ABG Interpretation ABG results: PT/INR, D-dimer PT 14.4 Seconds (9.4-12.1) H 11/26/18 00:40 Consult Discharge Plan - Plan Referrals: NONE,PCP [Primary Care Provider] - <Nicki Mattson - Last Filed: 11/28/18 11:49> Hospitalist Progress Note - Encounter Date of Encounter: 11/28/18 Time of Encounter: 11:48 - Exam Vitals: Temp Pulse Resp BP Pulse Ox 98.2 F 56 16 98/54 100 11/28/18 11:01 11/28/18 11:01 11/28/18 11:01 11/28/18 11:01 11/28/18 11:01 - Assessment and Plan (1) Hepatic encephalopathy Current Visit: Yes Status: Acute (2) Hyperammonemia Current Visit: Yes Status: Acute (3) Hypokalemia Current Visit: Yes Status: Acute (4) Anemia Current Visit: Yes Status: Chronic (5) Renal tubular acidosis type I Current Visit: Yes Status: Chronic (6) Sjogrens syndrome Current Visit: Yes Status: Chronic (7) HTN (hypertension) Current Visit: Yes Status: Chronic - Time Spent with Patient Total time spent is greater than 50% in coordination of care (as documented) at patient's floor/unit and/or counseling patient: Internal Medicine: Result - Labs CBC & Chem 7: 11/28/18 07:09 11/28/18 07:09 Labs: Short CBC 11/28/18 Range/Units 07:09 WBC 3.8 L (4.3-11.1) K/mcL Hgb 8.2 L (11.5-15.4) g/dL Hct 25.5 L (35.3-44.9) % Plt Count 94 L (140-400) K/mcL Neutrophils # 1.7 (1.6-8.9) K/mcL BMP 11/27/18 11/27/18 11/28/18 13:36 18:06 07:09 Sodium 141 142 138 Potassium 2.7 L 2.5 L* 2.7 L Chloride 119 H 122 H 122 H Carbon Dioxide 13 L 12 L 12 L BUN 15 14 12 Creatinine 1.10 1.10 1.06 Glucose 93 138 H 83 Calcium 9.2 8.8 8.8 Liver Function 11/28/18 Range/Units 07:09 Total Bilirubin 0.7 (0.3-1.0) mg/dL AST 28 (13-39) Units/L ALT 14 (7-52) Units/L Alkaline Phosphatase 113 H (34-104) Units/L Albumin 2.7 L (3.5-5.7) g/dL - ABG Interpretation ABG results: PT/INR, D-dimer PT 14.4 Seconds (9.4-12.1) H 11/26/18 00:40 - Attending Attestation I saw evaluated and examined this patient and reviewed objective data including labs and my medical decision-making was reviewed with the Resident Physician, Reece Velasquez. I agree with the documented findings, disposition and treatment plan as described except to any changes set forth below. We independently had nyul-[id number] contact with the patient. Evaluated patient earlier today. She remains disoriented and confused but more alert today. Tolerating clear liquid diet. Wishes to try more solid food. We will slowly advance diet. Potassium levels remained low. Continue repletion orally and intravenously. Magnesium levels are normal. Ammonia levels remain elevated. Continue lactulose. Moderate risk for complications. <Reece Velasquez - Last Filed: 11/28/18 10:23> (4) Anemia Qualifiers: Anemia type: unspecified type Qualified Code(s): D64.9 - Anemia, unspecified (6) Sjogrens syndrome Qualifiers: Sjogren's organ involvement: unspecified organ involvement Qualified Code(s): M35.00 - Sicca syndrome, unspecified (7) HTN (hypertension) Qualifiers: Hypertension type: essential hypertension Qualified Code(s): I10 - Essential (primary) hypertension <Nicki Mattson - Last Filed: 11/28/18 11:49> (4) Anemia Qualifiers: Anemia type: unspecified type Qualified Code(s): D64.9 - Anemia, unspecified (6) Sjogrens syndrome Qualifiers: Sjogren's organ involvement: unspecified organ involvement Qualified Code(s): M35.00 - Sicca syndrome, unspecified (7) HTN (hypertension) Qualifiers: Hypertension type: essential hypertension Qualified Code(s): I10 - Essential (primary) hypertension
[2018-11-28 07:32] LABS: Basophils % 0.3 %; Hemoglobin 8.2 g/dL (11.5-15.4); Immature Granulocytes % 0.3 % (0-4)
[2018-11-28 07:34] LABS: Eosinophils # 0.1 K/mcL (0.0-0.6); Eosinophils % 2.7 %; Hematocrit 25.5 % (35.3-44.9); Immature Platelets 1.5 % (1.1-6.1); Lymphocytes # 1.7 K/mcL (0.6-4.6); Lymphocytes % 44.1 %; Mean Corpuscular HGB Conc 32.2 g/dL (31.6-35.5); Mean Corpuscular Hemoglobin 29.1 pg (28.0-33.3); Mean Corpuscular Volume 90.4 fL (83.0-100.0); Mean Platelet Volume 10.2 fL (9.4-12.4); Monocytes # 0.3 K/mcL (0.0-1.3); Monocytes % 8.2 %; Neutrophils # 1.7 K/mcL (1.6-8.9); Red Blood Count 2.82 M/mcL (3.82-4.97); Red Cell Distribution Width 18.7 % (11.5-14.5); Segmented Neutrophils % 44.4 %; White Blood Count 3.8 K/mcL (4.3-11.1)
[2018-11-28 07:50] LABS: Platelet Count 94 K/mcL (140-400)
[2018-11-28 07:51] LABS: Platelet Estimate Decreased (Normal)
[2018-11-28 08:00] LABS: Alanine Aminotransferase 14 Units/L (7-52); Albumin 2.7 g/dL (3.5-5.7); Albumin/Globulin Ratio 0.6 (1.1-2.2); Alkaline Phosphatase 113 Units/L (34-104); Aspartate Amino Transferase 28 Units/L (13-39); BUN/Creatinine Ratio 11 (6-26); Bilirubin,Total 0.7 mg/dL (0.3-1.0); Blood Urea Nitrogen 12 mg/dL (6-20); Calcium 8.8 mg/dL (8.6-10.3); Carbon Dioxide 12 mEq/L (23-29); Chloride 122 mEq/L (98-107); Globulin 4.5 g/dL (2.4-3.5); Glucose 83 mg/dL (70-105); Osmolality,Calculated 285 (280-300); Potassium 2.7 mEq/L (3.5-5.1); Sodium 138 mEq/L (136-145); Total Protein 7.2 g/dL (6.4-8.9); eGFR For African Americans > 60 (> 60); eGFR For Non-African Americans 54 (> 60)
[2018-11-28] MEDS: Iron Polysaccharide Complex 150 MG CAPSULE PO SCH (08:58)
[2018-11-28] MEDS: FLUoxetine 20 MG CAPSULE PO SCH ×2 (08:58→21:18)
[2018-11-28] MEDS: Lactulose 200 GM, Sodium Chloride IRRigation 700 ML RC SCH ×2 (10:15→21:14)
[2018-11-29 04:02] LABS: Basophils % 0.3 %; Immature Granulocytes % 0.3 % (0-4)
[2018-11-29 04:04] LABS: Eosinophils # 0.1 K/mcL (0.0-0.6); Eosinophils % 2.6 %; Hematocrit 23.9 % (35.3-44.9); Hemoglobin 7.6 g/dL (11.5-15.4); Immature Platelets 1.6 % (1.1-6.1); Lymphocytes # 1.3 K/mcL (0.6-4.6); Lymphocytes % 41.1 %; Mean Corpuscular HGB Conc 31.8 g/dL (31.6-35.5); Mean Corpuscular Hemoglobin 28.8 pg (28.0-33.3); Mean Corpuscular Volume 90.5 fL (83.0-100.0); Mean Platelet Volume 10.6 fL (9.4-12.4); Monocytes # 0.3 K/mcL (0.0-1.3); Monocytes % 9.7 %; Neutrophils # 1.4 K/mcL (1.6-8.9); Red Blood Count 2.64 M/mcL (3.82-4.97); Red Cell Distribution Width 19.1 % (11.5-14.5); White Blood Count 3.1 K/mcL (4.3-11.1)
[2018-11-29 04:19] LABS: Albumin 2.6 g/dL (3.5-5.7); Albumin/Globulin Ratio 0.6 (1.1-2.2); Bilirubin,Total 0.6 mg/dL (0.3-1.0); Calcium 8.7 mg/dL (8.6-10.3); Globulin 4.3 g/dL (2.4-3.5); Potassium 2.8 mEq/L (3.5-5.1); Total Protein 6.9 g/dL (6.4-8.9)
[2018-11-29 04:25] LABS: Platelet Count 92 K/mcL (140-400)
--- NOTE | 2018-11-29 07:48 | Internal Med Progress Note ---
<Nicki Mattson - Last Filed: 11/29/18 14:45> Hospitalist Progress Note - Encounter Date of Encounter: 11/29/18 Time of Encounter: 10:50 - Exam Vitals: Temp Pulse Resp BP Pulse Ox 98.1 F 66 18 89/51 98 11/29/18 11:58 11/29/18 11:58 11/29/18 11:58 11/29/18 11:58 11/29/18 11:58 - Assessment and Plan (1) Hepatic encephalopathy Current Visit: Yes Status: Acute (2) Hyperammonemia Current Visit: Yes Status: Acute (3) Hypokalemia Current Visit: Yes Status: Acute (4) Anemia Current Visit: Yes Status: Chronic (5) Renal tubular acidosis type I Current Visit: Yes Status: Chronic (6) Sjogrens syndrome Current Visit: Yes Status: Chronic (7) HTN (hypertension) Current Visit: Yes Status: Chronic - Time Spent with Patient Total time spent is greater than 50% in coordination of care (as documented) at patient's floor/unit and/or counseling patient: Internal Medicine: Result - Labs CBC & Chem 7: 11/29/18 12:02 11/29/18 03:41 Labs: Short CBC 11/29/18 11/29/18 Range/Units 03:41 12:02 WBC 3.1 L (4.3-11.1) K/mcL Hgb 7.6 L 7.8 L (11.5-15.4) g/dL Hct 23.9 L 24.0 L (35.3-44.9) % Plt Count 92 L (140-400) K/mcL Neutrophils # 1.4 L (1.6-8.9) K/mcL BMP 11/29/18 03:41 Sodium 138 Potassium 2.8 L Chloride 119 H Carbon Dioxide 11 L BUN 10 Creatinine 1.19 Glucose 145 H Calcium 8.7 Liver Function 11/29/18 Range/Units 03:41 Total Bilirubin 0.6 (0.3-1.0) mg/dL AST 37 (13-39) Units/L ALT 16 (7-52) Units/L Alkaline Phosphatase 113 H (34-104) Units/L Albumin 2.6 L (3.5-5.7) g/dL - ABG Interpretation ABG results: PT/INR, D-dimer PT 14.4 Seconds (9.4-12.1) H 11/26/18 00:40 Consult Discharge Plan - Plan Referrals: NONE,PCP [Primary Care Provider] - - Attending Attestation I saw evaluated and examined this patient and reviewed objective data including labs and my medical decision-making was reviewed with the Resident Physician, Jorge Sinha. I agree with the documented findings, disposition and treatment plan as described except to any changes set forth below. We independently had [id number]-vr-[id number] contact with the patient. Patient is awake and alert. Appears to be somewhat better oriented today. Tolerating liquid diet well. Continue lactulose. Will switch her to oral dosing. Continue rifaximin. Potassium levels remain low. We will continue repletion. Increase oral potassium chloride to 40 mg 3 times a day. Patient does have underlying renal tubular acidosis which is the cause of her hypokalemia. Hemoglobin levels are 7.8 today. On iron supplements. Will continue to monitor. Patient is not on medical anticoagulation for DVT prophylaxis due to his her platelets and anemia. <Jorge Sinha - Last Filed: 11/29/18 15:49> Hospitalist Progress Note - Encounter Date of Encounter: 11/29/18 Time of Encounter: 07:47 - Subjective Interval History: Ana was seen and examined at bedside earlier this morning. Denies any acute complaints at this time. States That she is tired/fatigued. Alert and oriented 3, but still mildly confused. Otherwise no acute distress. No events overnight. - Exam Vitals: Temp Pulse Resp BP Pulse Ox 97.5 F L 65 18 81/43 98 11/29/18 06:54 11/29/18 06:54 11/29/18 06:54 11/29/18 06:54 11/29/18 06:54 Exam: GEN: AOx3, no acute distress, Vitals reviewed and stable HEAD: Atraumatic, Normocephalic EYES: EOMI, PERRLA, No conjunctival pallor, No scleral icterus NECK: Supple. Full ROM. No anterior cervical lymphadenopathy HEART: RRR, S1/S2 present. No murmurs, rubs, gallops LUNGS: CTAB. no wheezes, rhonchi, rales, crackles ABD: Soft, non tender, non distended. Bowel sounds present. No rebound, guarding, rigidity. No RLQ tenderness EXT: No lower extremity edema. Spontaneously moving extremities NEURO: AO x3. CN 2 to 12 intact. No focal deficits PSYCH: Mood and affect appropriate - Assessment and Plan (1) Hepatic encephalopathy Current Visit: Yes Status: Acute Assessment and Plan: This is a 53-year-old female with past medical history significant for coronary artery disease, hypertension, liver cirrhosis, end-stage renal disease who init ially presented to the ED on 11/26/18 with altered mental status. Altered mental status likely secondary to hepatic encephalopathy due to medication noncompliance for the past 2-3 days prior to presentation. - On presentation, patient had K = 2.4, ammonia = 255; patient apparently had been noncompliant with her lactulose prior to presentation - CT of the abdomen showed cirrhotic liver morphology - Today patient has improving mental status. She is alert and oriented 3. - Ammonia level = 172 - MELD-Na = 12 PLAN: Patient's altered mental status likely secondary to hepatic encephalopathy likely secondary to medication noncompliance. Improving today. - Continue with by mouth lactulose 20 g twice a day - Additionally Will continue with rifaximin 550 mg by mouth twice a day - Continue with propranolol 10 mg twice a day due to esophageal varices in the setting of liver cirrhosis (2) Hyperammonemia Current Visit: Yes Status: Acute Assessment and Plan: Plan as above (3) Hypokalemia Current Visit: Yes Status: Acute Assessment and Plan: K = 2.8 this a.m. - Likely secondary to renal tubular acidosis type I (history of Sjogren syndrome) - Continues to be decreased between 2.6 and 2.8 PLAN: - Continue with by mouth potassium chloride 40 mEq 3 times a day - Supplements with IV potassium chloride as needed - Monitor on telemetry (4) Anemia Current Visit: No Status: Chronic Assessment and Plan: Hemoglobin/hematocrit = 7.6/23.9 this a.m. - On repeat hemoglobin = 7.8 this afternoon - Stable at this time - No overt signs of bleeding PLAN: - Cont to monitor for bleeds including hematochezia, melena, hematemesis - Daily CBC - Continue with iron supplementation (5) HTN (hypertension) Current Visit: Yes Status: Chronic Assessment and Plan: BP = 89/51 - Stable Plan: - Cont to monitor BP (6) Renal tubular acidosis type I Current Visit: Yes Status: Chronic Assessment and Plan: Hx of RTA Type I - Likely contributing to hypokalemia PLAN: - Cont with Na Bicarbonate 650mg TID (7) Sjogrens syndrome Current Visit: Yes Status: Chronic Assessment and Plan: Chronic condition - Plan as above DVT Prophylaxis: EPCDs - Time Spent with Patient Total time spent is greater than 50% in coordination of care (as documented) at patient's floor/unit and/or counseling patient: less than 15 minutes Plan of Care Discussed with: patient Internal Medicine: Result - Labs CBC & Chem 7: 11/29/18 12:02 11/29/18 03:41 Labs: Short CBC 11/28/18 11/29/18 Range/Units 07:09 03:41 WBC 3.8 L 3.1 L (4.3-11.1) K/mcL Hgb 8.2 L 7.6 L (11.5-15.4) g/dL Hct 25.5 L 23.9 L (35.3-44.9) % Plt Count 94 L 92 L (140-400) K/mcL Neutrophils # 1.7 1.4 L (1.6-8.9) K/mcL BMP 11/28/18 11/29/18 07:09 03:41 Sodium 138 138 Potassium 2.7 L 2.8 L Chloride 122 H 119 H Carbon Dioxide 12 L 11 L BUN 12 10 Creatinine 1.06 1.19 Glucose 83 145 H Calcium 8.8 8.7 Liver Function 11/28/18 11/29/18 Range/Units 07:09 03:41 Total Bilirubin 0.7 0.6 (0.3-1.0) mg/dL AST 28 37 (13-39) Units/L ALT 14 16 (7-52) Units/L Alkaline Phosphatase 113 H 113 H (34-104) Units/L Albumin 2.7 L 2.6 L (3.5-5.7) g/dL - ABG Interpretation ABG results: PT/INR, D-dimer PT 14.4 Seconds (9.4-12.1) H 11/26/18 00:40 <Nicki Mattson - Last Filed: 11/29/18 14:45> (4) Anemia Qualifiers: Anemia type: unspecified type Qualified Code(s): D64.9 - Anemia, unspecified (6) Sjogrens syndrome Qualifiers: Sjogren's organ involvement: unspecified organ involvement Qualified Code(s): M35.00 - Sicca syndrome, unspecified (7) HTN (hypertension) Qualifiers: Hypertension type: essential hypertension Qualified Code(s): I10 - Essential (primary) hypertension <Jorge Sinha - Last Filed: 11/29/18 15:49> (4) Anemia Qualifiers: Anemia type: unspecified type Qualified Code(s): D64.9 - Anemia, unspecified (5) HTN (hypertension) Qualifiers: Hypertension type: essential hypertension Qualified Code(s): I10 - Essential (primary) hypertension (7) Sjogrens syndrome Qualifiers: Sjogren's organ involvement: unspecified organ involvement Qualified Code(s): M35.00 - Sicca syndrome, unspecified
[2018-11-29] MEDS ORDERED: Potassium Chloride Elixir 20 MEQ/15 ML UDC PO ONE (08:29)
[2018-11-29] MEDS ORDERED: Lactulose Oral Soln 20 GM/30 ML UDC PO PRN (08:30)
[2018-11-29] MEDS: FLUoxetine 20 MG CAPSULE PO SCH ×2 (09:30→19:34)
[2018-11-29] MEDS: Iron Polysaccharide Complex 150 MG CAPSULE PO SCH (09:30)
[2018-11-29] MEDS: Lactulose Oral Soln 20 GM/30 ML UDC PO SCH ×2 (09:30→19:35)
[2018-11-29 12:18] LABS: Hemoglobin 7.8 g/dL (11.5-15.4)
[2018-11-30 06:43] LABS: Basophils % 0.3 %; Eosinophils # 0.1 K/mcL (0.0-0.6); Eosinophils % 4.1 %; Hematocrit 24.4 % (35.3-44.9); Hemoglobin 7.8 g/dL (11.5-15.4); Immature Granulocytes % 0.3 % (0-4); Lymphocytes # 1.3 K/mcL (0.6-4.6); Lymphocytes % 40.7 %; Mean Corpuscular Hemoglobin 29.2 pg (28.0-33.3); Mean Corpuscular Volume 91.4 fL (83.0-100.0); Mean Platelet Volume 10.9 fL (9.4-12.4); Monocytes # 0.3 K/mcL (0.0-1.3); Monocytes % 9.8 %; Neutrophils # 1.4 K/mcL (1.6-8.9); Platelet Count 100 K/mcL (140-400); Red Blood Count 2.67 M/mcL (3.82-4.97); Red Cell Distribution Width 19.3 % (11.5-14.5); Segmented Neutrophils % 44.8 %; White Blood Count 3.2 K/mcL (4.3-11.1)
[2018-11-30 07:03] LABS: Alanine Aminotransferase 19 Units/L (7-52); Albumin 2.6 g/dL (3.5-5.7); Albumin/Globulin Ratio 0.6 (1.1-2.2); Alkaline Phosphatase 122 Units/L (34-104); Aspartate Amino Transferase 47 Units/L (13-39); BUN/Creatinine Ratio 8 (6-26); Bilirubin,Total 0.6 mg/dL (0.3-1.0); Blood Urea Nitrogen 8 mg/dL (6-20); Calcium 8.8 mg/dL (8.6-10.3); Carbon Dioxide 13 mEq/L (23-29); Chloride 119 mEq/L (98-107); Globulin 4.6 g/dL (2.4-3.5); Glucose 82 mg/dL (70-105); Osmolality,Calculated 279 (280-300); Potassium 2.7 mEq/L (3.5-5.1); Sodium 136 mEq/L (136-145); Total Protein 7.2 g/dL (6.4-8.9); eGFR For African Americans > 60 (> 60); eGFR For Non-African Americans 56 (> 60)
[2018-11-30] MEDS ORDERED: Potassium Chloride 40 MEQ, Lidocaine 1% 2 ML in 0.9 % Sodium Chloride 500 ML IVPB ONE (08:18)
--- NOTE | 2018-11-30 08:21 | Internal Med Progress Note ---
<Nicki Mattson - Last Filed: 11/30/18 15:13> Hospitalist Progress Note - Encounter Date of Encounter: 11/30/18 Time of Encounter: 10:30 - Exam Vitals: Temp Pulse Resp BP Pulse Ox 98.9 F 60 17 88/46 97 11/30/18 10:27 11/30/18 10:27 11/30/18 10:27 11/30/18 10:27 11/30/18 10:27 - Assessment and Plan (1) Hepatic encephalopathy Current Visit: Yes Status: Acute (2) Hyperammonemia Current Visit: Yes Status: Acute (3) Hypokalemia Current Visit: Yes Status: Acute (4) Anemia Current Visit: Yes Status: Chronic (5) Renal tubular acidosis type I Current Visit: Yes Status: Chronic (6) Sjogrens syndrome Current Visit: Yes Status: Chronic (7) HTN (hypertension) Current Visit: Yes Status: Chronic - Time Spent with Patient Total time spent is greater than 50% in coordination of care (as documented) at patient's floor/unit and/or counseling patient: Internal Medicine: Result - Labs CBC & Chem 7: 11/30/18 05:56 11/30/18 05:56 Labs: Short CBC 11/30/18 Range/Units 05:56 WBC 3.2 L (4.3-11.1) K/mcL Hgb 7.8 L (11.5-15.4) g/dL Hct 24.4 L (35.3-44.9) % Plt Count 100 L (140-400) K/mcL Neutrophils # 1.4 L (1.6-8.9) K/mcL BMP 11/30/18 05:56 Sodium 136 Potassium 2.7 L Chloride 119 H Carbon Dioxide 13 L BUN 8 Creatinine 1.03 Glucose 82 Calcium 8.8 Liver Function 11/30/18 Range/Units 05:56 Total Bilirubin 0.6 (0.3-1.0) mg/dL AST 47 H (13-39) Units/L ALT 19 (7-52) Units/L Alkaline Phosphatase 122 H (34-104) Units/L Albumin 2.6 L (3.5-5.7) g/dL - ABG Interpretation ABG results: PT/INR, D-dimer PT 14.4 Seconds (9.4-12.1) H 11/26/18 00:40 Consult Discharge Plan - Plan Referrals: NONE,PCP [Primary Care Provider] - - Attending Attestation I saw evaluated and examined this patient and reviewed objective data including labs and my medical decision-making was reviewed with the Resident Physician, Rick Elliott. I agree with the documented findings, disposition and treatment plan as described except to any changes set forth below. We independently had iucw-pr-rwam contact with the patient. Patient appears more awake and alert today. Tolerating diet well so far. Denies any chest pain or palpitations at this time. No dysuria or hematuria. Tolerating oral lactulose. She does remain hypokalemic and acidotic due to renal tubular acidosis. Will increase sodium bicarbonate to 1300mg to 3 times a day. Continue potassium supplements. We will consider consultation with nephrology to better treat this condition. Chronic anemia remains stable with hemoglobin of 7.8. Patient is not on medical DVT prophylaxis due to thrombocytopenia and anemia. On EPCDs. Patient does not wish to go to SNF/ NH although she lives alone and has been having trouble caring for herself and taking her medications. We will consult psychiatry to evaluate patient for capacity to make medical decisions now that her acute encephalopathy is resolving. Continue lactulose to treat hepatic encephalopathy. Blood pressure also om the lower side likely due to underlying cirrhosis. <Rick Elliott - Last Filed: 11/30/18 17:17> Hospitalist Progress Note - Encounter Date of Encounter: 11/30/18 Time of Encounter: 08:19 - Subjective Interval History: Patient seen and examined at bedside; appears much more awake and alert today. Appears less lethargic than she did yesterday. She is currently tolerating her diet well. She is taking her oral lactulose. Potassium remains low despite increasing her supplementation to TID. We will consider nephrology consult for further recommendations regarding her RTA if this does not improve. She is marbella ant that she does not want to go to a senior care facility or correction. However, patient is currently living alone and appears to have difficulty taking care of herself. We will consult psychiatry to determine whether or not patient has capacity. - Exam Vitals: Temp Pulse Resp BP Pulse Ox 98.4 F 57 17 86/45 98 11/30/18 07:39 11/30/18 07:39 11/30/18 07:39 11/30/18 07:39 11/30/18 07:39 Exam: General: A&O X2, conversant, no acute distress; pale appearing Head: atraumatic, normocephalic Eye: PERRL, EOMI Neck: Supple, trachea midline; No lymphadenopathy Respiratory: CTAB. No accessory muscle use, wheezes, rales, or rhonchi Cardiovascular: RRR, +S1, +S2; no murmurs, rubs, gallops Abdomen: Soft, nontender Extremities: warm, radial pulses palpable and symmetrical Psychiatric: Normal affect, normal mood Skin: Dry, intact - Assessment and Plan (1) Hepatic encephalopathy Current Visit: Yes Status: Acute Assessment and Plan: Assessment - Initially presented with altered mental status in the setting of hyperammonemia in the setting of cirrhosis - Likely secondary to patient non-compliance; she had not been taking her lactulose prior to presentation - Mental status has improved over the course of her admission - Patient lives alone, has been noncompliant with her medication - She has been having trouble taking care of herself and taking medications - States that she does not want to go to a senior care facility or correction Plan - Continue to closely monitor mental status for signs of improvement - Lactulose 20 g PO BID - Rifaximin 550 mg PO BID - Propranolol 10 mg BID for esophageal varices - We will consult psychiatry to assess patients capacity (2) Hypokalemia Current Visit: No Status: Chronic Assessment and Plan: Assessment - Patients potassium is low today at 2.7, down from 2.8 - This is despite increasing K supplementation from BID to TID - Additional 40 IV K has been ordered in addition to her current regimen Plan - Continue PO K+ supplement 40meq PO TID - PRN IV supplementation - Continuous telemetry - We will consider nephrology consult if patients condition does not improve (3) Anemia Current Visit: No Status: Chronic Assessment and Plan: Assessment - History of chronic anemia per chart review; baseline approximately 8-9 - Hb today is 7.8, unchanged from previous; no overt signs of bleeding at this time Plan - Continue to monitor for signs of bleeding - Continue iron supplementation - Repeat AM labs - EPCD for DVT prophylaxis (4) Renal tubular acidosis type I Current Visit: Yes Status: Chronic Assessment and Plan: - Patient has a known diagnosis of RTA Type I; likely a contributing factor to her hypokalemia - Sodium bicarbonate has been increased to 1300 mg TID (5) Sjogrens syndrome Current Visit: Yes Status: Chronic Assessment and Plan: - Chronic DVT Prophylaxis: - EPCDs - Time Spent with Patient Total time spent is greater than 50% in coordination of care (as documented) at patient's floor/unit and/or counseling patient: Internal Medicine: Result - Labs CBC & Chem 7: 11/30/18 05:56 11/30/18 05:56 Labs: Short CBC 11/29/18 11/30/18 Range/Units 12:02 05:56 WBC 3.2 L (4.3-11.1) K/mcL Hgb 7.8 L 7.8 L (11.5-15.4) g/dL Hct 24.0 L 24.4 L (35.3-44.9) % Plt Count 100 L (140-400) K/mcL Neutrophils # 1.4 L (1.6-8.9) K/mcL BMP 11/30/18 05:56 Sodium 136 Potassium 2.7 L Chloride 119 H Carbon Dioxide 13 L BUN 8 Creatinine 1.03 Glucose 82 Calcium 8.8 Liver Function 11/30/18 Range/Units 05:56 Total Bilirubin 0.6 (0.3-1.0) mg/dL AST 47 H (13-39) Units/L ALT 19 (7-52) Units/L Alkaline Phosphatase 122 H (34-104) Units/L Albumin 2.6 L (3.5-5.7) g/dL - ABG Interpretation ABG results: PT/INR, D-dimer PT 14.4 Seconds (9.4-12.1) H 11/26/18 00:40 <Nicki Mattson - Last Filed: 11/30/18 15:13> (4) Anemia Qualifiers: Anemia type: unspecified type Qualified Code(s): D64.9 - Anemia, unspecified (6) Sjogrens syndrome Qualifiers: Sjogren's organ involvement: unspecified organ involvement Qualified Code(s): M35.00 - Sicca syndrome, unspecified (7) HTN (hypertension) Qualifiers: Hypertension type: essential hypertension Qualified Code(s): I10 - Essential (primary) hypertension <Rick Elliott - Last Filed: 11/30/18 17:17> (3) Anemia Qualifiers: Anemia type: unspecified type Qualified Code(s): D64.9 - Anemia, unspecified (5) Sjogrens syndrome Qualifiers: Sjogren's organ involvement: unspecified organ involvement Qualified Code(s): M35.00 - Sicca syndrome, unspecified
[2018-11-30] MEDS: FLUoxetine 20 MG CAPSULE PO SCH ×2 (08:23→20:06)
[2018-11-30] MEDS: Iron Polysaccharide Complex 150 MG CAPSULE PO SCH (08:23)
[2018-11-30] MEDS: Lactulose Oral Soln 20 GM/30 ML UDC PO SCH ×2 (08:23→20:07)
[2018-11-30] MEDS ORDERED: Ringers Solution, Lactated 1,000 ML IVC SCH (15:15)
[2018-11-30 20:32] LABS: Bilirubin,Urine Negative (Negative); Blood,Urine Small (Negative); Clarity,Urine Cloudy (Clear); Color,Urine Yellow (Yellow); Glucose,Urine (UA) Normal (Normal); Ketones,Urine Negative (Negative); Leukocyte Esterase,Urine Large (Negative); Nitrite,Urine Positive (Negative); Protein,Urine Trace mg/dL (Neg-Trace); Specific Gravity,Urine 1.011 (1.010-1.025); Urobilinogen,Urine Normal (Normal)
[2018-11-30 20:34] LABS: Bacteria,Urine Many per hpf (None-Few); Hyaline Casts,Urine None Seen per lpf (None-Few); Squamous Epithelial Cell,Urine Many per lpf (None-Few); WBC,Urine TNTC per hpf (0-3)
[2018-11-30 20:48] LABS: Potassium,Urine 50.9 mEq/L; Sodium, Urine 47.4 mEq/L
[2018-12-01 09:09] LABS: Red Cell Distribution Width 19.3 % (11.5-14.5)
[2018-12-01 09:11] LABS: Basophils % 0.4 %; Eosinophils # 0.1 K/mcL (0.0-0.6); Eosinophils % 4.3 %; Hematocrit 21.3 % (35.3-44.9); Hemoglobin 7.1 g/dL (11.5-15.4); Immature Platelets 2.6 % (1.1-6.1); Lymphocytes # 1.1 K/mcL (0.6-4.6); Lymphocytes % 39.5 %; Mean Corpuscular HGB Conc 33.3 g/dL (31.6-35.5); Mean Corpuscular Hemoglobin 29.6 pg (28.0-33.3); Mean Corpuscular Volume 88.8 fL (83.0-100.0); Monocytes # 0.3 K/mcL (0.0-1.3); Monocytes % 9.1 %; Neutrophils # 1.3 K/mcL (1.6-8.9); Segmented Neutrophils % 46.7 %; White Blood Count 2.8 K/mcL (4.3-11.1)
[2018-12-01 09:13] LABS: Platelet Count 91 K/mcL (140-400)
[2018-12-01 09:35] LABS: BUN/Creatinine Ratio 10 (6-26); Blood Urea Nitrogen 9 mg/dL (6-20); Calcium 8.3 mg/dL (8.6-10.3); Carbon Dioxide 16 mEq/L (23-29); Chloride 117 mEq/L (98-107); Glucose 141 mg/dL (70-105); Osmolality,Calculated 285 (280-300); Potassium 3.1 mEq/L (3.5-5.1); Sodium 137 mEq/L (136-145); eGFR For African Americans > 60 (> 60); eGFR For Non-African Americans > 60 (> 60)
[2018-12-01] MEDS: FLUoxetine 20 MG CAPSULE PO SCH ×2 (09:43→19:55)
[2018-12-01] MEDS: Lactulose Oral Soln 20 GM/30 ML UDC PO SCH ×2 (09:43→19:55)
[2018-12-01] MEDS: Iron Polysaccharide Complex 150 MG CAPSULE PO SCH (09:43)
[2018-12-01 15:37] LABS: Hematocrit 22.7 % (35.3-44.9); Hemoglobin 7.5 g/dL (11.5-15.4)
--- NOTE | 2018-12-01 15:56 | Internal Med Progress Note ---
<Earl,Rick - Last Filed: 12/01/18 16:11> Hospitalist Progress Note - Encounter Date of Encounter: 12/01/18 Time of Encounter: 09:03 - Subjective Interval History: Patient was seen and examined at bedside; reports that she is feeling well. She is alert and oriented x3, and appears to be much more awake and alert than yesterday. Discharge planning is complicated by the fact that patient is currently living alone and appears to have difficulty taking care of herself. Spoke with psychiatry about assessment for capacity; since patient is now A&OX3, psychiatry recommends re-assessing patients goals of care; she had been adamant during her stay that she does not want to go to a alf facility or care home, but patients mental status was not at baseline at the time. - Exam Vitals: Temp Pulse Resp BP Pulse Ox 98.1 F 60 16 92/56 90 12/01/18 15:50 12/01/18 15:50 12/01/18 15:50 12/01/18 15:50 12/01/18 15:50 Exam: General: A&O X3, conversant, no acute distress; pale appearing Head: atraumatic, normocephalic Eye: PERRL, EOMI Neck: Supple, trachea midline; No lymphadenopathy Respiratory: CTAB. No accessory muscle use, wheezes, rales, or rhonchi Cardiovascular: RRR, +S1, +S2; no murmurs, rubs, gallops Abdomen: Soft, nontender Extremities: warm, radial pulses palpable and symmetrical Psychiatric: Normal affect, normal mood Skin: Dry, intact - Assessment and Plan (1) Hepatic encephalopathy Current Visit: Yes Status: Acute Assessment and Plan: Assessment - Initially presented with altered mental status in the setting of hyper- ammonemia in the setting of cirrhosis - Likely secondary to patient non-compliance; she had not been taking her lactulose prior to presentation - Mental status has improved over the course of her admission - Patient lives alone, has been noncompliant with her medication - She has been having trouble taking care of herself and taking medications Plan - Continue to closely monitor mental status for signs of improvement - Continue Lactulose 20 g PO BID and Rifaximin 550 mg PO BID - Propranolol 10 mg BID for esophageal varices (2) Hypokalemia Current Visit: No Status: Chronic Assessment and Plan: Assessment - Patients potassium is 3.1, up from 2.7 - Will continue PO K+ supplement 40meq PO TID - PRN IV supplementation - Continuous telemetry - Will consider nephrology consult if hypokalemia significantly worsens (3) Anemia Current Visit: No Status: Chronic Assessment and Plan: Assessment - History of chronic anemia per chart review; baseline approximately 8-9 - Hgb this morning was 7.1; subsequent Hgb in the afternoon was 7.5 Plan - Continue to monitor for signs of bleeding - Continue iron supplementation - Repeat AM labs - EPCD for DVT prophylaxis (4) Renal tubular acidosis type I Current Visit: Yes Status: Chronic Assessment and Plan: - Patient has a known diagnosis of RTA Type I; likely a contributing factor to her hypokalemia - Continue sodium bicarbonate 1300 mg TID (5) Sjogrens syndrome Current Visit: Yes Status: Chronic Assessment and Plan: - Chronic DVT Prophylaxis: - EPCDs - Time Spent with Patient Total time spent is greater than 50% in coordination of care (as documented) at patient's floor/unit and/or counseling patient: Internal Medicine: Result - Labs CBC & Chem 7: 12/01/18 15:14 12/01/18 08:58 Labs: Short CBC 12/01/18 12/01/18 Range/Units 08:58 15:14 WBC 2.8 L (4.3-11.1) K/mcL Hgb 7.1 L 7.5 L (11.5-15.4) g/dL Hct 21.3 L 22.7 L (35.3-44.9) % Plt Count 91 L (140-400) K/mcL Neutrophils # 1.3 L (1.6-8.9) K/mcL BMP 12/01/18 08:58 Sodium 137 Potassium 3.1 L Chloride 117 H Carbon Dioxide 16 L BUN 9 Creatinine 0.92 Glucose 141 H Calcium 8.3 L Urine 11/30/18 Range/Units 20:20 Urine Color Yellow (Yellow) Urine Clarity Cloudy A (Clear) Urine pH 7.0 (5.0-8.0) pH Units Ur Specific [place] 1.011 (1.010-1.025) Urine Protein Trace (Neg-Trace) mg/dL Urine Glucose (UA) Normal (Normal) mg/dL - ABG Interpretation ABG results: PT/INR, D-dimer PT 14.4 Seconds (9.4-12.1) H 11/26/18 00:40 Consult Discharge Plan - Plan Referrals: NONE,PCP [Primary Care Provider] - <Alejo Pendleton - Last Filed: 12/01/18 17:10> Hospitalist Progress Note - Encounter Date of Encounter: 12/01/18 - Exam Vitals: Temp Pulse Resp BP Pulse Ox 98.1 F 60 16 92/56 90 12/01/18 15:50 12/01/18 15:50 12/01/18 15:50 12/01/18 15:50 12/01/18 15:50 - Assessment and Plan (1) Hepatic encephalopathy Current Visit: Yes Status: Acute (2) Hyperammonemia Current Visit: Yes Status: Acute (3) Hypokalemia Current Visit: Yes Status: Acute (4) Anemia Current Visit: Yes Status: Chronic (5) Renal tubular acidosis type I Current Visit: Yes Status: Chronic (6) Sjogrens syndrome Current Visit: Yes Status: Chronic (7) HTN (hypertension) Current Visit: Yes Status: Chronic - Time Spent with Patient Total time spent is greater than 50% in coordination of care (as documented) at patient's floor/unit and/or counseling patient: Internal Medicine: Result - Labs CBC & Chem 7: 12/01/18 15:14 12/01/18 08:58 Labs: Short CBC 12/01/18 12/01/18 Range/Units 08:58 15:14 WBC 2.8 L (4.3-11.1) K/mcL Hgb 7.1 L 7.5 L (11.5-15.4) g/dL Hct 21.3 L 22.7 L (35.3-44.9) % Plt Count 91 L (140-400) K/mcL Neutrophils # 1.3 L (1.6-8.9) K/mcL BMP 12/01/18 08:58 Sodium 137 Potassium 3.1 L Chloride 117 H Carbon Dioxide 16 L BUN 9 Creatinine 0.92 Glucose 141 H Calcium 8.3 L Urine 11/30/18 Range/Units 20:20 Urine Color Yellow (Yellow) Urine Clarity Cloudy A (Clear) Urine pH 7.0 (5.0-8.0) pH Units Ur Specific [place] 1.011 (1.010-1.025) Urine Protein Trace (Neg-Trace) mg/dL Urine Glucose (UA) Normal (Normal) mg/dL - ABG Interpretation ABG results: PT/INR, D-dimer PT 14.4 Seconds (9.4-12.1) H 11/26/18 00:40 - Attending Attestation I saw evaluated and examined this patient and reviewed objective data including labs and my medical decision-making was reviewed with the Resident Physician. I agree with the documented findings, disposition and treatment plan as described except to any changes set forth below. We independently had [id number] contact with the patient. No acute events. Patient mental status improved. States she would like to go home. VS: reviewed, stable. Physical exam: AAO x3, aware of situation, CVS :R RR, lungs CTAB, Neuro: no focal deficits. Labs: reviewed; potassium improved to 3.1 today. Continue current care. Patient appears back to baseline mental status after my interview with her. She continued to decline SNF and even HHC. This places patient at high risk for return due to medication compliance difficulties at home. Follow up anemia labs today and in AM. Anticipate can possibly DC tomorrow. Ideally to SNF if patient agreeable. __ <Rick Elliott - Last Filed: 12/01/18 16:11> (3) Anemia Qualifiers: Anemia type: unspecified type Qualified Code(s): D64.9 - Anemia, unspecified (5) Sjogrens syndrome Qualifiers: Sjogren's organ involvement: unspecified organ involvement Qualified Code(s): M35.00 - Sicca syndrome, unspecified <Alejo Pendleton - Last Filed: 12/01/18 17:10> (4) Anemia Qualifiers: Anemia type: unspecified type Qualified Code(s): D64.9 - Anemia, unspecified (6) Sjogrens syndrome Qualifiers: Sjogren's organ involvement: unspecified organ involvement Qualified Code(s): M35.00 - Sicca syndrome, unspecified (7) HTN (hypertension) Qualifiers: Hypertension type: essential hypertension Qualified Code(s): I10 - Essential (primary) hypertension
[2018-12-02 07:59] LABS: Basophils % 0.3 %; Eosinophils # 0.1 K/mcL (0.0-0.6); Eosinophils % 3.4 %; Hematocrit 23.6 % (35.3-44.9); Hemoglobin 7.8 g/dL (11.5-15.4); Immature Granulocytes % 0.3 % (0-4); Lymphocytes # 1.3 K/mcL (0.6-4.6); Lymphocytes % 34.4 %; Mean Corpuscular HGB Conc 33.1 g/dL (31.6-35.5); Mean Corpuscular Hemoglobin 29.8 pg (28.0-33.3); Mean Corpuscular Volume 90.1 fL (83.0-100.0); Mean Platelet Volume 10.9 fL (9.4-12.4); Monocytes # 0.3 K/mcL (0.0-1.3); Monocytes % 8.2 %; Platelet Count 104 K/mcL (140-400); Red Blood Count 2.62 M/mcL (3.82-4.97); Red Cell Distribution Width 19.4 % (11.5-14.5); Segmented Neutrophils % 53.4 %; White Blood Count 3.8 K/mcL (4.3-11.1)
[2018-12-02 08:04] VITALS: BP 95/59
--- NOTE | 2018-12-02 08:08 | Discharge Summary ---
<Rick Elliott - Last Filed: 12/02/18 14:33> Orders not resulted at time of discharge: Pending orders 11/30/18 16:24 Culture,Blood [BC] Routine 11/30/18 20:20 Culture,Urine [RM] Routine Date of Encounter: 12/02/18 Time of Encounter: 09:23 - Discharge Diagnosis (1) Hepatic encephalopathy Priority: Primary Status: Acute (2) Hypokalemia Priority: Secondary Status: Chronic (3) Anemia Priority: Secondary Status: Chronic Qualifiers: Anemia type: unspecified type Qualified Code(s): D64.9 - Anemia, unspecified (4) Renal tubular acidosis type I Priority: Secondary Status: Chronic (5) Sjogrens syndrome Priority: Secondary Status: Chronic Qualifiers: Sjogren's organ involvement: unspecified organ involvement Qualified Code(s): M35.00 - Sicca syndrome, unspecified Hospital course: Ms. Ching is a 53 year old female with a PMH of arthritis, CAD, HTN, cirrhosis, recurrent hepatic encephalopathy, and renal tubular acidosis. She presented to [facility] ED on 11/26/18 with altered mental status. Her daughter reported that she had been noncompliant with her medications for 2-3 days leading up to admission. Vital signs in the ED demonstrated elevated blood pressure 160/85. Labs showed a low potassium of 2.4, and ammonia level of 255, and hemoglobin of 9. UDS was positive for opiates and buprenorphine. CT of the head demonstrated paranasal sinusitis. CT scan of the abdomen and pelvis showed cirrhotic liver morphology, trace hepatic ascites, and non-obstructive right nephrolithiasis. She was started on 20 g of oral lactulose and potassium supplementation. After admission, patient was still confused and remained hypokalemic. She was given lactulose enemas due to the inability to tolerate oral lactulose. Her mental status gradually improved during admission, and she was eventually switched to oral lactulose. Her potassium remained low despite supplementation, and her replacement was switched to 3 times daily. In addition, her bicarbonate for the treatment of her renal tubular acidosis was increased from 650 mg to 1300 mg. She was noted to be anemic during her stay in the hospital, but her hemoglobin was stable. Urinalysis was performed, which demonstrated large amount of leukocyte esterase and TNTC WBCs. She will be sent home on Omnicef for this. Her mental status gradually improved, and she went from being very drowsy and oriented only to person to being alert and oriented 3. Due to patients recurrent admissions, a psychiatry evaluation was considered for capacity assessment. Psychiatry was called, who recommended reassessing patients goals of care once she is alert and oriented 3. We spoke to patient about the possibility of SNF, which she adamantly refused. However, she is agreeable to home health. She was seen and examined at bedside on date of discharge. She states that she is feeling well today. She is alert and oriented 3 and appears much better than she did earlier in the week. The importance of taking her home medications and being compliant was reiterated to the patient, which she states that she understood. - Time Spent with Patient Total time spent providing and/or coordinating discharge services: - Discharge Medications Prescriptions: New Cefdinir [Omnicef] 300 mg PO BID #10 capsule Sodium Bicarbonate 1,300 mg PO TID #90 tablet Rifaximin [Xifaxan] 550 mg PO BID #60 tablet Continued Zolpidem [Ambien] 5 mg PO HS PRN PRN Reason: Sleep Quetiapine Fumarate [Seroquel] 100 mg PO QAM FLUoxetine HCl [Fluoxetine HCl] 40 mg PO BID hydrOXYzine HCl [Hydroxyzine HCl] 25 mg PO Q48H PRN PRN Reason: Anxiety aMILoride [Midamor] 5 mg PO QAM Iron Polysaccharide Complex [Ferrex 150] 150 mg PO DAILY HYDROcodone/Acet 10/325 mg [[place] 10-325 mg] 1 tab PO Q6H PRN PRN Reason: Pain Propranolol [Inderal] 10 mg PO BID Quetiapine Fumarate [Seroquel] 150 mg PO HS Lactulose 20 gm PO QID PRN PRN Reason: Constipation Potassium Citrate [Urocit-K] 20 meq PO BID Discontinued Sodium Bicarbonate 650 mg PO TID Home Medications: Zolpidem [Ambien] 5 mg PO HS PRN 06/28/15 [History] FLUoxetine HCl [Fluoxetine HCl] 40 mg PO BID 01/02/17 [History] Quetiapine Fumarate [Seroquel] 100 mg PO QAM 01/02/17 [History] hydrOXYzine HCl [Hydroxyzine HCl] 25 mg PO Q48H PRN 05/25/17 [History] Iron Polysaccharide Complex [Ferrex 150] 150 mg PO DAILY 07/10/18 [History] aMILoride [Midamor] 5 mg PO QAM 07/10/18 [History] HYDROcodone/Acet 10/325 mg [[place] 10-325 mg] 1 tab PO Q6H PRN 07/11/18 [History] Propranolol [Inderal] 10 mg PO BID 07/11/18 [History] Quetiapine Fumarate [Seroquel] 150 mg PO HS 07/11/18 [History] Lactulose 20 gm PO QID PRN 08/28/18 [History] Potassium Citrate [Urocit-K] 20 meq PO BID 08/28/18 [History] Cefdinir [Omnicef] 300 mg PO BID #10 capsule 12/02/18 [Rx] Rifaximin [Xifaxan] 550 mg PO BID #60 tablet 12/02/18 [Rx] Sodium Bicarbonate 1,300 mg PO TID #90 tablet 12/02/18 [Rx] Allergies/Adverse Reactions: Allergy/AdvReac Type Severity Reaction Status Date / Time tramadol AdvReac Seizure Verified 08/28/18 10:21 Date of admission: 11/28/18 16:26 Primary care physician: PCP NONE Consults: 11/26/18 05:56 Consult to Manager Business Continuity [CONS] Routine Reason for SW Consult: Discharge planning. Discharging clinician: Rick Elliott Anticipated date of discharge: 12/02/18 - Constitutional Vitals: Temp Pulse Resp BP Pulse Ox 98.6 F 68 16 95/59 98 12/02/18 08:01 12/02/18 08:01 12/02/18 08:01 12/02/18 08:01 12/02/18 08:01 General appearance: Present: A&O X 1, disheveled, no acute distress Exam: General: A&O X3, conversant, no acute distress; pale appearing Head: atraumatic, normocephalic Eye: PERRL, EOMI Neck: Supple, trachea midline; No lymphadenopathy Respiratory: CTAB. No accessory muscle use, wheezes, rales, or rhonchi Cardiovascular: RRR, +S1, +S2; no murmurs, rubs, gallops Abdomen: Soft, nontender Extremities: warm, radial pulses palpable and symmetrical Psychiatric: Normal affect, normal mood Skin: Dry, intact - Patient Status Disposition: Home, Self-Care Condition: Fair - Discharge Instructions Instructions: Urinary Tract Infection in Women (DC), Altered Mental Status (GEN) Follow Up With: Chio Keating CNP [Advanced Practice Nurse] - 12/10/18 9:00 am (please follow up as shcedule) NONE,PCP [Primary Care Provider] - - Diet and Activity Activity: increase activity as tolerated Diet: advance to your usual diet <Alejo Pendleton - Last Filed: 12/02/18 15:07> Orders not resulted at time of discharge: Pending orders 11/30/18 16:24 Culture,Blood [BC] Routine Date of Encounter: 12/02/18 - Discharge Diagnosis (1) Hepatic encephalopathy Status: Acute (2) Hyperammonemia Status: Acute (3) Hypokalemia Status: Acute (4) Anemia Status: Chronic Qualifiers: Anemia type: unspecified type Qualified Code(s): D64.9 - Anemia, unspecified (5) Renal tubular acidosis type I Status: Chronic (6) Sjogrens syndrome Status: Chronic Qualifiers: Sjogren's organ involvement: unspecified organ involvement Qualified Code(s): M35.00 - Sicca syndrome, unspecified (7) HTN (hypertension) Status: Chronic Qualifiers: Hypertension type: essential hypertension Qualified Code(s): I10 - Essential (primary) hypertension Hospital course: Ms. Ching is a 53 year old female - Time Spent with Patient Total time spent providing and/or coordinating discharge services: Date of admission: 11/28/18 16:26 Primary care physician: PCP NONE Consults: 11/26/18 05:56 Consult to Manager Business Continuity [CONS] Routine Reason for SW Consult: Discharge planning. - Constitutional Vitals: Temp Pulse Resp BP Pulse Ox 98.6 F 68 16 95/59 98 12/02/18 08:01 12/02/18 08:01 12/02/18 08:01 12/02/18 08:01 12/02/18 08:01 - Attending Attestation I saw evaluated and examined this patient and reviewed objective data including labs and my medical decision-making was reviewed with the Resident Physician. I agree with the documented findings, disposition and treatment plan as described except to any changes set forth below. We independently had [id number] contact with the patient. 53 year old female with history of cirrhosis and RTA presented with altered mental status. Patient had elevated ammonia levels and presentation consistent with hepatic encephalopathy. She was started on lactulose which she takes at home, and rifaxamin was added. She had urinalysis findings consistent with UTI and started on antibiotics. There is concern that patient is unable to care for herself at home. PT/OT evaluated patient and recommended SNF, but patient declined. We did recommend that she be placed. She does exhibit decision ry ing capacity on assessment. She is agreeable to [facility], which will be rearranged as well as a prescription for rifaxamin.
[2018-12-02 08:20] LABS: Blood Urea Nitrogen 8 mg/dL (6-20); Calcium 8.3 mg/dL (8.6-10.3); Carbon Dioxide 17 mEq/L (23-29); Chloride 114 mEq/L (98-107); Glucose 80 mg/dL (70-105); Osmolality,Calculated 279 (280-300); Potassium 3.6 mEq/L (3.5-5.1); Sodium 136 mEq/L (136-145)
[2018-12-02] MEDS: Lactulose Oral Soln 20 GM/30 ML UDC PO SCH (08:21)
[2018-12-02] MEDS: Iron Polysaccharide Complex 150 MG CAPSULE PO SCH (08:21)
[2018-12-02] MEDS: FLUoxetine 20 MG CAPSULE PO SCH (08:22)
[2018-12-02] MEDS ORDERED: cefTRIAXone 1,000 MG in Water for inj. (sterile) 10 ML IVP SCH (08:35)
[2018-12-02] MEDS ORDERED: cefTRIAXone 1,000 MG in 0.9 % Sodium Chloride Mini Bag 100 ML IVPB SCH (09:00)
[2018-12-02 10:36] LABS: BUN/Creatinine Ratio 9 (6-26); eGFR For African Americans > 60 (> 60); eGFR For Non-African Americans > 60 (> 60)
--- NOTE | 2018-12-02 11:38 | Physician Discharge Referral ---
Home Health/Hosp Referral Info Transfer to: Home Health Provider in Charge Post Discharge: PCP - Diagnosis (1) Hepatic encephalopathy Priority: Primary Status: Acute (2) Hypokalemia Priority: Secondary Status: Chronic (3) Anemia Priority: Secondary Status: Chronic (4) Renal tubular acidosis type I Priority: Secondary Status: Chronic (5) Sjogrens syndrome Priority: Secondary Status: Chronic - Respiratory Orders Smoking Cessation: Smoking cessation has been advised. For more information, call the [place] Tobacco Quit Line at 3-149-ZILT-NOW. - Diet/Nutrition Diet/Nutrition Orders: Regular - Activity Activity Orders: Ambulate - Services Needed Following services are medically necessary services: Home Health Aide - Transfer Medications Prescriptions: Cefdinir [Omnicef] 300 mg PO BID #10 capsule Prescription Printed Sodium Bicarbonate 1,300 mg PO TID #90 tablet Prescription Printed Rifaximin [Xifaxan] 550 mg PO BID #60 tablet Prescription Printed Home Medications: Zolpidem [Ambien] 5 mg PO HS PRN 06/28/15 [History] FLUoxetine HCl [Fluoxetine HCl] 40 mg PO BID 01/02/17 [History] Quetiapine Fumarate [Seroquel] 100 mg PO QAM 01/02/17 [History] hydrOXYzine HCl [Hydroxyzine HCl] 25 mg PO Q48H PRN 05/25/17 [History] Iron Polysaccharide Complex [Ferrex 150] 150 mg PO DAILY 07/10/18 [History] aMILoride [Midamor] 5 mg PO QAM 07/10/18 [History] HYDROcodone/Acet 10/325 mg [[place] 10-325 mg] 1 tab PO Q6H PRN 07/11/18 [History] Propranolol [Inderal] 10 mg PO BID 07/11/18 [History] Quetiapine Fumarate [Seroquel] 150 mg PO HS 07/11/18 [History] Lactulose 20 gm PO QID PRN 08/28/18 [History] Potassium Citrate [Urocit-K] 20 meq PO BID 08/28/18 [History] Cefdinir [Omnicef] 300 mg PO BID #10 capsule 12/02/18 [Rx] Rifaximin [Xifaxan] 550 mg PO BID #60 tablet 12/02/18 [Rx] Sodium Bicarbonate 1,300 mg PO TID #90 tablet 12/02/18 [Rx] Allergies/Adverse Reactions: Allergy/AdvReac Type Severity Reaction Status Date / Time tramadol AdvReac Seizure Verified 08/28/18 10:21 Certification: Further, I certify that my clinical findings support that this patient is homeb ound (i.e. absences from home require considerable and taxing effort and are for medical reasons or zoroastrian services or infrequently or short duration when for other reasons) because: Homebound Reason: Patient requires assistance of a person or device to safely leave home Attestation: My signature below is to certify that this patient is under my care and that I, or nurse practitioner, or a physician's library services assistant working with me, has a [id number] encounter with this patient.
== END 2018-12-02 11:16 | disposition home or self-care (01) | DRG 441 ==
LOC: EMEROOARM 00:22 → 2ANU 00:22 → SUATTDRO 11-28 16:26
PROVIDERS: ADMIT Internal Medicine; ATTEND Student in an Organized Health Care Education/Training Program